=== PATIENT | female | born 1960 | race Caucasian/White ===

== ENCOUNTER → 2016-09-20 | Outpatient (CLI) | payer MEDICARE | LOC: OD 16:56 | PROVIDERS: ATTEND Obstetrics & Gynecology | DX: J84.10 Pulmonary fibrosis, unspecified (principal); I27.2 Other secondary pulmonary hypertension; I50.9 Heart failure, unspecified; M79.661 Pain in right lower leg | CPT/HCPCS: 36415; 83880; 85379 ==

== ENCOUNTER 2016-10-03 09:08 | Emergency (ER) | payer MEDICARE ==
[2016-10-03 10:46] LABS: PROTHROMBIN TIME 24.2 SEC (11.4-15.4)
[2016-10-03 10:47] LABS: HEMATOCRIT 33.4 % (36.0-47.0); HEMOGLOBIN 10.8 g/dL (12.0-15.5); MEAN CORPUSCULAR HEMOGLOBIN 26.7 pg (27.0-33.4); MEAN CORPUSCULAR HGB CONC 32.2 g/dL (32.0-36.0); MEAN CORPUSCULAR VOLUME 83 fl (80-97); RED BLOOD COUNT 4.02 10^6/uL (3.72-5.28); RED CELL DISTRIBUTION WIDTH 18.8 % (11.5-14.0); WHITE BLOOD COUNT 4.6 10^3/uL (4.0-10.5)
[2016-10-03 11:08] LABS: ALANINE AMINOTRANSFERASE 38 U/L (9-52); ALBUMIN 2.2 g/dL (3.5-5.0); ALKALINE PHOSPHATASE 62 U/L (38-126); ASPARTATE AMINO TRANSFERASE 56 U/L (14-36); BILIRUBIN,TOTAL 0.3 mg/dL (0.2-1.3); BLOOD UREA NITROGEN 22 mg/dL (7-20); CHLORIDE 105 mmol/L (98-107); CREATININE RESULT 0.47 mg/dL (0.52-1.25); GLUCOSE 101 mg/dL (75-110); TOTAL PROTEIN 4.8 g/dL (6.3-8.2)
--- NOTE | 2016-10-03 11:08 | ER Document Report ---
ED General - General Chief Complaint: Hand Swelling Stated Complaint: LEFT ARM PAIN, DIFFICULTY BREATHING Mode of Arrival: Ambulatory Information source: Patient Notes: 56-year-old female history of previous pulmonary emboli secondary to surgery who was placed on Coumadin for mechanical valve presents with complaints of left upper extremity edema was noticed today. Patient denies any chest pain shortness breath difficult to breathing. Patient has history of tachycardia. Patient denies any pain in the left arm pt notes inr has been below 2.5 TRAVEL OUTSIDE OF THE [place] IN LAST 30 DAYS: No - HPI Onset: This morning Onset/Duration: Persistent, Better Quality of pain: No pain Severity: Mild Pain Level: Denies Associated symptoms: None Exacerbated by: Denies Relieved by: Denies Similar symptoms previously: No Recently seen / treated by doctor: No - Related Data Allergies/Adverse Reactions: ketorolac tromethamine [From Toradol] Allergy (Unknown, Verified 10/03/16 09:21) clarithromycin [From Biaxin] Allergy (Verified 10/03/16 09:21) acetaminophen [From Percocet] Adverse Reaction (Intermediate, Verified 10/03/16 09:21) morphine [Morphine] Adverse Reaction (Intermediate, Verified 10/03/16 09:21) oxycodone HCl [From Percocet] Adverse Reaction (Intermediate, Verified 10/03/16 09:21) Past Medical History - Social History Smoking Status: Never Smoker Cigarette use (# per day): No Chew tobacco use (# tins/day): No Smoking Education Provided: No Frequency of alcohol use: None Drug Abuse: None Family History: None Patient has suicidal ideation: No Patient has homicidal ideation: No - Past Medical History Cardiac Medical History: Reports: Hx Hypertension, Hx Pulmonary Embolism Denies: Hx Heart Attack Pulmonary Medical History: Reports: Hx Asthma Neurological Medical History: Denies: Hx Cerebrovascular Accident Endocrine Medical History: Reports: Hx Hypothyroidism Renal/ Medical History: Denies: Hx Peritoneal Dialysis Malignancy Medical History: Reports: Hx Lymphoma - Hodgkin's Past Surgical History: Reports: Hx Abdominal Surgery - EXPLORATORY, Hx Cardiac Surgery - Valve replacement x2, Hx Hysterectomy, Hx Valve Replacement - Mitral and aortic - Immunizations Hx Diphtheria, Pertussis, Tetanus Vaccination: Yes Hx Pneumococcal Vaccination: 09/17/10 Review of Systems - Review of Systems Notes: REVIEW OF SYSTEMS: CONSTITUTIONAL : Denies fever, chills, or sweats. Denies recent illness. EENT: Denies eye, ear, throat, or mouth pain or symptoms. Denies nasal or sinus congestion or discharge. Denies throat, tongue, or mouth swelling or difficulty swallowing. CARDIOVASCULAR: Denies chest pain. Denies palpitations or racing or irregular heart beat. Denies ankle edema. RESPIRATORY: Denies cough, cold, or chest congestion. Denies shortness of breath, difficulty breathing, or wheezing. GASTROINTESTINAL: Denies abdominal pain or distention. Denies nausea, vomiting , or diarrhea. Denies blood in vomitus, stools, or per rectum. Denies black, tarry stools. Denies constipation. GENITOURINARY: Denies difficulty urinating, painful urination, burning, frequency, blood in urine, or discharge. FEMALE GENITOURINARY: Denies vaginal bleeding, heavy or abnormal periods, irregular periods. Denies vaginal discharge or odor. MUSCULOSKELETAL: left upper extremity edema SKIN: Denies rash, lesions or sores. HEMATOLOGIC : Denies easy bruising or bleeding. LYMPHATIC: Denies swollen, enlarged glands. NEUROLOGICAL: Denies confusion or altered mental status. Denies passing out or loss of consciousness. Denies dizziness or lightheadedness. Denies headache. Denies weakness or paralysis or loss of use of either side. Denies problems with gait or speech. Denies sensory loss, numbness, or tingling. Denies seizures. PSYCHIATRIC: Denies anxiety or stress. Denies depression, suicidal ideation, or homicidal ideation. ALL OTHER SYSTEMS REVIEWED AND NEGATIVE. Dictation was performed using [employer] voice recognition software PHYSICAL EXAMINATION: GENERAL: Well-appearing, well-nourished and in no acute distress. HEAD: Atraumatic, normocephalic. EYES: Pupils equal round and reactive to light, extraocular movements intact, conjunctiva are normal. ENT: Nares patent, oropharynx clear without exudates. Moist mucous membranes. NECK: Normal range of motion, supple without lymphadenopathy LUNGS: Breath sounds clear to auscultation bilaterally and equal. No wheezes rales or rhonchi. HEART: baseline sinus tachycardic ABDOMEN: Soft, nontender, nondistended abdomen. No guarding, no rebound. No masses appreciated. Female : deferred Musculoskeletal: no significant edema noted NEUROLOGICAL: Cranial nerves grossly intact. Normal speech, normal gait. Normal sensory, motor exams PSYCH: Normal mood, normal affect. SKIN: Warm, Dry, normal turgor, no rashes or lesions noted. Physical Exam - Vital signs Vitals: Temp Pulse Resp BP Pulse Ox 97.8 F 99 22 H 118/54 L 95 10/03/16 09:21 10/03/16 09:21 10/03/16 09:21 10/03/16 09:21 10/03/16 09:21 Course - Re-evaluation Re-evalutation: 10/03/16 11:08 Patient admits that her edema has improved significantly, Doppler will be performed as well as an x-ray to rule out any obstructive process to me because of an upper extremity edema. Patient admits she is not taking her Lasix today 10/03/16 12:26 Imagingno significant abnormality except for fluid overload which patient is aware of, have encouraged her to increase her Lasix as long as her blood pressure stable. Patient is very happy with this plan After performing a Medical Screening Examination, I estimate there is LOW risk for ACUTE CORONARY SYNDROME, RESPIRATORY FAILURE, SEPSIS OR MENINGITIS, thus I consider the discharge disposition reasonable. The patient and I have discussed the diagnosis and risks, and we agree with discharging home with close follow- up. We also discussed returning to the Emergency Department immediately if new or worsening symptoms occur. We have discussed the symptoms which are most concerning (e.g., changing or worsening pain, trouble swallowing or breathing, neck stiffness, fever) that necessitate immediate return. - Vital Signs Vital signs: Temp Pulse Resp BP Pulse Ox 97.8 F 99 22 H 118/54 L 95 10/03/16 09:21 10/03/16 09:21 10/03/16 09:21 10/03/16 09:21 10/03/16 09:21 - Laboratory Result Diagrams: 10/03/16 10:20 10/03/16 10:20 Laboratory results interpreted by me: 10/03/16 10/03/16 10/03/16 10:20 10:20 10:20 Hgb 10.8 L Hct 33.4 L MCH 26.7 L RDW 18.8 H Basophils % (Manual) 3 H PT 24.2 H Carbon Dioxide 33 H Anion Gap 1 L BUN 22 H Creatinine 0.47 L Calcium 8.0 L AST 56 H Total Protein 4.8 L Albumin 2.2 L - Diagnostic Test Radiology reviewed: Image reviewed, Reports reviewed Discharge - Discharge Clinical Impression: left upper extremities edema CHF (congestive heart failure) Qualifiers: Congestive heart failure type: unspecified congestive heart failure type Congestive heart failure chronicity: acute Qualified Code(s): I50.9 - Heart failure, unspecified Condition: Stable Disposition: HOME, SELF-CARE Additional Instructions: Follow up with your physician tomorrow for further care or return to the ED IMMEDIATELY if symptoms worsen or new concerns occur Referrals: JAMMIE ALMAGUER MD [Primary Care Provider] - Follow up in 3-5 days
[2016-10-03 11:14] LABS: BASOPHILS % (MANUAL) 3 % (0-2); EOSINOPHILS % (MANUAL) 2 % (0-6); LYMPHOCYTES % (MANUAL) 15 % (13-45); TOTAL CELLS COUNTED 100
[2016-10-03 11:15] LABS: CARBON DIOXIDE 33 mmol/L (22-30); POTASSIUM 4.1 mmol/L (3.6-5.0); SODIUM 138.9 mmol/L (137-145)
[2016-10-03 11:17] LABS: ANISOCYTOSIS 1+; HYPOCHROMASIA SLIGHT; OVALOCYTES 1+; POIKILOCYTOSIS 2+; POLYCHROMASIA SLIGHT; SCHISTOCYTES 1+; TARGET CELLS SLIGHT
[2016-10-03 11:20] LABS: ANION GAP 1 (5-19)
[2016-10-03 12:38] VITALS: BP 106/55
--- NOTE | 2016-10-03 16:33 | EKG REPORT ---
SEVERITY:- ABNORMAL ECG - ATRIAL-SENSED VENTRICULAR-PACED RHYTHM : Confirmed by: Yohan Rhodes MD 03-Oct-2016 16:32:17
== END 2016-10-03 12:36 | disposition home or self-care (01) ==
LOC: ER 09:08
DX: M79.89 Other specified soft tissue disorders (principal); R06.00 Dyspnea, unspecified; I10 Essential (primary) hypertension; Z88.6 Allergy status to analgesic agent; Z86.711 Personal history of pulmonary embolism; Z95.2 Presence of prosthetic heart valve
CPT/HCPCS: 36415; 71020; 80053; 85025; 85610; 93005; 93010; 93971; 99284

== ENCOUNTER 2016-10-21 18:17 | Inpatient (IN) | payer MEDICARE ==
--- NOTE | 2016-10-21 18:37 | ER Document Report ---
ED Medical Screen (RME) - General Stated Complaint: HEART PROBLEM Notes: Patient presents with difficulty breathing and shortness of breath since yesterday. Patient concerned for heart problems because she does have 2 mechanical valves, although she denies chest pain. She is unable to keep Levaquin down for 2 doses that she keeps on hand in case she gets bronchitis. She does admit to nonproductive cough and nasal drainage. States she thinks she had a fever I have greeted and performed a rapid initial assessment of this patient. A comprehensive ED assessment and evaluation of the patient, analysis of test results and completion of the medical decision making process will be conducted by additional ED providers.. TRAVEL OUTSIDE OF THE [place] IN LAST 30 DAYS: No - Related Data Allergies/Adverse Reactions: ketorolac tromethamine [From Toradol] Allergy (Unknown, Verified 10/21/16 18:30) clarithromycin [From Biaxin] Allergy (Verified 10/21/16 18:30) acetaminophen [From Percocet] Adverse Reaction (Intermediate, Verified 10/21/16 18:30) morphine [Morphine] Adverse Reaction (Intermediate, Verified 10/21/16 18:30) oxycodone HCl [From Percocet] Adverse Reaction (Intermediate, Verified 10/21/16 18:30) Past Medical History - Past Medical History Cardiac Medical History: Reports: Hx Hypertension, Hx Pulmonary Embolism Denies: Hx Heart Attack Pulmonary Medical History: Reports: Hx Asthma Neurological Medical History: Denies: Hx Cerebrovascular Accident Endocrine Medical History: Reports: Hx Hypothyroidism Renal/ Medical History: Denies: Hx Peritoneal Dialysis Malignancy Medical History: Reports: Hx Lymphoma - Hodgkin's Past Surgical History: Reports: Hx Abdominal Surgery - EXPLORATORY, Hx Cardiac Surgery - Valve replacement x2, Hx Hysterectomy, Hx Valve Replacement - Mitral and aortic - Immunizations Hx Diphtheria, Pertussis, Tetanus Vaccination: Yes
[2016-10-21 19:20] LABS: ABSOLUTE BASOPHILS # (AUTO) 0.1 10^3/uL (0.0-0.2); ABSOLUTE LYMPHOCYTES (AUTO) 0.8 10^3/uL (0.5-4.7); ABSOLUTE MONOCYTES (AUTO) 0.7 10^3/uL (0.1-1.4); BASOPHILS % (AUTO) 0.7 % (0-2); EOSINOPHILS % (AUTO) 0.5 % (0-6); HEMATOCRIT 33.6 % (36.0-47.0); HEMOGLOBIN 10.8 g/dL (12.0-15.5); HGB HCT DIFFERENCE -1.2; LYMPHOCYTES % (AUTO) 10.4 % (13-45); MEAN CORPUSCULAR HEMOGLOBIN 26.4 pg (27.0-33.4); MEAN CORPUSCULAR HGB CONC 32.2 g/dL (32.0-36.0); MEAN CORPUSCULAR VOLUME 82 fl (80-97); MONOCYTES % (AUTO) 8.7 % (3-13); RED BLOOD COUNT 4.11 10^6/uL (3.72-5.28); RED CELL DISTRIBUTION WIDTH 18.7 % (11.5-14.0); SEGMENTED NEUTROPHILS % (AUTO) 79.7 % (42-78); WHITE BLOOD COUNT 7.5 10^3/uL (4.0-10.5)
--- NOTE | 2016-10-21 19:25 | ER Document Report ---
ED Respiratory Problem - General Chief Complaint: Breathing Difficulty Stated Complaint: HEART PROBLEM Time seen by provider: 19:20 Mode of Arrival: Ambulatory Information source: Patient Notes: 56-year-old female presents to ED for difficulty breathing shortness of breath since yesterday patient has 2 mechanical valves the aortic and mitral and a pacemaker. She denies any chest pain at this time. She states she has rhinorrhea, sore throat, and cough and took Levaquin yesterday kept it down this today at around lunchtime she took a second dose into it up for her bronchitis that she has frequently. TRAVEL OUTSIDE OF THE [place] IN LAST 30 DAYS: No - HPI Patient complains to provider of: Cough, Short of breath Onset: Other - 2 days Duration: Continuous Initiating Event: URI, Other - Has history of to mechanical valve heart and pacemaker Quality of pain: No pain Severity: None Pain Level: Denies Context: Other - Pacemaker with 2 mechanical valves aortic and mitral Short of Breath: Moderate Cough: Nonproductive Sputum amount: None At home treatment: Bronchodilators Associated symptoms: Cough, PND, Runny nose, Short of breath Similar symptoms previously: Yes Recently seen / treated by doctor: No - Related Data Allergies/Adverse Reactions: ketorolac tromethamine [From Toradol] Allergy (Unknown, Verified 10/21/16 18:30) clarithromycin [From Biaxin] Allergy (Verified 10/21/16 18:30) acetaminophen [From Percocet] Adverse Reaction (Intermediate, Verified 10/21/16 18:30) morphine [Morphine] Adverse Reaction (Intermediate, Verified 10/21/16 18:30) oxycodone HCl [From Percocet] Adverse Reaction (Intermediate, Verified 10/21/16 18:30) Home Medications: Current Home Medications Calcium Carb/D3/Magnesium/Zinc [Kimo Mag Zinc + D Tablet] 1 tab PO DAILY [History] Cholecalciferol (Vitamin D3) [Vitamin D3] 10,000 unit PO Q2D 10/21/16 [History] Fluticasone/Salmeterol [Advair 250-50 Diskus 28 dose] 1 inh IH DAILY 10/21/16 [ History] Furosemide [Furosemide] 1 tab PO DAILY 10/21/16 [History] Levalbuterol Tartrate [Xopenex Hfa] 1 dose NEB PRN PRN 10/21/16 [History] Levothyroxine Sodium [Synthroid] 1 tab PO DAILY 10/21/16 [History] Rosuvastatin Calcium [Crestor 10 mg Tablet] 10 mg PO QHS 10/21/16 [History] Spironolactone 25 mg PO PRN PRN 10/21/16 [History] Tramadol HCl [Tramadol HCl] 0.5 - 1 tab PO PRN PRN 10/21/16 [History] Warfarin Sodium [Coumadin] 9 mg PO Q2D 10/21/16 [History] Past Medical History - General Information source: Patient - Social History Smoking Status: Unknown if Ever Smoked Chew tobacco use (# tins/day): No Frequency of alcohol use: None Drug Abuse: None Occupation: none Lives with: Family Family History: Arthritis, Malignancy, Thyroid Disfunction Patient has suicidal ideation: No Patient has homicidal ideation: No - Past Medical History Cardiac Medical History: Reports: Hx Pulmonary Embolism, Other - 2 mechanical valves aortic and mitral Pulmonary Medical History: Reports: Hx Asthma, Hx Bronchitis, Hx Pneumonia EENT Medical History: Reports: None Neurological Medical History: Reports: None Endocrine Medical History: Reports: Hx Hypothyroidism Renal/ Medical History: Reports: None Malignancy Medical History: Reports: Hx Lymphoma - Hodgkin's at age 11 GI Medical History: Reports: None Musculoskeltal Medical History: Reports Hx Arthritis Skin Medical History: Reports None Psychiatric Medical History: Reports: None Traumatic Medical History: Reports: None Infectious Medical History: Reports: None Past Surgical History: Reports: Hx Abdominal Surgery - EXPLORATORY, Hx Cardiac Surgery - Valve replacement x2, Hx Hysterectomy, Hx Valve Replacement - Mitral and aortic, Other - Chest tubes of the valve replacement and lung surgery due to bleeding - Immunizations Immunizations up to date: Yes Hx Diphtheria, Pertussis, Tetanus Vaccination: Yes Hx Pneumococcal Vaccination: 09/17/10 Review of Systems - Review of Systems Constitutional: No symptoms reported EENT: Nose discharge, Sinus discharge, Throat pain Cardiovascular: No symptoms reported Respiratory: Cough, Short of breath Gastrointestinal: No symptoms reported Genitourinary: No symptoms reported Female Genitourinary: No symptoms reported Musculoskeletal: No symptoms reported Skin: No symptoms reported Hematologic/Lymphatic: No symptoms reported Neurological/Psychological: No symptoms reported Physical Exam - Vital signs Vitals: Temp Pulse Resp BP Pulse Ox 98.8 F 122 H 28 H 128/68 H 92 10/21/16 18:30 10/21/16 18:30 10/21/16 18:30 10/21/16 18:30 10/21/16 18:30 Interpretation: Hypertensive, Tachycardic, Tachypneic - General General appearance: Appears well, Alert - HEENT Head: Normocephalic, Atraumatic Eyes: Normal Pupils: PERRL Ears: Normal External canal: Normal Tympanic membrane: Normal Sinus: Normal Nasal: Swelling, Clear rhinorrhea Mouth/Lips: Normal Mucous membranes: Normal Pharynx: Erythema Neck: Normal - Respiratory Respiratory status: No respiratory distress, Tachypnea Chest status: Nontender Breath sounds: Nonproductive cough Chest palpation: Normal - Cardiovascular Rhythm: Irregularly irregular, Tachycardia Heart sounds: No: Normal auscultation - Patient has mechanical valve. Paced rhythm Murmur: No - Abdominal Inspection: Normal Distension: No distension Bowel sounds: Normal Tenderness: Nontender Organomegaly: No organomegaly - Back Back: Normal, Nontender - Extremities General upper extremity: Normal inspection, Nontender, Normal color, Normal ROM , Normal temperature General lower extremity: Normal inspection, Nontender, Normal color, Normal ROM , Normal temperature, Normal weight bearing. No: Mecca's sign - Neurological Neuro grossly intact: Yes Cognition: Normal Orientation: AAOx4 Stefania Coma Scale Eye Opening: Spontaneous [place] Coma Scale Verbal: Oriented Stefania Coma Scale Motor: Obeys Commands Stefania Coma Scale Total: 15 Speech: Normal Motor strength normal: LUE, RUE, LLE, RLE Sensory: Normal - Psychological Associated symptoms: Anxious - Skin Skin Temperature: Warm Skin Moisture: Dry Skin Color: Normal Course - Re-evaluation Re-evalutation: 10/21/16 23:[address] Bower multiple times during this shift. Patient has been treated with Lasix 40 mg IV for her CHF. Patient will get admitted to Dr. Hdz for shortness of breath and CHF. - Vital Signs Vital signs: Temp Pulse Resp BP Pulse Ox 98.8 F 122 H 23 H 119/63 96 10/21/16 18:30 10/21/16 18:30 10/22/16 05:45 10/22/16 05:01 10/22/16 05:45 - Laboratory Result Diagrams: 10/21/16 18:50 10/21/16 18:50 Laboratory results interpreted by me: 10/21/16 10/21/16 10/21/16 18:50 18:50 18:50 Hgb 10.8 L Hct 33.6 L MCH 26.4 L RDW 18.7 H Seg Neutrophils % 79.7 H Lymphocytes % 10.4 L PT 30.7 H Sodium 135.7 L Carbon Dioxide 32 H Anion Gap 2 L Creatinine 0.46 L Calcium 8.3 L AST 71 H ALT 54 H Total Protein 4.7 L Albumin 2.4 L Urine Protein Ur Leukocyte Esterase Urine Ascorbic Acid 10/21/16 18:50 Hgb Hct MCH RDW Seg Neutrophils % Lymphocytes % PT Sodium Carbon Dioxide Anion Gap Creatinine Calcium AST ALT Total Protein Albumin Urine Protein 30 H Ur Leukocyte Esterase TRACE H Urine Ascorbic Acid 40 H - Diagnostic Test Radiology reviewed: Image reviewed, Reports reviewed - Consults Derek Time consulted: 23:57 Reason for consultation: 10/21/16 23:57 History of heart failure was shortness of breath tachycardic. Dr. Hdz was in the emergency room when I spoke to him he will see the patient and admit her to telemetry. Consulted provider: will come to ER Discharge - Discharge Clinical Impression: CHF (congestive heart failure) Qualifiers: Congestive heart failure type: unspecified congestive heart failure type Congestive heart failure chronicity: unspecified congestive heart failure chronicity Qualified Code(s): I50.9 - Heart failure, unspecified Dyspnea Qualifiers: Dyspnea type: shortness of breath Qualified Code(s): R06.02 - Shortness of breath Disposition: ADMITTED INPATIENT Admitting Provider: Caroline hdz Unit Admitted: Telemetry
[2016-10-21 19:31] LABS: PROTHROMBIN TIME 30.7 SEC (11.4-15.4)
[2016-10-21 19:34] LABS: AMORPHOUS SEDIMENT,URINE TRACE /HPF; APPEARANCE,URINE SLIGHTLY-CLOUDY; BILIRUBIN,URINE NEGATIVE (NEGATIVE); GLUCOSE, URINE NEGATIVE (NEGATIVE); KETONES,URINE NEGATIVE (NEGATIVE); LEUKOCYTE ESTERASE,URINE TRACE (NEGATIVE); NITRITE,URINE NEGATIVE (NEGATIVE); PROTEIN,URINE 30 mg/dL (NEGATIVE); URINE SPECIFIC GRAVITY 1.025; UROBILINOGEN,URINE NEGATIVE mg/dL (<2.0)
[2016-10-21 19:39] LABS: ALANINE AMINOTRANSFERASE 54 U/L (9-52); ALBUMIN 2.4 g/dL (3.5-5.0); ALKALINE PHOSPHATASE 83 U/L (38-126); ASPARTATE AMINO TRANSFERASE 71 U/L (14-36); BILIRUBIN,TOTAL 0.6 mg/dL (0.2-1.3); BLOOD UREA NITROGEN 20 mg/dL (7-20); CALCIUM 8.3 mg/dL (8.4-10.2); CREATINE KINASE 58 U/L (30-135); CREATININE RESULT 0.46 mg/dL (0.52-1.25); GLUCOSE 89 mg/dL (75-110); TOTAL PROTEIN 4.7 g/dL (6.3-8.2)
[2016-10-21 19:51] LABS: CREATINE KINASE MB 0.54 ng/mL (<4.55)
[2016-10-21 20:03] LABS: TROPONIN I < 0.012 ng/mL
[2016-10-21 20:04] LABS: ANION GAP 2 (5-19)
[2016-10-21 20:05] LABS: CARBON DIOXIDE 32 mmol/L (22-30); CHLORIDE 102 mmol/L (98-107); POTASSIUM 4.4 mmol/L (3.6-5.0); SODIUM 135.7 mmol/L (137-145)
[2016-10-21] MEDS ORDERED: NORMAL SALINE 1000 ML 1,000 ML IV ONE (20:25)
--- NOTE | 2016-10-21 22:13 | EKG REPORT ---
SEVERITY:- ABNORMAL ECG - VENTRICULAR-PACED RHYTHM : Confirmed by: Dave Gomez 21-Oct-2016 22:12:46
[2016-10-21] MEDS ORDERED: FUROSEMIDE INJ/PF 40 MG/4 ML SDV IV ONE (22:44)
[2016-10-21] MEDS ORDERED: METOPROLOL TARTRATE PF/INJ 5 MG/5 ML SDV IV ONE ×2 (23:51→23:53)
[2016-10-22] MEDS ORDERED: LORAZEPAM INJ 2 MG/1 ML VIAL IV ONE (00:21)
[2016-10-22] MEDS ORDERED: LORAZEPAM INJ 2 MG/1 ML VIAL ONE (00:27)
[2016-10-22] MEDS ORDERED: DOXYCYCLINE HYCLATE 100 MG in DEXTROSE 5%-WATER 250 ML IV ONE (00:45)
[2016-10-22] MEDS ORDERED: FLUTICASONE NASAL SPRAY 50 MCG/SPRY 120 SPRAY/16 GM NASL ONE (00:45)
[2016-10-22] MEDS ORDERED: WARFARIN SODIUM 4 MG TABLET PO ONE (01:00)
[2016-10-22 01:24] LABS: CREATINE KINASE MB 0.48 ng/mL (<4.55)
[2016-10-22 01:25] LABS: TROPONIN I < 0.012 ng/mL
[2016-10-22 01:57] LABS: PROTHROMBIN TIME 27.6 SEC (11.4-15.4)
[2016-10-22] MEDS ORDERED: DOXYCYCLINE HYCLATE INJ 100 MG VIAL ONE (02:10)
[2016-10-22] MEDS ORDERED: METOPROLOL TARTRATE PF/INJ 5 MG/5 ML SDV IV ONE ×2 (02:24→04:31)
[2016-10-22] MEDS ORDERED: FLUTICASONE NASAL SPRAY 50 MCG/SPRY 120 SPRAY/16 GM ONE (02:54)
[2016-10-22] MEDS ORDERED: WARFARIN SODIUM 4 MG TABLET ONE (02:55)
[2016-10-22] MEDS: LORAZEPAM INJ 2 MG/1 ML VIAL IV PRN (04:58)
[2016-10-22 06:43] LABS: HEMATOCRIT 32.7 % (36.0-47.0); HEMOGLOBIN 10.8 g/dL (12.0-15.5); HGB HCT DIFFERENCE -0.3; MEAN CORPUSCULAR HEMOGLOBIN 26.4 pg (27.0-33.4); MEAN CORPUSCULAR VOLUME 80 fl (80-97); RED BLOOD COUNT 4.09 10^6/uL (3.72-5.28); RED CELL DISTRIBUTION WIDTH 18.6 % (11.5-14.0); WHITE BLOOD COUNT 9.2 10^3/uL (4.0-10.5)
[2016-10-22 07:15] LABS: CREATINE KINASE MB < 0.22 ng/mL (<4.55); TROPONIN I < 0.012 ng/mL
--- NOTE | 2016-10-22 07:43 | PDOC H&P ---
History of Present Illness Admission Date/PCP: 10/22/16 00:10 JAMMIE ALMAGUER MD Patient complains of: Shortness of breath History of Present Illness: DURAN MI is a 56 year old female with a complex past medical history including Hodgkin's lymphoma at 11 years old and in remission after radiation though resulted in pulmonary fibrosis with chronic effusion and damage to the aortic and mitral valve requiring replacement at [facility] in February 2009, on chronic anticoagulation and thyroid replacement, complicated by anxiety. She had been her usual state of health until approximately 4 days ago noting rhinorrhea postnasal drip sore throat, nonproductive cough and shortness of breath she diagnosed herself with bronchitis and tried to take by mouth Levaquin but was intolerant secondary to nausea and vomiting prompting her to seek evaluation emergency room. She is found to have uncontrolled tachycardia in the 120s and tachypnea in the 30s with an elevation of her BNP otherwise unremarkable cardiac enzymes, unremarkable CT chest, unremarkable CBC with a therapeutic INR. Referred to the hospitalist for admission. Past Medical History Cardiac Medical History: Reports: Hypertension, Pulmonary Embolism, Other - 2 mechanical valves aortic and mitral Denies: Myocardial Infarction Pulmonary Medical History: Reports: Asthma, Bronchitis, Pneumonia, Other - Pulmonary fibrosis and small chronic pleural effusion left greater than right secondary to radiation [facility] Medical History: Reports: None Neurological Medical History: Reports: None Endocrine Medical History: Reports: Hypothyroidism Renal/ Medical History: Reports: None Malignancy Medical History: Reports: Lymphoma - Hodgkin's at age 11 GI Medical History: Reports: None Musculoskeltal Medical History: Reports: Arthritis Skin Medical History: Reports: None Psychiatric Medical History: Reports: None, General Anxiety Disorder Traumatic Medical History: Reports: None Infectious Medical History: Reports: None Past Surgical History Past Surgical History: Reports: Hysterectomy, Valve Replacement - Mitral and aortic, Other - Chest tubes of the valve replacement and lung surgery due to bleeding Social History Information Source: Patient Lives with: Family Smoking Status: Unknown if Ever Smoked Frequency of Alcohol Use: None Hx Recreational Drug Use: No Drugs: None - Advance Directive Resuscitation Status: Full Code Family History Family History: Arthritis, Malignancy, Thyroid Disfunction Parental Family History Reviewed: Yes Children Family History Reviewed: Yes Sibling(s) Family History Reviewed.: Yes Medication/Allergy Home Medications: Folic Acid [Folvite 1 mg Tablet] 1 mg PO DAILY 04/23/13 Nebivolol HCl [Bystolic] 0.5 tab PO QPM 04/23/13 Warfarin Sodium [Coumadin 4 mg Tablet] 8 mg PO Q2DAYS 04/23/13 Calcium Carb/D3/Magnesium/Zinc [Kimo Mag Zinc + D Tablet] 1 tab PO DAILY Cholecalciferol (Vitamin D3) [Vitamin D3] 10,000 unit PO Q2D 10/21/16 Fluticasone/Salmeterol [Advair 250-50 Diskus 28 dose] 1 inh IH DAILY 10/21/16 Furosemide [Furosemide] 1 tab PO DAILY 10/21/16 Levalbuterol Tartrate [Xopenex Hfa] 1 dose NEB PRN PRN 10/21/16 Levothyroxine Sodium [Synthroid] 1 tab PO DAILY 10/21/16 Rosuvastatin Calcium [Crestor 10 mg Tablet] 10 mg PO QHS 10/21/16 Spironolactone 25 mg PO PRN PRN 10/21/16 Tramadol HCl [Tramadol HCl] 0.5 - 1 tab PO PRN PRN 10/21/16 Warfarin Sodium [Coumadin] 9 mg PO Q2D 10/21/16 Allergies/Adverse Reactions: ketorolac tromethamine [From Toradol] Allergy (Unknown, Verified 10/21/16 18:30) clarithromycin [From Biaxin] Allergy (Verified 10/21/16 18:30) acetaminophen [From Percocet] Adverse Reaction (Intermediate, Verified 10/21/16 18:30) morphine [Morphine] Adverse Reaction (Intermediate, Verified 10/21/16 18:30) oxycodone HCl [From Percocet] Adverse Reaction (Intermediate, Verified 10/21/16 18:30) Review of Systems Constitutional: PRESENT: as per HPI, anorexia, chills, fatigue, fever(s), weakness Eyes: ABSENT: visual disturbances Ears: ABSENT: hearing changes Cardiovascular: PRESENT: palpitations Respiratory: PRESENT: cough, dyspnea. ABSENT: hemoptysis, sputum Gastrointestinal: ABSENT: abdominal pain, constipation, diarrhea, hematemesis, hematochezia, nausea, vomiting Genitourinary: ABSENT: dysuria, hematuria Musculoskeletal: ABSENT: joint swelling Integumentary: ABSENT: rash, wounds Neurological: ABSENT: abnormal gait, abnormal speech, confusion, dizziness, focal weakness, syncope Psychiatric: PRESENT: anxiety Endocrine: ABSENT: cold intolerance, heat intolerance, polydipsia, polyuria Hematologic/Lymphatic: ABSENT: easy bleeding, easy bruising Physical Exam Vital Signs: Temp Pulse Resp BP Pulse Ox 98.8 F 122 H 32 H 102/56 L 93 10/21/16 18:30 10/21/16 18:30 10/22/16 06:30 10/22/16 06:01 10/22/16 06:30 General appearance: PRESENT: cooperative, severe distress, thin Head exam: PRESENT: atraumatic, normocephalic Eye exam: PRESENT: conjunctiva pink, EOMI, PERRLA. ABSENT: scleral icterus Ear exam: PRESENT: normal external ear exam Mouth exam: PRESENT: moist, tongue midline Neck exam: ABSENT: carotid bruit, JVD, lymphadenopathy, thyromegaly Respiratory exam: PRESENT: accessory muscle use, crackles, prolonged expiratory phas, symmetrical, tachypnea. ABSENT: chest wall tenderness, wheezes Cardiovascular exam: PRESENT: gallop, +S1, +S2, systolic murmur, tachycardia Pulses: PRESENT: normal dorsalis pedis pul Vascular exam: PRESENT: normal capillary refill GI/Abdominal exam: PRESENT: normal bowel sounds, soft. ABSENT: distended, guarding, mass, organolmegaly, rebound, tenderness Rectal exam: PRESENT: deferred Extremities exam: PRESENT: full ROM. ABSENT: calf tenderness, clubbing, pedal edema Neurological exam: PRESENT: alert, awake, oriented to person, oriented to place , oriented to time, oriented to situation, CN II-XII grossly intact. ABSENT: motor sensory deficit Psychiatric exam: PRESENT: anxious Skin exam: PRESENT: dry, intact, warm. ABSENT: cyanosis, rash Results Laboratory Results: 10/22/16 06:27 10/22/16 10/22/16 10/22/16 00:42 00:42 06:27 WBC 9.2 RBC 4.09 Hgb 10.8 L Hct 32.7 L MCV 80 MCH 26.4 L MCHC 33.0 RDW 18.6 H Plt Count 317 Prealbumin 18.6 TSH 6.28 H 10/22/16 10/22/16 10/22/16 00:42 00:42 06:27 Creatine Kinase 60 42 CK-MB (CK-2) 0.48 Troponin I < 0.012 10/22/16 06:27 Creatine Kinase CK-MB (CK-2) < 0.22 Troponin I < 0.012 Impressions: Chest X-Ray 10/21/16 18:32 IMPRESSION: CARDIAC ENLARGEMENT. VASCULAR CONGESTION. SIMILAR APPEARANCE TO THE PRIOR STUDY. Chest CT 10/22/16 00:00 IMPRESSION: RELATIVELY STABLE APPEARANCE OF LOWER LOBE INTERSTITIAL THICKENING WITH PATCHY GROUND-GLASS OPACITIES AND SMALL BILATERAL PLEURAL EFFUSIONS PRESUMABLY REPRESENTS PULMONARY EDEMA HOWEVER SUPERIMPOSED INFECTIOUS INFLAMMATORY PROCESS IS NOT EXCLUDED. THERE HAS BEEN INTERVAL DECREASE IN PREVIOUSLY IDENTIFIED PERICARDIAL EFFUSION. OTHERWISE STABLE APPEARANCE OF THE CHEST. Assessment & Plan - Diagnosis (1) Pulmonary hypertension Is this a current diagnosis for this admission?: YesPlan: Evaluation of echocardiogram within the last 6 months reveals a preserved ejection fraction but a elevated RVSP of 50. I'm concerned for untreated pulmonary hypertension and she'll be placed on oxygen and cpap (2) CHF (congestive heart failure) Qualifiers: Congestive heart failure type: diastolic Congestive heart failure chronicity: unspecified congestive heart failure chronicity Qualified Code(s): I50.30 - Unspecified diastolic (congestive) heart failure Is this a current diagnosis for this admission?: YesPlan: Believe she has a element of diastolic heart failure exacerbated by tachycardia will optimize her medications for reduction in heart rate, obtain serial cardiac enzymes and symptomatically management with consideration of cardiology consult (3) Acute bronchitis Is this a current diagnosis for this admission?: YesPlan: Without documented leukocytosis or fever however I believe her symptoms and comorbidity justify upper respiratory infection management with Flonase, Xopenex and a trial of IV doxycycline as I am concerned for a very rapid decompensation if she develops pneumonia given pulmonary fibrosis. (4) Pulmonary fibrosis Is this a current diagnosis for this admission?: YesPlan: Collocated by pulmonary fibrosis, pulmonary hypertension and pleural effusions. We'll closely monitor for worsening and consider reimaging (5) Anxiety Is this a current diagnosis for this admission?: YesPlan: Symptomatic management, I suspect her tachycardia is exacerbated by anxiety. Evaluation of TSH appears normal - Time Time Spent: 50 to 70 Minutes
[2016-10-22] MEDS: IPRATROPIUM BROMIDE 0.02% NEB 0.5 MG/2.5 ML AMPUL NEB SCH ×3 (08:34→23:19)
[2016-10-22] MEDS: LEVALBUTEROL HCL NEB 1.25 MG/3 ML AMPUL NEB SCH ×3 (08:34→23:19)
[2016-10-22] MEDS: DOXYCYCLINE HYCLATE 100 MG in DEXTROSE 5%-WATER 250 ML IV SCH ×2 (11:08→22:38)
[2016-10-22] MEDS: METHYLPREDNISOLONE INJ 40 MG/1 ML SDV IV SCH ×2 (11:08→22:39)
--- NOTE | 2016-10-22 11:08 | PDOC PROGRESS REPORT ---
Subjective Progress Note for:: 10/22/16 Subjective:: Complains of a cough. Physical Exam Vital Signs: Temp Pulse Resp BP Pulse Ox 98.8 F 119 H 18 102/56 L 100 10/21/16 18:30 10/22/16 08:34 10/22/16 08:34 10/22/16 06:01 10/22/16 08:34 General appearance: PRESENT: no acute distress, thin Head exam: PRESENT: atraumatic, normocephalic Eye exam: PRESENT: conjunctiva pink. ABSENT: scleral icterus Mouth exam: PRESENT: moist, tongue midline Neck exam: ABSENT: JVD Respiratory exam: PRESENT: wheezes - Bilateral expiratory wheezes. Cardiovascular exam: PRESENT: systolic murmur - With mechanical click, tachycardia. ABSENT: diastolic murmur, rubs GI/Abdominal exam: PRESENT: normal bowel sounds, soft. ABSENT: distended, guarding, mass, organolmegaly, rebound, tenderness Extremities exam: ABSENT: calf tenderness, clubbing, pedal edema Neurological exam: PRESENT: alert, awake, oriented to person, oriented to place , oriented to time, oriented to situation Results Laboratory Results: 10/22/16 06:27 10/22/16 10/22/16 10/22/16 00:42 00:42 06:27 WBC 9.2 RBC 4.09 Hgb 10.8 L Hct 32.7 L MCV 80 MCH 26.4 L MCHC 33.0 RDW 18.6 H Plt Count 317 Prealbumin 18.6 TSH 6.28 H 10/22/16 10/22/16 10/22/16 00:42 00:42 06:27 Creatine Kinase 60 42 CK-MB (CK-2) 0.48 Troponin I < 0.012 10/22/16 06:27 Creatine Kinase CK-MB (CK-2) < 0.22 Troponin I < 0.012 Impressions: Chest X-Ray 10/21/16 18:32 IMPRESSION: CARDIAC ENLARGEMENT. VASCULAR CONGESTION. SIMILAR APPEARANCE TO THE PRIOR STUDY. Chest CT 10/22/16 00:00 IMPRESSION: RELATIVELY STABLE APPEARANCE OF LOWER LOBE INTERSTITIAL THICKENING WITH PATCHY GROUND-GLASS OPACITIES AND SMALL BILATERAL PLEURAL EFFUSIONS PRESUMABLY REPRESENTS PULMONARY EDEMA HOWEVER SUPERIMPOSED INFECTIOUS INFLAMMATORY PROCESS IS NOT EXCLUDED. THERE HAS BEEN INTERVAL DECREASE IN PREVIOUSLY IDENTIFIED PERICARDIAL EFFUSION. OTHERWISE STABLE APPEARANCE OF THE CHEST. Assessment & Plan - Diagnosis (1) Acute bronchitis Is this a current diagnosis for this admission?: YesPlan: Patient has been started on doxycycline. She does have some wheezing and is not clear how much of this is from her pulmonary fibrosis. We'll start on some IV steroids. (2) Anxiety Is this a current diagnosis for this admission?: YesPlan: Improved with Ativan. (3) CHF (congestive heart failure) Qualifiers: Congestive heart failure type: diastolic Congestive heart failure chronicity: unspecified congestive heart failure chronicity Qualified Code(s): I50.30 - Unspecified diastolic (congestive) heart failure Is this a current diagnosis for this admission?: YesPlan: Most likely heart rate related. This should improve as her heart rate improves. (4) Pulmonary fibrosis Is this a current diagnosis for this admission?: YesPlan: Patient has wheezes on exam. It's not clear how much of this is fibrosis however we will give IV steroids in case her is any reactive airway disease component to this. (5) Pulmonary hypertension Is this a current diagnosis for this admission?: Yes (6) Valvular heart disease Is this a current diagnosis for this admission?: YesPlan: Patient is therapeutic on Coumadin. - Time Time Spent with patient: 25-34 minutes - Inpatient Certification Medical Necessity: Need Close Monitoring Due to Risk of Patient Decompensation
[2016-10-22] MEDS: FLUTICASONE NASAL SPRAY 50 MCG/SPRY 120 SPRAY/16 GM NASL SCH (11:09)
[2016-10-22 13:27] LABS: CREATINE KINASE MB < 0.22 ng/mL (<4.55); TROPONIN I < 0.012 ng/mL
--- NOTE | 2016-10-22 19:31 | EKG REPORT ---
SEVERITY:- ABNORMAL ECG - PAROXYSMAL ATRIAL TACHYCARDIA VS AFIB NONSPECIFIC INTRAVENTRICULAR CONDUCTION DELAY CONSIDER LEFT VENTRICULAR HYPERTROPHY ALSO CONSIDER LEFT ARM RIGHT ARM LEAD REVERSAL : Confirmed by: Dave Gomez 22-Oct-2016 19:30:52
[2016-10-22] MEDS ORDERED: VANCOMYCIN HCL 0 MG in DEXTROSE 5%-WATER 250 ML IV NR (20:30)
[2016-10-22] MEDS ORDERED: ACETAMINOPHEN 325 MG TABLET PO PRN (20:30)
[2016-10-22] MEDS ORDERED: VANCOMYCIN HCL 1,000 MG in DEXTROSE 5%-WATER 250 ML IV ONE (20:30)
[2016-10-22] MEDS ORDERED: TRAMADOL HCL 50 MG TABLET PO PRN (20:31)
[2016-10-22] MEDS ORDERED: LEVOFLOXACIN 750 MG/D5W RTU 750 MG/150 ML RTUPB IV SCH (22:00)
[2016-10-22] MEDS ORDERED: WARFARIN SODIUM 4 MG TABLET PO SCH (22:00)
[2016-10-22] MEDS ORDERED: VANCOMYCIN HCL INJ 1000 MG VIAL ONE (22:45)
[2016-10-22] MEDS ORDERED: WARFARIN SODIUM 3 MG TABLET PO ONE (23:00)
[2016-10-23] MEDS ORDERED: VANCOMYCIN HCL 1,000 MG in DEXTROSE 5%-WATER 250 ML IV ONE ×4 (01:15)
[2016-10-23 05:01] LABS: PROTHROMBIN TIME 26.3 SEC (11.4-15.4)
[2016-10-23] MEDS: LEVOTHYROXINE SODIUM 0.1 MG TABLET PO SCH (07:49)
[2016-10-23] MEDS: LEVALBUTEROL HCL NEB 1.25 MG/3 ML AMPUL NEB SCH ×2 (08:14→15:59)
[2016-10-23] MEDS: IPRATROPIUM BROMIDE 0.02% NEB 0.5 MG/2.5 ML AMPUL NEB SCH ×2 (08:14→15:59)
[2016-10-23] MEDS ORDERED: LEVOFLOXACIN 750 MG/D5W RTU 750 MG/150 ML RTUPB IV ONE (09:15)
[2016-10-23] MEDS: METHYLPREDNISOLONE INJ 40 MG/1 ML SDV IV SCH ×2 (09:42→21:24)
[2016-10-23] MEDS: FOLIC ACID 1 MG TABLET PO SCH (09:43)
[2016-10-23] MEDS: FLUTICASONE NASAL SPRAY 50 MCG/SPRY 120 SPRAY/16 GM NASL SCH (09:43)
[2016-10-23] MEDS ORDERED: CALCIUM CARB PO SCH (10:00)
[2016-10-23] MEDS ORDERED: D3 PO SCH (10:00)
[2016-10-23] MEDS ORDERED: MAGNESIUM PO SCH (10:00)
[2016-10-23] MEDS ORDERED: ZINC PO SCH (10:00)
[2016-10-23] MEDS: CALCIUM CARBONATE 250 MG/VITAMIN D3 125 UNIT TABLET PO SCH (10:02)
[2016-10-23] MEDS ORDERED: SPIRONOLACTONE 25 MG TABLET PO PRN (10:05)
[2016-10-23] MEDS ORDERED: CHOLECALCIFEROL 10000 UNIT PO SCH (10:15)
[2016-10-23] MEDS ORDERED: FUROSEMIDE 40 MG TABLET PO ONE (11:15)
[2016-10-23] MEDS: FLUTICASONE/SALMETEROL DISKUS 250-50 MCG/DOSE IH SCH (11:24)
[2016-10-23 12:13] LABS: APPEARANCE,URINE SLIGHTLY-CLOUDY; BILIRUBIN,URINE NEGATIVE (NEGATIVE); GLUCOSE, URINE NEGATIVE (NEGATIVE); KETONES,URINE NEGATIVE (NEGATIVE); LEUKOCYTE ESTERASE,URINE NEGATIVE (NEGATIVE); NITRITE,URINE NEGATIVE (NEGATIVE); PROTEIN,URINE 30 mg/dL (NEGATIVE); URINE SPECIFIC GRAVITY 1.023; UROBILINOGEN,URINE NEGATIVE mg/dL (<2.0)
[2016-10-23] MEDS: DOXYCYCLINE HYCLATE 100 MG in DEXTROSE 5%-WATER 250 ML IV SCH ×2 (13:51→22:56)
--- NOTE | 2016-10-23 14:41 | PDOC PROGRESS REPORT ---
Subjective Progress Note for:: 10/23/16 Subjective:: Reports she is less short of breath currently. Physical Exam Vital Signs: Temp Pulse Resp BP Pulse Ox 98.7 F 110 H 18 116/49 L 95 10/23/16 11:35 10/23/16 14:00 10/23/16 11:35 10/23/16 11:35 10/23/16 11:35 Intake & Output 10/22/16 10/23/16 10/24/16 06:59 06:59 06:59 Intake Total 851 222 Output Total 150 Balance 851 72 Weight 51.5 kg General appearance: PRESENT: no acute distress Eye exam: PRESENT: conjunctiva pink. ABSENT: scleral icterus Ear exam: PRESENT: normal external ear exam Mouth exam: PRESENT: moist, tongue midline Neck exam: ABSENT: carotid bruit, JVD, lymphadenopathy, thyromegaly Respiratory exam: PRESENT: wheezes - Bilateral expiratory wheezes. Cardiovascular exam: PRESENT: irregular rhythm, other - Mechanical click. ABSENT: diastolic murmur, rubs, systolic murmur GI/Abdominal exam: PRESENT: normal bowel sounds, soft. ABSENT: distended, guarding, mass, organolmegaly, rebound, tenderness Extremities exam: ABSENT: calf tenderness, clubbing, pedal edema Neurological exam: PRESENT: alert, awake, oriented to person, oriented to place , oriented to time, oriented to situation Psychiatric exam: PRESENT: appropriate affect Skin exam: PRESENT: dry, intact, warm. ABSENT: cyanosis, rash Results Laboratory Results: 10/23/16 10/23/16 11:37 11:37 Urine Color YELLOW Urine Appearance SLIGHTLY-CLOUDY Urine pH 6.0 Ur Specific [place] 1.023 Urine Protein 30 H Urine Glucose (UA) NEGATIVE Urine Ketones NEGATIVE Urine Blood NEGATIVE Urine Nitrite NEGATIVE Ur Leukocyte Esterase NEGATIVE Urine WBC (Auto) 9 Urine RBC (Auto) 0 Stool Occult Blood NEGATIVE Impressions: Chest X-Ray 10/21/16 18:32 IMPRESSION: CARDIAC ENLARGEMENT. VASCULAR CONGESTION. SIMILAR APPEARANCE TO THE PRIOR STUDY. Chest CT 10/22/16 00:00 IMPRESSION: RELATIVELY STABLE APPEARANCE OF LOWER LOBE INTERSTITIAL THICKENING WITH PATCHY GROUND-GLASS OPACITIES AND SMALL BILATERAL PLEURAL EFFUSIONS PRESUMABLY REPRESENTS PULMONARY EDEMA HOWEVER SUPERIMPOSED INFECTIOUS INFLAMMATORY PROCESS IS NOT EXCLUDED. THERE HAS BEEN INTERVAL DECREASE IN PREVIOUSLY IDENTIFIED PERICARDIAL EFFUSION. OTHERWISE STABLE APPEARANCE OF THE CHEST. Assessment & Plan - Diagnosis (1) Acute bronchitis Is this a current diagnosis for this admission?: YesPlan: Patient has been started on doxycycline. She spiked a fever last night and was changed to vancomycin and Levaquin. (2) Anxiety Is this a current diagnosis for this admission?: YesPlan: Improved with Ativan. (3) CHF (congestive heart failure) Qualifiers: Congestive heart failure type: diastolic Congestive heart failure chronicity: unspecified congestive heart failure chronicity Qualified Code(s): I50.30 - Unspecified diastolic (congestive) heart failure Is this a current diagnosis for this admission?: YesPlan: Most likely heart rate related. This should improve as her heart rate improves. (4) Pulmonary fibrosis Is this a current diagnosis for this admission?: YesPlan: Patient has wheezes on exam that are improved from yesterday. Patient does have pulmonary fibrosis on also has evidence for reactive airway disease. We' ll continue with the IV steroids. (5) Pulmonary hypertension Is this a current diagnosis for this admission?: Yes (6) Valvular heart disease Is this a current diagnosis for this admission?: YesPlan: Patient has aortic and mitral valve replacements. She is slightly subtherapeutic on her Coumadin. We'll increase her Coumadin dose at 10 mg daily. If her INR drops any further would add on Lovenox until she is therapeutic. - Time Time Spent with patient: 25-34 minutes - Inpatient Certification Medical Necessity: Need for IV Antibiotics
[2016-10-23 17:09] LABS: PROTHROMBIN TIME 30.9 SEC (11.4-15.4)
--- NOTE | 2016-10-23 18:16 | EKG REPORT ---
SEVERITY:- ABNORMAL ECG - ATRIAL-SENSED VENTRICULAR-PACED RHYTHM : Confirmed by: Yohan Rhodes MD 23-Oct-2016 18:16:16
[2016-10-23] MEDS: FUROSEMIDE 40 MG TABLET PO SCH (18:49)
[2016-10-23] MEDS: VANCOMYCIN HCL 1,000 MG in DEXTROSE 5%-WATER 250 ML IV SCH (18:49)
[2016-10-23] MEDS: NEBIVOLOL HCL 2.5 MG TABLET PO SCH (18:50)
[2016-10-23] MEDS: ATORVASTATIN CALCIUM 20 MG TABLET PO SCH (21:24)
[2016-10-23] MEDS ORDERED: WARFARIN SODIUM 5 MG TABLET PO SCH (22:00)
[2016-10-23] MEDS ORDERED: WARFARIN SODIUM 3 MG TABLET PO SCH (22:00)
[2016-10-23] MEDS ORDERED: WARFARIN SODIUM 4 MG TABLET PO SCH (22:00)
[2016-10-23] MEDS ORDERED: LEVOTHYROXINE SODIUM 0.1 MG TABLET PO SCH (22:00)
[2016-10-23 23:19] LABS: BLOOD UREA NITROGEN 25 mg/dL (7-20); CALCIUM 8.2 mg/dL (8.4-10.2); CREATININE RESULT 0.48 mg/dL (0.52-1.25); GLUCOSE 129 mg/dL (75-110)
[2016-10-23 23:26] LABS: CARBON DIOXIDE 34 mmol/L (22-30); CHLORIDE 95 mmol/L (98-107); POTASSIUM 4.2 mmol/L (3.6-5.0); SODIUM 132.2 mmol/L (137-145)
[2016-10-23 23:30] LABS: ANION GAP 3 (5-19)
[2016-10-24] MEDS: LEVALBUTEROL HCL NEB 1.25 MG/3 ML AMPUL NEB SCH ×3 (00:23→15:29)
[2016-10-24] MEDS: IPRATROPIUM BROMIDE 0.02% NEB 0.5 MG/2.5 ML AMPUL NEB SCH ×3 (00:23→15:29)
[2016-10-24] MEDS: LORAZEPAM INJ 2 MG/1 ML VIAL IV PRN (01:42)
[2016-10-24] MEDS: VANCOMYCIN HCL 1,000 MG in DEXTROSE 5%-WATER 250 ML IV SCH (03:31)
[2016-10-24 05:09] LABS: PROTHROMBIN TIME 31.9 SEC (11.4-15.4)
[2016-10-24 05:13] LABS: BLOOD UREA NITROGEN 24 mg/dL (7-20); CALCIUM 8.1 mg/dL (8.4-10.2); CHLORIDE 95 mmol/L (98-107); CREATININE RESULT 0.45 mg/dL (0.52-1.25); GLUCOSE 131 mg/dL (75-110); POTASSIUM 3.8 mmol/L (3.6-5.0)
[2016-10-24 05:24] LABS: CARBON DIOXIDE 33 mmol/L (22-30); SODIUM 131.1 mmol/L (137-145)
[2016-10-24 05:32] LABS: ANION GAP 3 (5-19)
[2016-10-24 05:43] LABS: ABSOLUTE LYMPHOCYTES (AUTO) 0.5 10^3/uL (0.5-4.7); ABSOLUTE MONOCYTES (AUTO) 0.7 10^3/uL (0.1-1.4); ABSOLUTE NEUT (AUTO) 6.4 10^3/uL (1.7-8.2); BASOPHILS % (AUTO) 0.5 % (0-2); HEMATOCRIT 30.6 % (36.0-47.0); HEMOGLOBIN 10.1 g/dL (12.0-15.5); HGB HCT DIFFERENCE -0.3; LYMPHOCYTES % (AUTO) 6.2 % (13-45); MEAN CORPUSCULAR HEMOGLOBIN 26.6 pg (27.0-33.4); MEAN CORPUSCULAR HGB CONC 33.1 g/dL (32.0-36.0); MEAN CORPUSCULAR VOLUME 80 fl (80-97); MONOCYTES % (AUTO) 9.5 % (3-13); RED BLOOD COUNT 3.81 10^6/uL (3.72-5.28); RED CELL DISTRIBUTION WIDTH 18.8 % (11.5-14.0); SEGMENTED NEUTROPHILS % (AUTO) 83.8 % (42-78); WHITE BLOOD COUNT 7.7 10^3/uL (4.0-10.5)
[2016-10-24 05:44] LABS: ACANTHOCYTES 1+; ANISOCYTOSIS 2+; HYPOCHROMASIA SLIGHT; MICROCYTOSIS SLIGHT; POIKILOCYTOSIS 1+; POLYCHROMASIA SLIGHT; TOXIC GRANULATION SLIGHT
[2016-10-24 05:45] LABS: BURR CELLS SLIGHT; OVALOCYTES SLIGHT; SCHISTOCYTES SLIGHT; TEAR DROP CELLS SLIGHT
[2016-10-24] MEDS ORDERED: LEVOTHYROXINE SODIUM 0.1 MG TABLET PO SCH (06:00)
[2016-10-24] MEDS: FUROSEMIDE 40 MG TABLET PO SCH ×2 (09:08→18:12)
[2016-10-24] MEDS: FOLIC ACID 1 MG TABLET PO SCH (09:08)
[2016-10-24] MEDS: DOXYCYCLINE HYCLATE 100 MG in DEXTROSE 5%-WATER 250 ML IV SCH ×2 (09:09→21:24)
[2016-10-24] MEDS: CALCIUM CARBONATE 250 MG/VITAMIN D3 125 UNIT TABLET PO SCH (09:09)
[2016-10-24] MEDS: METHYLPREDNISOLONE INJ 40 MG/1 ML SDV IV SCH (09:09)
[2016-10-24] MEDS: FLUTICASONE NASAL SPRAY 50 MCG/SPRY 120 SPRAY/16 GM NASL SCH (09:30)
[2016-10-24] MEDS: FLUTICASONE/SALMETEROL DISKUS 250-50 MCG/DOSE IH SCH (09:30)
[2016-10-24] MEDS: LEVOTHYROXINE SODIUM 0.1 MG TABLET PO SCH (10:41)
[2016-10-24] MEDS: LEVOFLOXACIN 750 MG/D5W RTU 750 MG/150 ML RTUPB IV SCH (12:41)
--- NOTE | 2016-10-24 15:42 | PDOC PROGRESS REPORT ---
Subjective Progress Note for:: 10/24/16 Subjective:: Patient is feeling better. Lower extremity edema is less. Coughing is less but still present. Wheezing intermittently but less as well. Able to ambulate better. No fever or chills, diarrhea, nausea or vomiting or any chest pain at this time. Physical Exam Vital Signs: Temp Pulse Resp BP Pulse Ox 98.2 F 88 14 107/55 L 92 10/24/16 12:08 10/24/16 15:32 10/24/16 15:32 10/24/16 12:08 10/24/16 15:32 Intake & Output 10/23/16 10/24/16 10/25/16 06:59 06:59 06:59 Intake Total 851 2418 458 Output Total 1650 800 Balance 851 768 -342 Weight 51.5 kg 51.4 kg General appearance: PRESENT: no acute distress, cooperative, thin Head exam: PRESENT: normocephalic Eye exam: PRESENT: conjunctiva pink, EOMI. ABSENT: scleral icterus Ear exam: PRESENT: normal external ear exam Mouth exam: PRESENT: moist, neck supple Neck exam: ABSENT: carotid bruit, JVD, lymphadenopathy, thyromegaly Respiratory exam: PRESENT: rales - dry rales, Posteriorly bilateral. ABSENT: rhonchi, wheezes Cardiovascular exam: PRESENT: RRR, tachycardia. ABSENT: diastolic murmur, rubs , +S1, +S2, systolic murmur Pulses: PRESENT: normal dorsalis pedis pul Vascular exam: PRESENT: normal capillary refill GI/Abdominal exam: PRESENT: normal bowel sounds, soft. ABSENT: distended, guarding, tenderness Rectal exam: PRESENT: deferred Extremities exam: PRESENT: full ROM. ABSENT: calf tenderness, clubbing, pedal edema Neurological exam: PRESENT: alert, awake, oriented to situation Skin exam: PRESENT: dry, warm. ABSENT: cyanosis Results Laboratory Results: 10/24/16 04:24 10/24/16 04:24 10/23/16 10/24/16 10/24/16 16:38 04:24 04:24 WBC 7.7 RBC 3.81 Hgb 10.1 L Hct 30.6 L MCV 80 MCH 26.6 L MCHC 33.1 RDW 18.8 H Plt Count 284 Seg Neutrophils % 83.8 H Lymphocytes % 6.2 L Monocytes % 9.5 Eosinophils % 0.0 Basophils % 0.5 Absolute Neutrophils 6.4 Absolute Lymphocytes 0.5 Absolute Monocytes 0.7 Absolute Eosinophils 0.0 Absolute Basophils 0.0 Sodium 132.2 L 131.1 L Potassium 4.2 3.8 Chloride 95 L 95 L Carbon Dioxide 34 H 33 H Anion Gap 3 L 3 L BUN 25 H 24 H Creatinine 0.48 L 0.45 L Est GFR ( Amer) > 60 > 60 Est GFR (Non-Af Amer) > 60 > 60 Glucose 129 H 131 H Calcium 8.2 L 8.1 L Impressions: Chest X-Ray 10/21/16 18:32 IMPRESSION: CARDIAC ENLARGEMENT. VASCULAR CONGESTION. SIMILAR APPEARANCE TO THE PRIOR STUDY. Chest CT 10/22/16 00:00 IMPRESSION: RELATIVELY STABLE APPEARANCE OF LOWER LOBE INTERSTITIAL THICKENING WITH PATCHY GROUND-GLASS OPACITIES AND SMALL BILATERAL PLEURAL EFFUSIONS PRESUMABLY REPRESENTS PULMONARY EDEMA HOWEVER SUPERIMPOSED INFECTIOUS INFLAMMATORY PROCESS IS NOT EXCLUDED. THERE HAS BEEN INTERVAL DECREASE IN PREVIOUSLY IDENTIFIED PERICARDIAL EFFUSION. OTHERWISE STABLE APPEARANCE OF THE CHEST. Assessment & Plan - Diagnosis (1) COPD exacerbation Is this a current diagnosis for this admission?: Yes (2) Acute bronchitis Qualifiers: Bronchitis organism: unspecified organism Qualified Code(s): J20.9 - Acute bronchitis, unspecified Is this a current diagnosis for this admission?: Yes (3) Anxiety Is this a current diagnosis for this admission?: Yes (4) CHF (congestive heart failure) Qualifiers: Congestive heart failure type: diastolic Congestive heart failure chronicity: unspecified congestive heart failure chronicity Qualified Code(s): I50.30 - Unspecified diastolic (congestive) heart failure Is this a current diagnosis for this admission?: Yes (5) Pulmonary fibrosis Is this a current diagnosis for this admission?: Yes (6) Pulmonary hypertension Is this a current diagnosis for this admission?: Yes (7) Valvular heart disease Is this a current diagnosis for this admission?: Yes (8) Coagulopathy Is this a current diagnosis for this admission?: Yes (9) Hypothyroidism Qualifiers: Hypothyroidism type: unspecified Qualified Code(s): E03.9 - Hypothyroidism, unspecified Is this a current diagnosis for this admission?: Yes (10) Anemia of chronic disease Is this a current diagnosis for this admission?: Yes - Time Time Spent with patient: 25-34 minutes - Plan Summary Plan Summary: We are going to discontinue intravenous steroids. Start oral prednisone. Continue bronchodilators. We will check free T4, PT/INR in the morning. Continue anticoagulation and current antibiotics but discontinue the vancomycin. Continue supportive care.
[2016-10-24] MEDS ORDERED: PREDNISONE 20 MG TABLET PO ONE (16:30)
[2016-10-24] MEDS ORDERED: WARFARIN SODIUM 4 MG TABLET PO SCH (18:00)
[2016-10-24] MEDS ORDERED: LORAZEPAM INJ 2 MG/1 ML VIAL IV PRN (18:16)
[2016-10-24] MEDS: NEBIVOLOL HCL 2.5 MG TABLET PO SCH (18:48)
[2016-10-24] MEDS ORDERED: FUROSEMIDE INJ/PF 40 MG/4 ML SDV IV SCH (19:00)
[2016-10-24] MEDS: ATORVASTATIN CALCIUM 20 MG TABLET PO SCH (21:23)
[2016-10-24] MEDS ORDERED: WARFARIN SODIUM 3 MG TABLET PO SCH (22:00)
[2016-10-25] MEDS: IPRATROPIUM BROMIDE 0.02% NEB 0.5 MG/2.5 ML AMPUL NEB SCH ×3 (00:01→15:40)
[2016-10-25] MEDS: LEVALBUTEROL HCL NEB 1.25 MG/3 ML AMPUL NEB SCH ×3 (00:01→15:41)
[2016-10-25 06:19] LABS: PROTHROMBIN TIME 40.7 SEC (11.4-15.4)
[2016-10-25 06:37] LABS: ALBUMIN 1.9 g/dL (3.5-5.0); BILIRUBIN,TOTAL 0.4 mg/dL (0.2-1.3); TOTAL PROTEIN 4.4 g/dL (6.3-8.2)
[2016-10-25] MEDS: LEVOTHYROXINE SODIUM 0.1 MG TABLET PO SCH (07:01)
[2016-10-25] MEDS: LEVOFLOXACIN 750 MG/D5W RTU 750 MG/150 ML RTUPB IV SCH (07:01)
[2016-10-25] MEDS ORDERED: PREDNISONE 20 MG TABLET PO SCH (10:00)
[2016-10-25] MEDS: CALCIUM CARBONATE 250 MG/VITAMIN D3 125 UNIT TABLET PO SCH (10:00)
[2016-10-25] MEDS: FOLIC ACID 1 MG TABLET PO SCH (10:00)
[2016-10-25] MEDS: DOXYCYCLINE HYCLATE 100 MG in DEXTROSE 5%-WATER 250 ML IV SCH (10:01)
[2016-10-25] MEDS: FLUTICASONE NASAL SPRAY 50 MCG/SPRY 120 SPRAY/16 GM NASL SCH (10:01)
[2016-10-25] MEDS: FLUTICASONE/SALMETEROL DISKUS 250-50 MCG/DOSE IH SCH (10:02)
[2016-10-25] MEDS ORDERED: LEVALBUTEROL HCL NEB 1.25 MG/3 ML AMPUL NEB PRN (13:50)
[2016-10-25] MEDS ORDERED: LORAZEPAM INJ 2 MG/1 ML VIAL IV PRN (13:57)
--- NOTE | 2016-10-25 14:02 | PDOC PROGRESS REPORT ---
Subjective Progress Note for:: 10/25/16 Subjective:: Patient is feeling nauseated today. Lower extremity edema however is less. Coughing is less but still present. Wheezing intermittently but less as well. Able to ambulate. No fever or chills, diarrhea, nausea or vomiting or any chest pain at this time. No dizziness. Feels fatigued. Physical Exam Vital Signs: Temp Pulse Resp BP Pulse Ox 98.2 F 98 16 114/46 L 94 10/25/16 11:39 10/25/16 11:39 10/25/16 07:16 10/25/16 11:39 10/25/16 11:39 Intake & Output 10/24/16 10/25/16 10/26/16 06:59 06:59 06:59 Intake Total 2418 2325 Output Total 1650 2350 Balance 768 -25 Weight 51.4 kg 49.3 kg General appearance: PRESENT: no acute distress, cooperative, thin Head exam: PRESENT: normocephalic Eye exam: PRESENT: EOMI Mouth exam: PRESENT: moist, neck supple Neck exam: ABSENT: full ROM Respiratory exam: PRESENT: rales - Dry bilaterally mainly in the lower lung zapata, wheezes - Occasional Cardiovascular exam: PRESENT: RRR. ABSENT: gallop GI/Abdominal exam: PRESENT: soft. ABSENT: distended, tenderness Extremities exam: ABSENT: pedal edema Neurological exam: PRESENT: alert, awake, oriented to situation Skin exam: PRESENT: dry, warm. ABSENT: cyanosis Results Laboratory Results: 10/24/16 04:24 10/24/16 04:24 10/25/16 10/25/16 05:00 05:00 Total Bilirubin 0.4 AST 66 H ALT 61 H Alkaline Phosphatase 79 Total Protein 4.4 L Albumin 1.9 L Free T4 1.23 Impressions: Chest X-Ray 10/21/16 18:32 IMPRESSION: CARDIAC ENLARGEMENT. VASCULAR CONGESTION. SIMILAR APPEARANCE TO THE PRIOR STUDY. Chest CT 10/22/16 00:00 IMPRESSION: RELATIVELY STABLE APPEARANCE OF LOWER LOBE INTERSTITIAL THICKENING WITH PATCHY GROUND-GLASS OPACITIES AND SMALL BILATERAL PLEURAL EFFUSIONS PRESUMABLY REPRESENTS PULMONARY EDEMA HOWEVER SUPERIMPOSED INFECTIOUS INFLAMMATORY PROCESS IS NOT EXCLUDED. THERE HAS BEEN INTERVAL DECREASE IN PREVIOUSLY IDENTIFIED PERICARDIAL EFFUSION. OTHERWISE STABLE APPEARANCE OF THE CHEST. Assessment & Plan - Diagnosis (1) COPD exacerbation Is this a current diagnosis for this admission?: Yes (2) Acute bronchitis Qualifiers: Bronchitis organism: unspecified organism Qualified Code(s): J20.9 - Acute bronchitis, unspecified Is this a current diagnosis for this admission?: Yes (3) Anxiety Is this a current diagnosis for this admission?: Yes (4) CHF (congestive heart failure) Qualifiers: Congestive heart failure type: diastolic Congestive heart failure chronicity: unspecified congestive heart failure chronicity Qualified Code(s): I50.30 - Unspecified diastolic (congestive) heart failure Is this a current diagnosis for this admission?: Yes (5) Pulmonary fibrosis Is this a current diagnosis for this admission?: Yes (6) Pulmonary hypertension Is this a current diagnosis for this admission?: Yes (7) Valvular heart disease Is this a current diagnosis for this admission?: Yes (8) Coagulopathy Is this a current diagnosis for this admission?: Yes (9) Hypothyroidism Qualifiers: Hypothyroidism type: unspecified Qualified Code(s): E03.9 - Hypothyroidism, unspecified Is this a current diagnosis for this admission?: Yes (10) Anemia of chronic disease Is this a current diagnosis for this admission?: Yes - Time Time Spent with patient: 25-34 minutes - Plan Summary Plan Summary: I will continue to taper prednisone. I will increase her diuretics. I will discontinue intravenous antibiotic, as well as Levaquin. Levaquin likely causing her INR to go higher. I would put the patient on Augmentin. I will hold the warfarin tonight and recheck PT/INR in the morning. Continue other medications and supportive care. As needed Xopenex for wheezing.
[2016-10-25] MEDS ORDERED: FUROSEMIDE INJ/PF 40 MG/4 ML SDV IV ONE (14:15)
[2016-10-25] MEDS: AMOXICILLIN TR/POT CLAVULANATE 500-125 MG TAB PO SCH ×2 (14:28→21:22)
[2016-10-25 16:37] LABS: APPEARANCE,URINE CLEAR; BILIRUBIN,URINE NEGATIVE (NEGATIVE); GLUCOSE, URINE NEGATIVE (NEGATIVE); KETONES,URINE NEGATIVE (NEGATIVE); LEUKOCYTE ESTERASE,URINE NEGATIVE (NEGATIVE); NITRITE,URINE NEGATIVE (NEGATIVE); PROTEIN,URINE NEGATIVE (NEGATIVE); URINE SPECIFIC GRAVITY 1.009; UROBILINOGEN,URINE NEGATIVE mg/dL (<2.0)
[2016-10-25] MEDS: NEBIVOLOL HCL 2.5 MG TABLET PO SCH (17:02)
[2016-10-25] MEDS: FUROSEMIDE INJ/PF 40 MG/4 ML SDV IV SCH (21:22)
[2016-10-25] MEDS: ATORVASTATIN CALCIUM 20 MG TABLET PO SCH (21:22)
[2016-10-26] MEDS: IPRATROPIUM BROMIDE 0.02% NEB 0.5 MG/2.5 ML AMPUL NEB SCH ×3 (00:09→15:56)
[2016-10-26] MEDS: LEVALBUTEROL HCL NEB 1.25 MG/3 ML AMPUL NEB SCH ×3 (00:09→16:26)
[2016-10-26 05:01] LABS: PROTHROMBIN TIME 28.6 SEC (11.4-15.4)
[2016-10-26] MEDS: AMOXICILLIN TR/POT CLAVULANATE 500-125 MG TAB PO SCH ×2 (05:51→17:06)
[2016-10-26] MEDS: LEVOTHYROXINE SODIUM 0.1 MG TABLET PO SCH (07:04)
[2016-10-26] MEDS ORDERED: LEVOFLOXACIN 750 MG TABLET PO SCH ×2 (08:00→10:00)
[2016-10-26] MEDS ORDERED: PREDNISONE 20 MG TABLET PO SCH (10:00)
[2016-10-26] MEDS: FLUTICASONE/SALMETEROL DISKUS 250-50 MCG/DOSE IH SCH (10:43)
[2016-10-26] MEDS: FOLIC ACID 1 MG TABLET PO SCH (10:43)
[2016-10-26] MEDS: FLUTICASONE NASAL SPRAY 50 MCG/SPRY 120 SPRAY/16 GM NASL SCH (10:44)
[2016-10-26] MEDS: FUROSEMIDE INJ/PF 40 MG/4 ML SDV IV SCH (10:44)
[2016-10-26] MEDS ORDERED: CALCIUM CARBONATE 250 MG/VITAMIN D3 125 UNIT TABLET PO SCH (12:00)
--- NOTE | 2016-10-26 16:51 | PDOC DISCHARGE SUMMARY ---
General - Admit/Disc Date/PCP Admission Date/Primary Care Provider: 10/22/16 13:46 JAMMIE ALMAGUER MD Discharge Date: 10/26/16 - Discharge Diagnosis (1) COPD exacerbation Is this a current diagnosis for this admission?: Yes (2) Acute bronchitis Is this a current diagnosis for this admission?: Yes (3) Anxiety Is this a current diagnosis for this admission?: Yes (4) CHF (congestive heart failure) Is this a current diagnosis for this admission?: Yes (5) Pulmonary fibrosis Is this a current diagnosis for this admission?: Yes (6) Pulmonary hypertension Is this a current diagnosis for this admission?: Yes (7) Valvular heart disease Is this a current diagnosis for this admission?: Yes (8) Coagulopathy Is this a current diagnosis for this admission?: Yes (9) Hypothyroidism Is this a current diagnosis for this admission?: Yes (10) Anemia of chronic disease Is this a current diagnosis for this admission?: Yes - Additional Information Resuscitation Status: Full Code Discharge Diet: Cardiac - low-fat low-salt Discharge Activity: Activity As Tolerated, Balance Activity w/Rest, Weigh Daily Home Medications: Folic Acid [Folvite 1 mg Tablet] 1 mg PO DAILY 04/23/13 Nebivolol HCl [Bystolic] 2.5 mg PO QPM 04/23/13 Warfarin Sodium [Coumadin 4 mg Tablet] 8 mg PO Q2DAYS 04/23/13 Calcium Carb/D3/Magnesium/Zinc [Kimo Mag Zinc + D Tablet] 1 tab PO DAILY Cholecalciferol (Vitamin D3) [Vitamin D3] 10,000 unit PO Q2D 10/21/16 Fluticasone/Salmeterol [Advair 250-50 Diskus 28 dose] 1 inh IH DAILY 10/21/16 Furosemide 1 tab PO BID 10/21/16 Levalbuterol Tartrate [Xopenex Hfa] 1 dose NEB PRN PRN 10/21/16 Levothyroxine Sodium [Synthroid] 1 tab PO Q2DAYS 10/21/16 Rosuvastatin Calcium [Crestor 10 mg Tablet] 10 mg PO QHS 10/21/16 Spironolactone 25 mg PO PRN PRN 10/21/16 Tramadol HCl 0.5 - 1 tab PO PRN PRN 10/21/16 Warfarin Sodium [Coumadin] 9 mg PO Q48H 10/21/16 Levothyroxine Sodium [Synthroid] 88 mcg PO DAILY 10/22/16 Amox Tr/Potassium Clavulanate [Augmentin "500" Tablet] 1 tab PO Q8 #18 tablet 10/26/16 Prednisone 5 mg PO ASDIR #1 tab.ds.pk 10/26/16 Additional Information: Monitor PT/INR with primary care physician in one week History of Present Illness Patient complains of: Shortness of breath History of Present Illness: DURAN MI is a 56 year old female, with prior history of lymphoma and underwent chemotherapy complicated by pulmonary fibrosis, as well as valvular disease requiring mechanical valve replacement, presents to the hospital with several days of sore throat, sinus congestion, which subsequent shortness of breath. There is associated nausea and vomiting as well. Patient initially treated with antibiotics but unable to tolerate due to vomiting. The patient went to the emergency room where chest x-ray revealed vascular congestion. The patient was referred for admission. For details please refer to history and physical examination performed by the admitting physician. Hospital Course Hospital Course: The patient was admitted to [facility]. The patient was started on antibiotic for presumed pneumonia including vancomycin, Levaquin, doxycycline. Steroids intravenously was likewise started. Patient was given intravenous diuretic as well. Round without bronchodilators was given for wheezing. Blood culture was performed and was negative. Patient reportedly improved significantly after diuretics and therefore infectious etiology more likely bronchitis rather than pneumonia. Likely cause of infiltrate on chest x-ray which is the patient's pulmonary fibrosis and underlying vascular congestion. She had a recent echocardiogram showing a normal ejection fraction. After 48 hours of treatment the patient continues to improve significantly. However her course was noted for increasing INR likely related to Levaquin and therefore this was discontinued. She was likewise having abdominal discomfort from the doxycycline and this was discontinued. Patient was placed on Augmentin and tolerated it well. Blood culture was negative and vancomycin was discontinued. The patient subsequently improved and the INR falls back to therapeutic levels. The rest of the hospital stays unremarkable. She was eventually discharged home improved with above instructions. Physical Exam Vital Signs: Temp Pulse Resp BP Pulse Ox 98.2 F 101 H 18 112/53 L 94 10/26/16 12:20 10/26/16 14:00 10/26/16 12:20 10/26/16 12:20 10/26/16 12:20 Intake & Output 02/05/0310/26/16 10/27/16 06:59 06:59 06:59 Intake Total 2327 6968 858 Output Total 2350 1800 1000 Balance -25 68 -142 Weight 49.3 kg 48.8 kg General appearance: PRESENT: no acute distress, cooperative, thin Head exam: PRESENT: normocephalic Eye exam: PRESENT: EOMI Mouth exam: PRESENT: moist, neck supple Neck exam: ABSENT: JVD Respiratory exam: PRESENT: decreased breath sounds, unlabored. ABSENT: wheezes Cardiovascular exam: PRESENT: RRR. ABSENT: gallop GI/Abdominal exam: PRESENT: normal bowel sounds, soft. ABSENT: distended, tenderness Extremities exam: ABSENT: pedal edema Neurological exam: PRESENT: alert, awake, oriented to person, oriented to place , oriented to time, oriented to situation Skin exam: PRESENT: dry, warm. ABSENT: cyanosis Results Laboratory Results: 10/24/16 04:24 10/24/16 04:24 10/25/16 16:00 Urine Color YELLOW Urine Appearance CLEAR Urine pH 6.0 Ur Specific [place] 1.009 Urine Protein NEGATIVE Urine Glucose (UA) NEGATIVE Urine Ketones NEGATIVE Urine Blood NEGATIVE Urine Nitrite NEGATIVE Ur Leukocyte Esterase NEGATIVE Urine WBC (Auto) 2 Urine RBC (Auto) 1 Impressions: Chest X-Ray 10/21/16 18:32 IMPRESSION: CARDIAC ENLARGEMENT. VASCULAR CONGESTION. SIMILAR APPEARANCE TO THE PRIOR STUDY. Chest CT 10/22/16 00:00 IMPRESSION: RELATIVELY STABLE APPEARANCE OF LOWER LOBE INTERSTITIAL THICKENING WITH PATCHY GROUND-GLASS OPACITIES AND SMALL BILATERAL PLEURAL EFFUSIONS PRESUMABLY REPRESENTS PULMONARY EDEMA HOWEVER SUPERIMPOSED INFECTIOUS INFLAMMATORY PROCESS IS NOT EXCLUDED. THERE HAS BEEN INTERVAL DECREASE IN PREVIOUSLY IDENTIFIED PERICARDIAL EFFUSION. OTHERWISE STABLE APPEARANCE OF THE CHEST. Qualifiers PATEINT BEING DISCHARGED WITH ANY OF THE FOLLOWING DIAGNOSIS?: Heart Failure HF Pt being discharged on ACEI for LVEF less than 40%?: No Reason(s) for not prescribing ACEI:: Not indicated - Normal ejection fraction HF Pt being discharged on ARBS for LVEF less than 40%?: No Reason(s) for not prescribing ARBS:: Not indicated - Normal ejection fraction HF Pt discharged on evidence-based Beta Gordon?: Yes Plan Discharge Plan: Follow-up with primary care physician in one week. Follow-up with exterminator helper in [facility] in 2 weeks. Time Spent: Less than 30 Minutes
[2016-10-26 17:11] VITALS: BP 103/49
== END 2016-10-26 17:28 | disposition home or self-care (01) | DRG 191 ==
LOC: ER 18:17 → EH 10-22 00:10 → UNDOADMIN 10-22 00:10 → EH 10-22 13:46 → 3W 10-22 16:00
PROVIDERS: ADMIT Internal Medicine; ATTEND Internal Medicine
DX: J44.1 Chronic obstructive pulmonary disease with (acute) exacerbation (principal); I50.30 Unspecified diastolic (congestive) heart failure; I27.2 Other secondary pulmonary hypertension; I10 Essential (primary) hypertension; J84.10 Pulmonary fibrosis, unspecified; E03.9 Hypothyroidism, unspecified; J44.0 Chronic obstructive pulmonary disease with (acute) lower respiratory infection; D63.8 Anemia in other chronic diseases classified elsewhere; J20.9 Acute bronchitis, unspecified; F41.9 Anxiety disorder, unspecified; J45.909 Unspecified asthma, uncomplicated; Z86.711 Personal history of pulmonary embolism; Z79.01 Long term (current) use of anticoagulants; Z88.8 Allergy status to other drugs, medicaments and biological substances; Z88.1 Allergy status to other antibiotic agents; Z95.2 Presence of prosthetic heart valve; Z85.71 Personal history of Hodgkin lymphoma; Z95.0 Presence of cardiac pacemaker
CPT/HCPCS: 36415; 71010; 71250; 80048; 80053; 80076; 81001; 82272; 82550; 82553; 83880; 84134; 84439; 84443; 84484; 85025; 85027; 85610; 87040; 93005; 93010; 94640; 94660; 96361; 96374; 99285; J1940; J1956; J2060; J2920; J3370; J3490; J7030; J7060; J7512

== ENCOUNTER → 2016-10-27 | Outpatient (CLI) | payer MEDICARE ==
[2016-10-27 10:05] LABS: HEMATOCRIT 36.2 % (36.0-47.0); HEMOGLOBIN 11.8 g/dL (12.0-15.5); HGB HCT DIFFERENCE -0.8; MEAN CORPUSCULAR HEMOGLOBIN 26.2 pg (27.0-33.4); MEAN CORPUSCULAR HGB CONC 32.6 g/dL (32.0-36.0); MEAN CORPUSCULAR VOLUME 81 fl (80-97); RED BLOOD COUNT 4.49 10^6/uL (3.72-5.28); RED CELL DISTRIBUTION WIDTH 19.4 % (11.5-14.0); WHITE BLOOD COUNT 6.5 10^3/uL (4.0-10.5)
[2016-10-27 10:23] LABS: PROTHROMBIN TIME 18.6 SEC (11.4-15.4)
[2016-10-27 10:24] LABS: PARTIAL THROMBOPLASTIN TIME 27.9 SEC (23.5-35.8)
[2016-10-27 10:41] LABS: BASOPHILS % (MANUAL) 0 % (0-2); EOSINOPHILS % (MANUAL) 0 % (0-6); LYMPHOCYTES % (MANUAL) 9 % (13-45); TOTAL CELLS COUNTED 100
[2016-10-27 10:42] LABS: ACANTHOCYTES SLIGHT; ANISOCYTOSIS 2+; HOWELL-JOLLY BODIES PRESENT; HYPOCHROMASIA 1+; OVALOCYTES 2+; PLATELET CLUMPS PRESENT; POIKILOCYTOSIS 3+; SCHISTOCYTES 2+; TARGET CELLS 1+; TOXIC GRANULATION SLIGHT; TOXIC VACUOLATION PRESENT
[2016-10-27 10:43] LABS: BURR CELLS SLIGHT; POLYCHROMASIA SLIGHT
== END ==
LOC: OD 09:23
PROVIDERS: ATTEND Nurse Practitioner Primary Care
DX: E03.9 Hypothyroidism, unspecified (principal); D64.9 Anemia, unspecified; Z51.81 Encounter for therapeutic drug level monitoring; Z79.01 Long term (current) use of anticoagulants; Z95.3 Presence of xenogenic heart valve
CPT/HCPCS: 36415; 85025; 85610; 85730

== ENCOUNTER → 2016-11-20 | Outpatient (CLI) | payer MEDICARE ==
[2016-11-20 08:24] LABS: HEMATOCRIT 32.4 % (36.0-47.0); HEMOGLOBIN 10.4 g/dL (12.0-15.5); HGB HCT DIFFERENCE -1.2; MEAN CORPUSCULAR HEMOGLOBIN 26.8 pg (27.0-33.4); MEAN CORPUSCULAR HGB CONC 32.2 g/dL (32.0-36.0); MEAN CORPUSCULAR VOLUME 83 fl (80-97); RED CELL DISTRIBUTION WIDTH 21.1 % (11.5-14.0); WHITE BLOOD COUNT 7.4 10^3/uL (4.0-10.5)
[2016-11-20 08:29] LABS: PARTIAL THROMBOPLASTIN TIME 30.1 SEC (23.5-35.8); PROTHROMBIN TIME 17.5 SEC (11.4-15.4)
[2016-11-20 08:58] LABS: ALANINE AMINOTRANSFERASE 40 U/L (9-52); ALBUMIN 2.3 g/dL (3.5-5.0); ALKALINE PHOSPHATASE 74 U/L (38-126); ASPARTATE AMINO TRANSFERASE 35 U/L (14-36); BILIRUBIN,TOTAL 0.3 mg/dL (0.2-1.3); BLOOD UREA NITROGEN 22 mg/dL (7-20); CALCIUM 8.2 mg/dL (8.4-10.2); CARBON DIOXIDE 34 mmol/L (22-30); CHLORIDE 99 mmol/L (98-107); CREATININE RESULT 0.51 mg/dL (0.52-1.25); GLUCOSE 79 mg/dL (75-110); TOTAL PROTEIN 4.5 g/dL (6.3-8.2)
[2016-11-20 09:08] LABS: POTASSIUM 4.6 mmol/L (3.6-5.0); SODIUM 134.5 mmol/L (137-145)
[2016-11-20 09:12] LABS: ANION GAP 2 (5-19)
== END ==
LOC: OD 07:17
PROVIDERS: ATTEND Obstetrics & Gynecology
DX: E03.9 Hypothyroidism, unspecified (principal); D64.9 Anemia, unspecified; Z95.3 Presence of xenogenic heart valve; Z51.81 Encounter for therapeutic drug level monitoring; Z79.01 Long term (current) use of anticoagulants
CPT/HCPCS: 36415; 80053; 84443; 85027; 85610; 85730

== ENCOUNTER → 2017-02-07 | Outpatient (CLI) | payer MEDICARE ==
--- NOTE | 2017-02-07 13:39 | RADIOLOGY REPORT (SQ) ---
EXAM DESCRIPTION: CHEST PA/LATERAL COMPLETED DATE/TIME: 02/07/2017 1:24 pm REASON FOR STUDY: ACUTE BRONCHITIS, UNSPECIFIED,PRESENCE OF PROSTHET COMPARISON: 10/21/2016. EXAM PARAMETERS: NUMBER OF VIEWS: two views TECHNIQUE: Digital Frontal and Lateral radiographic views of the chest acquired. RADIATION DOSE: NA LIMITATIONS: none FINDINGS: LUNGS AND PLEURA: Prominent interstitial densities. Bilateral pleural effusions. MEDIASTINUM AND HILAR STRUCTURES: No masses or contour abnormalities. HEART AND VASCULAR STRUCTURES: Heart upper limits of normal size. No evidence for failure. BONES: No acute findings. HARDWARE: Pacemaker. Sternotomy wires and prosthetic valve. Clips in the upper abdomen. OTHER: No other significant finding. IMPRESSION: PROMINENT INTERSTITIAL DENSITIES PROBABLY A COMBINATION OF SCARRING WITH SUPERIMPOSED IN TERSTITIAL EDEMA. BILATERAL PLEURAL EFFUSIONS. LITTLE CHANGE COMPARED TO THE PREVIOUS STUDY. TECHNICAL DOCUMENTATION: JOB ID: [id number] [employer]- All Rights Reserved
== END ==
LOC: OD 12:46
PROVIDERS: ATTEND Obstetrics & Gynecology
DX: J20.9 Acute bronchitis, unspecified (principal); Z95.2 Presence of prosthetic heart valve
CPT/HCPCS: 36415; 71020; 80053; 83880; 85025

== ENCOUNTER → 2017-02-07 | Outpatient (CLI) | payer MEDICARE ==
[2017-02-07 18:40] LABS: ABSOLUTE BASOPHILS # (AUTO) 0.1 10^3/uL (0.0-0.2); ABSOLUTE LYMPHOCYTES (AUTO) 0.4 10^3/uL (0.5-4.7); ABSOLUTE MONOCYTES (AUTO) 0.6 10^3/uL (0.1-1.4); ABSOLUTE NEUT (AUTO) 4.3 10^3/uL (1.7-8.2); BASOPHILS % (AUTO) 1.3 % (0-2); EOSINOPHILS % (AUTO) 0.2 % (0-6); HEMATOCRIT 31.3 % (36.0-47.0); HEMOGLOBIN 10.1 g/dL (12.0-15.5); MEAN CORPUSCULAR HEMOGLOBIN 24.8 pg (27.0-33.4); MEAN CORPUSCULAR HGB CONC 32.4 g/dL (32.0-36.0); MEAN CORPUSCULAR VOLUME 77 fl (80-97); MONOCYTES % (AUTO) 10.4 % (3-13); RED BLOOD COUNT 4.08 10^6/uL (3.72-5.28); RED CELL DISTRIBUTION WIDTH 20.2 % (11.5-14.0); SEGMENTED NEUTROPHILS % (AUTO) 81.1 % (42-78); WHITE BLOOD COUNT 5.3 10^3/uL (4.0-10.5)
[2017-02-07 18:53] LABS: ALANINE AMINOTRANSFERASE 42 U/L (9-52); ALBUMIN 2.5 g/dL (3.5-5.0); ALKALINE PHOSPHATASE 77 U/L (38-126); ASPARTATE AMINO TRANSFERASE 54 U/L (14-36); BILIRUBIN,DIRECT 0.3 mg/dL (0.0-0.4); BILIRUBIN,TOTAL 0.6 mg/dL (0.2-1.3); BLOOD UREA NITROGEN 28 mg/dL (7-20); CALCIUM 8.7 mg/dL (8.4-10.2); CREATININE RESULT 0.45 mg/dL (0.52-1.25); GLUCOSE 122 mg/dL (75-110)
[2017-02-07 19:01] LABS: CARBON DIOXIDE 35 mmol/L (22-30); CHLORIDE 99 mmol/L (98-107); SODIUM 134.8 mmol/L (137-145)
[2017-02-07 19:06] LABS: ANION GAP 1 (5-19)
[2017-02-07 19:12] LABS: ANISOCYTOSIS 2+; HYPOCHROMASIA 2+; MICROCYTOSIS SLIGHT; POIKILOCYTOSIS 2+; POLYCHROMASIA SLIGHT
[2017-02-07 19:13] LABS: BURR CELLS 1+; SCHISTOCYTES 2+; TARGET CELLS 1+
== END ==
LOC: OD 17:35
PROVIDERS: ATTEND Obstetrics & Gynecology
DX: R50.9 Fever, unspecified (principal); I50.9 Heart failure, unspecified; J20.9 Acute bronchitis, unspecified; Z79.890 Hormone replacement therapy; Z51.81 Encounter for therapeutic drug level monitoring
CPT/HCPCS: 36415; 80053; 83880; 85025

== ENCOUNTER → 2017-03-01 | Outpatient (CLI) | payer MEDICARE | LOC: OD 07:22 | PROVIDERS: ATTEND Obstetrics & Gynecology | DX: E03.9 Hypothyroidism, unspecified (principal); Z95.3 Presence of xenogenic heart valve; Z51.81 Encounter for therapeutic drug level monitoring; Z79.01 Long term (current) use of anticoagulants; D64.9 Anemia, unspecified | CPT/HCPCS: 36415; 84443 ==

== ENCOUNTER → 2017-03-06 | Outpatient (CLI) | payer MEDICARE ==
[2017-03-06 10:27] LABS: HEMATOCRIT 33.2 % (36.0-47.0); HEMOGLOBIN 10.3 g/dL (12.0-15.5); HGB HCT DIFFERENCE -2.3; MEAN CORPUSCULAR HEMOGLOBIN 24.3 pg (27.0-33.4); MEAN CORPUSCULAR VOLUME 78 fl (80-97); RED BLOOD COUNT 4.24 10^6/uL (3.72-5.28); RED CELL DISTRIBUTION WIDTH 20.5 % (11.5-14.0); WHITE BLOOD COUNT 5.5 10^3/uL (4.0-10.5)
[2017-03-06 10:37] LABS: PROTHROMBIN TIME 30.8 SEC (11.4-15.4)
[2017-03-06 10:52] LABS: ALANINE AMINOTRANSFERASE 43 U/L (9-52); ALBUMIN 2.5 g/dL (3.5-5.0); ALKALINE PHOSPHATASE 74 U/L (38-126); ASPARTATE AMINO TRANSFERASE 51 U/L (14-36); BILIRUBIN,DIRECT 0.3 mg/dL (0.0-0.4); BILIRUBIN,TOTAL 0.5 mg/dL (0.2-1.3); BLOOD UREA NITROGEN 26 mg/dL (7-20); CALCIUM 8.6 mg/dL (8.4-10.2); CARBON DIOXIDE 37 mmol/L (22-30); CHLORIDE 98 mmol/L (98-107); CREATININE RESULT 0.48 mg/dL (0.52-1.25); GLUCOSE 81 mg/dL (75-110); POTASSIUM 3.9 mmol/L (3.6-5.0); TOTAL PROTEIN 5.1 g/dL (6.3-8.2)
[2017-03-06 11:04] LABS: SODIUM 137.3 mmol/L (137-145)
[2017-03-06 11:08] LABS: ANION GAP 2 (5-19)
--- NOTE | 2017-03-06 14:50 | RADIOLOGY REPORT (SQ) ---
EXAM DESCRIPTION: CHEST PA/LATERAL COMPLETED DATE/TIME: 03/06/2017 2:33 pm REASON FOR STUDY: OTHER FATIGUE,ANEMIA,HYPOXIA COMPARISON: CT chest 05/26/2016, 10/22/2016 Two-view chest 08/16/2016, 10/03/2016, 10/21/2016, 02/07/2017 EXAM PARAMETERS: NUMBER OF VIEWS: two views TECHNIQUE: Digital Frontal and Lateral radiographic views of the chest acquired. RADIATION DOSE: NA LIMITATIONS: none FINDINGS: LUNGS AND PLEURA: Chronic small bilateral pleural effusions similar compared to studies da ting back to 08/16/2016. No pneumothorax. Lungs demonstrate increased pulmonary vascular markings mild alveolar and interstitial edema. MEDIASTINUM AND HILAR STRUCTURES: No masses or contour abnormalities. HEART AND VASCULAR STRUCTURES: Cardiac silhouette size mildly enlarged, stable. BONES: No acute findings. HARDWARE: Aortic and pulmonic valve replacement. Left-sided dual lead pacemaker. Old sternotomy. L eft upper quadrant surgical clips. OTHER: No other significant finding. IMPRESSION: Stable small pleural effusions Alveolar and interstitial edema TECHNICAL DOCUMENTATION: JOB ID: [id number]- All Rights Reserved
== END ==
LOC: OD 09:08
PROVIDERS: ATTEND Obstetrics & Gynecology
DX: I50.9 Heart failure, unspecified (principal); J84.10 Pulmonary fibrosis, unspecified; E03.9 Hypothyroidism, unspecified; D64.9 Anemia, unspecified; R53.83 Other fatigue; R09.02 Hypoxemia; Z51.81 Encounter for therapeutic drug level monitoring; Z79.01 Long term (current) use of anticoagulants
CPT/HCPCS: 36415; 71020; 80053; 82728; 83540; 83550; 83880; 84443; 85027; 85610; 85730

== ENCOUNTER → 2017-03-27 | Outpatient (CLI) | payer MEDICARE ==
[2017-03-27 13:36] LABS: HEMATOCRIT 32.9 % (36.0-47.0); HEMOGLOBIN 10.5 g/dL (12.0-15.5); HGB HCT DIFFERENCE -1.4; MEAN CORPUSCULAR HEMOGLOBIN 24.8 pg (27.0-33.4); MEAN CORPUSCULAR HGB CONC 32.1 g/dL (32.0-36.0); MEAN CORPUSCULAR VOLUME 78 fl (80-97); RED BLOOD COUNT 4.24 10^6/uL (3.72-5.28); RED CELL DISTRIBUTION WIDTH 22.9 % (11.5-14.0); WHITE BLOOD COUNT 6.6 10^3/uL (4.0-10.5)
[2017-03-27 13:39] LABS: PROTHROMBIN TIME 28.8 SEC (11.4-15.4)
[2017-03-27 13:40] LABS: PARTIAL THROMBOPLASTIN TIME 35.9 SEC (23.5-35.8)
[2017-03-27 13:55] LABS: ALANINE AMINOTRANSFERASE 39 U/L (9-52); ALBUMIN 2.7 g/dL (3.5-5.0); ALKALINE PHOSPHATASE 80 U/L (38-126); ASPARTATE AMINO TRANSFERASE 54 U/L (14-36); BILIRUBIN,DIRECT 0.3 mg/dL (0.0-0.4); BILIRUBIN,TOTAL 0.6 mg/dL (0.2-1.3); BLOOD UREA NITROGEN 30 mg/dL (7-20); CALCIUM 8.5 mg/dL (8.4-10.2); CARBON DIOXIDE 36 mmol/L (22-30); CREATININE RESULT 0.56 mg/dL (0.52-1.25); GLUCOSE 87 mg/dL (75-110); POTASSIUM 3.7 mmol/L (3.6-5.0); TOTAL PROTEIN 5.3 g/dL (6.3-8.2)
[2017-03-27 14:42] LABS: CHLORIDE 97 mmol/L (98-107); SODIUM 134.8 mmol/L (137-145)
[2017-03-27 14:46] LABS: ANION GAP 2 (5-19)
== END ==
LOC: OD 12:40
PROVIDERS: ATTEND Obstetrics & Gynecology
DX: D64.9 Anemia, unspecified (principal); Z51.81 Encounter for therapeutic drug level monitoring; Z79.01 Long term (current) use of anticoagulants; E03.9 Hypothyroidism, unspecified; Z95.3 Presence of xenogenic heart valve
CPT/HCPCS: 80053; 82728; 83540; 83550; 84443; 85027; 85610; 85730

== ENCOUNTER → 2017-04-24 | Outpatient (CLI) | payer MEDICARE ==
[2017-04-24 16:25] LABS: HEMATOCRIT 33.4 % (36.0-47.0); HEMOGLOBIN 10.7 g/dL (12.0-15.5); HGB HCT DIFFERENCE -1.3; MEAN CORPUSCULAR HEMOGLOBIN 25.7 pg (27.0-33.4); MEAN CORPUSCULAR HGB CONC 31.9 g/dL (32.0-36.0); MEAN CORPUSCULAR VOLUME 81 fl (80-97); RED BLOOD COUNT 4.14 10^6/uL (3.72-5.28); RED CELL DISTRIBUTION WIDTH 22.8 % (11.5-14.0); WHITE BLOOD COUNT 5.1 10^3/uL (4.0-10.5)
[2017-04-24 16:32] LABS: PROTHROMBIN TIME 24.1 SEC (11.4-15.4)
[2017-04-24 16:33] LABS: PARTIAL THROMBOPLASTIN TIME 32.5 SEC (23.5-35.8)
[2017-04-24 16:59] LABS: ALANINE AMINOTRANSFERASE 42 U/L (9-52); ALBUMIN 2.8 g/dL (3.5-5.0); ALKALINE PHOSPHATASE 73 U/L (38-126); ASPARTATE AMINO TRANSFERASE 52 U/L (14-36); BILIRUBIN,DIRECT 0.3 mg/dL (0.0-0.4); BILIRUBIN,TOTAL 0.5 mg/dL (0.2-1.3); BLOOD UREA NITROGEN 25 mg/dL (7-20); CALCIUM 8.1 mg/dL (8.4-10.2); CHLORIDE 102 mmol/L (98-107); CREATININE RESULT 0.61 mg/dL (0.52-1.25); GLUCOSE 81 mg/dL (75-110); POTASSIUM 3.8 mmol/L (3.6-5.0); TOTAL PROTEIN 5.6 g/dL (6.3-8.2)
[2017-04-24 17:11] LABS: CARBON DIOXIDE 35 mmol/L (22-30); SODIUM 138.5 mmol/L (137-145)
[2017-04-24 17:14] LABS: ANION GAP 2 (5-19)
== END ==
LOC: OD 15:47
PROVIDERS: ATTEND Obstetrics & Gynecology
DX: R79.1 Abnormal coagulation profile (principal); I50.9 Heart failure, unspecified; J84.10 Pulmonary fibrosis, unspecified; E03.9 Hypothyroidism, unspecified; Z95.2 Presence of prosthetic heart valve
CPT/HCPCS: 36415; 80053; 83880; 84443; 85027; 85610; 85730

== ENCOUNTER → 2017-06-29 | Outpatient (CLI) | payer MEDICARE ==
[2017-06-29 14:29] LABS: PROTHROMBIN TIME 31.3 SEC (11.4-15.4)
[2017-06-29 14:30] LABS: PARTIAL THROMBOPLASTIN TIME 34.6 SEC (23.5-35.8)
[2017-06-29 14:37] LABS: HEMATOCRIT 32.3 % (36.0-47.0); HEMOGLOBIN 10.5 g/dL (12.0-15.5); HGB HCT DIFFERENCE -0.8; MEAN CORPUSCULAR HEMOGLOBIN 26.3 pg (27.0-33.4); MEAN CORPUSCULAR HGB CONC 32.5 g/dL (32.0-36.0); MEAN CORPUSCULAR VOLUME 81 fl (80-97); RED BLOOD COUNT 3.98 10^6/uL (3.72-5.28); RED CELL DISTRIBUTION WIDTH 20.2 % (11.5-14.0); WHITE BLOOD COUNT 5.4 10^3/uL (4.0-10.5)
[2017-06-29 14:43] LABS: ALANINE AMINOTRANSFERASE 42 U/L (9-52); ALBUMIN 2.5 g/dL (3.5-5.0); ALKALINE PHOSPHATASE 76 U/L (38-126); ASPARTATE AMINO TRANSFERASE 48 U/L (14-36); BILIRUBIN,DIRECT 0.3 mg/dL (0.0-0.4); BILIRUBIN,TOTAL 0.5 mg/dL (0.2-1.3); BLOOD UREA NITROGEN 24 mg/dL (7-20); CALCIUM 8.8 mg/dL (8.4-10.2); CARBON DIOXIDE 34 mmol/L (22-30); CHLORIDE 101 mmol/L (98-107); CREATININE RESULT 0.47 mg/dL (0.52-1.25); GLUCOSE 93 mg/dL (75-110); POTASSIUM 4.1 mmol/L (3.6-5.0); TOTAL PROTEIN 4.7 g/dL (6.3-8.2)
[2017-06-29 14:54] LABS: SODIUM 137.7 mmol/L (137-145)
[2017-06-29 14:57] LABS: ANION GAP 3 (5-19)
[2017-06-29 15:08] LABS: BASOPHILS % (MANUAL) 2 % (0-2); EOSINOPHILS % (MANUAL) 5 % (0-6); LYMPHOCYTES % (MANUAL) 15 % (13-45); TOTAL CELLS COUNTED 100
[2017-06-29 15:09] LABS: ANISOCYTOSIS 3+; TOXIC GRANULATION 1+
[2017-06-29 15:10] LABS: ACANTHOCYTES SLIGHT; HOWELL-JOLLY BODIES PRESENT; HYPOCHROMASIA 2+; OVALOCYTES 1+; PLATELET CLUMPS PRESENT; POIKILOCYTOSIS 3+; POLYCHROMASIA 1+; SCHISTOCYTES 2+; SPHEROCYTES 1+; TEAR DROP CELLS SLIGHT
== END ==
LOC: OD 13:36
PROVIDERS: ATTEND Obstetrics & Gynecology
DX: I50.33 Acute on chronic diastolic (congestive) heart failure (principal); J44.9 Chronic obstructive pulmonary disease, unspecified; Z95.2 Presence of prosthetic heart valve; I27.0 Primary pulmonary hypertension
CPT/HCPCS: 36415; 80053; 84443; 85025; 85610; 85730

== ENCOUNTER → 2017-08-24 | Outpatient (CLI) | payer MEDICARE ==
[2017-08-24 16:58] LABS: HEMATOCRIT 33.6 % (36.0-47.0); HEMOGLOBIN 11.1 g/dL (12.0-15.5); HGB HCT DIFFERENCE -0.3; MEAN CORPUSCULAR HEMOGLOBIN 27.1 pg (27.0-33.4); MEAN CORPUSCULAR HGB CONC 32.9 g/dL (32.0-36.0); MEAN CORPUSCULAR VOLUME 82 fl (80-97); RED BLOOD COUNT 4.09 10^6/uL (3.72-5.28); RED CELL DISTRIBUTION WIDTH 20.1 % (11.5-14.0); WHITE BLOOD COUNT 6.2 10^3/uL (4.0-10.5)
[2017-08-24 17:06] LABS: PARTIAL THROMBOPLASTIN TIME 31.7 SEC (23.5-35.8)
[2017-08-24 17:10] LABS: ALANINE AMINOTRANSFERASE 38 U/L (9-52); ALBUMIN 2.7 g/dL (3.5-5.0); ALKALINE PHOSPHATASE 74 U/L (38-126); ANION GAP 5 (5-19); ASPARTATE AMINO TRANSFERASE 49 U/L (14-36); BILIRUBIN,DIRECT 0.2 mg/dL (0.0-0.4); BILIRUBIN,TOTAL 0.5 mg/dL (0.2-1.3); BLOOD UREA NITROGEN 27 mg/dL (7-20); CALCIUM 8.5 mg/dL (8.4-10.2); CARBON DIOXIDE 32 mmol/L (22-30); CHLORIDE 103 mmol/L (98-107); CREATININE RESULT 0.56 mg/dL (0.52-1.25); GLUCOSE 94 mg/dL (75-110); SODIUM 140.1 mmol/L (137-145)
[2017-08-24 17:36] LABS: ABSOLUTE EOSINOPHILS# (MANUAL) 0.2 10^3/uL (0.0-0.6); BASOPHILS % (MANUAL) 2 % (0-2); EOSINOPHILS % (MANUAL) 4 % (0-6); LYMPHOCYTES % (MANUAL) 24 % (13-45); TOTAL CELLS COUNTED 100
[2017-08-24 17:38] LABS: ANISOCYTOSIS 2+
[2017-08-24 17:39] LABS: POIKILOCYTOSIS 1+; TARGET CELLS 1+
== END ==
LOC: OD 15:24
PROVIDERS: ATTEND Obstetrics & Gynecology
DX: Z51.81 Encounter for therapeutic drug level monitoring (principal); E03.9 Hypothyroidism, unspecified; I50.33 Acute on chronic diastolic (congestive) heart failure; I27.0 Primary pulmonary hypertension; J44.9 Chronic obstructive pulmonary disease, unspecified; Z95.2 Presence of prosthetic heart valve; Z95.3 Presence of xenogenic heart valve
CPT/HCPCS: 36415; 80053; 84443; 85025; 85610; 85730

== ENCOUNTER → 2017-10-09 | Outpatient (CLI) | payer MEDICARE ==
[2017-10-09 15:45] LABS: INTERNATIONAL RATION (INR) 2.34; PROTHROMBIN TIME 26.9 SEC (11.4-15.4)
[2017-10-09 15:46] LABS: PARTIAL THROMBOPLASTIN TIME 32.9 SEC (23.5-35.8)
[2017-10-09 16:01] LABS: HEMATOCRIT 33.2 % (36.0-47.0); HEMOGLOBIN 10.8 g/dL (12.0-15.5); MEAN CORPUSCULAR HEMOGLOBIN 26.9 pg (27.0-33.4); MEAN CORPUSCULAR HGB CONC 32.5 g/dL (32.0-36.0); MEAN CORPUSCULAR VOLUME 83 fl (80-97); PLATELET COUNT 395 10^3/uL (150-450); RED BLOOD COUNT 4.01 10^6/uL (3.72-5.28); WHITE BLOOD COUNT 5.7 10^3/uL (4.0-10.5)
[2017-10-09 16:03] LABS: ALANINE AMINOTRANSFERASE 35 U/L (9-52); ALBUMIN 2.6 g/dL (3.5-5.0); ALKALINE PHOSPHATASE 76 U/L (38-126); ASPARTATE AMINO TRANSFERASE 49 U/L (14-36); BILIRUBIN,DIRECT 0.2 mg/dL (0.0-0.4); BILIRUBIN,TOTAL 0.4 mg/dL (0.2-1.3); BLOOD UREA NITROGEN 24 mg/dL (7-20); CALCIUM 8.8 mg/dL (8.4-10.2); GLUCOSE 100 mg/dL (75-110); POTASSIUM 3.9 mmol/L (3.6-5.0)
[2017-10-09 16:07] LABS: ABSOLUTE LYMPHOCYTES# (MANUAL) 1.8 10^3/uL (0.5-4.7); ABSOLUTE MONOCYTES # (MANUAL) 0.6 10^3/uL (0.1-1.4); ABSOLUTE NEUTROPHILS# (MANUAL) 2.9 10^3/uL (1.7-8.2); BASOPHILS % (MANUAL) 1 % (0-2); EOSINOPHILS % (MANUAL) 6 % (0-6); LYMPHOCYTES % (MANUAL) 31 % (13-45); MONOCYTES % (MANUAL) 11 % (3-13); SEGMENTED NEUTROPHILS % (MAN) 51 % (42-78); TOTAL CELLS COUNTED 100
[2017-10-09 16:08] LABS: HYPOCHROMASIA SLIGHT; TOXIC GRANULATION SLIGHT
[2017-10-09 16:09] LABS: ANISOCYTOSIS 2+; OVALOCYTES SLIGHT; PLATELET COMMENT ADEQUATE; PLATELET GIANT PRESENT; POIKILOCYTOSIS 1+; TARGET CELLS SLIGHT
[2017-10-09 16:14] LABS: CARBON DIOXIDE 34 mmol/L (22-30); CHLORIDE 100 mmol/L (98-107); SODIUM 133.8 mmol/L (137-145)
[2017-10-09 16:16] LABS: ANION GAP 0 (5-19)
== END ==
LOC: OD 14:33
PROVIDERS: ATTEND Obstetrics & Gynecology
DX: I50.33 Acute on chronic diastolic (congestive) heart failure (principal); I27.0 Primary pulmonary hypertension; J44.9 Chronic obstructive pulmonary disease, unspecified; Z95.2 Presence of prosthetic heart valve
CPT/HCPCS: 36415; 80053; 84443; 85025; 85610; 85730

== ENCOUNTER 2017-10-30 08:49 | Emergency (ER) | payer MEDICARE ==
[2017-10-30] MEDS ORDERED: ONDANSETRON 4 MG TAB.RAPDIS PO ONE (09:21)
--- NOTE | 2017-10-30 09:24 | ER Document Report ---
ED Medical Screen (RME) - General Chief Complaint: Weakness Stated Complaint: WEAKNESS NAUSEA Time Seen by Provider: 10/30/17 09:20 Notes: 57-year-old female here with complaints of generalized weakness, palpitations, and nausea over the past few days. She has not had vomiting or diarrhea or abdominal pain or chest pain or shortness of breath. She just started a new medication, Spironolactone, 2 weeks ago and took it for about a week but then stopped taking it because "I did not feel right". She has been drinking appropriately but not eating due to loss of appetite. She reports that in the past her electrolytes have been abnormal. EXAM: Regular rate and rhythm TRAVEL OUTSIDE OF THE [place] IN LAST 30 DAYS: No - Related Data Allergies/Adverse Reactions: ketorolac tromethamine [From Toradol] Allergy (Unknown, Verified 10/30/17 08:50) clarithromycin [From Biaxin] Allergy (Verified 10/30/17 08:50) morphine [Morphine] Adverse Reaction (Intermediate, Verified 10/30/17 08:50) oxycodone HCl [From Percocet] Adverse Reaction (Intermediate, Verified 10/30/17 08:50) Past Medical History - Social History Frequency of alcohol use: Occasional Drug Abuse: None - Past Medical History Cardiac Medical History: Reports: Hx Hypertension, Hx Pulmonary Embolism Denies: Hx Heart Attack Pulmonary Medical History: Reports: Hx Asthma, Hx Bronchitis, Hx Pneumonia Neurological Medical History: Denies: Hx Cerebrovascular Accident Endocrine Medical History: Reports: Hx Hypothyroidism Renal/ Medical History: Denies: Hx Peritoneal Dialysis Malignancy Medical History: Reports: Hx Lymphoma - Hodgkin's at age 11 Musculoskeltal Medical History: Reports Hx Arthritis Psychiatric Medical History: Reports: Hx Depression Past Surgical History: Reports: Hx Abdominal Surgery - EXPLORATORY, Hx Cardiac Surgery - Valve replacement x2, Hx Hysterectomy, Hx Valve Replacement - Mitral and aortic, Other - Chest tubes of the valve replacement and lung surgery due to bleeding - Immunizations Immunizations up to date: Yes Hx Diphtheria, Pertussis, Tetanus Vaccination: Yes Physical Exam - Vital signs Vitals: Temp Pulse Resp BP Pulse Ox 97.5 F 97 20 131/54 H 94 10/30/17 08:54 10/30/17 08:54 10/30/17 08:54 10/30/17 08:54 10/30/17 08:54 Course - Vital Signs Vital signs: Temp Pulse Resp BP Pulse Ox 97.5 F 97 20 131/54 H 94 10/30/17 08:54 10/30/17 08:54 10/30/17 08:54 10/30/17 08:54 10/30/17 08:54
[2017-10-30 09:48] LABS: HEMATOCRIT 34.3 % (36.0-47.0); HEMOGLOBIN 11.4 g/dL (12.0-15.5); MEAN CORPUSCULAR HEMOGLOBIN 26.9 pg (27.0-33.4); MEAN CORPUSCULAR HGB CONC 33.2 g/dL (32.0-36.0); MEAN CORPUSCULAR VOLUME 81 fl (80-97); PLATELET COUNT 360 10^3/uL (150-450); RED BLOOD COUNT 4.23 10^6/uL (3.72-5.28); RED CELL DISTRIBUTION WIDTH 19.2 % (11.5-14.0); WHITE BLOOD COUNT 8.3 10^3/uL (4.0-10.5)
[2017-10-30 10:06] LABS: APPEARANCE,URINE SLIGHTLY-CLOUDY; BILIRUBIN,URINE NEGATIVE (NEGATIVE); COLOR,URINE YELLOW; GLUCOSE, URINE NEGATIVE (NEGATIVE); KETONES,URINE NEGATIVE (NEGATIVE); LEUKOCYTE ESTERASE,URINE NEGATIVE (NEGATIVE); NITRITE,URINE NEGATIVE (NEGATIVE); PROTEIN,URINE 30 mg/dL (NEGATIVE); UROBILINOGEN,URINE NEGATIVE mg/dL (<2.0)
[2017-10-30 10:06] LABS: ALANINE AMINOTRANSFERASE 40 U/L (9-52); ALBUMIN 2.7 g/dL (3.5-5.0); ALKALINE PHOSPHATASE 73 U/L (38-126); ASPARTATE AMINO TRANSFERASE 48 U/L (14-36); BILIRUBIN,DIRECT 0.3 mg/dL (0.0-0.4); BILIRUBIN,TOTAL 0.5 mg/dL (0.2-1.3); BLOOD UREA NITROGEN 22 mg/dL (7-20); CHLORIDE 100 mmol/L (98-107); GLUCOSE 97 mg/dL (75-110); MAGNESIUM 1.9 mg/dL (1.6-2.3); PHOSPHORUS 3.9 mg/dL (2.5-4.5); POTASSIUM 4.2 mmol/L (3.6-5.0); TOTAL PROTEIN 5.1 g/dL (6.3-8.2)
[2017-10-30 10:07] LABS: INTERNATIONAL RATION (INR) 2.24
[2017-10-30 10:09] LABS: ABSOLUTE LYMPHOCYTES# (MANUAL) 0.5 10^3/uL (0.5-4.7); ABSOLUTE MONOCYTES # (MANUAL) 0.5 10^3/uL (0.1-1.4); BASOPHILS % (MANUAL) 1 % (0-2); EOSINOPHILS % (MANUAL) 3 % (0-6); LYMPHOCYTES % (MANUAL) 6 % (13-45); MONOCYTES % (MANUAL) 6 % (3-13); SEGMENTED NEUTROPHILS % (MAN) 84 % (42-78); TOTAL CELLS COUNTED 100
[2017-10-30 10:12] LABS: ANISOCYTOSIS 2+; POIKILOCYTOSIS 1+; SCHISTOCYTES 1+; TOXIC GRANULATION 1+
[2017-10-30 10:13] LABS: CARBON DIOXIDE 38 mmol/L (22-30); PLATELET COMMENT ADEQUATE; SODIUM 136.6 mmol/L (137-145); TARGET CELLS SLIGHT
[2017-10-30 10:18] LABS: ANION GAP -1 (5-19)
--- NOTE | 2017-10-30 11:43 | ER Document Report ---
ED General - General Chief Complaint: Weakness Stated Complaint: WEAKNESS NAUSEA Time Seen by Provider: 10/30/17 09:20 TRAVEL OUTSIDE OF THE [place] IN LAST 30 DAYS: No - HPI Patient complains to provider of: Generalized weakness and nausea Notes: Patient presents concern for increasing generalized weakness for the past several days, nausea since last Sunday, and decreased appetite. Denies pain or discomfort. Denies emesis or diarrhea. Reports has recently presented with viral symptoms. Reports history of cardiac issues. Patient states multiple medical issues including heart condition currently on Coumadin. Denies any recent travel denies any recent antibiotics. Patient resting comfortably upon my evaluation patient states she has been trying to drink plenty water however does not feel like eating. Patient otherwise looks to be no obvious distress upon my evaluation. - Related Data Allergies/Adverse Reactions: ketorolac tromethamine [From Toradol] Allergy (Unknown, Verified 10/30/17 08:50) clarithromycin [From Biaxin] Allergy (Verified 10/30/17 08:50) morphine [Morphine] Adverse Reaction (Intermediate, Verified 10/30/17 08:50) oxycodone HCl [From Percocet] Adverse Reaction (Intermediate, Verified 10/30/17 08:50) Past Medical History - Social History Smoking Status: Never Smoker Frequency of alcohol use: Occasional Drug Abuse: None Family History: Arthritis, Malignancy, Thyroid Disfunction Patient has suicidal ideation: No Patient has homicidal ideation: No - Past Medical History Cardiac Medical History: Reports: Hx Hypertension, Hx Pulmonary Embolism Denies: Hx Heart Attack Pulmonary Medical History: Reports: Hx Asthma, Hx Bronchitis, Hx Pneumonia Neurological Medical History: Denies: Hx Cerebrovascular Accident Endocrine Medical History: Reports: Hx Hypothyroidism Renal/ Medical History: Denies: Hx Peritoneal Dialysis Malignancy Medical History: Reports: Hx Lymphoma - Hodgkin's at age 11 Musculoskeltal Medical History: Reports Hx Arthritis Psychiatric Medical History: Reports: Hx Depression Past Surgical History: Reports: Hx Abdominal Surgery - EXPLORATORY, Hx Cardiac Surgery - Valve replacement x2, Hx Hysterectomy, Hx Valve Replacement - Mitral and aortic, Other - Chest tubes of the valve replacement and lung surgery due to bleeding - Immunizations Immunizations up to date: Yes Hx Diphtheria, Pertussis, Tetanus Vaccination: Yes Hx Pneumococcal Vaccination: 09/17/10 Review of Systems - Review of Systems Constitutional: Weakness EENT: No symptoms reported Cardiovascular: No symptoms reported Respiratory: No symptoms reported Gastrointestinal: No symptoms reported Genitourinary: No symptoms reported Female Genitourinary: No symptoms reported Musculoskeletal: No symptoms reported Skin: No symptoms reported Hematologic/Lymphatic: No symptoms reported Neurological/Psychological: No symptoms reported -: Yes All other systems reviewed and negative Physical Exam - Vital signs Vitals: Temp Pulse Resp BP Pulse Ox 97.5 F 97 20 131/54 H 94 10/30/17 08:54 10/30/17 08:54 10/30/17 08:54 10/30/17 08:54 10/30/17 08:54 Interpretation: Normal - General General appearance: Appears well, Alert - HEENT Head: Normocephalic, Atraumatic Eyes: Normal Pupils: PERRL - Respiratory Respiratory status: No respiratory distress Chest status: Nontender Breath sounds: Normal Chest palpation: Normal - Cardiovascular Rhythm: Regular Heart sounds: Normal auscultation Murmur: No - Abdominal Inspection: Normal Distension: No distension Bowel sounds: Normal Tenderness: Nontender Organomegaly: No organomegaly - Back Back: Normal, Nontender - Extremities General upper extremity: Normal inspection, Nontender, Normal color, Normal ROM , Normal temperature General lower extremity: Normal inspection, Nontender, Normal color, Normal ROM , Normal temperature, Normal weight bearing. No: Mecca's sign - Neurological Neuro grossly intact: Yes Cognition: Normal Orientation: AAOx4 Stefania Coma Scale Eye Opening: Spontaneous Stefania Coma Scale Verbal: Oriented [place] Coma Scale Motor: Obeys Commands [place] Coma Scale Total: 15 Speech: Normal Motor strength normal: LUE, RUE, LLE, RLE Sensory: Normal - Psychological Associated symptoms: Normal affect, Normal mood - Skin Skin Temperature: Warm Skin Moisture: Dry Skin Color: Normal Course - Re-evaluation Re-evalutation: 10/31/17 12:28 Patient's evaluation does not show any concerning pathology. More likely possible underlying viral etiology. Patient able tolerate p.o. here. Patient will be discharged on follow-up her primary care physician. 10/31/17 12:28 Elevated CO2 looks to be normal for patient with trending up previous labs. - Vital Signs Vital signs: Temp Pulse Resp BP Pulse Ox 97.7 F 97 20 114/54 L 97 10/30/17 11:46 10/30/17 11:46 10/30/17 08:54 10/30/17 11:46 02/13/18 11:46 - Laboratory Result Diagrams: 10/30/17 09:27 10/30/17 09:27 Laboratory results interpreted by me: 10/30/17 10/30/17 10/30/17 09:27 09:27 09:27 Hgb 11.4 L Hct 34.3 L MCH 26.9 L RDW 19.2 H Seg Neuts % (Manual) 84 H Lymphocytes % (Manual) 6 L PT 26.0 H Sodium 136.6 L Carbon Dioxide 38 H Anion Gap -1 L BUN 22 H Creatinine 0.49 L AST 48 H Total Protein 5.1 L Albumin 2.7 L Urine Protein Urine Ascorbic Acid 10/30/17 09:41 Hgb Hct MCH RDW Seg Neuts % (Manual) Lymphocytes % (Manual) PT Sodium Carbon Dioxide Anion Gap BUN Creatinine AST Total Protein Albumin Urine Protein 30 H Urine Ascorbic Acid 40 H Discharge - Discharge Clinical Impression: Generalized weakness, Nausea Disposition: HOME, SELF-CARE Instructions: Nausea or Vomiting, Nonspecific ([facility]), Weakness ([facility]) Additional Instructions: Laboratory studies not show any critical findings today to explain her weakness and nausea. More likely have underlying drinking plenty water to stay hydrated eating small meals. Take nausea medication as as prescribed. Follow-up with your primary care physician return to the ER symptoms worsen.Viral etiology for your symptoms. Please make sure your Prescriptions: Ondansetron [Zofran Odt] 4 mg PO Q6 PRN #30 tab.rapdis PRN Reason: For Nausea/Vomiting Forms: Return to Work
[2017-10-30 11:48] VITALS: BP 114/54
--- NOTE | 2017-10-31 09:39 | EKG REPORT ---
SEVERITY:- ABNORMAL ECG - ATRIAL-SENSED VENTRICULAR-PACED COMPLEXES NONSPECIFIC INTRAVENTRICULAR CONDUCTION DELAY CONSIDER LEFT VENTRICULAR HYPERTROPHY : Confirmed by: Dave Gomez 31-Oct-2017 09:38:14
== END 2017-10-30 11:50 | disposition home or self-care (01) ==
LOC: ER 08:49
DX: R53.1 Weakness (principal); R11.0 Nausea; R63.0 Anorexia; I10 Essential (primary) hypertension; J45.909 Unspecified asthma, uncomplicated; Z86.711 Personal history of pulmonary embolism; Z85.71 Personal history of Hodgkin lymphoma; Z95.2 Presence of prosthetic heart valve; Z79.01 Long term (current) use of anticoagulants; Z88.8 Allergy status to other drugs, medicaments and biological substances; Z88.1 Allergy status to other antibiotic agents
CPT/HCPCS: 93005; 99285; 36415; 83690; 83735; 84100; 84443; 85025; 85610; 85730; 80053; 81001; 93010; A9270; S0119

== ENCOUNTER → 2017-11-08 | Outpatient (CLI) | payer MEDICARE ==
[2017-11-08 16:05] LABS: HEMATOCRIT 33.1 % (36.0-47.0); HEMOGLOBIN 10.9 g/dL (12.0-15.5); MEAN CORPUSCULAR HEMOGLOBIN 26.7 pg (27.0-33.4); MEAN CORPUSCULAR HGB CONC 32.8 g/dL (32.0-36.0); MEAN CORPUSCULAR VOLUME 81 fl (80-97); PLATELET COUNT 389 10^3/uL (150-450); RED BLOOD COUNT 4.07 10^6/uL (3.72-5.28); RED CELL DISTRIBUTION WIDTH 18.7 % (11.5-14.0); WHITE BLOOD COUNT 6.5 10^3/uL (4.0-10.5)
[2017-11-08 16:18] LABS: ABSOLUTE LYMPHOCYTES# (MANUAL) 1.8 10^3/uL (0.5-4.7); ABSOLUTE MONOCYTES # (MANUAL) 0.6 10^3/uL (0.1-1.4); ABSOLUTE NEUTROPHILS# (MANUAL) 3.9 10^3/uL (1.7-8.2); BASOPHILS % (MANUAL) 1 % (0-2); EOSINOPHILS % (MANUAL) 3 % (0-6); LYMPHOCYTES % (MANUAL) 27 % (13-45); MONOCYTES % (MANUAL) 9 % (3-13); SEGMENTED NEUTROPHILS % (MAN) 60 % (42-78); TOTAL CELLS COUNTED 100
[2017-11-08 16:19] LABS: ANISOCYTOSIS 1+; HYPOCHROMASIA SLIGHT; OVALOCYTES SLIGHT; POIKILOCYTOSIS SLIGHT; TOXIC GRANULATION SLIGHT
[2017-11-08 16:20] LABS: PLATELET COMMENT ADEQUATE; TARGET CELLS SLIGHT
[2017-11-08 16:21] LABS: ALANINE AMINOTRANSFERASE 36 U/L (9-52); ALBUMIN 2.6 g/dL (3.5-5.0); ALKALINE PHOSPHATASE 63 U/L (38-126); ASPARTATE AMINO TRANSFERASE 53 U/L (14-36); BILIRUBIN,DIRECT 0.3 mg/dL (0.0-0.4); BILIRUBIN,TOTAL 0.4 mg/dL (0.2-1.3); BLOOD UREA NITROGEN 23 mg/dL (7-20); CALCIUM 8.5 mg/dL (8.4-10.2); GLUCOSE 86 mg/dL (75-110); IRON(TIBC) 42.2 ug/dL (37-170); TOTAL PROTEIN 4.9 g/dL (6.3-8.2)
[2017-11-08 16:29] LABS: NT PRO BNP 764 pg/mL (5-900)
[2017-11-08 16:36] LABS: TROPONIN I < 0.012 ng/mL
[2017-11-08 17:16] LABS: CARBON DIOXIDE 37 mmol/L (22-30); CHLORIDE 97 mmol/L (98-107); POTASSIUM 4.1 mmol/L (3.6-5.0); SODIUM 133.8 mmol/L (137-145)
[2017-11-08 17:20] LABS: ANION GAP 0 (5-19)
[2017-11-09 12:44] LABS: AMORPHOUS SEDIMENT,URINE 2+ /HPF; APPEARANCE,URINE TURBID; BILIRUBIN,URINE NEGATIVE (NEGATIVE); GLUCOSE, URINE NEGATIVE (NEGATIVE); KETONES,URINE NEGATIVE (NEGATIVE); LEUKOCYTE ESTERASE,URINE NEGATIVE (NEGATIVE); NITRITE,URINE NEGATIVE (NEGATIVE); PROTEIN,URINE NEGATIVE (NEGATIVE); URINE SPECIFIC GRAVITY 1.021; UROBILINOGEN,URINE NEGATIVE mg/dL (<2.0)
[2017-11-09 12:50] LABS: COLOR,URINE LIGHT YELLOW
== END ==
LOC: OD 14:41
PROVIDERS: ATTEND Obstetrics & Gynecology
DX: I50.9 Heart failure, unspecified (principal); Z95.4 Presence of other heart-valve replacement; E03.9 Hypothyroidism, unspecified; D64.9 Anemia, unspecified; R30.0 Dysuria
CPT/HCPCS: 36415; 80053; 81001; 82728; 83540; 83550; 83880; 84443; 84484; 85025; 86663; 87086; 87088

== ENCOUNTER 2017-12-30 10:20 | Emergency (ER) | payer MEDICARE ==
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
--- NOTE | 2017-12-30 12:04 | RADIOLOGY REPORT (SQ) ---
EXAM DESCRIPTION: CHEST 2 VIEWS COMPLETED DATE/TIME: 12/30/2017 11:53 am REASON FOR STUDY: Chest pain, shortness of breath COMPARISON: None. NUMBER OF VIEWS: Two views. TECHNIQUE: Frontal and lateral radiographic views of the chest acquired. LIMITATIONS: None. FINDINGS: LUNGS AND PLEURA: Mild interstitial edema with bibasilar airspace opacities and small pleu ral effusions. MEDIASTINUM AND HILAR STRUCTURES: No masses or contour abnormality. HEART AND VASCULAR STRUCTURES: Cardiac enlargement. Vascular congestion. BONES: No acute findings. HARDWARE: Stable. OTHER: No other significant finding. IMPRESSION: MILD PULMONARY EDEMA WITH SMALL BILATERAL PLEURAL EFFUSIONS. ADDITIONAL BIBASILAR AIRSP STEVE OPACITIES PRESUMABLY REPRESENTING ASYMMETRIC PULMONARY EDEMA. SUPERIMPOSED PNEUMONIA CANNOT BE E XCLUDED. TECHNICAL DOCUMENTATION: JOB ID: [id number] [employer]- All Rights Reserved Reading location - IP/workstation name: [email or web address]
[2017-12-30 12:09] LABS: APPEARANCE,URINE SLIGHTLY-CLOUDY; BILIRUBIN,URINE NEGATIVE (NEGATIVE); COLOR,URINE YELLOW; GLUCOSE, URINE NEGATIVE (NEGATIVE); KETONES,URINE NEGATIVE (NEGATIVE); LEUKOCYTE ESTERASE,URINE TRACE (NEGATIVE); NITRITE,URINE NEGATIVE (NEGATIVE); PROTEIN,URINE 30 mg/dL (NEGATIVE); UROBILINOGEN,URINE NEGATIVE mg/dL (<2.0)
[2017-12-30 12:14] LABS: ALANINE AMINOTRANSFERASE 42 U/L (9-52); ALBUMIN 2.7 g/dL (3.5-5.0); ALKALINE PHOSPHATASE 60 U/L (38-126); ASPARTATE AMINO TRANSFERASE 49 U/L (14-36); BILIRUBIN,TOTAL 0.3 mg/dL (0.2-1.3); BLOOD UREA NITROGEN 20 mg/dL (7-20); CALCIUM 8.5 mg/dL (8.4-10.2); CHLORIDE 103 mmol/L (98-107); CREATINE KINASE 52 U/L (30-135); GLUCOSE 85 mg/dL (75-110); POTASSIUM 4.3 mmol/L (3.6-5.0); SODIUM 139.9 mmol/L (137-145); TOTAL PROTEIN 4.9 g/dL (6.3-8.2)
[2017-12-30 12:16] LABS: INTERNATIONAL RATION (INR) 2.28; PROTHROMBIN TIME 26.2 SEC (11.4-15.4)
[2017-12-30 12:17] LABS: HEMATOCRIT 34.7 % (36.0-47.0); HEMOGLOBIN 11.2 g/dL (12.0-15.5); MEAN CORPUSCULAR HEMOGLOBIN 26.4 pg (27.0-33.4); MEAN CORPUSCULAR HGB CONC 32.4 g/dL (32.0-36.0); MEAN CORPUSCULAR VOLUME 82 fl (80-97); PLATELET COUNT 403 10^3/uL (150-450); RED BLOOD COUNT 4.26 10^6/uL (3.72-5.28); RED CELL DISTRIBUTION WIDTH 19.6 % (11.5-14.0); WHITE BLOOD COUNT 5.2 10^3/uL (4.0-10.5)
[2017-12-30 12:20] LABS: CARBON DIOXIDE 36 mmol/L (22-30)
[2017-12-30 12:21] LABS: ANION GAP 1 (5-19)
[2017-12-30 12:26] LABS: NT PRO BNP 640 pg/mL (5-900)
[2017-12-30 12:27] LABS: TROPONIN I < 0.012 ng/mL
[2017-12-30 12:54] LABS: ABSOLUTE LYMPHOCYTES# (MANUAL) 0.8 10^3/uL (0.5-4.7); ABSOLUTE MONOCYTES # (MANUAL) 0.5 10^3/uL (0.1-1.4); ABSOLUTE NEUTROPHILS# (MANUAL) 3.6 10^3/uL (1.7-8.2); ANISOCYTOSIS 2+; BASOPHILS % (MANUAL) 3 % (0-2); EOSINOPHILS % (MANUAL) 3 % (0-6); HYPOCHROMASIA SLIGHT; LYMPHOCYTES % (MANUAL) 15 % (13-45); MONOCYTES % (MANUAL) 9 % (3-13); POIKILOCYTOSIS 2+; SEGMENTED NEUTROPHILS % (MAN) 70 % (42-78); TOTAL CELLS COUNTED 100; TOXIC VACUOLATION PRESENT
[2017-12-30 12:55] LABS: PLATELET COMMENT ADEQUATE; PLATELET GIANT PRESENT; PLATELET LARGE PRESENT; SCHISTOCYTES 1+; TARGET CELLS 1+
[2017-12-30] MEDS ORDERED: NITROFURANTOIN MONOHYD/M-CRYST 100 MG CAPSULE PO ONE (14:08)
[2017-12-30] MEDS ORDERED: FUROSEMIDE INJ/PF 40 MG/4 ML SDV IV ONE (14:08)
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
[2017-12-30 14:26] VITALS: BP 104/47
--- NOTE | 2017-12-30 16:03 | EKG REPORT ---
SEVERITY:- ABNORMAL ECG - ATRIAL-SENSED VENTRICULAR-PACED RHYTHM : Confirmed by: Yohan Rhodes MD 30-Dec-2017 16:01:57
== END 2017-12-30 14:28 | disposition home or self-care (01) ==
LOC: ER 10:20
DX: N39.0 Urinary tract infection, site not specified (principal); R53.1 Weakness; R06.9 Unspecified abnormalities of breathing; Z79.899 Other long term (current) drug therapy; Z79.01 Long term (current) use of anticoagulants; Z95.4 Presence of other heart-valve replacement; I10 Essential (primary) hypertension; J45.909 Unspecified asthma, uncomplicated
CPT/HCPCS: 93005; 99285; 36415; 82550; 85025; 85610; 80053; 81001; 84484; 83880; 71046; 93010; A9270; J8499

== ENCOUNTER → 2018-01-15 | Outpatient (CLI) | payer MEDICARE ==
[2018-01-15 18:39] LABS: HEMATOCRIT 32.7 % (36.0-47.0); HEMOGLOBIN 10.7 g/dL (12.0-15.5); INTERNATIONAL RATION (INR) 2.84; MEAN CORPUSCULAR HEMOGLOBIN 26.5 pg (27.0-33.4); MEAN CORPUSCULAR HGB CONC 32.8 g/dL (32.0-36.0); MEAN CORPUSCULAR VOLUME 81 fl (80-97); PLATELET COUNT 353 10^3/uL (150-450); PROTHROMBIN TIME 31.2 SEC (11.4-15.4); RED BLOOD COUNT 4.05 10^6/uL (3.72-5.28); WHITE BLOOD COUNT 5.7 10^3/uL (4.0-10.5)
[2018-01-15 18:55] LABS: ALANINE AMINOTRANSFERASE 47 U/L (9-52); ALBUMIN 2.5 g/dL (3.5-5.0); ALKALINE PHOSPHATASE 62 U/L (38-126); ASPARTATE AMINO TRANSFERASE 59 U/L (14-36); BILIRUBIN,DIRECT 0.4 mg/dL (0.0-0.4); BILIRUBIN,TOTAL 0.4 mg/dL (0.2-1.3); BLOOD UREA NITROGEN 26 mg/dL (7-20); CALCIUM 8.2 mg/dL (8.4-10.2); GLUCOSE 84 mg/dL (75-110); POTASSIUM 4.3 mmol/L (3.6-5.0); TOTAL PROTEIN 4.7 g/dL (6.3-8.2)
[2018-01-15 18:56] LABS: ABSOLUTE LYMPHOCYTES# (MANUAL) 2.3 10^3/uL (0.5-4.7); ABSOLUTE MONOCYTES # (MANUAL) 0.5 10^3/uL (0.1-1.4); ABSOLUTE NEUTROPHILS# (MANUAL) 2.7 10^3/uL (1.7-8.2); BASOPHILS % (MANUAL) 0 % (0-2); EOSINOPHILS % (MANUAL) 3 % (0-6); LYMPHOCYTES % (MANUAL) 40 % (13-45); MONOCYTES % (MANUAL) 9 % (3-13); SEGMENTED NEUTROPHILS % (MAN) 48 % (42-78); TOTAL CELLS COUNTED 100
[2018-01-15 18:58] LABS: ACANTHOCYTES SLIGHT; ANISOCYTOSIS 2+; HYPOCHROMASIA SLIGHT; PLATELET COMMENT ADEQUATE; POIKILOCYTOSIS 1+; TARGET CELLS SLIGHT; TOXIC GRANULATION SLIGHT
[2018-01-15 18:59] LABS: PARTIAL THROMBOPLASTIN TIME 33.3 SEC (23.5-35.8)
[2018-01-15 19:00] LABS: CARBON DIOXIDE 38 mmol/L (22-30); CHLORIDE 99 mmol/L (98-107); SODIUM 139.9 mmol/L (137-145)
[2018-01-15 19:05] LABS: ANION GAP 3 (5-19)
== END ==
LOC: OD 17:39
PROVIDERS: ATTEND Obstetrics & Gynecology
DX: I50.33 Acute on chronic diastolic (congestive) heart failure (principal); I27.20 Pulmonary hypertension, unspecified; Z95.2 Presence of prosthetic heart valve
CPT/HCPCS: 36415; 80053; 84443; 85025; 85610; 85730

== ENCOUNTER → 2018-02-21 | Outpatient (CLI) | payer MEDICARE ==
[2018-02-21 16:05] LABS: ABSOLUTE BASOPHILS # (AUTO) 0.1 10^3/uL (0.0-0.2); ABSOLUTE EOSINOPHILS # (AUTO) 0.3 10^3/uL (0.0-0.6); ABSOLUTE LYMPHOCYTES (AUTO) 0.3 10^3/uL (0.5-4.7); ABSOLUTE MONOCYTES (AUTO) 0.6 10^3/uL (0.1-1.4); ABSOLUTE NEUT (AUTO) 3.5 10^3/uL (1.7-8.2); BASOPHILS % (AUTO) 1.6 % (0-2); HEMATOCRIT 32.9 % (36.0-47.0); HEMOGLOBIN 10.7 g/dL (12.0-15.5); LYMPHOCYTES % (AUTO) 7.2 % (13-45); MEAN CORPUSCULAR HGB CONC 32.6 g/dL (32.0-36.0); MEAN CORPUSCULAR VOLUME 83 fl (80-97); MONOCYTES % (AUTO) 12.4 % (3-13); PLATELET COUNT 312 10^3/uL (150-450); RED BLOOD COUNT 3.97 10^6/uL (3.72-5.28); RED CELL DISTRIBUTION WIDTH 21.3 % (11.5-14.0); SEGMENTED NEUTROPHILS % (AUTO) 72.8 % (42-78); TOTAL CELLS COUNTED % (AUTO) 100 %; WHITE BLOOD COUNT 4.8 10^3/uL (4.0-10.5)
[2018-02-21 16:19] LABS: ALANINE AMINOTRANSFERASE 42 U/L (9-52); ALBUMIN 2.4 g/dL (3.5-5.0); ALKALINE PHOSPHATASE 58 U/L (38-126); ASPARTATE AMINO TRANSFERASE 51 U/L (14-36); BILIRUBIN,DIRECT 0.2 mg/dL (0.0-0.4); BILIRUBIN,TOTAL 0.2 mg/dL (0.2-1.3); BLOOD UREA NITROGEN 23 mg/dL (7-20); CALCIUM 8.2 mg/dL (8.4-10.2); GLUCOSE 81 mg/dL (75-110); POTASSIUM 4.3 mmol/L (3.6-5.0); TOTAL PROTEIN 4.6 g/dL (6.3-8.2)
[2018-02-21 16:25] LABS: CARBON DIOXIDE 31 mmol/L (22-30); CHLORIDE 106 mmol/L (98-107); SODIUM 139.4 mmol/L (137-145)
[2018-02-21 16:26] LABS: ANION GAP 2 (5-19)
[2018-02-21 16:51] LABS: ANISOCYTOSIS 2+; PLATELET COMMENT ADEQUATE
[2018-02-21 16:53] LABS: ACANTHOCYTES SLIGHT; POIKILOCYTOSIS SLIGHT
== END ==
LOC: OD 15:03
PROVIDERS: ATTEND Obstetrics & Gynecology
DX: I50.9 Heart failure, unspecified (principal); J84.10 Pulmonary fibrosis, unspecified
CPT/HCPCS: 36415; 80053; 83880; 85025

== ENCOUNTER → 2018-03-18 | Outpatient (CLI) | payer MEDICARE ==
[2018-03-18 15:09] LABS: HEMATOCRIT 32.9 % (36.0-47.0); HEMOGLOBIN 10.9 g/dL (12.0-15.5); MEAN CORPUSCULAR HEMOGLOBIN 27.6 pg (27.0-33.4); MEAN CORPUSCULAR HGB CONC 33.1 g/dL (32.0-36.0); MEAN CORPUSCULAR VOLUME 83 fl (80-97); PLATELET COUNT 352 10^3/uL (150-450); RED BLOOD COUNT 3.95 10^6/uL (3.72-5.28); RED CELL DISTRIBUTION WIDTH 20.3 % (11.5-14.0); WHITE BLOOD COUNT 6.2 10^3/uL (4.0-10.5)
[2018-03-18 15:26] LABS: ALANINE AMINOTRANSFERASE 35 U/L (9-52); ALBUMIN 2.2 g/dL (3.5-5.0); ALKALINE PHOSPHATASE 57 U/L (38-126); ASPARTATE AMINO TRANSFERASE 44 U/L (14-36); BILIRUBIN,DIRECT 0.3 mg/dL (0.0-0.4); BILIRUBIN,TOTAL 0.4 mg/dL (0.2-1.3); BLOOD UREA NITROGEN 26 mg/dL (7-20); CALCIUM 7.7 mg/dL (8.4-10.2); GLUCOSE 98 mg/dL (75-110); IRON(TIBC) 19.9 ug/dL (37-170); POTASSIUM 3.7 mmol/L (3.6-5.0); TOTAL PROTEIN 4.3 g/dL (6.3-8.2)
[2018-03-18 15:31] LABS: CARBON DIOXIDE 39 mmol/L (22-30); CHLORIDE 97 mmol/L (98-107); SODIUM 138.3 mmol/L (137-145)
[2018-03-18 15:46] LABS: ANION GAP 2 (5-19)
== END ==
LOC: OD 14:12
PROVIDERS: ATTEND Obstetrics & Gynecology
DX: J84.10 Pulmonary fibrosis, unspecified (principal); Z95.2 Presence of prosthetic heart valve; Z09 Encounter for follow-up examination after completed treatment for conditions other than malignant neoplasm; Z86.2 Personal history of diseases of the blood and blood-forming organs and certain disorders involving the immune mechanism; Z51.81 Encounter for therapeutic drug level monitoring; Z79.899 Other long term (current) drug therapy
CPT/HCPCS: 36415; 80053; 83540; 83550; 85027

== ENCOUNTER → 2018-05-16 | Outpatient (CLI) | payer MEDICARE ==
[2018-05-16 16:40] LABS: ABSOLUTE BASOPHILS # (AUTO) 0.1 10^3/uL (0.0-0.2); ABSOLUTE EOSINOPHILS # (AUTO) 0.2 10^3/uL (0.0-0.6); ABSOLUTE LYMPHOCYTES (AUTO) 0.6 10^3/uL (0.5-4.7); ABSOLUTE MONOCYTES (AUTO) 0.6 10^3/uL (0.1-1.4); ABSOLUTE NEUT (AUTO) 3.6 10^3/uL (1.7-8.2); BASOPHILS % (AUTO) 1.8 % (0-2); EOSINOPHILS % (AUTO) 4.3 % (0-6); HEMATOCRIT 37.3 % (36.0-47.0); HEMOGLOBIN 12.1 g/dL (12.0-15.5); LYMPHOCYTES % (AUTO) 12.3 % (13-45); MEAN CORPUSCULAR HEMOGLOBIN 29.5 pg (27.0-33.4); MEAN CORPUSCULAR HGB CONC 32.5 g/dL (32.0-36.0); MEAN CORPUSCULAR VOLUME 91 fl (80-97); MONOCYTES % (AUTO) 11.9 % (3-13); PLATELET COUNT 282 10^3/uL (150-450); RED BLOOD COUNT 4.12 10^6/uL (3.72-5.28); RED CELL DISTRIBUTION WIDTH 21.5 % (11.5-14.0); SEGMENTED NEUTROPHILS % (AUTO) 69.7 % (42-78); TOTAL CELLS COUNTED % (AUTO) 100 %; WHITE BLOOD COUNT 5.1 10^3/uL (4.0-10.5)
[2018-05-16 16:49] LABS: INTERNATIONAL RATION (INR) 2.86; PROTHROMBIN TIME 31.3 SEC (11.4-15.4)
[2018-05-16 17:01] LABS: ALANINE AMINOTRANSFERASE 38 U/L (9-52); ALBUMIN 2.4 g/dL (3.5-5.0); ALKALINE PHOSPHATASE 68 U/L (38-126); ASPARTATE AMINO TRANSFERASE 49 U/L (14-36); BILIRUBIN,DIRECT 0.3 mg/dL (0.0-0.4); BILIRUBIN,TOTAL 0.4 mg/dL (0.2-1.3); BLOOD UREA NITROGEN 20 mg/dL (7-20); CALCIUM 8.2 mg/dL (8.4-10.2); GLUCOSE 110 mg/dL (75-110); POTASSIUM 4.1 mmol/L (3.6-5.0); TOTAL PROTEIN 4.7 g/dL (6.3-8.2)
[2018-05-16 17:15] LABS: ANION GAP 1 (5-19); CARBON DIOXIDE 37 mmol/L (22-30); CHLORIDE 100 mmol/L (98-107)
== END ==
LOC: OD 15:28
PROVIDERS: ATTEND Obstetrics & Gynecology
DX: I50.33 Acute on chronic diastolic (congestive) heart failure (principal); I27.0 Primary pulmonary hypertension; J44.9 Chronic obstructive pulmonary disease, unspecified; Z95.2 Presence of prosthetic heart valve
CPT/HCPCS: 36415; 80053; 84443; 85025; 85610; 85730

== ENCOUNTER → 2018-05-29 | Outpatient (CLI) | payer MEDICARE | LOC: LAB 08:25 | PROVIDERS: ATTEND Obstetrics & Gynecology | DX: I50.33 Acute on chronic diastolic (congestive) heart failure (principal); I27.0 Primary pulmonary hypertension; J44.9 Chronic obstructive pulmonary disease, unspecified; Z95.2 Presence of prosthetic heart valve ==

== ENCOUNTER 2018-06-05 07:52 | Emergency (ER) | payer MEDICARE ==
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
[2018-06-05 09:45] LABS: ABSOLUTE BASOPHILS # (AUTO) 0.1 10^3/uL (0.0-0.2); ABSOLUTE EOSINOPHILS # (AUTO) 0.2 10^3/uL (0.0-0.6); ABSOLUTE LYMPHOCYTES (AUTO) 0.4 10^3/uL (0.5-4.7); ABSOLUTE MONOCYTES (AUTO) 0.4 10^3/uL (0.1-1.4); ABSOLUTE NEUT (AUTO) 3.7 10^3/uL (1.7-8.2); BASOPHILS % (AUTO) 1.7 % (0-2); EOSINOPHILS % (AUTO) 3.2 % (0-6); HEMATOCRIT 38.5 % (36.0-47.0); LYMPHOCYTES % (AUTO) 8.9 % (13-45); MEAN CORPUSCULAR HEMOGLOBIN 30.7 pg (27.0-33.4); MEAN CORPUSCULAR HGB CONC 33.9 g/dL (32.0-36.0); MEAN CORPUSCULAR VOLUME 91 fl (80-97); PLATELET COUNT 297 10^3/uL (150-450); RED BLOOD COUNT 4.24 10^6/uL (3.72-5.28); SEGMENTED NEUTROPHILS % (AUTO) 77.2 % (42-78); TOTAL CELLS COUNTED % (AUTO) 100 %; WHITE BLOOD COUNT 4.8 10^3/uL (4.0-10.5)
[2018-06-05 09:58] LABS: INTERNATIONAL RATION (INR) 2.67; PROTHROMBIN TIME 29.7 SEC (11.4-15.4)
[2018-06-05 10:06] LABS: ANISOCYTOSIS 2+; HYPOCHROMASIA 1+; PLATELET CLUMPS PRESENT; PLATELET LARGE PRESENT; POIKILOCYTOSIS 2+; POLYCHROMASIA 1+
[2018-06-05 10:07] LABS: OVALOCYTES 1+; SCHISTOCYTES SLIGHT; TEAR DROP CELLS SLIGHT
[2018-06-05 10:09] LABS: ALANINE AMINOTRANSFERASE 46 U/L (9-52); ALBUMIN 2.5 g/dL (3.5-5.0); ALKALINE PHOSPHATASE 76 U/L (38-126); ASPARTATE AMINO TRANSFERASE 62 U/L (14-36); BILIRUBIN,DIRECT 0.3 mg/dL (0.0-0.4); BILIRUBIN,TOTAL 0.6 mg/dL (0.2-1.3); BLOOD UREA NITROGEN 21 mg/dL (7-20); CALCIUM 8.5 mg/dL (8.4-10.2); CARBON DIOXIDE 39 mmol/L (22-30); GLUCOSE 108 mg/dL (75-110); TOTAL PROTEIN 5.1 g/dL (6.3-8.2)
[2018-06-05 10:42] LABS: CHLORIDE 98 mmol/L (98-107); SODIUM 135.7 mmol/L (137-145)
[2018-06-05 10:43] LABS: ANION GAP -1 (5-19)
[2018-06-05] MEDS ORDERED: FUROSEMIDE INJ/PF 40 MG/4 ML SDV IV ONE (10:59)
[2018-06-05 11:46] VITALS: BP 118/55
== END 2018-06-05 11:41 | disposition home or self-care (01) ==
LOC: ER 07:52
DX: M79.89 Other specified soft tissue disorders (principal); R06.00 Dyspnea, unspecified; Z95.4 Presence of other heart-valve replacement; Z79.01 Long term (current) use of anticoagulants
CPT/HCPCS: 99283; 96374; 36415; 85025; 85610; 80053; 83880; J1940

== ENCOUNTER 2018-06-08 17:24 | Emergency (ER) | payer MEDICARE ==
[2018-06-08 17:40] VITALS: BP 124/51
== END 2018-06-08 18:12 | disposition left against medical advice (07) ==
LOC: ER 17:24
DX: I49.9 Cardiac arrhythmia, unspecified (principal); Z53.21 Procedure and treatment not carried out due to patient leaving prior to being seen by health care provider

== ENCOUNTER → 2018-06-09 | Outpatient (CLI) | payer MEDICARE ==
[2018-06-09 08:50] LABS: ABSOLUTE BASOPHILS # (AUTO) 0.1 10^3/uL (0.0-0.2); ABSOLUTE EOSINOPHILS # (AUTO) 0.3 10^3/uL (0.0-0.6); ABSOLUTE LYMPHOCYTES (AUTO) 0.7 10^3/uL (0.5-4.7); ABSOLUTE MONOCYTES (AUTO) 0.5 10^3/uL (0.1-1.4); ABSOLUTE NEUT (AUTO) 3.4 10^3/uL (1.7-8.2); BASOPHILS % (AUTO) 1.6 % (0-2); EOSINOPHILS % (AUTO) 6.2 % (0-6); HEMATOCRIT 37.1 % (36.0-47.0); HEMOGLOBIN 12.4 g/dL (12.0-15.5); LYMPHOCYTES % (AUTO) 14.2 % (13-45); MEAN CORPUSCULAR HEMOGLOBIN 30.4 pg (27.0-33.4); MEAN CORPUSCULAR HGB CONC 33.3 g/dL (32.0-36.0); MEAN CORPUSCULAR VOLUME 92 fl (80-97); MONOCYTES % (AUTO) 9.6 % (3-13); PLATELET COUNT 271 10^3/uL (150-450); RED BLOOD COUNT 4.06 10^6/uL (3.72-5.28); RED CELL DISTRIBUTION WIDTH 19.1 % (11.5-14.0); SEGMENTED NEUTROPHILS % (AUTO) 68.4 % (42-78); TOTAL CELLS COUNTED % (AUTO) 100 %; WHITE BLOOD COUNT 4.9 10^3/uL (4.0-10.5)
[2018-06-09 08:53] LABS: INTERNATIONAL RATION (INR) 2.12; PROTHROMBIN TIME 24.8 SEC (11.4-15.4)
[2018-06-09 08:54] LABS: PARTIAL THROMBOPLASTIN TIME 32.1 SEC (23.5-35.8)
[2018-06-09 09:15] LABS: ALANINE AMINOTRANSFERASE 49 U/L (9-52); ALBUMIN 2.4 g/dL (3.5-5.0); ALKALINE PHOSPHATASE 73 U/L (38-126); ASPARTATE AMINO TRANSFERASE 61 U/L (14-36); BILIRUBIN,DIRECT 0.3 mg/dL (0.0-0.4); BILIRUBIN,TOTAL 0.6 mg/dL (0.2-1.3); BLOOD UREA NITROGEN 21 mg/dL (7-20); CALCIUM 8.2 mg/dL (8.4-10.2); CHLORIDE 98 mmol/L (98-107); GLUCOSE 87 mg/dL (75-110); POTASSIUM 4.2 mmol/L (3.6-5.0); SODIUM 135.6 mmol/L (137-145); TOTAL PROTEIN 4.7 g/dL (6.3-8.2)
[2018-06-09 09:46] LABS: CARBON DIOXIDE 42 mmol/L (22-30)
[2018-06-09 09:47] LABS: ANION GAP -4 (5-19)
== END ==
LOC: LAB 08:33
PROVIDERS: ATTEND Obstetrics & Gynecology
DX: I50.33 Acute on chronic diastolic (congestive) heart failure (principal); I27.0 Primary pulmonary hypertension; J44.9 Chronic obstructive pulmonary disease, unspecified; Z95.2 Presence of prosthetic heart valve
CPT/HCPCS: 36415; 80053; 84443; 85025; 85610; 85730

== ENCOUNTER 2018-06-13 17:42 | Inpatient (IN) | payer MEDICARE ==
[2018-06-13] MEDS ORDERED: RINGERS SOLUTION,LACTATED 1,000 ML IV PRN (18:28)
--- NOTE | 2018-06-13 18:30 | ER Document Report ---
ED Medical Screen (RME) - General Chief Complaint: Fever Stated Complaint: FEVER Time Seen by Provider: 06/13/18 18:27 Notes: 58 years old female with multiple medical problems including aortic and mitral valve replacement with mechanical valve, chronically on Coumadin. Progressive weight loss, COPD, brought in today because of difficulty in breathing, general malaise and weakness. On examination-cachectic, moderate to severe distress. Lungs no obvious rales or wheezing, cardiovascular system audible mechanical valve sounds. TRAVEL OUTSIDE OF THE [place] IN LAST 30 DAYS: No - Related Data Allergies/Adverse Reactions: ketorolac tromethamine [From Toradol] Allergy (Unknown, Verified 06/13/18 17:49) clarithromycin [From Biaxin] Allergy (Verified 06/13/18 17:49) morphine [Morphine] Adverse Reaction (Intermediate, Verified 06/13/18 17:49) oxycodone HCl [From Percocet] Adverse Reaction (Intermediate, Verified 06/13/18 17:49) Past Medical History - Past Medical History Cardiac Medical History: Reports: Hx Congestive Heart Failure, Hx Hypertension, Hx Pulmonary Embolism Denies: Hx Heart Attack Pulmonary Medical History: Reports: Hx Asthma, Hx Bronchitis, Hx Pneumonia Neurological Medical History: Denies: Hx Cerebrovascular Accident Endocrine Medical History: Reports: Hx Hypothyroidism Renal/ Medical History: Denies: Hx Peritoneal Dialysis Malignancy Medical History: Reports: Hx Lymphoma - Hodgkin's at age 11 Musculoskeltal Medical History: Reports Hx Arthritis Psychiatric Medical History: Reports: Hx Depression Past Surgical History: Reports: Hx Abdominal Surgery - EXPLORATORY, Hx Cardiac Surgery - Valve replacement x2, Hx Cholecystectomy, Hx Hysterectomy, Hx Open Heart Surgery - 2009, Hx Valve Replacement - Mitral and aortic, Other - Chest tubes of the valve replacement and lung surgery due to bleeding - Immunizations Immunizations up to date: Yes Hx Diphtheria, Pertussis, Tetanus Vaccination: Yes Physical Exam - Vital signs Vitals: Temp Pulse Resp BP Pulse Ox 99.8 F 117 H 20 115/66 91 L 06/13/18 18:13 06/13/18 18:13 06/13/18 18:13 06/13/18 18:13 06/13/18 18:13 Course - Vital Signs Vital signs: Temp Pulse Resp BP Pulse Ox 99.8 F 117 H 20 115/66 91 L 06/13/18 18:13 06/13/18 18:13 06/13/18 18:13 06/13/18 18:13 06/13/18 18:13 Doctor's Discharge - Discharge Referrals: JAMMIE ALMAGUER MD [Primary Care Provider] - Follow up as needed
[2018-06-13 19:10] LABS: APPEARANCE,URINE SLIGHTLY-CLOUDY; BILIRUBIN,URINE NEGATIVE (NEGATIVE); COLOR,URINE YELLOW; GLUCOSE, URINE NEGATIVE (NEGATIVE); KETONES,URINE NEGATIVE (NEGATIVE); LEUKOCYTE ESTERASE,URINE NEGATIVE (NEGATIVE); NITRITE,URINE NEGATIVE (NEGATIVE); PROTEIN,URINE 30 mg/dL (NEGATIVE)
[2018-06-13 19:33] LABS: HEMATOCRIT 37.9 % (36.0-47.0); HEMOGLOBIN 12.8 g/dL (12.0-15.5); MEAN CORPUSCULAR HEMOGLOBIN 30.7 pg (27.0-33.4); MEAN CORPUSCULAR HGB CONC 33.8 g/dL (32.0-36.0); MEAN CORPUSCULAR VOLUME 91 fl (80-97); PLATELET COUNT 308 10^3/uL (150-450); RED BLOOD COUNT 4.16 10^6/uL (3.72-5.28); RED CELL DISTRIBUTION WIDTH 19.1 % (11.5-14.0); WHITE BLOOD COUNT 12.6 10^3/uL (4.0-10.5)
--- NOTE | 2018-06-13 19:37 | ER Document Report ---
ED General - General Chief Complaint: Fever Stated Complaint: FEVER Time Seen by Provider: 06/13/18 18:27 Notes: Patient is a 55-year-old female with history of CHF that presents to the emergency department for chief complaint of shortness of breath and cough. Patient reports over the last 48 hours has been having increased cough and shortness of breath. She did have one episode of vomiting earlier today as well. Admits to having dyspnea on exertion, however she states that she feels very dehydrated, and that her lips seem chapped. She did take a Tylenol at home , because she felt febrile. She was concerned that maybe she was developing an infection. She has had mild productive sputum, denies having any chest pain associated with this. She also denies having any abdominal pain, dysuria or hematuria. Past Medical History: CHF, chronic kidney disease Past Surgical History: Pacemaker placement, aortic valve replacement, mitral valve replacement Social History: Denies tobacco, alcohol or illicit drug use. Family History: Reviewed and noncontributory for presenting illness Allergies: Reviewed, see documented allergy list. REVIEW OF SYSTEMS: Unless otherwise stated in this report the patient's positive and negative responses for review of systems for constitutional, eyes, ENT, cardiovascular, respiratory, gastrointestinal, neurological, genitourinary, musculoskeletal, and integumentary systems and related systems to the presenting problem are either as stated in the HPI or were not pertinent or were negative for the symptoms and/or complaints related to the presenting medical problem. PHYSICAL EXAMINATION: Vital signs reviewed, nursing noted reviewed. GENERAL: Frail appearing female, in mild distress HEAD: Atraumatic, normocephalic. EYES: Eyes appear normal, extraocular movements intact, sclera anicteric, conjunctiva are normal. ENT: nares patent, oropharynx clear without exudates. Moist mucous membranes. NECK: Normal range of motion, supple without lymphadenopathy LUNGS: Crackles at the lung bases, diminished lung sounds throughout. HEART: Heart rate tachycardic, regular rhythm, loud S1 and S2, 3/6 systolic murmur noted. ABDOMEN: Soft, nontender, normoactive bowel sounds. No rebound, guarding, or rigidity. No masses appreciated. EXTREMITIES: Nontender, good range of motion, no pitting or edema. NEUROLOGICAL: No focal neurological deficits. Moves all extremities spontaneously Motor and sensory grossly intact on exam. PSYCH: Appears anxious, normal affect. SKIN: Warm, Dry, normal turgor, no rashes or lesions noted on exposed skin TRAVEL OUTSIDE OF THE [place] IN LAST 30 DAYS: No - Related Data Allergies/Adverse Reactions: ketorolac tromethamine [From Toradol] Allergy (Unknown, Verified 06/13/18 17:49) clarithromycin [From Biaxin] Allergy (Verified 06/13/18 17:49) morphine [Morphine] Adverse Reaction (Intermediate, Verified 06/13/18 17:49) oxycodone HCl [From Percocet] Adverse Reaction (Intermediate, Verified 06/13/18 17:49) Past Medical History - Social History Smoking Status: Never Smoker Frequency of alcohol use: None Drug Abuse: None Family History: Arthritis, Malignancy, Thyroid Disfunction Patient has suicidal ideation: No Patient has homicidal ideation: No - Past Medical History Cardiac Medical History: Reports: Hx Congestive Heart Failure, Hx Hypertension, Hx Pulmonary Embolism Denies: Hx Heart Attack Pulmonary Medical History: Reports: Hx Asthma, Hx Bronchitis, Hx Pneumonia Neurological Medical History: Denies: Hx Cerebrovascular Accident Endocrine Medical History: Reports: Hx Hypothyroidism Renal/ Medical History: Denies: Hx Peritoneal Dialysis Malignancy Medical History: Reports: Hx Lymphoma - Hodgkin's at age 11 Musculoskeletal Medical History: Reports Hx Arthritis Psychiatric Medical History: Reports: Hx Depression Past Surgical History: Reports: Hx Abdominal Surgery - EXPLORATORY, Hx Cardiac Surgery - Valve replacement x2, Hx Cholecystectomy, Hx Hysterectomy, Hx Open Heart Surgery - 2009, Hx Valve Replacement - Mitral and aortic, Other - Chest tubes of the valve replacement and lung surgery due to bleeding - Immunizations Immunizations up to date: Yes Hx Diphtheria, Pertussis, Tetanus Vaccination: Yes Hx Pneumococcal Vaccination: 09/17/10 Physical Exam - Vital signs Vitals: Temp Pulse Resp BP Pulse Ox 99.8 F 117 H 20 115/66 91 L 06/13/18 18:13 06/13/18 18:13 06/13/18 18:13 06/13/18 18:13 06/13/18 18:13 Course - Re-evaluation Re-evalutation: Patient seen and examined vital signs reviewed. Laboratory data and imaging were ordered as appropriate for the patient's presenting symptoms and complaint, with consideration of any critical or life threatening conditions that may be associated with their obtained history and exam as noted above. Patient was treated with IV fluid bolus of 250 mL's of normal saline Results were reviewed when available and demonstrated bilateral basilar infiltrates, concerning for pneumonia given patient was tachycardic, has leukocytosis, and reported fever at home The patient was re-evaluated and was improved, still feeling anxious, results discussed Evaluation was most consistent with community-acquired pneumonia, leukocytosis Results were discussed with the patient at this point after careful consideration I feel that that patient should be admitted to the hospital. This was discussed with the patient that it is in the best interest for their care to be admitted for further evaluation and management. Patient agreed with this plan of care. A call was placed to the admitted physician, Dr. Reed who graciously accepted the patient onto their service. *Note is created using voice recognition software and may contain spelling, syntax or grammatical errors. Laboratory 06/13/18 06/13/18 06/13/18 18:56 19:20 19:20 WBC 12.6 H RBC 4.16 Hgb 12.8 Hct 37.9 MCV 91 MCH 30.7 MCHC 33.8 RDW 19.1 H Plt Count 308 Total Counted 100 Seg Neutrophils % Not Reportable Seg Neuts % (Manual) 92 H Lymphocytes % Not Reportable Lymphocytes % (Manual) 2 L Monocytes % Not Reportable Monocytes % (Manual) 6 Eosinophils % Not Reportable Eosinophils % (Manual) 0 Basophils % Not Reportable Basophils % (Manual) 0 Absolute Neutrophils Not Reportable Abs Neuts (Manual) 11.6 H Absolute Lymphocytes Not Reportable Abs Lymphs (Manual) 0.3 L Absolute Monocytes Not Reportable Abs Monocytes (Manual) 0.8 Absolute Eosinophils Not Reportable Absolute Eos (Manual) 0.0 Absolute Basophils Not Reportable Abs Basophils (Manual) 0.0 Giant Platelets PRESENT Platelet Comment ADEQUATE Poikilocytosis SLIGHT Anisocytosis 2+ Target Cells SLIGHT Tear Drop Cells SLIGHT Schistocytes SLIGHT PT INR APTT Sodium 136.7 L Potassium 3.6 Chloride 98 Carbon Dioxide 38 H Anion Gap 1 L BUN 19 Creatinine 0.39 L Est GFR ( Amer) > 60 Est GFR (Non-Af Amer) > 60 Glucose 105 Calcium 8.4 Total Bilirubin 0.9 Direct Bilirubin 0.2 Neonat Total Bilirubin Not Reportable Neonat Direct Bilirubin Not Reportable Neonat Indirect Bili Not Reportable AST 62 H ALT 48 Alkaline Phosphatase 94 Creatine Kinase 40 CK-MB (CK-2) Troponin I NT-Pro-B Natriuret Pep Total Protein 4.8 L Albumin 2.4 L Urine Color YELLOW Urine Appearance SLIGHTLY-CLOUDY Urine pH 7.0 Ur Specific [place] 1.020 Urine Protein 30 H Urine Glucose (UA) NEGATIVE Urine Ketones NEGATIVE Urine Blood NEGATIVE Urine Nitrite NEGATIVE Urine Bilirubin NEGATIVE Urine Urobilinogen 2.0 H Ur Leukocyte Esterase NEGATIVE Urine WBC (Auto) 1 Urine RBC (Auto) 1 Urine Bacteria (Auto) TRACE Squamous Epi Cells Auto 1 Urine Mucus (Auto) OCC Urine Ascorbic Acid NEGATIVE 06/13/18 06/13/18 06/13/18 19:20 19:20 19:20 WBC RBC Hgb Hct MCV MCH MCHC RDW Plt Count Total Counted Seg Neutrophils % Seg Neuts % (Manual) Lymphocytes % Lymphocytes % (Manual) Monocytes % Monocytes % (Manual) Eosinophils % Eosinophils % (Manual) Basophils % Basophils % (Manual) Absolute Neutrophils Abs Neuts (Manual) Absolute Lymphocytes Abs Lymphs (Manual) Absolute Monocytes Abs Monocytes (Manual) Absolute Eosinophils Absolute Eos (Manual) Absolute Basophils Abs Basophils (Manual) Giant Platelets Platelet Comment Poikilocytosis Anisocytosis Target Cells Tear Drop Cells Schistocytes PT 26.5 H INR 2.31 APTT 36.5 H Sodium Potassium Chloride Carbon Dioxide Anion Gap BUN Creatinine Est GFR ( Amer) Est GFR (Non-Af Amer) Glucose Calcium Total Bilirubin Direct Bilirubin Neonat Total Bilirubin Neonat Direct Bilirubin Neonat Indirect Bili AST ALT Alkaline Phosphatase Creatine Kinase CK-MB (CK-2) 0.62 Troponin I 0.029 NT-Pro-B Natriuret Pep 1190 H Total Protein Albumin Urine Color Urine Appearance Urine pH Ur Specific [place] Urine Protein Urine Glucose (UA) Urine Ketones Urine Blood Urine Nitrite Urine Bilirubin Urine Urobilinogen Ur Leukocyte Esterase Urine WBC (Auto) Urine RBC (Auto) Urine Bacteria (Auto) Squamous Epi Cells Auto Urine Mucus (Auto) Urine Ascorbic Acid Chest X-Ray 06/13/18 18:27 IMPRESSION: Persistent interstitial prominence and small bilateral pleural effusions. Mild basilar airspace opacities, right greater than left. - Vital Signs Vital signs: Temp Pulse Resp BP Pulse Ox 99.8 F 117 H 24 H 121/59 L 98 06/13/18 18:13 06/13/18 18:13 06/13/18 21:01 06/13/18 21:00 06/13/18 21:01 - Laboratory Result Diagrams: 06/13/18 19:20 06/13/18 19:20 Laboratory results interpreted by me: 06/13/18 06/13/18 06/13/18 18:56 19:20 19:20 WBC 12.6 H RDW 19.1 H Seg Neuts % (Manual) 92 H Lymphocytes % (Manual) 2 L Abs Neuts (Manual) 11.6 H Abs Lymphs (Manual) 0.3 L PT APTT Sodium 136.7 L Carbon Dioxide 38 H Anion Gap 1 L Creatinine 0.39 L AST 62 H NT-Pro-B Natriuret Pep Total Protein 4.8 L Albumin 2.4 L Urine Protein 30 H Urine Urobilinogen 2.0 H 06/13/18 06/13/18 19:20 19:20 WBC RDW Seg Neuts % (Manual) Lymphocytes % (Manual) Abs Neuts (Manual) Abs Lymphs (Manual) PT 26.5 H APTT 36.5 H Sodium Carbon Dioxide Anion Gap Creatinine AST NT-Pro-B Natriuret Pep 1190 H Total Protein Albumin Urine Protein Urine Urobilinogen - EKG Interpretation by Me Additional EKG results interpreted by me: EKG demonstrates ventricular paced rhythm with a ventricular rate of 115 bpm, right axis deviation, QTC 526 milliseconds, T wave inversions noted in leads II , 3, aVF, ST depressions noted in leads V4 through V6, this is compared with prior EKG from 12/30/2017, with the ST depressions in the lateral leads appearing to be new. Discharge - Discharge Clinical Impression: Tachycardia Community acquired pneumonia Qualifiers: Laterality: right Lung location: lower lobe of lung Qualified Code(s): J18.1 - Lobar pneumonia, unspecified organism Leukocytosis Qualifiers: Leukocytosis type: unspecified Qualified Code(s): D72.829 - Elevated white blood cell count, unspecified Condition: Stable Disposition: ADMITTED INPATIENT Admitting Provider: Hospitalist - Dr. Reed Unit Admitted: [facility]
[2018-06-13 19:38] LABS: INTERNATIONAL RATION (INR) 2.31; PROTHROMBIN TIME 26.5 SEC (11.4-15.4)
[2018-06-13 19:39] LABS: PARTIAL THROMBOPLASTIN TIME 36.5 SEC (23.5-35.8)
--- NOTE | 2018-06-13 19:43 | RADIOLOGY REPORT (SQ) ---
EXAM DESCRIPTION: CHEST SINGLE VIEW COMPLETED DATE/TIME: 06/13/2018 7:31 pm REASON FOR STUDY: Shortness of breath COMPARISON: 12/30/2017 EXAM PARAMETERS: NUMBER OF VIEWS: One view. TECHNIQUE: Single frontal radiographic view of the chest acquired. RADIATION DOSE: NA LIMITATIONS: None. FINDINGS: LUNGS AND PLEURA: Persistent interstitial prominence and small bilateral pleural effusions . Mild basilar airspace opacities, right greater than left. MEDIASTINUM AND HILAR STRUCTURES: Stable. HEART AND VASCULAR STRUCTURES: Stable. BONES: No acute findings. HARDWARE: Sternotomy - aortic and pulmonary valve replacement. Cardiac pacer. OTHER: No other significant finding. IMPRESSION: Persistent interstitial prominence and small bilateral pleural effusions. Mild basilar airspace opacities, right greater than left. TECHNICAL DOCUMENTATION: JOB ID: [id number] [place]-72 2010 [employer]- All Rights Reserved Reading location - IP/workstation name: [email or web address]
[2018-06-13 19:51] LABS: ALANINE AMINOTRANSFERASE 48 U/L (9-52); ALBUMIN 2.4 g/dL (3.5-5.0); ALKALINE PHOSPHATASE 94 U/L (38-126); ASPARTATE AMINO TRANSFERASE 62 U/L (14-36); BILIRUBIN,DIRECT 0.2 mg/dL (0.0-0.4); BILIRUBIN,TOTAL 0.9 mg/dL (0.2-1.3); BLOOD UREA NITROGEN 19 mg/dL (7-20); CALCIUM 8.4 mg/dL (8.4-10.2); CREATINE KINASE 40 U/L (30-135); GLUCOSE 105 mg/dL (75-110); POTASSIUM 3.6 mmol/L (3.6-5.0); TOTAL PROTEIN 4.8 g/dL (6.3-8.2)
[2018-06-13 19:55] LABS: ABSOLUTE LYMPHOCYTES# (MANUAL) 0.3 10^3/uL (0.5-4.7); ABSOLUTE MONOCYTES # (MANUAL) 0.8 10^3/uL (0.1-1.4); ABSOLUTE NEUTROPHILS# (MANUAL) 11.6 10^3/uL (1.7-8.2); BASOPHILS % (MANUAL) 0 % (0-2); EOSINOPHILS % (MANUAL) 0 % (0-6); LYMPHOCYTES % (MANUAL) 2 % (13-45); MONOCYTES % (MANUAL) 6 % (3-13); SEGMENTED NEUTROPHILS % (MAN) 92 % (42-78); TOTAL CELLS COUNTED 100
[2018-06-13 19:57] LABS: ANISOCYTOSIS 2+; PLATELET COMMENT ADEQUATE; PLATELET GIANT PRESENT; POIKILOCYTOSIS SLIGHT; SCHISTOCYTES SLIGHT; TARGET CELLS SLIGHT; TEAR DROP CELLS SLIGHT
[2018-06-13 19:58] LABS: ANION GAP 1 (5-19); CARBON DIOXIDE 38 mmol/L (22-30); CHLORIDE 98 mmol/L (98-107); CREATINE KINASE MB 0.62 ng/mL (<4.55); SODIUM 136.7 mmol/L (137-145)
[2018-06-13] MEDS ORDERED: NORMAL SALINE 250 ML IV ONE (21:16)
[2018-06-13] MEDS ORDERED: METOPROLOL TARTRATE PF/INJ 5 MG/5 ML SDV IV ONE (21:17)
[2018-06-13] MEDS ORDERED: DOXYCYCLINE HYCLATE INJ 100 MG VIAL IV ONE (21:33)
[2018-06-13] MEDS ORDERED: GUAIFENESIN SYRP 200 MG/10 ML UDC PO PRN (21:33)
[2018-06-13] MEDS ORDERED: IPRATROPIUM/ALBUTEROL 0.5-2.5 MG/3 ML AMPUL NEB PRN (21:33)
[2018-06-13] MEDS ORDERED: ACETAMINOPHEN 325 MG TABLET PO PRN (21:33)
[2018-06-13] MEDS ORDERED: HYDRALAZINE HCL INJ/PF 20 MG/1 ML SDV IV PRN (21:33)
[2018-06-13] MEDS ORDERED: CEFTRIAXONE INJ 1000 MG VIAL IV ONE (21:33)
[2018-06-13] MEDS ORDERED: HEPARIN SOD (PORCINE) 5,000 UNIT/ML 1 ML SYRINGE SUBCUT SCH (22:00)
[2018-06-13] MEDS ORDERED: WARFARIN SODIUM 4 MG TABLET PO SCH (22:00)
[2018-06-13] MEDS ORDERED: CHLORPHENIRAMINE MALEATE 4 MG TABLET ONE (22:52)
[2018-06-13] MEDS: FLUTICASONE NASAL SPRAY 50 MCG/SPRY 120 SPRAY/16 GM NASL SCH (23:01)
[2018-06-13] MEDS: FAMOTIDINE INJ/PF 20 MG/2 ML SDV IV SCH (23:02)
[2018-06-13] MEDS: METHYLPREDNISOLONE INJ 125 MG/2 ML SDV IV SCH (23:02)
[2018-06-13] MEDS: CHLORPHENIRAMINE MALEATE 4 MG TABLET PO SCH (23:02)
[2018-06-14] MEDS: NEBIVOLOL HCL 5 MG TABLET PO SCH ×2 (01:14→09:58)
[2018-06-14] MEDS: LEVALBUTEROL HCL NEB 1.25 MG/3 ML AMPUL NEB SCH ×4 (02:30→19:41)
[2018-06-14] MEDS: IPRATROPIUM BROMIDE 0.02% NEB 0.5 MG/2.5 ML AMPUL NEB SCH ×4 (02:30→19:41)
[2018-06-14 03:31] LABS: HEMATOCRIT 36.4 % (36.0-47.0); HEMOGLOBIN 12.4 g/dL (12.0-15.5); MEAN CORPUSCULAR HEMOGLOBIN 30.8 pg (27.0-33.4); MEAN CORPUSCULAR VOLUME 91 fl (80-97); PLATELET COUNT 246 10^3/uL (150-450); RED BLOOD COUNT 4.02 10^6/uL (3.72-5.28); WHITE BLOOD COUNT 12.6 10^3/uL (4.0-10.5)
[2018-06-14 03:48] LABS: BLOOD UREA NITROGEN 17 mg/dL (7-20); CALCIUM 8.1 mg/dL (8.4-10.2); CREATINE KINASE 32 U/L (30-135); GLUCOSE 145 mg/dL (75-110); POTASSIUM 3.6 mmol/L (3.6-5.0)
[2018-06-14 03:53] LABS: CARBON DIOXIDE 36 mmol/L (22-30); CHLORIDE 100 mmol/L (98-107); SODIUM 134.6 mmol/L (137-145)
[2018-06-14 03:57] LABS: ANION GAP -1 (5-19)
[2018-06-14 04:06] LABS: CREATINE KINASE MB 0.54 ng/mL (<4.55); TROPONIN I 0.024 ng/mL
[2018-06-14] MEDS ORDERED: CHLORPHENIRAMINE MALEATE 4 MG TABLET ONE (04:37)
--- NOTE | 2018-06-14 04:54 | PDOC H&P ---
History of Present Illness Admission Date/PCP: 06/13/18 21:53 JAMMIE ALMAGUER MD Patient complains of: Shortness of breath History of Present Illness: DURAN MI is a 58 year old female with a complex past medical history of Hodgkin's lymphoma at 11 years old in remission following radiation therapy the resulted in pulmonary fibrosis. Chronic and recurrent effusion with aortic and mitral valve damage requiring valve replacement at [facility] in February 2009. Congestive heart failure, chronic anticoagulation and thyroid replacement, complicated by anxiety. She presents with 48 hours of nonproductive cough and shortness of breath. Her workup is notable for prolonged QT interval, leukocytosis, fever and chronic changes on imaging. She receives empiric antibiotics, albuterol and Atrovent and referred to the hospitalist for admission. She denies rhinorrhea, sore throat, GERD or recent antibiotics. Past Medical History Cardiac Medical History: Reports: Congestive Heart Failure, Hypertension, Pulmonary Embolism Denies: Myocardial Infarction Pulmonary Medical History: Reports: Asthma, Bronchitis, Pneumonia Endocrine Medical History: Reports: Hypothyroidism Malignancy Medical History: Reports: Lymphoma - Hodgkin's at age 11 Musculoskeltal Medical History: Reports: Arthritis Psychiatric Medical History: Reports: Depression, General Anxiety Disorder Hematology: Reports: Anemia Past Surgical History Past Surgical History: Reports: Cholecystectomy, Hysterectomy, Valve Replacement - Mitral and aortic, Other - Chest tubes of the valve replacement and lung surgery due to bleeding Social History Information Source: Patient, [facility] Records Smoking Status: Never Smoker Frequency of Alcohol Use: None Hx Recreational Drug Use: No Drugs: None Hx Prescription Drug Abuse: No - Advance Directive Resuscitation Status: Full Code Family History Family History: Arthritis, Malignancy, Thyroid Disfunction Parental Family History Reviewed: Yes Children Family History Reviewed: Yes Sibling(s) Family History Reviewed.: Yes Medication/Allergy Home Medications: Warfarin Sodium [Coumadin 4 mg Tablet] 8 mg PO Q48H 04/23/13 Furosemide 1 tab PO BID 10/21/16 Spironolactone 25 mg PO DAILY 10/21/16 Tramadol HCl 0.5 - 1 tab PO Q8 10/21/16 Warfarin Sodium [Coumadin] 9 mg PO Q48H 10/21/16 Levothyroxine Sodium [Synthroid 0.1 mg Tablet] 1 tab PO DAILY 12/30/17 Nebivolol HCl [Bystolic 5 mg Tablet] 1 tab PO DAILY 12/30/17 Nitrofurantoin Macrocrystal [Macrodantin] 100 mg PO BID #10 capsule 12/30/17 Ondansetron HCl [Ondansetron HCl] 1 tab PO Q6 PRN 12/30/17 Potassium Chloride [Potassium Chloride] 2 cap PO DAILY 12/30/17 Furosemide [Lasix 40 mg Tablet] 40 mg PO QAM #30 tablet 06/05/18 Potassium Bicarbonate/Cit AC [Potassium 25 Meq Tab Eff] 25 meq PO BID #20 tablet.eff 06/05/18 Allergies/Adverse Reactions: ketorolac tromethamine [From Toradol] Allergy (Unknown, Verified 06/13/18 17:49) clarithromycin [From Biaxin] Allergy (Verified 06/13/18 17:49) morphine [Morphine] Adverse Reaction (Intermediate, Verified 06/13/18 17:49) oxycodone HCl [From Percocet] Adverse Reaction (Intermediate, Verified 06/13/18 17:49) Review of Systems Constitutional: ABSENT: chills, fever(s), headache(s), weight gain, weight loss Eyes: ABSENT: visual disturbances Ears: ABSENT: hearing changes Cardiovascular: ABSENT: chest pain, dyspnea on exertion, edema, orthropnea, palpitations Respiratory: ABSENT: cough, hemoptysis Gastrointestinal: ABSENT: abdominal pain, constipation, diarrhea, hematemesis, hematochezia, nausea, vomiting Genitourinary: ABSENT: dysuria, hematuria Musculoskeletal: ABSENT: joint swelling Integumentary: ABSENT: rash, wounds Neurological: ABSENT: abnormal gait, abnormal speech, confusion, dizziness, focal weakness, syncope Psychiatric: ABSENT: anxiety, depression, homidical ideation, suicidal ideation Endocrine: ABSENT: cold intolerance, heat intolerance, polydipsia, polyuria Hematologic/Lymphatic: ABSENT: easy bleeding, easy bruising Physical Exam Vital Signs: Temp Pulse Resp BP Pulse Ox 98.3 F 104 H 18 115/55 L 98 06/14/18 03:30 06/14/18 03:30 06/14/18 03:30 06/14/18 03:30 06/14/18 03:30 Intake & Output 06/12/18 06/13/18 06/14/18 11:59 11:59 11:59 Intake Total 250 Balance 250 Weight 48.5 kg General appearance: PRESENT: cooperative, severe distress, thin Head exam: PRESENT: atraumatic, normocephalic Eye exam: PRESENT: conjunctiva pink, EOMI, PERRLA. ABSENT: scleral icterus Ear exam: PRESENT: normal external ear exam Mouth exam: PRESENT: moist, tongue midline Neck exam: ABSENT: carotid bruit, JVD, lymphadenopathy, thyromegaly Respiratory exam: PRESENT: accessory muscle use, clear to auscultation milena, crackles, decreased breath sounds, prolonged expiratory phas, retraction, tachypnea. ABSENT: rales, rhonchi, wheezes Cardiovascular exam: PRESENT: RRR, systolic murmur, tachycardia. ABSENT: diastolic murmur, rubs Pulses: PRESENT: normal dorsalis pedis pul Vascular exam: PRESENT: normal capillary refill GI/Abdominal exam: PRESENT: normal bowel sounds, soft. ABSENT: distended, guarding, mass, organolmegaly, rebound, tenderness Rectal exam: PRESENT: deferred Extremities exam: PRESENT: full ROM. ABSENT: calf tenderness, clubbing, pedal edema Neurological exam: PRESENT: alert, awake, oriented to person, oriented to place , oriented to time, oriented to situation, CN II-XII grossly intact. ABSENT: motor sensory deficit Psychiatric exam: PRESENT: appropriate affect, normal mood. ABSENT: homicidal ideation, suicidal ideation Skin exam: PRESENT: dry, intact, warm. ABSENT: cyanosis, rash Results Laboratory Results: 06/14/18 03:20 06/14/18 03:20 06/14/18 06/14/18 03:20 03:20 WBC 12.6 H RBC 4.02 Hgb 12.4 Hct 36.4 MCV 91 MCH 30.8 MCHC 34.0 RDW 19.0 H Plt Count 246 Sodium 134.6 L Potassium 3.6 Chloride 100 Carbon Dioxide 36 H Anion Gap -1 L BUN 17 Creatinine 0.33 L Est GFR ( Amer) > 60 Est GFR (Non-Af Amer) > 60 Glucose 145 H Calcium 8.1 L 06/14/18 06/14/18 03:20 03:20 Creatine Kinase 32 CK-MB (CK-2) 0.54 Troponin I 0.024 Impressions: Chest X-Ray 06/13/18 18:27 IMPRESSION: Persistent interstitial prominence and small bilateral pleural effusions. Mild basilar airspace opacities, right greater than left. Assessment & Plan - Diagnosis (1) Community acquired pneumonia Qualifiers: Laterality: right Lung location: lower lobe of lung Qualified Code(s): J18.1 - Lobar pneumonia, unspecified organism Is this a current diagnosis for this admission?: Yes Plan: Pneumonia care set, avoid Q T prolonging agents (2) COPD exacerbation Is this a current diagnosis for this admission?: Yes Plan: Albuterol, Atrovent, incentive spirometry, flutter valve and steroids (3) Pulmonary fibrosis Is this a current diagnosis for this admission?: Yes Plan: Please see #2, BiPAP as needed (4) Anticoagulation goal of INR 2.5 to 3.5 Is this a current diagnosis for this admission?: Yes Plan: Continue outpatient regiment of Coumadin - Time Time Spent: 50 to 70 Minutes - Inpatient Certification Medical Necessity: Need Close Monitoring Due to Risk of Patient Decompensation
[2018-06-14] MEDS: METHYLPREDNISOLONE INJ 125 MG/2 ML SDV IV SCH (05:13)
[2018-06-14] MEDS: CHLORPHENIRAMINE MALEATE 4 MG TABLET PO SCH ×2 (05:13→09:57)
[2018-06-14] MEDS: FAMOTIDINE INJ/PF 20 MG/2 ML SDV IV SCH ×2 (09:55→22:59)
[2018-06-14] MEDS: FLUTICASONE NASAL SPRAY 50 MCG/SPRY 120 SPRAY/16 GM NASL SCH ×2 (09:57→22:59)
[2018-06-14] MEDS: FUROSEMIDE 40 MG TABLET PO SCH ×2 (09:57→18:43)
[2018-06-14] MEDS ORDERED: CEFTRIAXONE 1 GM/D5W RTU 1 GM/50 ML RTUPB IV SCH (10:00)
[2018-06-14 12:18] LABS: CREATINE KINASE MB 0.85 ng/mL (<4.55); TROPONIN I 0.019 ng/mL
[2018-06-14 12:40] LABS: APPEARANCE,URINE SLIGHTLY-CLOUDY; BILIRUBIN,URINE NEGATIVE (NEGATIVE); COLOR,URINE YELLOW; GLUCOSE, URINE NEGATIVE (NEGATIVE); KETONES,URINE NEGATIVE (NEGATIVE); LEUKOCYTE ESTERASE,URINE NEGATIVE (NEGATIVE); NITRITE,URINE NEGATIVE (NEGATIVE); PROTEIN,URINE 30 mg/dL (NEGATIVE); UROBILINOGEN,URINE NEGATIVE mg/dL (<2.0)
[2018-06-14] MEDS ORDERED: VANCOMYCIN HCL 0 MG in DEXTROSE 5%-WATER 250 ML IV NR (14:00)
--- NOTE | 2018-06-14 14:14 | PDOC PROGRESS REPORT ---
Subjective Progress Note for:: 06/14/18 Subjective:: Ms. Jeffries is a 58-year-old female with a past medical history of remote Hodgkin' s lymphoma diagnosed 11 years old with prior radiation therapy currently in remission, pulmonary fibrosis after radiation, history of chronic and recurrent pleural effusion, congestive heart failure with last known reported EF of 40-45% , history of aortic and mitral valve replacement (2008) reportedly from radiation on Coumadin, hypothyroidism and history of anxiety who presented with fever, cough and progressive shortness of breath. Patient's chest x-ray upon presentation did show opacities concerning for pneumonia. Patient was started on Rocephin as well as IV steroids. No acute event overnight. Upon encounter this morning, patient was able to go back to her bed from the bathroom. She is currently off O2 and she appear short of breath. She does say she still has shortness of breath but this has very slightly improved from presentation. She says she continues to have cough and had minimal sputum production this morning with scanty bright red blood. She denies any chest pain, palpitations, dizziness. Reason For Visit: SEPSIS PULMONARY FIBROSIS CHF EXACERBATION PNEUMON Physical Exam Vital Signs: Temp Pulse Resp BP Pulse Ox 97.4 F 101 H 17 112/57 L 97 06/14/18 11:47 06/14/18 11:47 06/14/18 11:47 06/14/18 11:47 06/14/18 11:47 Intake & Output 06/13/18 06/14/18 06/15/18 06:59 06:59 06:59 Intake Total 250 0 Output Total 200 Balance 250 -200 Weight 106 lb 14.787 oz General appearance: PRESENT: thin, other - Patient appears to be in mild respiratory distress. Head exam: PRESENT: atraumatic, normocephalic Eye exam: PRESENT: conjunctiva pink, EOMI, PERRLA. ABSENT: scleral icterus Ear exam: PRESENT: normal external ear exam Mouth exam: PRESENT: moist, tongue midline Neck exam: ABSENT: carotid bruit, JVD, lymphadenopathy, thyromegaly Respiratory exam: PRESENT: crackles, rales - Note of crackles and rales at the bases, no wheezing Cardiovascular exam: PRESENT: diastolic murmur, RRR, systolic murmur, other - Very audible mechanical clicks. ABSENT: rubs Pulses: PRESENT: normal dorsalis pedis pul GI/Abdominal exam: PRESENT: normal bowel sounds, soft. ABSENT: distended, guarding, mass, organolmegaly, rebound, tenderness Rectal exam: PRESENT: deferred Neurological exam: PRESENT: alert, awake, oriented to person, oriented to place , oriented to time, oriented to situation, CN II-XII grossly intact. ABSENT: motor sensory deficit Skin exam: PRESENT: other - Note of hypopigmented indented skin lesions from vitiligo Results Laboratory Results: 06/14/18 03:20 06/14/18 03:20 06/14/18 06/14/18 06/14/18 03:20 03:20 11:50 WBC 12.6 H RBC 4.02 Hgb 12.4 Hct 36.4 MCV 91 MCH 30.8 MCHC 34.0 RDW 19.0 H Plt Count 246 Sodium 134.6 L Potassium 3.6 Chloride 100 Carbon Dioxide 36 H Anion Gap -1 L BUN 17 Creatinine 0.33 L Est GFR ( Amer) > 60 Est GFR (Non-Af Amer) > 60 Glucose 145 H Calcium 8.1 L Urine Color Urine Appearance Urine pH Ur Specific [place] Urine Protein Urine Glucose (UA) Urine Ketones Urine Blood Urine Nitrite Ur Leukocyte Esterase Urine WBC (Auto) Stool Occult Blood NEGATIVE 06/14/18 11:50 WBC RBC Hgb Hct MCV MCH MCHC RDW Plt Count Sodium Potassium Chloride Carbon Dioxide Anion Gap BUN Creatinine Est GFR ( Amer) Est GFR (Non-Af Amer) Glucose Calcium Urine Color YELLOW Urine Appearance SLIGHTLY-CLOUDY Urine pH 5.0 Ur Specific [place] 1.020 Urine Protein 30 H Urine Glucose (UA) NEGATIVE Urine Ketones NEGATIVE Urine Blood NEGATIVE Urine Nitrite NEGATIVE Ur Leukocyte Esterase NEGATIVE Urine WBC (Auto) 2 Stool Occult Blood 06/14/18 06/14/18 06/14/18 03:20 03:20 11:15 Creatine Kinase 32 31 CK-MB (CK-2) 0.54 Troponin I 0.024 06/14/18 11:15 Creatine Kinase CK-MB (CK-2) 0.85 Troponin I 0.019 Impressions: Chest X-Ray 06/13/18 18:27 IMPRESSION: Persistent interstitial prominence and small bilateral pleural effusions. Mild basilar airspace opacities, right greater than left. Assessment & Plan - Diagnosis (1) Healthcare-associated pneumonia Is this a current diagnosis for this admission?: Yes Plan: Patient has had multiple ER and hospital visits in the past 3 months. Chest x- ray does show basilar airspace opacities in both bases with more opacities in the right versus left. She is still short of breath upon encounter this morning. Will broaden IV antibiotic coverage patient. Will switch Rocephin to broad-spectrum IV antibiotics, Zosyn and vancomycin. Will de-escalate depending on patient's clinical course and pending sputum and blood culture results. She says she did not feel well after she was given a high dose of IV steroids last night and requested if the steroids can be decreased. No significant wheezing upon encounter this morning. Reduce solumedrol to 40 mg IV daily. (2) Acute bronchitis Qualifiers: Bronchitis organism: unspecified organism Qualified Code(s): J20.9 - Acute bronchitis, unspecified Is this a current diagnosis for this admission?: Yes Plan: Reduce Solu-Medrol from 125 mg q8 to 40 mg daily. (3) Valvular heart disease Is this a current diagnosis for this admission?: Yes Plan: History of aortic and pulmonary valve replacement. INR goal of 2.5-3.5. Continue Coumadin. Will recheck INR tomorrow. (4) Chronic systolic (congestive) heart failure Is this a current diagnosis for this admission?: Yes Plan: Not in exacerbation. Patient's last echo available in record shows normal EF. Patient says that she had an echo done earlier this year which showed an EF of 45%. She is not optimized medically for CHF. Will request a copy of recent echo and will consider starting STEVE inhibitor and beta-blockers pending copy of recent echo. - Time Time Spent with patient: 25-34 minutes
[2018-06-14] MEDS: VANCOMYCIN HCL 500 MG in DEXTROSE 5%-WATER 100 ML IV SCH ×2 (16:00→22:59)
[2018-06-14] MEDS ORDERED: ALPRAZOLAM 0.25 MG TABLET PO ONE (17:00)
[2018-06-14] MEDS ORDERED: LORAZEPAM 0.5 MG TABLET PO ONE ×2 (17:30→20:30)
[2018-06-14] MEDS: PIPERACILLIN SODIUM/TAZOBACTAM 3.375 GM in NORMAL SALINE 100 ML IV SCH (18:43)
[2018-06-14 20:09] LABS: CREATINE KINASE MB 1.16 ng/mL (<4.55); TROPONIN I 0.02 ng/mL
--- NOTE | 2018-06-14 21:05 | EKG REPORT ---
SEVERITY:- ABNORMAL ECG - VENTRICULAR-PACED COMPLEXES NONSPECIFIC INTRAVENTRICULAR CONDUCTION DELAY BORDERLINE ST DEPRESSION, DIFFUSE LEADS : Confirmed by: Ami Meeks MD 14-Jun-2018 21:04:21
[2018-06-14] MEDS ORDERED: CEFTRIAXONE SODIUM 1,000 MG in DEXTROSE 5%-WATER 50 ML IV SCH (22:00)
[2018-06-14] MEDS ORDERED: WARFARIN SODIUM 3 MG TABLET PO SCH (22:00)
[2018-06-14 22:11] LABS: INTERNATIONAL RATION (INR) 2.27; PROTHROMBIN TIME 26.1 SEC (11.4-15.4)
[2018-06-14] MEDS ORDERED: LORAZEPAM 1 MG TABLET ONE (22:48)
[2018-06-15] MEDS: PIPERACILLIN SODIUM/TAZOBACTAM 3.375 GM in NORMAL SALINE 100 ML IV SCH ×5 (01:11→23:00)
[2018-06-15] MEDS: IPRATROPIUM BROMIDE 0.02% NEB 0.5 MG/2.5 ML AMPUL NEB SCH ×4 (03:46→21:03)
[2018-06-15] MEDS: LEVALBUTEROL HCL NEB 1.25 MG/3 ML AMPUL NEB SCH ×4 (03:46→21:03)
[2018-06-15 05:10] LABS: HEMATOCRIT 35.9 % (36.0-47.0); HEMOGLOBIN 11.9 g/dL (12.0-15.5); MEAN CORPUSCULAR HEMOGLOBIN 30.7 pg (27.0-33.4); MEAN CORPUSCULAR HGB CONC 33.1 g/dL (32.0-36.0); MEAN CORPUSCULAR VOLUME 93 fl (80-97); PLATELET COUNT 266 10^3/uL (150-450); RED BLOOD COUNT 3.88 10^6/uL (3.72-5.28); RED CELL DISTRIBUTION WIDTH 18.8 % (11.5-14.0)
[2018-06-15 05:20] LABS: BLOOD UREA NITROGEN 30 mg/dL (7-20); CALCIUM 7.9 mg/dL (8.4-10.2); GLUCOSE 112 mg/dL (75-110); POTASSIUM 3.3 mmol/L (3.6-5.0)
[2018-06-15 05:26] LABS: CARBON DIOXIDE 35 mmol/L (22-30); CHLORIDE 100 mmol/L (98-107); SODIUM 135.9 mmol/L (137-145)
[2018-06-15 05:30] LABS: ANION GAP 1 (5-19)
[2018-06-15 05:37] LABS: ABSOLUTE LYMPHOCYTES# (MANUAL) 0.9 10^3/uL (0.5-4.7); ABSOLUTE MONOCYTES # (MANUAL) 0.9 10^3/uL (0.1-1.4); ABSOLUTE NEUTROPHILS# (MANUAL) 15.3 10^3/uL (1.7-8.2); BASOPHILS % (MANUAL) 0 % (0-2); EOSINOPHILS % (MANUAL) 0 % (0-6); LYMPHOCYTES % (MANUAL) 5 % (13-45); MONOCYTES % (MANUAL) 5 % (3-13); SEGMENTED NEUTROPHILS % (MAN) 90 % (42-78); TOTAL CELLS COUNTED 100; TOXIC GRANULATION SLIGHT; TOXIC VACUOLATION PRESENT
[2018-06-15 05:38] LABS: ANISOCYTOSIS 2+; BURR CELLS 1+; HELMET CELLS 1+; PLATELET COMMENT ADEQUATE; PLATELET GIANT PRESENT; POIKILOCYTOSIS 2+; SCHISTOCYTES 1+; TARGET CELLS SLIGHT
[2018-06-15] MEDS: VANCOMYCIN HCL 500 MG in DEXTROSE 5%-WATER 100 ML IV SCH ×2 (07:05→14:42)
[2018-06-15] MEDS: FAMOTIDINE INJ/PF 20 MG/2 ML SDV IV SCH ×2 (09:49→21:27)
[2018-06-15] MEDS: FLUTICASONE NASAL SPRAY 50 MCG/SPRY 120 SPRAY/16 GM NASL SCH ×2 (09:49→21:27)
[2018-06-15] MEDS: POTASSIUM CHLORIDE 10 MEQ CAPSULE.ER PO SCH (09:50)
[2018-06-15] MEDS: FUROSEMIDE 40 MG TABLET PO SCH ×2 (09:50→17:34)
[2018-06-15] MEDS: NEBIVOLOL HCL 5 MG TABLET PO SCH (09:50)
[2018-06-15] MEDS ORDERED: METHYLPREDNISOLONE INJ 40 MG/1 ML SDV IV SCH (10:00)
--- NOTE | 2018-06-15 11:57 | PDOC PROGRESS REPORT ---
Subjective Progress Note for:: 06/15/18 Subjective:: Ms. Jeffries is a 58-year-old female with a past medical history of remote Hodgkin' s lymphoma diagnosed 11 years old with prior radiation therapy currently in remission, chronic respiratory failure on 2-4 L of ome O2, pulmonary fibrosis after radiation, history of chronic and recurrent pleural effusion, history of Grave's disease with prior radioiodine ablation, hypothyroidism on synthroid, congestive heart failure with last known reported EF of 40-45%, history of aortic and mitral valve replacement (2008) reportedly from radiation on Coumadin , hypothyroidism and history of anxiety who presented with fever, cough and progressive shortness of breath. Patient's chest x-ray upon presentation did show opacities concerning for pneumonia. Patient was started on Rocephin as well as IV steroids. No acute event overnight. Upon encounter this morning, patient says she feels slightly better today. She says she still feels a little short of breath but much improved from when she came in. She was able to walk back and forth along the hallway with O2 support. No fever. She denies any chest pain, palpitations, dizziness. Reason For Visit: SEPSIS PULMONARY FIBROSIS CHF EXACERBATION PNEUMON Physical Exam Vital Signs: Temp Pulse Resp BP Pulse Ox 98.2 F 101 H 18 122/58 L 96 06/15/18 07:54 06/15/18 08:09 06/15/18 08:09 06/15/18 07:54 06/15/18 08:09 Intake & Output 06/14/18 06/15/18 06/16/18 06:59 06:59 06:59 Intake Total 250 1300 100 Output Total 200 Balance 250 1100 100 Weight 106 lb 14.787 oz 110 lb 3.698 oz General appearance: PRESENT: no acute distress, thin Head exam: PRESENT: atraumatic, normocephalic Eye exam: PRESENT: conjunctiva pink, EOMI, PERRLA. ABSENT: scleral icterus Ear exam: PRESENT: normal external ear exam Mouth exam: PRESENT: moist, tongue midline Neck exam: ABSENT: carotid bruit, JVD, lymphadenopathy, thyromegaly Respiratory exam: PRESENT: crackles - crackles mid to base R>L but improved from yesterday, rales - likely chornic fine bibasila rrales from pulmonary fibrosis Cardiovascular exam: PRESENT: clicks, diastolic murmur, RRR, systolic murmur, other - loud mechanical clicks Pulses: PRESENT: normal dorsalis pedis pul GI/Abdominal exam: PRESENT: normal bowel sounds, soft. ABSENT: distended, guarding, mass, organolmegaly, rebound, tenderness Rectal exam: PRESENT: deferred Neurological exam: PRESENT: alert, awake, oriented to person, oriented to place , oriented to time, oriented to situation, CN II-XII grossly intact. ABSENT: motor sensory deficit Results Laboratory Results: 06/15/18 04:33 06/15/18 04:33 06/14/18 06/14/18 06/15/18 11:50 11:50 04:33 WBC 17.0 H RBC 3.88 Hgb 11.9 L Hct 35.9 L MCV 93 MCH 30.7 MCHC 33.1 RDW 18.8 H Plt Count 266 Seg Neutrophils % Not Reportable Lymphocytes % Not Reportable Monocytes % Not Reportable Eosinophils % Not Reportable Basophils % Not Reportable Absolute Neutrophils Not Reportable Absolute Lymphocytes Not Reportable Absolute Monocytes Not Reportable Absolute Eosinophils Not Reportable Absolute Basophils Not Reportable Sodium Potassium Chloride Carbon Dioxide Anion Gap BUN Creatinine Est GFR ( Amer) Est GFR (Non-Af Amer) Glucose Calcium Urine Color YELLOW Urine Appearance SLIGHTLY-CLOUDY Urine pH 5.0 Ur Specific [place] 1.020 Urine Protein 30 H Urine Glucose (UA) NEGATIVE Urine Ketones NEGATIVE Urine Blood NEGATIVE Urine Nitrite NEGATIVE Ur Leukocyte Esterase NEGATIVE Urine WBC (Auto) 2 Stool Occult Blood NEGATIVE 06/15/18 04:33 WBC RBC Hgb Hct MCV MCH MCHC RDW Plt Count Seg Neutrophils % Lymphocytes % Monocytes % Eosinophils % Basophils % Absolute Neutrophils Absolute Lymphocytes Absolute Monocytes Absolute Eosinophils Absolute Basophils Sodium 135.9 L Potassium 3.3 L Chloride 100 Carbon Dioxide 35 H Anion Gap 1 L BUN 30 H Creatinine 0.50 L Est GFR ( Amer) > 60 Est GFR (Non-Af Amer) > 60 Glucose 112 H Calcium 7.9 L Urine Color Urine Appearance Urine pH Ur Specific [place] Urine Protein Urine Glucose (UA) Urine Ketones Urine Blood Urine Nitrite Ur Leukocyte Esterase Urine WBC (Auto) Stool Occult Blood 06/14/18 06/14/18 06/14/18 03:20 03:20 11:15 Creatine Kinase 32 31 CK-MB (CK-2) 0.54 Troponin I 0.024 09/06/14/18 06/14/18 11:15 19:30 19:30 Creatine Kinase 37 CK-MB (CK-2) 0.85 1.16 Troponin I 0.019 0.020 Impressions: Chest X-Ray 06/13/18 18:27 IMPRESSION: Persistent interstitial prominence and small bilateral pleural effusions. Mild basilar airspace opacities, right greater than left. Assessment & Plan - Diagnosis (1) Healthcare-associated pneumonia Is this a current diagnosis for this admission?: Yes Plan: Patient has had multiple ER and hospital visits in the past 3 months. Chest x- ray does show basilar airspace opacities in both bases with more opacities in the right versus left. Respiratory has improved overnight. Continue Zosyn and vancomycin for now. Will de-escalate depending on patient's clinical course and pending sputum and blood culture results. Switch Iv steroids to PO. (2) Acute bronchitis Qualifiers: Bronchitis organism: unspecified organism Qualified Code(s): J20.9 - Acute bronchitis, unspecified Is this a current diagnosis for this admission?: Yes Plan: Switch Solumedrol to prednisone 20 mg bid. (3) Valvular heart disease Is this a current diagnosis for this admission?: Yes Plan: History of aortic and pulmonary valve replacement. INR goal of 2.5-3.5. Continue Coumadin. (4) Chronic systolic (congestive) heart failure Is this a current diagnosis for this admission?: Yes Plan: Not in exacerbation. Patient's last echo available in record shows normal EF. Patient says that she had an echo done earlier this year which showed an EF of 45%. She is not optimized medically for CHF. Will request a copy of recent echo and will consider starting STEVE inhibitor and beta-blockers pending copy of recent echo. - Time Time Spent with patient: 25-34 minutes
[2018-06-15 14:13] LABS: INTERNATIONAL RATION (INR) 2.67; PROTHROMBIN TIME 29.7 SEC (11.4-15.4)
[2018-06-15 14:36] LABS: VANCOMYCIN,TROUGH 8.4 ug/mL (5.0-20.0)
[2018-06-15] MEDS ORDERED: TRAMADOL HCL 50 MG TABLET PO ONE (16:00)
[2018-06-15] MEDS ORDERED: PREDNISONE 20 MG TABLET PO SCH (18:00)
[2018-06-15] MEDS: VANCOMYCIN HCL 1,000 MG in DEXTROSE 5%-WATER 250 ML IV SCH (21:18)
[2018-06-15] MEDS ORDERED: WARFARIN SODIUM 4 MG TABLET ONE (21:57)
[2018-06-15] MEDS: WARFARIN SODIUM 4 MG TABLET PO SCH (22:55)
[2018-06-16] MEDS: IPRATROPIUM BROMIDE 0.02% NEB 0.5 MG/2.5 ML AMPUL NEB SCH ×2 (03:19→08:30)
[2018-06-16] MEDS: LEVALBUTEROL HCL NEB 1.25 MG/3 ML AMPUL NEB SCH ×4 (03:19→20:19)
[2018-06-16 04:50] LABS: HEMATOCRIT 34.2 % (36.0-47.0); HEMOGLOBIN 11.5 g/dL (12.0-15.5); MEAN CORPUSCULAR HEMOGLOBIN 30.7 pg (27.0-33.4); MEAN CORPUSCULAR HGB CONC 33.6 g/dL (32.0-36.0); MEAN CORPUSCULAR VOLUME 91 fl (80-97); PLATELET COUNT 269 10^3/uL (150-450); RED BLOOD COUNT 3.74 10^6/uL (3.72-5.28); RED CELL DISTRIBUTION WIDTH 18.2 % (11.5-14.0); WHITE BLOOD COUNT 14.2 10^3/uL (4.0-10.5)
[2018-06-16 04:55] LABS: PROTHROMBIN TIME 35.1 SEC (11.4-15.4)
[2018-06-16 05:10] LABS: BLOOD UREA NITROGEN 29 mg/dL (7-20); GLUCOSE 82 mg/dL (75-110); POTASSIUM 3.8 mmol/L (3.6-5.0)
[2018-06-16 05:15] LABS: CARBON DIOXIDE 35 mmol/L (22-30); CHLORIDE 101 mmol/L (98-107); SODIUM 136.9 mmol/L (137-145)
[2018-06-16 05:18] LABS: ABSOLUTE LYMPHOCYTES# (MANUAL) 0.3 10^3/uL (0.5-4.7); ABSOLUTE MONOCYTES # (MANUAL) 1.1 10^3/uL (0.1-1.4); ABSOLUTE NEUTROPHILS# (MANUAL) 12.8 10^3/uL (1.7-8.2); BASOPHILS % (MANUAL) 0 % (0-2); EOSINOPHILS % (MANUAL) 0 % (0-6); LYMPHOCYTES % (MANUAL) 2 % (13-45); MONOCYTES % (MANUAL) 8 % (3-13); SEGMENTED NEUTROPHILS % (MAN) 90 % (42-78); TOTAL CELLS COUNTED 100
[2018-06-16 05:22] LABS: ANISOCYTOSIS 2+; BURR CELLS SLIGHT; PLATELET COMMENT ADEQUATE; POIKILOCYTOSIS SLIGHT; TARGET CELLS 1+; TEAR DROP CELLS SLIGHT; TOXIC GRANULATION SLIGHT; TOXIC VACUOLATION PRESENT
[2018-06-16] MEDS: LEVOTHYROXINE SODIUM 0.1 MG TABLET PO SCH (05:36)
[2018-06-16] MEDS: PIPERACILLIN SODIUM/TAZOBACTAM 3.375 GM in NORMAL SALINE 100 ML IV SCH ×2 (05:36→11:58)
[2018-06-16 05:41] LABS: ANION GAP 1 (5-19)
[2018-06-16] MEDS: VANCOMYCIN HCL 1,000 MG in DEXTROSE 5%-WATER 250 ML IV SCH ×2 (06:15→13:16)
[2018-06-16] MEDS: FAMOTIDINE INJ/PF 20 MG/2 ML SDV IV SCH ×2 (09:34→21:53)
[2018-06-16] MEDS: FLUTICASONE NASAL SPRAY 50 MCG/SPRY 120 SPRAY/16 GM NASL SCH ×2 (09:34→21:53)
[2018-06-16] MEDS: FUROSEMIDE 40 MG TABLET PO SCH ×2 (09:53→17:13)
[2018-06-16] MEDS: NEBIVOLOL HCL 5 MG TABLET PO SCH (09:53)
[2018-06-16] MEDS: POTASSIUM CHLORIDE 10 MEQ CAPSULE.ER PO SCH (09:53)
[2018-06-16] MEDS ORDERED: PREDNISONE 20 MG TABLET PO SCH (10:00)
[2018-06-16] MEDS: TRAMADOL HCL 50 MG TABLET PO SCH (10:06)
[2018-06-16] MEDS: PREDNISONE 10 MG TABLET PO SCH (10:06)
--- NOTE | 2018-06-16 12:22 | PDOC PROGRESS REPORT ---
Subjective Progress Note for:: 06/16/18 Subjective:: Ms. Jeffries is a 58-year-old female with a past medical history of remote Hodgkin' s lymphoma diagnosed 11 years old with prior radiation therapy currently in remission, chronic respiratory failure on 2-4 L of home O2, pulmonary fibrosis after radiation, history of chronic and recurrent pleural effusion, history of Grave's disease with prior radioiodine ablation, hypothyroidism on synthroid, congestive heart failure with last known reported EF of 40-45%, history of heart block with pacemaker placement, history of aortic and mitral valve replacement (2008) reportedly from radiation on Coumadin, hypothyroidism and history of anxiety who presented with fever, cough and progressive shortness of breath. Patient's chest x-ray upon presentation did show opacities concerning for pneumonia. Patient was started on Rocephin as well as IV steroids. No acute event overnight. Upon encounter this morning, her breathing is slightly better but complains she had some chest tightness from the ipratropium and tolerates the Xopenex better. She says she had productively greenish sputum last night and had some minimal blood streaked yellowish sputum this morning. She was able to walk back and forth along the hallway with O2 support yesterday. At baseline at home, she says she saturates at 93-94% on 2-4L of home O2 at rest. No fever. She says she felt a few short pauses on her heartbeat. She denies any chest pain , palpitations, dizziness. She does admit to having severe anxiety. She says she was tried on different psych medications before. and says that she takes tramadol everyday at home and swears it is the only medication that gives her relief from anxiety. Reason For Visit: SEPSIS PULMONARY FIBROSIS CHF EXACERBATION PNEUMON Physical Exam Vital Signs: Temp Pulse Resp BP Pulse Ox 98.2 F 105 H 17 110/49 L 100 06/16/18 11:34 06/16/18 11:34 06/16/18 11:34 06/16/18 11:34 06/16/18 11:34 Intake & Output 06/15/18 06/16/18 06/17/18 06:59 06:59 06:59 Intake Total 1300 1161 250 Output Total 200 Balance 1100 1161 250 Weight 110 lb 3.698 oz 113 lb 12.136 oz General appearance: PRESENT: no acute distress, thin Head exam: PRESENT: atraumatic, normocephalic Eye exam: PRESENT: conjunctiva pink, EOMI, PERRLA. ABSENT: scleral icterus Ear exam: PRESENT: normal external ear exam Mouth exam: PRESENT: moist, tongue midline Neck exam: ABSENT: carotid bruit, JVD, lymphadenopathy, thyromegaly Respiratory exam: PRESENT: rales, other - base R>L but much improved from yesterday, fine rales - likely chronic fine bibasilar rales from pulmonary fibrosis Cardiovascular exam: PRESENT: diastolic murmur, irregular rhythm, RRR, other - loud mechanical clicks Pulses: PRESENT: normal dorsalis pedis pul GI/Abdominal exam: PRESENT: normal bowel sounds, soft. ABSENT: distended, guarding, mass, organolmegaly, rebound, tenderness Rectal exam: PRESENT: deferred Neurological exam: PRESENT: alert, awake, oriented to person, oriented to place , oriented to time, oriented to situation, CN II-XII grossly intact. ABSENT: motor sensory deficit Results Laboratory Results: 06/16/18 04:22 06/16/18 04:22 06/16/18 06/16/18 06/16/18 04:22 04:22 04:22 WBC 14.2 H RBC 3.74 Hgb 11.5 L Hct 34.2 L MCV 91 MCH 30.7 MCHC 33.6 RDW 18.2 H Plt Count 269 Seg Neutrophils % Not Reportable Lymphocytes % Not Reportable Monocytes % Not Reportable Eosinophils % Not Reportable Basophils % Not Reportable Absolute Neutrophils Not Reportable Absolute Lymphocytes Not Reportable Absolute Monocytes Not Reportable Absolute Eosinophils Not Reportable Absolute Basophils Not Reportable Sodium 136.9 L Potassium 3.8 Chloride 101 Carbon Dioxide 35 H Anion Gap 1 L BUN 29 H Creatinine 0.49 L Est GFR ( Amer) > 60 Est GFR (Non-Af Amer) > 60 Glucose 82 Calcium 8.0 L TSH 0.92 06/14/18 06/14/18 06/14/18 03:20 03:20 11:15 Creatine Kinase 32 31 CK-MB (CK-2) 0.54 Troponin I 0.024 06/14/18 06/14/18 06/14/18 11:15 19:30 19:30 Creatine Kinase 37 CK-MB (CK-2) 0.85 1.16 Troponin I 0.019 0.020 Impressions: Chest X-Ray 06/13/18 18:27 IMPRESSION: Persistent interstitial prominence and small bilateral pleural effusions. Mild basilar airspace opacities, right greater than left. Assessment & Plan - Diagnosis (1) Healthcare-associated pneumonia Is this a current diagnosis for this admission?: Yes Plan: Patient has had multiple ER and hospital visits in the past 3 months. Chest x- ray does show basilar airspace opacities in both bases with more opacities in the right versus left. She continues to show improvement. Continue Zosyn and vancomycin for now. Blood culture negative so far. Will de-escalate depending on patient's clinical course and pending sputum and fungal culture results. Continue PO steroids. (2) Acute bronchitis Qualifiers: Bronchitis organism: unspecified organism Qualified Code(s): J20.9 - Acute bronchitis, unspecified Is this a current diagnosis for this admission?: Yes Plan: Decrease prednisone to 20 mg daily. (3) Valvular heart disease Is this a current diagnosis for this admission?: Yes Plan: History of aortic and pulmonary valve replacement. INR goal of 2.5-3.5. Continue Coumadin. (4) Chronic systolic (congestive) heart failure Is this a current diagnosis for this admission?: Yes Plan: Not in exacerbation. Patient's last echo available in record shows normal EF. Patient says that she had an echo done earlier this year which showed an EF of 45%. She is not optimized medically for CHF. Copy of recent echo report done on December 2017 does show EF of 45%. She says she follows up with Dr. Ng, a building equipment operator in [place]. She also follows up with [facility] once a year. She will discuss further changes in her medications with ff-up with cardiology. - Time Time Spent with patient: 25-34 minutes
--- NOTE | 2018-06-16 17:00 | EKG REPORT ---
SEVERITY:- ABNORMAL ECG - VENTRICULAR-PACED COMPLEXES NONSPECIFIC INTRAVENTRICULAR CONDUCTION DELAY MINIMAL ST DEPRESSION, INFERIOR LEADS : Confirmed by: Ami Meeks MD 16-Jun-2018 16:59:57
--- NOTE | 2018-06-16 17:01 | EKG REPORT ---
SEVERITY:- ABNORMAL ECG - A-V DUAL-PACED RHYTHM WITH SOME INHIBITION : Confirmed by: Ami Meeks MD 16-Jun-2018 17:00:05
[2018-06-16] MEDS: WARFARIN SODIUM 4 MG TABLET PO SCH (21:53)
[2018-06-16] MEDS: CEFPODOXIME 200 MG TABLET PO SCH (21:53)
[2018-06-17] MEDS: LEVALBUTEROL HCL NEB 1.25 MG/3 ML AMPUL NEB SCH ×3 (03:03→14:02)
[2018-06-17] MEDS: LEVOTHYROXINE SODIUM 0.1 MG TABLET PO SCH (05:11)
[2018-06-17 07:20] LABS: INTERNATIONAL RATION (INR) 4.26; PROTHROMBIN TIME 42.9 SEC (11.4-15.4)
[2018-06-17] MEDS: TRAMADOL HCL 50 MG TABLET PO SCH (10:04)
[2018-06-17] MEDS: PREDNISONE 10 MG TABLET PO SCH (10:05)
[2018-06-17] MEDS: POTASSIUM CHLORIDE 10 MEQ CAPSULE.ER PO SCH (10:05)
[2018-06-17] MEDS: CEFPODOXIME 200 MG TABLET PO SCH (10:05)
[2018-06-17] MEDS: FUROSEMIDE 40 MG TABLET PO SCH (10:05)
[2018-06-17] MEDS: NEBIVOLOL HCL 5 MG TABLET PO SCH (10:05)
[2018-06-17] MEDS: FAMOTIDINE INJ/PF 20 MG/2 ML SDV IV SCH (10:06)
[2018-06-17] MEDS: FLUTICASONE NASAL SPRAY 50 MCG/SPRY 120 SPRAY/16 GM NASL SCH (10:06)
[2018-06-17 12:54] VITALS: BP 110/50
--- NOTE | 2018-06-17 19:23 | PDOC DISCHARGE SUMMARY ---
General - Admit/Disc Date/PCP Admission Date/Primary Care Provider: 06/13/18 21:53 JAMMIE ALMAGUER MD Discharge Date: 06/17/18 - Discharge Diagnosis (1) Healthcare-associated pneumonia Is this a current diagnosis for this admission?: Yes (2) Acute bronchitis Is this a current diagnosis for this admission?: Yes (3) Valvular heart disease Is this a current diagnosis for this admission?: Yes (4) Chronic systolic (congestive) heart failure Is this a current diagnosis for this admission?: Yes - Additional Information Resuscitation Status: Full Code Prescriptions: Cefpodoxime Proxetil [Vantin 200 mg Tablet] 200 mg PO Q12 #10 tablet Prednisone [Deltasone 10 mg Tablet] 10 mg PO DAILY #5 tablet Home Medications: Estradiol [Vagifem] 10 mcg PO MOTH@1000 06/14/18 Folic Acid [Folvite 1 mg Tablet] 1 mg PO DAILY 06/14/18 Furosemide [Lasix 40 mg Tablet] 40 mg PO BIDP PRN 06/14/18 Levalbuterol Tartrate [Xopenex Hfa] 1 puff IH Q6HP PRN 06/14/18 Levothyroxine Sodium [Synthroid 0.1 mg Tablet] 0.1 mg PO Q6AM 06/14/18 Potassium Chloride [Klor-Con 10 Meq Capsule ER] 20 meq PO DAILY 06/14/18 Tramadol HCl [Ultram 50 mg Tablet] 50 mg PO Q12HP PRN 06/14/18 Cefpodoxime Proxetil [Vantin 200 mg Tablet] 200 mg PO Q12 #10 tablet 06/17/18 Nebivolol HCl [Bystolic 5 mg Tablet] 5 mg PO DAILY tablet 06/17/18 Prednisone [Deltasone 10 mg Tablet] 10 mg PO DAILY #5 tablet 06/17/18 Warfarin Sodium [Coumadin 3 mg Tablet] 9 mg PO [id number] tablet 06/17/18 Warfarin Sodium [Coumadin 4 mg Tablet] 8 mg PO [id number]@2200 tablet 06/17/18 History of Present Illness History of Present Illness: DURAN MI is a 58 year old female with a complex past medical history of Hodgkin's lymphoma at 11 years old in remission following radiation therapy the resulted in pulmonary fibrosis. Chronic and recurrent effusion with aortic and mitral valve damage requiring valve replacement [facility] February 2009. Congestive heart failure, chronic anticoagulation and thyroid replacement, complicated by anxiety. She presents with 48 hours of nonproductive cough and shortness of breath. Her workup is notable for prolonged QT interval, leukocytosis, fever and chronic changes on imaging. She receives empiric antibiotics, albuterol and Atrovent and referred to the hospitalist for admission. She denies rhinorrhea, sore throat, GERD or recent antibiotics. Hospital Course Hospital Course: Ms. Mi is a 58-year-old female with a past medical history of remote Hodgkin' s lymphoma diagnosed 11 years old with prior radiation therapy currently in remission, chronic respiratory failure on 2-4 L of home O2, pulmonary fibrosis after radiation, history of chronic and recurrent pleural effusion, history of Grave's disease with prior radioiodine ablation, hypothyroidism on synthroid, congestive heart failure with last known reported EF of 40-45%, history of heart block with pacemaker placement, history of aortic and mitral valve replacement (2008) reportedly from radiation on Coumadin, hypothyroidism and history of anxiety who presented with fever, cough and progressive shortness of breath. Patient's chest x-ray upon presentation did show opacities consistent with pneumonia. Patient was started on IV Zosyn and Vancomycin. She did significant improve with antibiotics and steroids. She has a prolonged QT hence was switched to PO cefpodoxime. She continued to improve clinically and was back to her baseline. Her pacemaker was also interrogated and this came back normal with a 3 years of lead battery life. She will be discharged on 5 more days of Cefpodoxime and prednisone. Physical Exam Vital Signs: Temp Pulse Resp BP Pulse Ox 98.5 F 93 18 109/51 L 98 06/17/18 08:23 06/17/18 08:40 06/17/18 08:40 06/17/18 08:23 06/17/18 08:40 Intake & Output 06/16/18 06/17/18 06/18/18 06:59 06:59 06:59 Intake Total 1161 1355 Balance 1161 1355 Weight 113 lb 12.136 oz 113 lb 15.664 oz General appearance: PRESENT: no acute distress, well-developed, well-nourished Head exam: PRESENT: atraumatic, normocephalic Eye exam: PRESENT: conjunctiva pink, EOMI, PERRLA. ABSENT: scleral icterus Ear exam: PRESENT: normal external ear exam Mouth exam: PRESENT: moist, tongue midline Neck exam: ABSENT: carotid bruit, JVD, lymphadenopathy, thyromegaly Respiratory exam: PRESENT: clear to auscultation mil[place], rales - fine rales bibasal (likely chronic from pulm fibrosis). ABSENT: rhonchi, wheezes Cardiovascular exam: PRESENT: clicks, diastolic murmur - audible mechanical clicks, RRR, systolic murmur. ABSENT: rubs Rectal exam: PRESENT: deferred Neurological exam: PRESENT: alert, awake, oriented to person, oriented to place , oriented to time, oriented to situation, CN II-XII grossly intact. ABSENT: motor sensory deficit Results Laboratory Results: 06/16/18 04:22 06/16/18 04:22 06/17/18 09:55 Stool Occult Blood POSITIVE 06/14/18 07:55 Sputum Gram Stain - Final 06/14/18 07:55 Sputum Sputum Culture - Final NORMAL DAVID 06/14/18 06/14/18 06/14/18 03:20 03:20 11:15 Creatine Kinase 32 31 CK-MB (CK-2) 0.54 Troponin I 0.024 06/14/18 06/14/18 06/14/18 11:15 19:30 19:30 Creatine Kinase 37 CK-MB (CK-2) 0.85 1.16 Troponin I 0.019 0.020 Impressions: Chest X-Ray 06/13/18 18:27 IMPRESSION: Persistent interstitial prominence and small bilateral pleural effusions. Mild basilar airspace opacities, right greater than left. Qualifiers - * PATIENT BEING DISCHARGED WITH ANY OF THE FOLLOWING DIAGNOSIS: Heart Failure HF Pt being discharged on ACEI for LVEF less than 40%?: No Reason(s) for not prescribing ACEI:: Tx not tolerated HF Pt being discharged on ARBS for LVEF less than 40%?: No Reason(s) for not prescribing ARBS:: Tx not tolerated HF Pt with Afib discharged with Warfarin?: Yes HF Pt discharged on evidence-based Beta Gordon:: Yes
== END 2018-06-17 14:31 | disposition home or self-care (01) | DRG 194 ==
LOC: ER 17:42 → EH 21:53 → 3W 23:28
PROVIDERS: ADMIT Internal Medicine; ATTEND Internal Medicine
PROC: 3E0F73Z Introduction of Anti-inflammatory into Respiratory Tract, Via Natural or Artificial Opening (ICD-10-PCS; 2018-06-13)
PROC: 5A09357 Assistance with Respiratory Ventilation, Less than 24 Consecutive Hours, Continuous Positive Airway Pressure (ICD-10-PCS; principal; 2018-06-14)
DX: J18.1 Lobar pneumonia, unspecified organism (principal); I38 Endocarditis, valve unspecified; I50.22 Chronic systolic (congestive) heart failure; C81.90 Hodgkin lymphoma, unspecified, unspecified site; J44.1 Chronic obstructive pulmonary disease with (acute) exacerbation; I13.0 Hypertensive heart and chronic kidney disease with heart failure and stage 1 through stage 4 chronic kidney disease, or unspecified chronic kidney disease; J84.10 Pulmonary fibrosis, unspecified; J20.9 Acute bronchitis, unspecified; E03.9 Hypothyroidism, unspecified; I45.81 Long QT syndrome; F41.9 Anxiety disorder, unspecified; M19.90 Unspecified osteoarthritis, unspecified site; F32.9 Major depressive disorder, single episode, unspecified; F41.1 Generalized anxiety disorder; D64.9 Anemia, unspecified; N18.9 Chronic kidney disease, unspecified; Z79.899 Other long term (current) drug therapy; Z79.01 Long term (current) use of anticoagulants; Z79.52 Long term (current) use of systemic steroids; Z92.3 Personal history of irradiation; Z95.2 Presence of prosthetic heart valve; Z99.81 Dependence on supplemental oxygen; Z95.0 Presence of cardiac pacemaker; Z86.711 Personal history of pulmonary embolism; Z90.49 Acquired absence of other specified parts of digestive tract; Z90.710 Acquired absence of both cervix and uterus; Z88.6 Allergy status to analgesic agent; Z88.3 Allergy status to other anti-infective agents; Z88.8 Allergy status to other drugs, medicaments and biological substances; Z82.61 Family history of arthritis; Z80.9 Family history of malignant neoplasm, unspecified; Z83.49 Family history of other endocrine, nutritional and metabolic diseases
CPT/HCPCS: 36415; 71045; 80048; 80053; 80202; 81001; 82272; 82550; 82553; 83880; 84443; 84484; 85025; 85027; 85610; 85730; 86308; 87040; 87070; 87101; 87205; 87493; 90686; 93005; 93010; 94640; 94667; 94668; 94799; 96374; 99285; J0696; J2543; J2920; J2930; J3370; J3490; J7060; J7512; S0028

== ENCOUNTER 2018-06-21 14:51 | Emergency (ER) | payer MEDICARE ==
--- NOTE | 2018-06-21 16:35 | ER Document Report ---
ED General - General Chief Complaint: Shortness Of Breath Stated Complaint: SHORT OF BREATH, LEG SWELLING Time Seen by Provider: 06/21/18 15:32 Mode of Arrival: Ambulatory Information source: Patient Notes: This is a 58-year-old female with a history of non-Hodgkin's lymphoma, pulmonary fibrosis, COPD who had a recent admission for pneumonia and COPD exacerbation and was placed on steroids at that time. Patient states she did have significant swelling of the lower extremities and is on Lasix. She just finished her steroids recently but has had continued lower extremity edema and wanted to get checked out. She denies shortness of breath. She does states she was told to elevate her feet at night but when she did this she became short of breath. She is on warfarin for aortic valve replacement. He denies any chest pain and currently she states she has no breathing issues. She has not had any fever or cough. TRAVEL OUTSIDE OF THE [place] IN LAST 30 DAYS: No - HPI Onset: Last week Onset/Duration: Gradual Quality of pain: No pain Severity: None Pain Level: Denies Associated symptoms: denies: Chest pain, Fever, Shortness of breath Exacerbated by: Denies Relieved by: Denies Similar symptoms previously: Yes Recently seen / treated by doctor: Yes - Related Data Allergies/Adverse Reactions: ketorolac tromethamine [From Toradol] Allergy (Unknown, Verified 06/21/18 14:52) clarithromycin [From Biaxin] Allergy (Verified 06/21/18 14:52) morphine [Morphine] Adverse Reaction (Intermediate, Verified 06/21/18 14:52) oxycodone HCl [From Percocet] Adverse Reaction (Intermediate, Verified 06/21/18 14:52) Past Medical History - General Information source: Patient - Social History Smoking Status: Never Smoker Cigarette use (# per day): No Chew tobacco use (# tins/day): No Frequency of alcohol use: Rare Drug Abuse: None Lives with: Spouse/Significant other Family History: Arthritis, Malignancy, Thyroid Disfunction Patient has suicidal ideation: No Patient has homicidal ideation: No - Past Medical History Cardiac Medical History: Reports: Hx Congestive Heart Failure, Hx Hypertension, Hx Pulmonary Embolism Denies: Hx Heart Attack Pulmonary Medical History: Reports: Hx Asthma, Hx Bronchitis, Hx Pneumonia Neurological Medical History: Denies: Hx Cerebrovascular Accident Endocrine Medical History: Reports: Hx Hypothyroidism Renal/ Medical History: Denies: Hx Peritoneal Dialysis Malignancy Medical History: Reports: Hx Lymphoma - Hodgkin's at age 11 Musculoskeletal Medical History: Reports Hx Arthritis Psychiatric Medical History: Reports: Hx Depression Past Surgical History: Reports: Hx Abdominal Surgery - EXPLORATORY, Hx Cardiac Surgery - open heart, pace maker, Hx Cholecystectomy, Hx Hysterectomy, Hx Open Heart Surgery - 2009, Hx Valve Replacement - Mitral and aortic, Other - Chest tubes of the valve replacement and lung surgery due to bleeding - Immunizations Immunizations up to date: Yes Hx Diphtheria, Pertussis, Tetanus Vaccination: Yes Hx Pneumococcal Vaccination: 09/17/10 Review of Systems - Review of Systems Constitutional: denies: Chills, Fever EENT: No symptoms reported Cardiovascular: See HPI Respiratory: No symptoms reported Gastrointestinal: No symptoms reported Genitourinary: No symptoms reported Female Genitourinary: No symptoms reported Musculoskeletal: See HPI Skin: See HPI Hematologic/Lymphatic: No symptoms reported Neurological/Psychological: No symptoms reported Physical Exam - Vital signs Vitals: Temp Pulse Resp BP Pulse Ox 98.7 F 112 H 20 100/48 L 92 06/21/18 15:00 06/21/18 15:00 06/21/18 15:00 06/21/18 15:00 06/21/18 15:00 Notes: Physical exam: GENERAL: Patient is alert and oriented x3, no acute distress. HEAD: Atraumatic, normocephalic. EYES: Pupils equal round and reactive to light, extraocular movements intact, sclera anicteric, conjunctiva are normal. ENT: TMs normal, nares patent, oropharynx clear without exudates. Moist mucous membranes. NECK: Normal range of motion, supple without obvious mass. LUNGS: Breath sounds clear to auscultation bilaterally and equal. No wheezes rales or rhonchi. HEART: Regular rate and rhythm large mechanical valve click ABDOMEN: Soft, normoactive bowel sounds. No tenderness to palpation. No guarding, no rebound. No masses appreciated. EXTREMITIES: Normal range of motion, no pitting or edema. No clubbing or cyanosis. NEUROLOGICAL: Cranial nerves II through XII grossly intact. Normal speech, moving all extremities. PSYCH: Normal mood, normal affect. SKIN: 2+ edema bilateral lower extremities and symmetrical Course - Vital Signs Vital signs: Temp Pulse Resp BP Pulse Ox 98.7 F 112 H 26 H 116/65 94 06/21/18 15:00 06/21/18 15:00 06/21/18 18:01 06/21/18 18:01 06/21/18 18:01 - Laboratory Result Diagrams: 06/21/18 16:49 Laboratory results interpreted by me: 06/21/18 06/21/18 16:49 16:49 PT 29.7 H Sodium 135.5 L Carbon Dioxide 39 H Anion Gap -3 L BUN 25 H Creatinine 0.41 L Calcium 7.8 L AST 44 H Total Protein 4.2 L Albumin 2.1 L - Diagnostic Test Radiology reviewed: Image reviewed, Reports reviewed - Chest x-ray shows chronic changes without acute change - EKG Interpretation by Me Rate: Normal - EKG is a paced rhythm with 100% capture, the ventricular rate is 106 Discharge - Discharge Clinical Impression: Peripheral edema Condition: Stable Disposition: HOME, SELF-CARE Instructions: Edema, Peripheral (OM) Additional Instructions: As we discussed, your chest x-ray looked good. There are chronic changes but there was no acute changes compared with old chest x-rays (this is what we look for). Your Coumadin level was therapeutic. Your potassium was 3.9 which is in the range of normal (I will often shoot for 4 and this is pretty close to it). Continue taking the Lasix as prescribed. Continue taking the potassium supplements Could try the support stockings to improve the peripheral edema as we discussed. Follow-up with Dr. Almaguer when he is back home Return to the emergency room for any worsening shortness of breath or concerns or getting worse. Referrals: JAMMIE ALMAGUER MD [Primary Care Provider] - Follow up as needed
--- NOTE | 2018-06-21 16:51 | RADIOLOGY REPORT (SQ) ---
EXAM DESCRIPTION: CHEST SINGLE VIEW COMPLETED DATE/TIME: 06/21/2018 4:42 pm REASON FOR STUDY: Shortness of breath, peripheral edema COMPARISON: 06/13/2018 NUMBER OF VIEWS: One view. TECHNIQUE: Single frontal radiographic image of the chest acquired. LIMITATIONS: None. FINDINGS: LUNGS AND PLEURA: Emphysematous changes. Bilateral pleural effusions, left greater than r ight. MEDIASTINUM AND HEART: Stable heart size and mediastinal structures. SUPPORT DEVICES: Appropriate location without change. BONY STRUCTURES: No acute findings. HARDWARE: CABG. OTHER: No other significant finding. IMPRESSION: COPD. Chronic pleural effusions. Reading location - IP/workstation name: [email or web address]
[2018-06-21 17:24] LABS: INTERNATIONAL RATION (INR) 2.67; PROTHROMBIN TIME 29.7 SEC (11.4-15.4)
[2018-06-21 17:44] LABS: ALANINE AMINOTRANSFERASE 43 U/L (9-52); ALBUMIN 2.1 g/dL (3.5-5.0); ALKALINE PHOSPHATASE 73 U/L (38-126); ASPARTATE AMINO TRANSFERASE 44 U/L (14-36); BILIRUBIN,DIRECT 0.3 mg/dL (0.0-0.4); BILIRUBIN,TOTAL 0.4 mg/dL (0.2-1.3); BLOOD UREA NITROGEN 25 mg/dL (7-20); CALCIUM 7.8 mg/dL (8.4-10.2); GLUCOSE 107 mg/dL (75-110); TOTAL PROTEIN 4.2 g/dL (6.3-8.2)
[2018-06-21 17:57] LABS: CARBON DIOXIDE 39 mmol/L (22-30); CHLORIDE 99 mmol/L (98-107); POTASSIUM 3.9 mmol/L (3.6-5.0); SODIUM 135.5 mmol/L (137-145)
[2018-06-21 17:59] LABS: ANION GAP -3 (5-19)
[2018-06-21 18:49] VITALS: BP 116/65
--- NOTE | 2018-06-22 19:30 | EKG REPORT ---
SEVERITY:- ABNORMAL ECG - ATRIAL-SENSED VENTRICULAR-PACED RHYTHM : Confirmed by: Dave Gomez 22-Jun-2018 19:30:14
== END 2018-06-21 18:49 | disposition home or self-care (01) ==
LOC: ER 14:51
DX: R60.0 Localized edema (principal); J44.9 Chronic obstructive pulmonary disease, unspecified; I10 Essential (primary) hypertension; Z85.72 Personal history of non-Hodgkin lymphomas; Z87.01 Personal history of pneumonia (recurrent); Z79.01 Long term (current) use of anticoagulants; Z95.2 Presence of prosthetic heart valve; Z88.8 Allergy status to other drugs, medicaments and biological substances; Z88.1 Allergy status to other antibiotic agents; Z86.711 Personal history of pulmonary embolism; Z95.0 Presence of cardiac pacemaker
CPT/HCPCS: 36415; 71045; 80053; 85610; 93005; 93010; 99285

== ENCOUNTER → 2018-07-08 | Outpatient (CLI) | payer MEDICARE ==
--- NOTE | 2018-07-08 17:41 | RADIOLOGY REPORT (SQ) ---
EXAM DESCRIPTION: CHEST PA/LATERAL COMPLETED DATE/TIME: 07/08/2018 5:20 pm REASON FOR STUDY: PUL FIBROSIS; [facility] AORTIC MITRAL VALVE COMPARISON: 06/21/2018 and 12/30/2017. EXAM PARAMETERS: NUMBER OF VIEWS: two views TECHNIQUE: Digital Frontal and Lateral radiographic views of the chest acquired. RADIATION DOSE: NA LIMITATIONS: none FINDINGS: LUNGS AND PLEURA: Chronic interstitial changes. Small pleural effusions, unchanged. MEDIASTINUM AND HILAR STRUCTURES: No masses or contour abnormalities. HEART AND VASCULAR STRUCTURES: Heart normal size. No evidence for failure. BONES: No acute findings. HARDWARE: Sternotomy wires and prosthetic valves. Pacemaker. Clips in the upper abdomen. OTHER: No other significant finding. IMPRESSION: CHRONIC INTERSTITIAL CHANGES. BILATERAL PLEURAL EFFUSIONS. NO CHANGE FROM THE PRIOR ST . TECHNICAL DOCUMENTATION: JOB ID: [id number] [employer]- All Rights Reserved Reading location - IP/workstation name: [email or web address]
[2018-07-08 17:51] LABS: ABSOLUTE BASOPHILS # (AUTO) 0.1 10^3/uL (0.0-0.2); ABSOLUTE EOSINOPHILS # (AUTO) 0.1 10^3/uL (0.0-0.6); ABSOLUTE LYMPHOCYTES (AUTO) 1.1 10^3/uL (0.5-4.7); ABSOLUTE MONOCYTES (AUTO) 0.5 10^3/uL (0.1-1.4); ABSOLUTE NEUT (AUTO) 1.8 10^3/uL (1.7-8.2); BASOPHILS % (AUTO) 1.6 % (0-2); EOSINOPHILS % (AUTO) 3.2 % (0-6); HEMATOCRIT 36.4 % (36.0-47.0); HEMOGLOBIN 12.2 g/dL (12.0-15.5); LYMPHOCYTES % (AUTO) 30.6 % (13-45); MEAN CORPUSCULAR HEMOGLOBIN 31.2 pg (27.0-33.4); MEAN CORPUSCULAR HGB CONC 33.5 g/dL (32.0-36.0); MEAN CORPUSCULAR VOLUME 93 fl (80-97); MONOCYTES % (AUTO) 13.9 % (3-13); RED BLOOD COUNT 3.91 10^6/uL (3.72-5.28); RED CELL DISTRIBUTION WIDTH 18.1 % (11.5-14.0); SEGMENTED NEUTROPHILS % (AUTO) 50.7 % (42-78); TOTAL CELLS COUNTED % (AUTO) 100 %; WHITE BLOOD COUNT 3.6 10^3/uL (4.0-10.5)
[2018-07-08 18:02] LABS: ALANINE AMINOTRANSFERASE 39 U/L (9-52); ALBUMIN 2.3 g/dL (3.5-5.0); ALKALINE PHOSPHATASE 68 U/L (38-126); ASPARTATE AMINO TRANSFERASE 60 U/L (14-36); BILIRUBIN,DIRECT 0.2 mg/dL (0.0-0.4); BILIRUBIN,TOTAL 0.5 mg/dL (0.2-1.3); BLOOD UREA NITROGEN 23 mg/dL (7-20); CALCIUM 8.1 mg/dL (8.4-10.2); GLUCOSE 84 mg/dL (75-110); TOTAL PROTEIN 4.4 g/dL (6.3-8.2)
[2018-07-08 18:18] LABS: CHLORIDE 99 mmol/L (98-107); SODIUM 136.6 mmol/L (137-145)
[2018-07-08 18:20] LABS: PLATELET COUNT 316 10^3/uL (150-450)
[2018-07-08 18:27] LABS: ANION GAP -3 (5-19)
[2018-07-08 18:35] LABS: CARBON DIOXIDE 41 mmol/L (22-30)
--- NOTE | 2018-07-09 08:30 | EKG REPORT ---
SEVERITY:- ABNORMAL ECG - ATRIAL-SENSED VENTRICULAR-PACED RHYTHM Consider R arm L rm lead reversal : Confirmed by: Dave Gomez 09-Jul-2018 08:30:09
[2018-07-12 08:35] LABS: CMV QUANT DNA PCR URINE Negative copies/mL (Negative)
== END ==
LOC: OD 16:19
PROVIDERS: ATTEND Obstetrics & Gynecology
DX: I50.21 Acute systolic (congestive) heart failure (principal); R53.83 Other fatigue; I50.9 Heart failure, unspecified; B27.90 Infectious mononucleosis, unspecified without complication
CPT/HCPCS: 36415; 71046; 80053; 83880; 84443; 85025; 87497; 93005; 93010

== ENCOUNTER → 2018-07-25 | Outpatient (CLI) | payer MEDICARE | LOC: OD 15:34 | PROVIDERS: ATTEND Obstetrics & Gynecology | DX: E03.9 Hypothyroidism, unspecified (principal) | CPT/HCPCS: 36415; 84443 ==

== ENCOUNTER → 2018-08-01 | Outpatient (CLI) | payer MEDICARE ==
[2018-08-01 15:36] LABS: INTERNATIONAL RATION (INR) 2.63; PROTHROMBIN TIME 29.4 SEC (11.4-15.4)
== END ==
LOC: LAB 15:18
PROVIDERS: ATTEND Obstetrics & Gynecology
DX: Z79.01 Long term (current) use of anticoagulants (principal); Z95.2 Presence of prosthetic heart valve
CPT/HCPCS: 36415; 85610

== ENCOUNTER → 2018-08-07 | Outpatient (CLI) | payer MEDICARE ==
[2018-08-07 12:05] LABS: INTERNATIONAL RATION (INR) 2.44; PROTHROMBIN TIME 27.7 SEC (11.4-15.4)
== END ==
LOC: OD 11:18
PROVIDERS: ATTEND Obstetrics & Gynecology
DX: Z79.01 Long term (current) use of anticoagulants (principal); Z51.81 Encounter for therapeutic drug level monitoring; Z95.4 Presence of other heart-valve replacement
CPT/HCPCS: 36415; 85610

== ENCOUNTER 2018-08-31 18:19 | Emergency (ER) | payer MEDICARE ==
--- NOTE | 2018-08-31 18:48 | ER Document Report ---
ED Medical Screen (RME) - General Chief Complaint: Arrhythmia Stated Complaint: HEARTRATE ISSUE, SHORTNESS OF BREATH Time Seen by Provider: 08/31/18 18:45 Mode of Arrival: Ambulatory Information source: Patient TRAVEL OUTSIDE OF THE [place] IN LAST 30 DAYS: No - HPI Patient complains to provider of: palpitations Onset: Yesterday - pt with h/o pacemaker and artificial heart valves with c/o palpitations for the past day. Denies CP - Related Data Allergies/Adverse Reactions: ketorolac tromethamine [From Toradol] Allergy (Unknown, Verified 08/31/18 18:19) clarithromycin [From Biaxin] Allergy (Verified 08/31/18 18:19) morphine [Morphine] Adverse Reaction (Intermediate, Verified 08/31/18 18:19) oxycodone HCl [From Percocet] Adverse Reaction (Intermediate, Verified 08/31/18 18:19) Past Medical History - Past Medical History Cardiac Medical History: Reports: Hx Congestive Heart Failure, Hx Hypertension, Hx Pulmonary Embolism Denies: Hx Heart Attack Pulmonary Medical History: Reports: Hx Asthma, Hx Bronchitis, Hx Pneumonia Neurological Medical History: Denies: Hx Cerebrovascular Accident Endocrine Medical History: Reports: Hx Hypothyroidism Renal/ Medical History: Denies: Hx Peritoneal Dialysis Malignancy Medical History: Reports: Hx Lymphoma - Hodgkin's at age 11 Musculoskeltal Medical History: Reports Hx Arthritis Psychiatric Medical History: Reports: Hx Depression Past Surgical History: Reports: Hx Abdominal Surgery - EXPLORATORY, Hx Cardiac Surgery - open heart, pace maker, Hx Cholecystectomy, Hx Hysterectomy, Hx Open Heart Surgery - 2009, Hx Valve Replacement - Mitral and aortic, Other - Chest tubes of the valve replacement and lung surgery due to bleeding - Immunizations Immunizations up to date: Yes Hx Diphtheria, Pertussis, Tetanus Vaccination: Yes Physical Exam - Vital signs Vitals: Temp Pulse Resp BP Pulse Ox 98.2 F 106 H 24 H 99/49 L 92 08/31/18 18:28 08/31/18 18:28 08/31/18 18:28 08/31/18 18:28 08/31/18 18:28 Course - Vital Signs Vital signs: Temp Pulse Resp BP Pulse Ox 98.2 F 106 H 24 H 99/49 L 92 08/31/18 18:28 08/31/18 18:28 08/31/18 18:28 08/31/18 18:28 08/31/18 18:28 Doctor's Discharge - Discharge Referrals: JAMMIE ALMAGUER MD [Primary Care Provider] - Follow up as needed
--- NOTE | 2018-08-31 19:12 | RADIOLOGY REPORT (SQ) ---
EXAM DESCRIPTION: CHEST 2 VIEWS COMPLETED DATE/TIME: 08/31/2018 7:00 pm REASON FOR STUDY: palpitations COMPARISON: 07/08/2018. 10/21/2016. TECHNIQUE: Frontal and lateral radiographic views of the chest acquired. NUMBER OF VIEWS: Two view. LIMITATIONS: None. FINDINGS: LUNGS AND PLEURA: As before, diminished basilar aeration with bilateral effusions and inte rstitial opacities. No pneumothorax. No significant change. MEDIASTINUM AND HILAR STRUCTURES: Stable postoperative appearance. HEART AND VASCULAR STRUCTURES: Cardiomegaly as before. BONES: Normal. HARDWARE: Left pacer. OTHER: No other significant finding. IMPRESSION: Similar appearance compared to priors. Bilateral effusions and interstitial changes as before. TECHNICAL DOCUMENTATION: JOB ID: [id number] [employer]- All Rights Reserved Reading location - IP/workstation name: [email or web address]
[2018-08-31 19:36] LABS: ABSOLUTE BASOPHILS # (AUTO) 0.1 10^3/uL (0.0-0.2); ABSOLUTE EOSINOPHILS # (AUTO) 0.2 10^3/uL (0.0-0.6); ABSOLUTE LYMPHOCYTES (AUTO) 0.6 10^3/uL (0.5-4.7); ABSOLUTE MONOCYTES (AUTO) 0.6 10^3/uL (0.1-1.4); ABSOLUTE NEUT (AUTO) 3.5 10^3/uL (1.7-8.2); BASOPHILS % (AUTO) 1.3 % (0-2); EOSINOPHILS % (AUTO) 3.4 % (0-6); HEMATOCRIT 36.5 % (36.0-47.0); HEMOGLOBIN 12.3 g/dL (12.0-15.5); MEAN CORPUSCULAR HEMOGLOBIN 31.6 pg (27.0-33.4); MEAN CORPUSCULAR HGB CONC 33.6 g/dL (32.0-36.0); MEAN CORPUSCULAR VOLUME 94 fl (80-97); MONOCYTES % (AUTO) 11.2 % (3-13); PLATELET COUNT 276 10^3/uL (150-450); RED BLOOD COUNT 3.89 10^6/uL (3.72-5.28); RED CELL DISTRIBUTION WIDTH 15.8 % (11.5-14.0); SEGMENTED NEUTROPHILS % (AUTO) 71.1 % (42-78); TOTAL CELLS COUNTED % (AUTO) 100 %; WHITE BLOOD COUNT 4.9 10^3/uL (4.0-10.5)
[2018-08-31 19:54] LABS: BLOOD UREA NITROGEN 25 mg/dL (7-20); GLUCOSE 97 mg/dL (75-110); POTASSIUM 3.8 mmol/L (3.6-5.0)
[2018-08-31 20:06] LABS: NT PRO BNP 1030 pg/mL (5-900)
[2018-08-31 20:07] LABS: CHLORIDE 97 mmol/L (98-107); SODIUM 136.3 mmol/L (137-145); TROPONIN I < 0.012 ng/mL
[2018-08-31 20:26] LABS: CARBON DIOXIDE 41 mmol/L (22-30)
[2018-08-31 20:27] LABS: ANION GAP -2 (5-19)
--- NOTE | 2018-08-31 21:17 | ER Document Report ---
ED Cardiac - General Chief Complaint: Arrhythmia Stated Complaint: HEARTRATE ISSUE, SHORTNESS OF BREATH Time Seen by Provider: 08/31/18 18:45 Mode of Arrival: Ambulatory Notes: Patient is a 58-year-old female with a past medical history of artificial valves , pulmonary fibrosis, congestive heart failure, history of pacemaker placement due to bradycardia who presents with palpitations. Patient states that she has been having on and off palpitations throughout the day today which was very concerning to her. Although in triage patient notes that she felt somewhat short more short of breath than normal she denies this to me. She denies any chest pain. States that she has frequent episodes of palpitations but they do not usually last this long or go away when she takes extra potassium. She has not seen her contacted her primary care physician regarding today's concerns. She denies any syncope, fever, cough or constitutional symptoms. Nothing seems to improve or worsen her palpitations. TRAVEL OUTSIDE OF THE [place] IN LAST 30 DAYS: No - Related Data Allergies/Adverse Reactions: ketorolac tromethamine [From Toradol] Allergy (Unknown, Verified 08/31/18 18:19) clarithromycin [From Biaxin] Allergy (Verified 08/31/18 18:19) morphine [Morphine] Adverse Reaction (Intermediate, Verified 08/31/18 18:19) oxycodone HCl [From Percocet] Adverse Reaction (Intermediate, Verified 08/31/18 18:19) Past Medical History - General Information source: Patient - Social History Smoking Status: Never Smoker Chew tobacco use (# tins/day): No Frequency of alcohol use: None Drug Abuse: None Lives with: Spouse/Significant other Family History: Arthritis, Malignancy, Thyroid Disfunction Patient has suicidal ideation: No Patient has homicidal ideation: No - Past Medical History Cardiac Medical History: Reports: Hx Congestive Heart Failure, Hx Hypertension, Hx Pulmonary Embolism Denies: Hx Heart Attack Pulmonary Medical History: Reports: Hx Asthma, Hx Bronchitis, Hx Pneumonia Neurological Medical History: Denies: Hx Cerebrovascular Accident Endocrine Medical History: Reports: Hx Hypothyroidism Renal/ Medical History: Denies: Hx Peritoneal Dialysis Malignancy Medical History: Reports: Hx Lymphoma - Hodgkin's at age 11 Musculoskeletal Medical History: Reports Hx Arthritis Psychiatric Medical History: Reports: Hx Depression Past Surgical History: Reports: Hx Abdominal Surgery - EXPLORATORY, Hx Cardiac Surgery - open heart, pace maker, Hx Cholecystectomy, Hx Hysterectomy, Hx Open Heart Surgery - 2009, Hx Valve Replacement - Mitral and aortic, Other - Chest tubes of the valve replacement and lung surgery due to bleeding - Immunizations Immunizations up to date: Yes Hx Diphtheria, Pertussis, Tetanus Vaccination: Yes Hx Pneumococcal Vaccination: 09/17/10 Review of Systems - Review of Systems Notes: Constitutional: Negative for fever. HENT: Negative for sore throat. Eyes: Negative for visual changes. Cardiovascular: Positive for palpitations Respiratory: Negative for shortness of breath. Gastrointestinal: Negative for abdominal pain, vomiting or diarrhea. Genitourinary: Negative for dysuria. Musculoskeletal: Negative for back pain. Skin: Negative for rash. Neurological: Negative for headaches, weakness or numbness. 10 point ROS negative except as marked above and in HPI. Physical Exam - Vital signs Vitals: Temp Pulse Resp BP Pulse Ox 98.2 F 106 H 24 H 99/49 L 92 08/31/18 18:28 08/31/18 18:28 08/31/18 18:28 08/31/18 18:28 08/31/18 18:28 Interpretation: Hypotensive - Resolved at the time of my assessment, Tachycardic Notes: PHYSICAL EXAMINATION: GENERAL: Appears older than stated age but in no acute distress HEAD: Atraumatic, normocephalic. EYES: Pupils equal round and reactive to light, extraocular movements intact, sclera anicteric, conjunctiva are normal. ENT: nares patent, oropharynx clear without exudates. Moderately dry mucous membranes. NECK: Normal range of motion, supple without lymphadenopathy LUNGS: Breath sounds clear to auscultation bilaterally and equal. No wheezes rales or rhonchi. HEART: Regular tachycardia, mechanical click of artificial valves present. ABDOMEN: Soft, nontender, normoactive bowel sounds. No guarding, no rebound. No masses appreciated. EXTREMITIES: Normal range of motion, no pitting or edema. No cyanosis. NEUROLOGICAL: No focal neurological deficits. Moves all extremities spontaneously and on command. PSYCH: Moderately anxious SKIN: Warm, Dry, normal turgor, no rashes or lesions noted. Course - Re-evaluation Re-evalutation: 08/31/18 21:20 Patient presents with palpitations but is in no acute distress. Vitals within normal limits at time of arrival with the exception of mild tachycardia which is baseline for patient based on review of previous records as well as the patient's report. EKG does show an atrially sensed, ventricular paced rhythm. She does have intermittent PVCs while I am in the room on monitor. Laboratories are unchanged from her previous assessment showing chronic CO2 elevation, mild hypochloremia, chronic hypocalcemia. Troponin and BNP unremarkable with BNP being at similar levels to previous. Chest x-ray demonstrates no acute changes relative to prior. Patient denies any chest pain , shortness of breath, or vomiting. At this time based on exam and history do not suspect a new onset arrhythmia, ACS, acute pulmonary embolus, aortic dissection. Patient encouraged to follow-up with their primary care physician as well as cardiology and a referral has been provided. At this time will discharge with return precautions and follow-up recommendations. Verbal discharge instructions given a the bedside and opportunity for questions given. Medication warnings reviewed. Patient is in agreement with this plan and has verbalized understanding of return precautions and the need for primary care follow-up in the next 24-72 hours. - Vital Signs Vital signs: Temp Pulse Resp BP Pulse Ox 98.2 F 106 H 27 H 114/50 L 94 08/31/18 18:28 08/31/18 18:28 08/31/18 21:30 08/31/18 21:30 08/31/18 21:30 - Laboratory Result Diagrams: 08/31/18 19:20 08/31/18 19:20 Laboratory results interpreted by me: 08/31/18 08/31/18 08/31/18 19:20 19:20 19:20 RDW 15.8 H Sodium 136.3 L Chloride 97 L Carbon Dioxide 41 H* Anion Gap -2 L BUN 25 H Creatinine 0.35 L Calcium 8.0 L NT-Pro-B Natriuret Pep 1030 H - Diagnostic Test Radiology reviewed: Image reviewed, Reports reviewed Radiology results interpreted by me: 08/31/18 21:16 CXR: Interstital changes, unchanged - EKG Interpretation by Me Additional EKG results interpreted by me: 08/31/18 21:19 Atrially sensed, ventricular paced rhythm, rate 102. No ST changes. Discharge - Discharge Clinical Impression: Palpitations, Tachycardia, Pulmonary fibrosis, Valvular heart disease Condition: Stable Disposition: HOME, SELF-CARE Additional Instructions: Please follow-up with your primary care doctor or a forensic structural engineer regarding your palpitations. Your having intermittent PVCs which you have had in the past. The remainder of your workup including your labs and chest x-ray are relatively unchanged from your most recent assessment in June. Return if you develop chest pain, shortness of breath, pass out, or have any other symptoms that are worrisome to you. Referrals: JAMMIE ALMAGUER MD [Primary Care Provider] - Follow up as needed
[2018-08-31 21:45] VITALS: BP 114/50
--- NOTE | 2018-09-02 00:55 | EKG REPORT ---
SEVERITY:- ABNORMAL ECG - ATRIAL-SENSED VENTRICULAR-PACED RHYTHM : Confirmed by: Ami Meeks MD 02-Sep-2018 00:53:57
== END 2018-08-31 21:54 | disposition home or self-care (01) ==
LOC: ER 18:19
DX: R00.2 Palpitations (principal); R00.0 Tachycardia, unspecified; J84.10 Pulmonary fibrosis, unspecified; I38 Endocarditis, valve unspecified; I50.9 Heart failure, unspecified; I11.0 Hypertensive heart disease with heart failure; Z86.711 Personal history of pulmonary embolism; E03.9 Hypothyroidism, unspecified; Z95.0 Presence of cardiac pacemaker; Z90.49 Acquired absence of other specified parts of digestive tract; Z90.710 Acquired absence of both cervix and uterus; Z95.2 Presence of prosthetic heart valve
CPT/HCPCS: 36415; 71046; 80048; 83880; 84484; 85025; 93005; 93010; 99285

== ENCOUNTER 2018-10-17 17:38 | Emergency (ER) | payer MEDICARE ==
--- NOTE | 2018-10-17 17:51 | ER Document Report ---
ED Medical Screen (RME) - General Chief Complaint: Abnormal Lab Results Stated Complaint: DIFFICULTY BREATHING Time Seen by Provider: 10/17/18 17:45 Primary Care Provider: JAMMIE ALMAGUER MD [Primary Care Provider] - Follow up as needed TRAVEL OUTSIDE OF THE [place] IN LAST 30 DAYS: No - HPI Notes: 10/17/18 17:50 Patient with history of pulmonary fibrosis mechanical heart valve on Coumadin coming in for increased shortness of breath had outpatient laboratory studies she is on a bicarb of 44 told to come to the ER patient is not on any CPAP supplemental oxygen at home as needed - Related Data Allergies/Adverse Reactions: ketorolac tromethamine [From Toradol] Allergy (Unknown, Verified 08/31/18 18:19) clarithromycin [From Biaxin] Allergy (Verified 08/31/18 18:19) morphine [Morphine] Adverse Reaction (Intermediate, Verified 08/31/18 18:19) oxycodone HCl [From Percocet] Adverse Reaction (Intermediate, Verified 08/31/18 18:19) Past Medical History - Past Medical History Cardiac Medical History: Reports: Hx Congestive Heart Failure, Hx Hypertension, Hx Pulmonary Embolism Denies: Hx Heart Attack Pulmonary Medical History: Reports: Hx Asthma, Hx Bronchitis, Hx Pneumonia Neurological Medical History: Denies: Hx Cerebrovascular Accident Endocrine Medical History: Reports: Hx Hypothyroidism Renal/ Medical History: Denies: Hx Peritoneal Dialysis Malignancy Medical History: Reports: Hx Lymphoma - Hodgkin's at age 11 Musculoskeltal Medical History: Reports Hx Arthritis Psychiatric Medical History: Reports: Hx Depression Past Surgical History: Reports: Hx Abdominal Surgery - EXPLORATORY, Hx Cardiac Surgery - open heart, pace maker, Hx Cholecystectomy, Hx Hysterectomy, Hx Open Heart Surgery - 2009, Hx Valve Replacement - Mitral and aortic, Other - Chest tubes of the valve replacement and lung surgery due to bleeding - Immunizations Immunizations up to date: Yes Hx Diphtheria, Pertussis, Tetanus Vaccination: Yes Review of Systems - Review of Systems Respiratory: Short of breath Physical Exam - Vital signs Vitals: Temp Pulse Resp BP Pulse Ox 99 F 108 H 18 124/52 L 92 10/17/18 17:43 10/17/18 17:43 10/17/18 17:43 10/17/18 17:43 10/17/18 17:43 - Respiratory Respiratory status: No respiratory distress Chest status: Nontender Breath sounds: Normal - Cardiovascular Rhythm: Other - Mechanical heart sounds regular Course - Vital Signs Vital signs: Temp Pulse Resp BP Pulse Ox 99 F 108 H 18 124/52 L 92 10/17/18 17:43 10/17/18 17:43 10/17/18 17:43 10/17/18 17:43 10/17/18 17:43 Doctor's Discharge - Discharge Referrals: JAMMIE ALMAGUER MD [Primary Care Provider] - Follow up as needed
--- NOTE | 2018-10-17 18:09 | RADIOLOGY REPORT (SQ) ---
EXAM DESCRIPTION: CHEST 2 VIEWS COMPLETED DATE/TIME: 10/17/2018 5:58 pm REASON FOR STUDY: sob COMPARISON: 08/31/2018 EXAM PARAMETERS: NUMBER OF VIEWS: two views TECHNIQUE: Digital Frontal and Lateral radiographic views of the chest acquired. RADIATION DOSE: NA LIMITATIONS: none FINDINGS: LUNGS AND PLEURA: No significant change. Marked chronic interstitial changes. Small pleu ral effusions. MEDIASTINUM AND HILAR STRUCTURES: No masses or contour abnormalities. HEART AND VASCULAR STRUCTURES: Heart normal size. No evidence for failure. BONES: No acute findings. HARDWARE: Pacemaker. Sternotomy wires. Heart valve. OTHER: No other significant finding. IMPRESSION: Stable appearance of the chest. Chronic lung changes with chronic small pleural effusio ns. TECHNICAL DOCUMENTATION: JOB ID: [id number] [employer]- All Rights Reserved Reading location - IP/workstation name: [email or web address]
[2018-10-17 18:22] LABS: ABSOLUTE BASOPHILS # (AUTO) 0.1 10^3/uL (0.0-0.2); ABSOLUTE EOSINOPHILS # (AUTO) 0.3 10^3/uL (0.0-0.6); ABSOLUTE LYMPHOCYTES (AUTO) 0.6 10^3/uL (0.5-4.7); ABSOLUTE MONOCYTES (AUTO) 0.5 10^3/uL (0.1-1.4); ABSOLUTE NEUT (AUTO) 4.1 10^3/uL (1.7-8.2); BASOPHILS % (AUTO) 1.5 % (0-2); EOSINOPHILS % (AUTO) 5.4 % (0-6); HEMATOCRIT 37.5 % (36.0-47.0); HEMOGLOBIN 12.5 g/dL (12.0-15.5); MEAN CORPUSCULAR HEMOGLOBIN 31.1 pg (27.0-33.4); MEAN CORPUSCULAR HGB CONC 33.4 g/dL (32.0-36.0); MEAN CORPUSCULAR VOLUME 93 fl (80-97); MONOCYTES % (AUTO) 9.3 % (3-13); PLATELET COUNT 311 10^3/uL (150-450); RED BLOOD COUNT 4.04 10^6/uL (3.72-5.28); RED CELL DISTRIBUTION WIDTH 16.1 % (11.5-14.0); SEGMENTED NEUTROPHILS % (AUTO) 72.8 % (42-78); TOTAL CELLS COUNTED % (AUTO) 100 %; WHITE BLOOD COUNT 5.7 10^3/uL (4.0-10.5)
[2018-10-17 18:26] LABS: INTERNATIONAL RATION (INR) 2.74; PARTIAL THROMBOPLASTIN TIME 31.8 SEC (23.5-35.8); PROTHROMBIN TIME 30.3 SEC (11.4-15.4)
[2018-10-17 18:37] LABS: ALANINE AMINOTRANSFERASE 38 U/L (9-52); ALBUMIN 2.5 g/dL (3.5-5.0); ALKALINE PHOSPHATASE 59 U/L (38-126); ASPARTATE AMINO TRANSFERASE 62 U/L (14-36); BILIRUBIN,DIRECT 0.2 mg/dL (0.0-0.4); BILIRUBIN,TOTAL 0.5 mg/dL (0.2-1.3); BLOOD UREA NITROGEN 34 mg/dL (7-20); CALCIUM 8.6 mg/dL (8.4-10.2); CHLORIDE 93 mmol/L (98-107); GLUCOSE 98 mg/dL (75-110); POTASSIUM 3.6 mmol/L (3.6-5.0); SODIUM 137.4 mmol/L (137-145); TOTAL PROTEIN 4.8 g/dL (6.3-8.2)
[2018-10-17 18:47] LABS: ANION GAP -2 (5-19); CARBON DIOXIDE 46 mmol/L (22-30)
[2018-10-17 18:48] LABS: VENOUS BLOOD HCO3 44.8 mmol/L (20-32); VENOUS BLOOD PH 7.41 (7.30-7.42)
[2018-10-17 18:50] LABS: VENOUS BLOOD PCO2 73.2 mmHg (35-63)
[2018-10-17 18:57] LABS: ANISOCYTOSIS 1+; PLATELET COMMENT ADEQUATE
[2018-10-17 18:58] LABS: PLATELET LARGE PRESENT
[2018-10-17 18:59] LABS: OVALOCYTES SLIGHT; POIKILOCYTOSIS 1+; TARGET CELLS 1+
--- NOTE | 2018-10-17 19:54 | EKG REPORT ---
SEVERITY:- ABNORMAL ECG - ATRIAL-SENSED VENTRICULAR-PACED COMPLEXES : Confirmed by: Yohan Rhodes MD 17-Oct-2018 19:53:35
[2018-10-17] MEDS ORDERED: LORAZEPAM 0.5 MG TABLET PO ONE (20:08)
--- NOTE | 2018-10-17 20:08 | ER Document Report ---
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 History of valvular heart repair. History of pacemaker. To the emergency department at the request of her primary care doctor due to a elevated bicarb on chemistry. That over the last several weeks she has had increasing shortness of breath. Weight loss and generally not feeling well. Had her thyroid checked recently as well. Does not know the results. 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 Dr. Adams is her doctor in [facility]. TRAVEL OUTSIDE OF THE [place] IN LAST 30 DAYS: No - HPI Onset: Last week Onset/Duration: Gradual, Constant Quality of pain: No pain Severity: Moderate - Related Data Allergies/Adverse Reactions: ketorolac tromethamine [From Toradol] Allergy (Unknown, Verified 08/31/18 18:19) clarithromycin [From Biaxin] Allergy (Verified 08/31/18 18:19) morphine [Morphine] Adverse Reaction (Intermediate, Verified 08/31/18 18:19) oxycodone HCl [From Percocet] Adverse Reaction (Intermediate, Verified 08/31/18 18:19) Past Medical History - General Information source: Patient - Social History Smoking Status: Former Smoker Frequency of alcohol use: None Drug Abuse: None Lives with: Spouse/Significant other Family History: Arthritis, Malignancy, Thyroid Disfunction Patient has suicidal ideation: No Patient has homicidal ideation: No - Past Medical History Cardiac Medical History: Reports: Hx Congestive Heart Failure, Hx Hypertension, Hx Pulmonary Embolism Denies: Hx Heart Attack Pulmonary Medical History: Reports: Hx Asthma, Hx Bronchitis, Hx Pneumonia Neurological Medical History: Denies: Hx Cerebrovascular Accident Endocrine Medical History: Reports: Hx Hypothyroidism Renal/ Medical History: Denies: Hx Peritoneal Dialysis Malignancy Medical History: Reports: Hx Lymphoma - Hodgkin's at age 11 Musculoskeletal Medical History: Reports Hx Arthritis Psychiatric Medical History: Reports: Hx Depression Past Surgical History: Reports: Hx Abdominal Surgery - EXPLORATORY, Hx Cardiac Surgery - open heart, pace maker, Hx Cholecystectomy, Hx Hysterectomy, Hx Open Heart Surgery - 2009, Hx Valve Replacement - Mitral and aortic, Other - Chest tubes of the valve replacement and lung surgery due to bleeding - Immunizations Immunizations up to date: Yes Hx Diphtheria, Pertussis, Tetanus Vaccination: Yes Hx Pneumococcal Vaccination: 09/17/10 Review of Systems - Review of Systems Notes: Constitutional: denies: Chills, Diaphoresis, Fever, +Malaise, +Weakness EENT: denies: Eye discharge, Blurred vision, Tearing, Double vision, Nose congestion, Nose discharge, Throat swelling, Mouth pain Cardiovascular: denies: Orthopnea, Dyspnea, Chest pain. + Tachycardia Respiratory: denies: Cough, Hurts to breathe, Wheezing, +Shortness of breath Gastrointestinal: denies: Abdominal pain, Diarrhea, Nausea, Vomiting, Black stools, bright red blood in stool Genitourinary: denies: Burning, Dysuria, Discharge, Frequency, Flank pain, Hematuria Musculoskeletal: denies: Joint pain, Joint swelling, Muscle pain, Muscle stiffness, back pain Hematologic/Lymphatic: denies: Anemia, Easy bleeding, Easy bruising, Blood clots Neurological/Psychological: denies: Confusion, Dementia, Depression, Loss of consciousness Skin: No lesions, no masses, no skin breakdown, no abscesses Physical Exam - Vital signs Vitals: Temp Pulse Resp BP Pulse Ox 99 F 108 H 18 124/52 L 92 10/17/18 17:43 10/17/18 17:43 10/17/18 17:43 10/17/18 17:43 10/17/18 17:43 Interpretation: Normal - General General appearance: Appears well, Alert - HEENT Head: Normocephalic, Atraumatic Eyes: Normal Pupils: PERRL - Respiratory Respiratory status: No respiratory distress Chest status: Nontender Breath sounds: Rales Chest palpation: Normal - Cardiovascular Rhythm: Tachycardia Notes: Mechanical heart valve sound at aortic valve and tricuspid - Abdominal Inspection: Normal Distension: No distension Bowel sounds: Normal Tenderness: Nontender Organomegaly: No organomegaly - Back Back: Normal, Nontender - Extremities General upper extremity: Normal inspection, Nontender, Normal color, Normal ROM, Normal temperature General lower extremity: Normal inspection, Nontender, Edema - Trace edema to the bilateral lower pretibial area, Normal color, Normal ROM, Normal temperature, Normal weight bearing. No: Mecca's sign - Neurological Neuro grossly intact: Yes Cognition: Normal Orientation: AAOx4 Stefania Coma Scale Eye Opening: Spontaneous Stefania Coma Scale Verbal: Oriented Stefania Coma Scale Motor: Obeys Commands [place] Coma Scale Total: 15 Speech: Normal Motor strength normal: LUE, RUE, LLE, RLE Sensory: Normal - Psychological Associated symptoms: Normal affect, Normal mood - Skin Skin Temperature: Warm Skin Moisture: Dry Skin Color: Normal Course - Re-evaluation Re-evalutation: 10/17/18 22:23 Laboratory 10/17/18 10/17/18 10/17/18 18:15 18:15 18:15 WBC 5.7 RBC 4.04 Hgb 12.5 Hct 37.5 MCV 93 MCH 31.1 MCHC 33.4 RDW 16.1 H Plt Count 311 Seg Neutrophils % 72.8 Lymphocytes % 11.0 L Monocytes % 9.3 Eosinophils % 5.4 Basophils % 1.5 Absolute Neutrophils 4.1 Absolute Lymphocytes 0.6 Absolute Monocytes 0.5 Absolute Eosinophils 0.3 Absolute Basophils 0.1 Large Platelets PRESENT Platelet Comment ADEQUATE Poikilocytosis 1+ Anisocytosis 1+ Target Cells 1+ Ovalocytes SLIGHT PT 30.3 H INR 2.74 APTT 31.8 Carbonic Acid HCO3/H2CO3 Ratio ABG pH ABG pCO2 ABG pO2 ABG HCO3 ABG Total CO2 ABG O2 Saturation ABG Base Excess VBG pH VBG pCO2 VBG HCO3 VBG Base Excess FiO2 Sodium 137.4 Potassium 3.6 Chloride 93 L Carbon Dioxide 46 H* Anion Gap -2 L BUN 34 H Creatinine 0.42 L Est GFR ( Amer) > 60 Est GFR (Non-Af Amer) > 60 Glucose 98 Calcium 8.6 Total Bilirubin 0.5 Direct Bilirubin 0.2 Neonat Total Bilirubin Not Reportable Neonat Direct Bilirubin Not Reportable Neonat Indirect Bili Not Reportable AST 62 H ALT 38 Alkaline Phosphatase 59 NT-Pro-B Natriuret Pep Total Protein 4.8 L Albumin 2.5 L 10/17/18 10/17/18 10/17/18 18:15 18:25 20:12 WBC RBC Hgb Hct MCV MCH MCHC RDW Plt Count Seg Neutrophils % Lymphocytes % Monocytes % Eosinophils % Basophils % Absolute Neutrophils Absolute Lymphocytes Absolute Monocytes Absolute Eosinophils Absolute Basophils Large Platelets Platelet Comment Poikilocytosis Anisocytosis Target Cells Ovalocytes PT INR APTT Carbonic Acid 1.44 H HCO3/H2CO3 Ratio 27:1 ABG pH 7.53 H ABG pCO2 47.9 H ABG pO2 59.6 L ABG HCO3 39.0 H ABG Total CO2 40.5 H ABG O2 Saturation 93.0 L ABG Base Excess 14.4 VBG pH 7.41 VBG pCO2 73.2 H* VBG HCO3 44.8 H VBG Base Excess 16.0 FiO2 ROOM AIR Sodium Potassium Chloride Carbon Dioxide Anion Gap BUN Creatinine Est GFR ( Amer) Est GFR (Non-Af Amer) Glucose Calcium Total Bilirubin Direct Bilirubin Neonat Total Bilirubin Neonat Direct Bilirubin Neonat Indirect Bili AST ALT Alkaline Phosphatase NT-Pro-B Natriuret Pep 883 Total Protein Albumin Chest X-Ray 10/17/18 17:49 IMPRESSION: Stable appearance of the chest. Chronic lung changes with chronic small pleural effusions. Patient's feeling much better. Patient has some chronic lung disease chronic pulmonary fibrosis and chronic hypoxia. Patient states that she normally runs 89% at home. Has oxygen at home. Denies any chest pain at this time. Patient's bicarb is slightly elevated and is retaining CO2. Her arterial PCO2 was only 47 however and her pH is showing a respiratory alkalosis. Definitely not acidotic. More likely she needs more involved treatment on her pulmonary status. I am going to refer her back to Dr. Farris. I am and start her on some antibiotics and steroids and treat this more as a COPD exacerbation. I teague ve spent a significant amount of time at the bedside with her. Patient is comfortable with this plan. Will DC at this time in stable condition. - Vital Signs Vital signs: Temp Pulse Resp BP Pulse Ox 98.0 F 108 H 20 105/47 L 96 10/17/18 22:08 10/17/18 17:43 10/17/18 22:08 10/17/18 22:08 10/17/18 22:08 - Laboratory Result Diagrams: 10/17/18 18:15 10/17/18 18:15 Laboratory results interpreted by me: 10/17/18 10/17/18 10/17/18 18:15 18:15 18:15 RDW 16.1 H Lymphocytes % 11.0 L PT 30.3 H Carbonic Acid ABG pH ABG pCO2 ABG pO2 ABG HCO3 ABG Total CO2 ABG O2 Saturation VBG pCO2 VBG HCO3 Chloride 93 L Carbon Dioxide 46 H* Anion Gap -2 L BUN 34 H Creatinine 0.42 L AST 62 H Total Protein 4.8 L Albumin 2.5 L 10/17/18 10/17/18 18:25 20:12 RDW Lymphocytes % PT Carbonic Acid 1.44 H ABG pH 7.53 H ABG pCO2 47.9 H ABG pO2 59.6 L ABG HCO3 39.0 H ABG Total CO2 40.5 H ABG O2 Saturation 93.0 L VBG pCO2 73.2 H* VBG HCO3 44.8 H Chloride Carbon Dioxide Anion Gap BUN Creatinine AST Total Protein Albumin Discharge - Discharge Clinical Impression: COPD exacerbation Condition: Good Disposition: HOME, SELF-CARE Instructions: Chronic Obstructive Lung Disease ([facility]) Additional Instructions: In the event that you have any worsening symptoms or concerns we are here for you. Let us try the antibiotics and steroids. Continue with breathing treatments at home. Continue with all the other medications. Your albumin level is quite low and this may be contributing as well to some of your water retention. Please increase the protein in your diet as instructed. You may benefit from being on an appetite stimulant such as Remeron. Please discuss this with your doctor as well. Prescriptions: Amoxicillin Trihydrate [Amoxil 500 mg Capsule] 500 mg PO TID 10 Days #30 cap Methylprednisolone [Medrol Dosepack (4 mg/Tab) 21 Tab/Dosepak] 4 mg PO ASDIR PRN 6 Days #21 tab.ds.[id number] PRN Reason: Referrals: JAMMIE ALMAGUER MD [Primary Care Provider] - Follow up in 3-5 days ALCON FARRIS MD [ACTIVE STAFF] - Follow up as needed
[2018-10-17 20:34] LABS: ARTERIAL BLOOD BASE EXCESS 14.4 mmol/L; ARTERIAL BLOOD H2CO3 1.44 mmol/L (1.05-1.35); ARTERIAL BLOOD PCO2 47.9 mmHg (35-45); ARTERIAL BLOOD PH 7.53 (7.35-7.45); ARTERIAL BLOOD PO2 59.6 mmHg (80-100); ARTERIAL BLOOD TOTAL CO2 40.5 mmol/L (21-25)
[2018-10-17 20:36] LABS: ARTERIAL BLOOD FIO2 ROOM AIR
[2018-10-17] MEDS ORDERED: METHYLPREDNISOLONE INJ 125 MG/2 ML SDV IV ONE (22:02)
[2018-10-17] MEDS ORDERED: AMOXICILLIN TR/POT CLAVULANATE 500-125 MG TAB PO ONE (22:02)
[2018-10-17] MEDS ORDERED: AMOXICILLIN TRIHYDRATE 500 MG CAPSULE PO ONE (22:23)
[2018-10-17 22:36] VITALS: BP 105/47
== END 2018-10-17 22:49 | disposition home or self-care (01) ==
LOC: ER 17:38
DX: J44.1 Chronic obstructive pulmonary disease with (acute) exacerbation (principal); J70.1 Chronic and other pulmonary manifestations due to radiation; Y84.2 Radiological procedure and radiotherapy as the cause of abnormal reaction of the patient, or of later complication, without mention of misadventure at the time of the procedure; J90 Pleural effusion, not elsewhere classified; E87.3 Alkalosis; R09.02 Hypoxemia; R63.4 Abnormal weight loss; R00.0 Tachycardia, unspecified; I10 Essential (primary) hypertension; Z99.81 Dependence on supplemental oxygen; Z95.2 Presence of prosthetic heart valve; Z86.711 Personal history of pulmonary embolism; Z87.01 Personal history of pneumonia (recurrent); Z85.6 Personal history of leukemia; Z85.71 Personal history of Hodgkin lymphoma; Z92.3 Personal history of irradiation; Z87.891 Personal history of nicotine dependence; Z88.1 Allergy status to other antibiotic agents; Z88.8 Allergy status to other drugs, medicaments and biological substances
CPT/HCPCS: 93005; 36600; 99284; 96374; 36415; 82803 ×2; 85025; 85610; 85730; 80053; 83880; 71046; 93010; A9270; J2930; 84443; 85027; 86256; 86663; 86664; 86665

== ENCOUNTER → 2018-10-17 | Outpatient (CLI) | payer MEDICARE ==
[2018-10-17 14:57] LABS: HEMATOCRIT 36.1 % (36.0-47.0); MEAN CORPUSCULAR HEMOGLOBIN 30.9 pg (27.0-33.4); MEAN CORPUSCULAR HGB CONC 33.3 g/dL (32.0-36.0); MEAN CORPUSCULAR VOLUME 93 fl (80-97); PLATELET COUNT 305 10^3/uL (150-450); RED BLOOD COUNT 3.89 10^6/uL (3.72-5.28); RED CELL DISTRIBUTION WIDTH 15.9 % (11.5-14.0); WHITE BLOOD COUNT 5.4 10^3/uL (4.0-10.5)
[2018-10-17 15:02] LABS: PROTHROMBIN TIME 31.7 SEC (11.4-15.4)
[2018-10-17 15:19] LABS: ALANINE AMINOTRANSFERASE 36 U/L (9-52); ALBUMIN 2.4 g/dL (3.5-5.0); ALKALINE PHOSPHATASE 55 U/L (38-126); ASPARTATE AMINO TRANSFERASE 56 U/L (14-36); BILIRUBIN,DIRECT 0.2 mg/dL (0.0-0.4); BILIRUBIN,TOTAL 0.5 mg/dL (0.2-1.3); BLOOD UREA NITROGEN 31 mg/dL (7-20); CALCIUM 8.5 mg/dL (8.4-10.2); CHLORIDE 93 mmol/L (98-107); GLUCOSE 92 mg/dL (75-110); SODIUM 137.1 mmol/L (137-145); TOTAL PROTEIN 4.5 g/dL (6.3-8.2)
[2018-10-17 16:04] LABS: ANION GAP 0 (5-19); CARBON DIOXIDE 44 mmol/L (22-30)
[2018-10-20 11:31] LABS: EPSTEIN BARR EARLY AG IGG AB >150.0 U/mL (0.0-8.9); EPSTEIN BARR VCA IGM AB <36.0 U/mL (0.0-35.9)
== END ==
LOC: OD 13:25
PROVIDERS: ATTEND Obstetrics & Gynecology
DX: B27.90 Infectious mononucleosis, unspecified without complication (principal); E03.9 Hypothyroidism, unspecified; J84.10 Pulmonary fibrosis, unspecified; R53.82 Chronic fatigue, unspecified; Z95.2 Presence of prosthetic heart valve; Z95.4 Presence of other heart-valve replacement; Z51.81 Encounter for therapeutic drug level monitoring; Z79.01 Long term (current) use of anticoagulants
CPT/HCPCS: 36415; 80053; 84443; 85027; 85610; 86256; 86663; 86664; 86665

== ENCOUNTER → 2018-11-27 | Outpatient (CLI) | payer MEDICARE ==
[2018-11-27 17:34] LABS: HEMATOCRIT 35.1 % (36.0-47.0); HEMOGLOBIN 11.9 g/dL (12.0-15.5); INTERNATIONAL RATION (INR) 2.77; MEAN CORPUSCULAR HEMOGLOBIN 30.3 pg (27.0-33.4); MEAN CORPUSCULAR VOLUME 89 fl (80-97); PARTIAL THROMBOPLASTIN TIME 34.9 SEC (23.5-35.8); PLATELET COUNT 317 10^3/uL (150-450); PROTHROMBIN TIME 30.6 SEC (11.4-15.4); RED BLOOD COUNT 3.93 10^6/uL (3.72-5.28); RED CELL DISTRIBUTION WIDTH 15.8 % (11.5-14.0); WHITE BLOOD COUNT 6.3 10^3/uL (4.0-10.5)
[2018-11-27 17:52] LABS: ALANINE AMINOTRANSFERASE 40 U/L (9-52); ALBUMIN 2.6 g/dL (3.5-5.0); ALKALINE PHOSPHATASE 70 U/L (38-126); ASPARTATE AMINO TRANSFERASE 61 U/L (14-36); BILIRUBIN,DIRECT 0.2 mg/dL (0.0-0.4); BILIRUBIN,TOTAL 0.7 mg/dL (0.2-1.3); BLOOD UREA NITROGEN 31 mg/dL (7-20); CALCIUM 8.6 mg/dL (8.4-10.2); GLUCOSE 84 mg/dL (75-110); TOTAL PROTEIN 4.8 g/dL (6.3-8.2)
[2018-11-27 18:12] LABS: POTASSIUM 3.6 mmol/L (3.6-5.0)
[2018-11-27 18:27] LABS: CARBON DIOXIDE 40 mmol/L (22-30); SODIUM 134.1 mmol/L (137-145)
[2018-11-27 18:28] LABS: ANION GAP 2 (5-19); CHLORIDE 92 mmol/L (98-107)
[2018-12-02 07:37] LABS: EPSTEIN BARR EARLY AG IGG AB >150.0 U/mL (0.0-8.9); EPSTEIN BARR VCA IGM AB <36.0 U/mL (0.0-35.9)
== END ==
LOC: OD 16:17
PROVIDERS: ATTEND Obstetrics & Gynecology
DX: Z95.2 Presence of prosthetic heart valve (principal); Z79.01 Long term (current) use of anticoagulants; R53.82 Chronic fatigue, unspecified; J84.10 Pulmonary fibrosis, unspecified; E03.9 Hypothyroidism, unspecified
CPT/HCPCS: 36415; 80053; 84443; 85027; 85610; 85730; 86256; 86663; 86664; 86665

== ENCOUNTER → 2018-12-25 | Outpatient (CLI) | payer MEDICARE ==
[2018-12-25 11:45] LABS: HEMATOCRIT 35.9 % (36.0-47.0); MEAN CORPUSCULAR HEMOGLOBIN 29.5 pg (27.0-33.4); MEAN CORPUSCULAR HGB CONC 33.4 g/dL (32.0-36.0); MEAN CORPUSCULAR VOLUME 88 fl (80-97); PLATELET COUNT 313 10^3/uL (150-450); RED BLOOD COUNT 4.06 10^6/uL (3.72-5.28); RED CELL DISTRIBUTION WIDTH 16.4 % (11.5-14.0); WHITE BLOOD COUNT 5.5 10^3/uL (4.0-10.5)
[2018-12-25 11:51] LABS: INTERNATIONAL RATION (INR) 2.39; PARTIAL THROMBOPLASTIN TIME 31.5 SEC (23.5-35.8); PROTHROMBIN TIME 27.2 SEC (11.4-15.4)
[2018-12-25 12:17] LABS: ALANINE AMINOTRANSFERASE 37 U/L (9-52); ALBUMIN 2.4 g/dL (3.5-5.0); ALKALINE PHOSPHATASE 58 U/L (38-126); ASPARTATE AMINO TRANSFERASE 61 U/L (14-36); BILIRUBIN,DIRECT 0.2 mg/dL (0.0-0.4); BILIRUBIN,TOTAL 0.5 mg/dL (0.2-1.3); BLOOD UREA NITROGEN 27 mg/dL (7-20); CALCIUM 8.5 mg/dL (8.4-10.2); CHLORIDE 94 mmol/L (98-107); GLUCOSE 82 mg/dL (75-110); POTASSIUM 3.9 mmol/L (3.6-5.0); SODIUM 134.7 mmol/L (137-145); TOTAL PROTEIN 4.7 g/dL (6.3-8.2)
[2018-12-25 12:42] LABS: CARBON DIOXIDE 42 mmol/L (22-30)
[2018-12-25 12:54] LABS: ANION GAP -1 (5-19)
[2018-12-27 07:28] LABS: EPSTEIN BARR EARLY AG IGG AB >150.0 U/mL (0.0-8.9); EPSTEIN BARR VCA IGM AB <36.0 U/mL (0.0-35.9)
== END ==
LOC: OD 10:31
PROVIDERS: ATTEND Obstetrics & Gynecology
DX: J84.10 Pulmonary fibrosis, unspecified (principal); Z95.2 Presence of prosthetic heart valve; Z79.01 Long term (current) use of anticoagulants; R53.82 Chronic fatigue, unspecified; E03.9 Hypothyroidism, unspecified
CPT/HCPCS: 36415; 80053; 84443; 85027; 85610; 85730; 86256; 86663; 86664; 86665

== ENCOUNTER → 2019-01-31 | Outpatient (CLI) | payer MEDICARE ==
[2019-01-31 11:00] LABS: ABSOLUTE BASOPHILS # (AUTO) 0.1 10^3/uL (0.0-0.2); ABSOLUTE EOSINOPHILS # (AUTO) 0.2 10^3/uL (0.0-0.6); ABSOLUTE LYMPHOCYTES (AUTO) 0.8 10^3/uL (0.5-4.7); ABSOLUTE MONOCYTES (AUTO) 0.5 10^3/uL (0.1-1.4); ABSOLUTE NEUT (AUTO) 4.5 10^3/uL (1.7-8.2); BASOPHILS % (AUTO) 1.2 % (0-2); HEMATOCRIT 34.9 % (36.0-47.0); HEMOGLOBIN 11.5 g/dL (12.0-15.5); LYMPHOCYTES % (AUTO) 13.1 % (13-45); MEAN CORPUSCULAR HEMOGLOBIN 28.8 pg (27.0-33.4); MEAN CORPUSCULAR VOLUME 87 fl (80-97); MONOCYTES % (AUTO) 8.8 % (3-13); PLATELET COUNT 313 10^3/uL (150-450); RED CELL DISTRIBUTION WIDTH 17.8 % (11.5-14.0); SEGMENTED NEUTROPHILS % (AUTO) 72.9 % (42-78); TOTAL CELLS COUNTED % (AUTO) 100 %; WHITE BLOOD COUNT 6.2 10^3/uL (4.0-10.5)
[2019-01-31 11:15] LABS: ALANINE AMINOTRANSFERASE 47 U/L (9-52); ALBUMIN 2.2 g/dL (3.5-5.0); ALKALINE PHOSPHATASE 65 U/L (38-126); ASPARTATE AMINO TRANSFERASE 70 U/L (14-36); BILIRUBIN,DIRECT 0.2 mg/dL (0.0-0.4); BILIRUBIN,TOTAL 0.5 mg/dL (0.2-1.3); BLOOD UREA NITROGEN 31 mg/dL (7-20); CALCIUM 8.5 mg/dL (8.4-10.2); CHLORIDE 91 mmol/L (98-107); GLUCOSE 100 mg/dL (75-110); SODIUM 135.5 mmol/L (137-145); TOTAL PROTEIN 4.4 g/dL (6.3-8.2)
[2019-01-31 11:33] LABS: ANISOCYTOSIS 1+; BURR CELLS SLIGHT; POIKILOCYTOSIS 1+; POLYCHROMASIA 1+; SCHISTOCYTES 1+; TARGET CELLS SLIGHT; TEAR DROP CELLS SLIGHT
[2019-01-31 11:34] LABS: PLATELET COMMENT ADEQUATE
[2019-01-31 11:49] LABS: ANION GAP -4 (5-19); CARBON DIOXIDE 48 mmol/L (22-30)
== END ==
LOC: OD 10:15
PROVIDERS: ATTEND Obstetrics & Gynecology
DX: J84.10 Pulmonary fibrosis, unspecified (principal); D72.821 Monocytosis (symptomatic); I50.9 Heart failure, unspecified
CPT/HCPCS: 36415; 80053; 83880; 85025

== ENCOUNTER → 2019-02-11 | Outpatient (CLI) | payer MEDICARE ==
[2019-02-11 16:49] LABS: HEMATOCRIT 32.8 % (36.0-47.0); HEMOGLOBIN 10.6 g/dL (12.0-15.5); MEAN CORPUSCULAR HEMOGLOBIN 28.5 pg (27.0-33.4); MEAN CORPUSCULAR HGB CONC 32.2 g/dL (32.0-36.0); MEAN CORPUSCULAR VOLUME 88 fl (80-97); PLATELET COUNT 312 10^3/uL (150-450); RED BLOOD COUNT 3.71 10^6/uL (3.72-5.28); RED CELL DISTRIBUTION WIDTH 18.5 % (11.5-14.0); WHITE BLOOD COUNT 6.5 10^3/uL (4.0-10.5)
[2019-02-11 16:57] LABS: INTERNATIONAL RATION (INR) 2.55; PROTHROMBIN TIME 28.6 SEC (11.4-15.4)
[2019-02-11 16:58] LABS: PARTIAL THROMBOPLASTIN TIME 31.4 SEC (23.5-35.8)
[2019-02-11 17:19] LABS: ALANINE AMINOTRANSFERASE 46 U/L (9-52); ALBUMIN 2.3 g/dL (3.5-5.0); ALKALINE PHOSPHATASE 64 U/L (38-126); ASPARTATE AMINO TRANSFERASE 66 U/L (14-36); BILIRUBIN,DIRECT 0.3 mg/dL (0.0-0.4); BILIRUBIN,TOTAL 0.5 mg/dL (0.2-1.3); BLOOD UREA NITROGEN 33 mg/dL (7-20); CALCIUM 7.7 mg/dL (8.4-10.2); GLUCOSE 86 mg/dL (75-110)
[2019-02-11 18:47] LABS: CHLORIDE 87 mmol/L (98-107); POTASSIUM 3.6 mmol/L (3.6-5.0); SODIUM 135.1 mmol/L (137-145)
[2019-02-11 19:00] LABS: ANION GAP 0 (5-19); CARBON DIOXIDE 48 mmol/L (22-30)
[2019-02-14 07:51] LABS: EPSTEIN BARR EARLY AG IGG AB >150.0 U/mL (0.0-8.9); EPSTEIN BARR VCA IGM AB <36.0 U/mL (0.0-35.9)
== END ==
LOC: OD 14:47
PROVIDERS: ATTEND Obstetrics & Gynecology
DX: Z79.01 Long term (current) use of anticoagulants (principal); I34.0 Nonrheumatic mitral (valve) insufficiency; J84.10 Pulmonary fibrosis, unspecified; R53.82 Chronic fatigue, unspecified; Z95.2 Presence of prosthetic heart valve
CPT/HCPCS: 36415; 80053; 84443; 85027; 85610; 85730; 86256; 86663; 86664; 86665

== ENCOUNTER → 2019-03-03 | Outpatient (CLI) | payer MEDICARE ==
[2019-03-03 15:28] LABS: HEMATOCRIT 32.1 % (36.0-47.0); HEMOGLOBIN 10.6 g/dL (12.0-15.5); MEAN CORPUSCULAR HEMOGLOBIN 28.5 pg (27.0-33.4); MEAN CORPUSCULAR VOLUME 86 fl (80-97); PLATELET COUNT 339 10^3/uL (150-450); RED BLOOD COUNT 3.72 10^6/uL (3.72-5.28); RED CELL DISTRIBUTION WIDTH 18.3 % (11.5-14.0); WHITE BLOOD COUNT 7.2 10^3/uL (4.0-10.5)
[2019-03-03 15:43] LABS: ALANINE AMINOTRANSFERASE 58 U/L (9-52); ALBUMIN 2.4 g/dL (3.5-5.0); ALKALINE PHOSPHATASE 74 U/L (38-126); ASPARTATE AMINO TRANSFERASE 76 U/L (14-36); BILIRUBIN,DIRECT 0.2 mg/dL (0.0-0.4); BILIRUBIN,TOTAL 0.5 mg/dL (0.2-1.3); BLOOD UREA NITROGEN 26 mg/dL (7-20); CALCIUM 8.3 mg/dL (8.4-10.2); CHLORIDE 89 mmol/L (98-107); GLUCOSE 126 mg/dL (75-110); POTASSIUM 3.4 mmol/L (3.6-5.0); SODIUM 136.9 mmol/L (137-145); TOTAL PROTEIN 4.8 g/dL (6.3-8.2)
[2019-03-03 16:15] LABS: CARBON DIOXIDE 48 mmol/L (22-30)
[2019-03-03 16:38] LABS: ANION GAP 0 (5-19)
== END ==
LOC: OD 14:46
PROVIDERS: ATTEND Obstetrics & Gynecology
DX: I50.9 Heart failure, unspecified (principal); J84.10 Pulmonary fibrosis, unspecified
CPT/HCPCS: 36415; 80053; 83880; 85027

== ENCOUNTER → 2019-03-24 | Outpatient (CLI) | payer MEDICARE ==
[2019-03-24 16:46] LABS: ALANINE AMINOTRANSFERASE 41 U/L (9-52); ALBUMIN 2.4 g/dL (3.5-5.0); ALKALINE PHOSPHATASE 69 U/L (38-126); ASPARTATE AMINO TRANSFERASE 75 U/L (14-36); BILIRUBIN,DIRECT 0.2 mg/dL (0.0-0.4); BILIRUBIN,TOTAL 0.5 mg/dL (0.2-1.3); BLOOD UREA NITROGEN 30 mg/dL (7-20); CALCIUM 8.5 mg/dL (8.4-10.2); CHLORIDE 89 mmol/L (98-107); GLUCOSE 85 mg/dL (75-110); TOTAL PROTEIN 4.8 g/dL (6.3-8.2)
[2019-03-24 16:49] LABS: HEMATOCRIT 30.3 % (36.0-47.0); HEMOGLOBIN 10.1 g/dL (12.0-15.5); MEAN CORPUSCULAR HEMOGLOBIN 28.5 pg (27.0-33.4); MEAN CORPUSCULAR HGB CONC 33.3 g/dL (32.0-36.0); MEAN CORPUSCULAR VOLUME 86 fl (80-97); PLATELET COUNT 354 10^3/uL (150-450); RED BLOOD COUNT 3.54 10^6/uL (3.72-5.28); RED CELL DISTRIBUTION WIDTH 18.6 % (11.5-14.0); WHITE BLOOD COUNT 5.9 10^3/uL (4.0-10.5)
[2019-03-24 17:03] LABS: SODIUM 133.8 mmol/L (137-145)
[2019-03-24 17:06] LABS: ANION GAP -1 (5-19)
[2019-03-24 17:12] LABS: CARBON DIOXIDE 46 mmol/L (22-30)
== END ==
LOC: OD 15:36
PROVIDERS: ATTEND Obstetrics & Gynecology
DX: I50.9 Heart failure, unspecified (principal); J84.10 Pulmonary fibrosis, unspecified; E03.9 Hypothyroidism, unspecified; Z51.81 Encounter for therapeutic drug level monitoring; Z79.899 Other long term (current) drug therapy
CPT/HCPCS: 36415; 80053; 83880; 84443; 85027

== ENCOUNTER → 2019-04-03 | Outpatient (CLI) | payer MEDICARE | LOC: OD 14:44 | PROVIDERS: ATTEND Physician Assistant | DX: I44.2 Atrioventricular block, complete (principal); I95.9 Hypotension, unspecified | CPT/HCPCS: 36415; 80162 ==

== ENCOUNTER → 2019-05-13 | Outpatient (CLI) | payer MEDICARE ==
[2019-05-13 17:27] LABS: HEMATOCRIT 29.5 % (36.0-47.0); HEMOGLOBIN 9.7 g/dL (12.0-15.5); MEAN CORPUSCULAR HEMOGLOBIN 26.4 pg (27.0-33.4); MEAN CORPUSCULAR VOLUME 80 fl (80-97); PLATELET COUNT 385 10^3/uL (150-450); RED BLOOD COUNT 3.68 10^6/uL (3.72-5.28); RED CELL DISTRIBUTION WIDTH 19.1 % (11.5-14.0)
[2019-05-13 17:49] LABS: ALBUMIN 2.6 g/dL (3.5-5.0); ALKALINE PHOSPHATASE 97 U/L (38-126); ASPARTATE AMINO TRANSFERASE 69 U/L (14-36); BILIRUBIN,DIRECT 0.1 mg/dL (0.0-0.4); BILIRUBIN,TOTAL 0.3 mg/dL (0.2-1.3); BLOOD UREA NITROGEN 38 mg/dL (7-20); CALCIUM 8.4 mg/dL (8.4-10.2); GLUCOSE 114 mg/dL (75-110); TOTAL PROTEIN 5.1 g/dL (6.3-8.2)
[2019-05-13 18:10] LABS: POTASSIUM 3.2 mmol/L (3.6-5.0)
[2019-05-13 18:17] LABS: CHLORIDE 80 mmol/L (98-107)
[2019-05-13 18:33] LABS: ANION GAP 1 (5-19)
[2019-05-13 18:34] LABS: CARBON DIOXIDE 55 mmol/L (22-30)
== END ==
LOC: OD 16:55
PROVIDERS: ATTEND Obstetrics & Gynecology
DX: I50.9 Heart failure, unspecified (principal); J84.10 Pulmonary fibrosis, unspecified; E03.9 Hypothyroidism, unspecified; Z51.81 Encounter for therapeutic drug level monitoring; Z79.899 Other long term (current) drug therapy
CPT/HCPCS: 36415; 80053; 83880; 84443; 85027

== ENCOUNTER → 2019-05-21 | Outpatient (CLI) | payer MEDICARE | LOC: OD 11:23 | PROVIDERS: ATTEND Internal Medicine Cardiovascular Disease | DX: I44.2 Atrioventricular block, complete (principal) | CPT/HCPCS: 36415; 82728; 83540 ==

== ENCOUNTER → 2019-06-05 | Outpatient (CLI) | payer MEDICARE ==
[2019-06-05 15:42] LABS: HEMATOCRIT 30.3 % (36.0-47.0); HEMOGLOBIN 9.8 g/dL (12.0-15.5); MEAN CORPUSCULAR HEMOGLOBIN 25.8 pg (27.0-33.4); MEAN CORPUSCULAR HGB CONC 32.2 g/dL (32.0-36.0); MEAN CORPUSCULAR VOLUME 80 fl (80-97); PLATELET COUNT 397 10^3/uL (150-450); RED BLOOD COUNT 3.78 10^6/uL (3.72-5.28); RED CELL DISTRIBUTION WIDTH 19.7 % (11.5-14.0); WHITE BLOOD COUNT 6.4 10^3/uL (4.0-10.5)
[2019-06-05 16:07] LABS: ALBUMIN 2.4 g/dL (3.5-5.0); ALKALINE PHOSPHATASE 78 U/L (38-126); ASPARTATE AMINO TRANSFERASE 67 U/L (14-36); BILIRUBIN,DIRECT 0.2 mg/dL (0.0-0.4); BILIRUBIN,TOTAL 0.4 mg/dL (0.2-1.3); BLOOD UREA NITROGEN 36 mg/dL (7-20); CALCIUM 8.2 mg/dL (8.4-10.2); CHLORIDE 80 mmol/L (98-107); GLUCOSE 125 mg/dL (75-110); TOTAL PROTEIN 4.7 g/dL (6.3-8.2)
[2019-06-05 16:27] LABS: POTASSIUM 2.8 mmol/L (3.6-5.0)
[2019-06-05 16:28] LABS: CARBON DIOXIDE 54 mmol/L (22-30)
[2019-06-05 16:42] LABS: ANION GAP -2 (5-19)
== END ==
LOC: OD 14:56
PROVIDERS: ATTEND Obstetrics & Gynecology
DX: E03.9 Hypothyroidism, unspecified (principal); I50.31 Acute diastolic (congestive) heart failure; J84.10 Pulmonary fibrosis, unspecified
CPT/HCPCS: 36415; 80053; 83880; 84443; 85027

== ENCOUNTER → 2019-06-18 | Outpatient (CLI) | payer MEDICARE ==
[2019-06-18 09:31] LABS: ARTERIAL BLOOD BASE EXCESS 24.7 mmol/L; ARTERIAL BLOOD H2CO3 2.02 mmol/L (1.05-1.35); ARTERIAL BLOOD HCO3 51.3 mmol/L (20-24); ARTERIAL BLOOD O2 SATURATION 95.9 % (94-98); ARTERIAL BLOOD PO2 77.4 mmHg (80-100); ARTERIAL BLOOD TOTAL CO2 53.4 mmol/L (21-25)
[2019-06-18 09:39] LABS: ARTERIAL BLOOD FIO2 2.5L
[2019-06-18 09:41] LABS: HEMATOCRIT 29.8 % (36.0-47.0); HEMOGLOBIN 9.8 g/dL (12.0-15.5); MEAN CORPUSCULAR HEMOGLOBIN 26.4 pg (27.0-33.4); MEAN CORPUSCULAR VOLUME 80 fl (80-97); PLATELET COUNT 357 10^3/uL (150-450); RED BLOOD COUNT 3.72 10^6/uL (3.72-5.28); RED CELL DISTRIBUTION WIDTH 20.9 % (11.5-14.0); WHITE BLOOD COUNT 7.2 10^3/uL (4.0-10.5)
[2019-06-18 10:06] LABS: ALBUMIN 2.5 g/dL (3.5-5.0); ALKALINE PHOSPHATASE 67 U/L (38-126); ASPARTATE AMINO TRANSFERASE 65 U/L (14-36); BILIRUBIN,DIRECT 0.2 mg/dL (0.0-0.4); BILIRUBIN,TOTAL 0.5 mg/dL (0.2-1.3); BLOOD UREA NITROGEN 33 mg/dL (7-20); CALCIUM 8.1 mg/dL (8.4-10.2); CHLORIDE 79 mmol/L (98-107); GLUCOSE 104 mg/dL (75-110); POTASSIUM 3.4 mmol/L (3.6-5.0)
[2019-06-18 10:15] LABS: ANION GAP 0 (5-19)
[2019-06-18 10:20] LABS: CARBON DIOXIDE 51 mmol/L (22-30)
== END ==
LOC: OD 08:31
PROVIDERS: ATTEND Obstetrics & Gynecology
DX: J84.10 Pulmonary fibrosis, unspecified (principal); I50.9 Heart failure, unspecified; E03.9 Hypothyroidism, unspecified; Z51.81 Encounter for therapeutic drug level monitoring; Z79.899 Other long term (current) drug therapy
CPT/HCPCS: 36415; 36600; 80053; 82803; 83880; 84443; 85027

== ENCOUNTER → 2019-07-02 | Outpatient (CLI) | payer MEDICARE ==
[2019-07-02 15:33] LABS: ALBUMIN 2.4 g/dL (3.5-5.0); ALKALINE PHOSPHATASE 58 U/L (38-126); ASPARTATE AMINO TRANSFERASE 51 U/L (14-36); GLUCOSE 107 mg/dL (75-110)
[2019-07-02 15:34] LABS: HEMOGLOBIN 9.8 g/dL (12.0-15.5); MEAN CORPUSCULAR HEMOGLOBIN 26.2 pg (27.0-33.4); MEAN CORPUSCULAR HGB CONC 32.5 g/dL (32.0-36.0); MEAN CORPUSCULAR VOLUME 80 fl (80-97); PLATELET COUNT 402 10^3/uL (150-450); RED BLOOD COUNT 3.74 10^6/uL (3.72-5.28); RED CELL DISTRIBUTION WIDTH 21.8 % (11.5-14.0); WHITE BLOOD COUNT 7.8 10^3/uL (4.0-10.5)
[2019-07-02 15:50] LABS: BILIRUBIN,DIRECT 0.1 mg/dL (0.0-0.4); BILIRUBIN,TOTAL 0.5 mg/dL (0.2-1.3); BLOOD UREA NITROGEN 26 mg/dL (7-20); CALCIUM 8.1 mg/dL (8.4-10.2); CHLORIDE 83 mmol/L (98-107); TOTAL PROTEIN 4.8 g/dL (6.3-8.2)
[2019-07-02 15:52] LABS: ANION GAP -2 (5-19)
[2019-07-02 16:00] LABS: CARBON DIOXIDE 50 mmol/L (22-30); POTASSIUM 2.8 mmol/L (3.6-5.0)
[2019-07-02 19:09] LABS: C DIFFICILE GDH POSITIVE (NEGATIVE)
== END ==
LOC: OD 14:46
PROVIDERS: ATTEND Obstetrics & Gynecology
DX: I50.9 Heart failure, unspecified (principal); J84.10 Pulmonary fibrosis, unspecified; R53.82 Chronic fatigue, unspecified; R19.7 Diarrhea, unspecified
CPT/HCPCS: 36415; 80053; 83880; 84443; 85027; 86256; 86663; 86664; 86665; 87045; 87205; 87324; 87449; 87493

== ENCOUNTER → 2019-07-24 | Outpatient (CLI) | payer MEDICARE ==
[2019-07-24 15:42] LABS: HEMATOCRIT 30.2 % (36.0-47.0); HEMOGLOBIN 9.9 g/dL (12.0-15.5); MEAN CORPUSCULAR HEMOGLOBIN 26.1 pg (27.0-33.4); MEAN CORPUSCULAR VOLUME 79 fl (80-97); PLATELET COUNT 425 10^3/uL (150-450); RED BLOOD COUNT 3.82 10^6/uL (3.72-5.28); RED CELL DISTRIBUTION WIDTH 21.3 % (11.5-14.0); WHITE BLOOD COUNT 7.7 10^3/uL (4.0-10.5)
[2019-07-24 15:59] LABS: ALBUMIN 2.5 g/dL (3.5-5.0); ALKALINE PHOSPHATASE 75 U/L (38-126); ASPARTATE AMINO TRANSFERASE 58 U/L (14-36); BILIRUBIN,DIRECT 0.1 mg/dL (0.0-0.4); BILIRUBIN,TOTAL 0.5 mg/dL (0.2-1.3); BLOOD UREA NITROGEN 35 mg/dL (7-20); CALCIUM 8.2 mg/dL (8.4-10.2); CHLORIDE 83 mmol/L (98-107); GLUCOSE 160 mg/dL (75-110); IRON(TIBC) 31.5 ug/dL (37-170); TOTAL PROTEIN 5.1 g/dL (6.3-8.2)
[2019-07-24 16:35] LABS: ANION GAP 1 (5-19)
[2019-07-24 16:51] LABS: CARBON DIOXIDE 47 mmol/L (22-30)
== END ==
LOC: OD 14:40
PROVIDERS: ATTEND Obstetrics & Gynecology
DX: I50.9 Heart failure, unspecified (principal); J84.10 Pulmonary fibrosis, unspecified; E03.9 Hypothyroidism, unspecified; Z79.899 Other long term (current) drug therapy; D64.9 Anemia, unspecified
CPT/HCPCS: 36415; 80053; 82728; 83540; 83550; 83880; 84443; 85027

== ENCOUNTER → 2019-07-30 | Outpatient (CLI) | payer MEDICARE ==
[2019-07-30 17:23] LABS: ALBUMIN 2.6 g/dL (3.5-5.0); ALKALINE PHOSPHATASE 69 U/L (38-126); ASPARTATE AMINO TRANSFERASE 62 U/L (14-36); BILIRUBIN,DIRECT 0.1 mg/dL (0.0-0.4); BILIRUBIN,TOTAL 0.6 mg/dL (0.2-1.3); BLOOD UREA NITROGEN 36 mg/dL (7-20); CALCIUM 8.5 mg/dL (8.4-10.2); CHLORIDE 81 mmol/L (98-107); GLUCOSE 108 mg/dL (75-110); POTASSIUM 3.2 mmol/L (3.6-5.0); TOTAL PROTEIN 5.1 g/dL (6.3-8.2)
[2019-07-30 18:14] LABS: ANION GAP -1 (5-19)
[2019-07-30 18:17] LABS: CARBON DIOXIDE 52 mmol/L (22-30)
== END ==
LOC: OD 16:04
PROVIDERS: ATTEND Obstetrics & Gynecology
DX: J84.10 Pulmonary fibrosis, unspecified (principal); I50.9 Heart failure, unspecified
CPT/HCPCS: 36415; 80053

== ENCOUNTER → 2019-08-11 | Outpatient (CLI) | payer MEDICARE ==
[2019-08-11 12:09] LABS: HEMATOCRIT 29.4 % (36.0-47.0); HEMOGLOBIN 9.6 g/dL (12.0-15.5); MEAN CORPUSCULAR HEMOGLOBIN 25.8 pg (27.0-33.4); MEAN CORPUSCULAR HGB CONC 32.8 g/dL (32.0-36.0); MEAN CORPUSCULAR VOLUME 79 fl (80-97); PLATELET COUNT 412 10^3/uL (150-450); RED BLOOD COUNT 3.74 10^6/uL (3.72-5.28); RED CELL DISTRIBUTION WIDTH 21.6 % (11.5-14.0); WHITE BLOOD COUNT 7.3 10^3/uL (4.0-10.5)
[2019-08-11 12:24] LABS: ALBUMIN 2.5 g/dL (3.5-5.0); ALKALINE PHOSPHATASE 62 U/L (38-126); ASPARTATE AMINO TRANSFERASE 55 U/L (14-36); BILIRUBIN,DIRECT 0.3 mg/dL (0.0-0.4); BILIRUBIN,TOTAL 0.7 mg/dL (0.2-1.3); BLOOD UREA NITROGEN 36 mg/dL (7-20); CALCIUM 8.3 mg/dL (8.4-10.2); CHLORIDE 82 mmol/L (98-107); GLUCOSE 106 mg/dL (75-110); IRON(TIBC) 44.1 ug/dL (37-170); POTASSIUM 3.4 mmol/L (3.6-5.0); TOTAL PROTEIN 4.9 g/dL (6.3-8.2)
[2019-08-11 13:10] LABS: ANION GAP -2 (5-19); CARBON DIOXIDE 52 mmol/L (22-30)
== END ==
LOC: OD 11:22
PROVIDERS: ATTEND Obstetrics & Gynecology
DX: Z51.81 Encounter for therapeutic drug level monitoring (principal); I50.9 Heart failure, unspecified; J84.10 Pulmonary fibrosis, unspecified; D64.9 Anemia, unspecified; E03.9 Hypothyroidism, unspecified; Z79.899 Other long term (current) drug therapy
CPT/HCPCS: 36415; 80053; 82728; 83540; 83550; 83880; 84443; 85027

== ENCOUNTER → 2019-09-29 | Outpatient (CLI) | payer MEDICARE ==
[2019-09-29 10:06] LABS: HEMATOCRIT 34.7 % (36.0-47.0); HEMOGLOBIN 11.4 g/dL (12.0-15.5); MEAN CORPUSCULAR HEMOGLOBIN 29.6 pg (27.0-33.4); MEAN CORPUSCULAR HGB CONC 32.8 g/dL (32.0-36.0); MEAN CORPUSCULAR VOLUME 90 fl (80-97); PLATELET COUNT 338 10^3/uL (150-450); RED BLOOD COUNT 3.85 10^6/uL (3.72-5.28); RED CELL DISTRIBUTION WIDTH 28.2 % (11.5-14.0); WHITE BLOOD COUNT 6.4 10^3/uL (4.0-10.5)
[2019-09-29 10:18] LABS: ALBUMIN 2.6 g/dL (3.5-5.0); ALKALINE PHOSPHATASE 99 U/L (38-126); ASPARTATE AMINO TRANSFERASE 72 U/L (14-36); BILIRUBIN,DIRECT 0.3 mg/dL (0.0-0.4); BILIRUBIN,TOTAL 0.5 mg/dL (0.2-1.3); BLOOD UREA NITROGEN 37 mg/dL (7-20); CALCIUM 8.7 mg/dL (8.4-10.2); CHLORIDE 80 mmol/L (98-107); GLUCOSE 122 mg/dL (75-110); POTASSIUM 3.4 mmol/L (3.6-5.0); TOTAL PROTEIN 5.3 g/dL (6.3-8.2)
[2019-09-29 10:52] LABS: ANION GAP 0 (5-19)
[2019-09-29 10:53] LABS: CARBON DIOXIDE 54 mmol/L (22-30)
== END ==
LOC: OD 08:57
PROVIDERS: ATTEND Obstetrics & Gynecology
DX: I50.9 Heart failure, unspecified (principal); J84.10 Pulmonary fibrosis, unspecified; E03.9 Hypothyroidism, unspecified; Z51.81 Encounter for therapeutic drug level monitoring; N28.9 Disorder of kidney and ureter, unspecified; Z79.899 Other long term (current) drug therapy
CPT/HCPCS: 36415; 80053; 82565; 83880; 84443; 85027

== ENCOUNTER 2019-10-26 09:37 | Inpatient (IN) | payer MEDICARE ==
--- NOTE | 2019-10-26 09:58 | ER Document Report ---
ED Medical Screen (RME) - General Chief Complaint: Shortness Of Breath Stated Complaint: LEG SWELLING/DIFFICULTY BREATHING Time Seen by Provider: 10/26/19 09:51 Primary Care Provider: JAMMIE ALMAGUER MD [Primary Care Provider] - Follow up as needed Mode of Arrival: Wheelchair Information source: Patient, Relative - DAUGHTER Notes: 59-year-old female patient with multiple comorbidities presenting to the emergency department with worsening shortness of breath and worsening peripheral edema. Patient has history of mechanical valve replacement x2, she has CHF, COPD. She takes multiple diuretics daily. Her daughter is at triage with her answering questions, patient is pursed lip breathing, she is on her home oxygen. Oxygen saturations are 91%. She has significant bilateral lower extremity edema. Charge nurse made aware of patient in department and need for immediate bed placement. I have greeted and performed a rapid initial assessment of this patient. A comprehensive ED assessment and evaluation of the patient, analysis of test results and completion of the medical decision making process will be conducted by additional ED providers. I have specifically instructed the patient or family members with the patient to immediately return to any nursing staff should anything change in the patient's condition or with their chief complaint. TRAVEL OUTSIDE OF THE [place] IN LAST 30 DAYS: No - Related Data Allergies/Adverse Reactions: ketorolac tromethamine [From Toradol] Allergy (Unknown, Verified 08/31/18 18:19) clarithromycin [From Biaxin] Allergy (Verified 08/31/18 18:19) morphine [Morphine] Adverse Reaction (Intermediate, Verified 08/31/18 18:19) oxycodone HCl [From Percocet] Adverse Reaction (Intermediate, Verified 08/31/18 18:19) Home Medications: Coumadin, Metolazone, Lasix, Tramadol, Synthroid, Levalbuterol, Xopenex Past Medical History - Past Medical History Cardiac Medical History: Reports: Hx Congestive Heart Failure, Hx Hypertension, Hx Pulmonary Embolism Denies: Hx Heart Attack Pulmonary Medical History: Reports: Hx Asthma, Hx Bronchitis, Hx Pneumonia Neurological Medical History: Denies: Hx Cerebrovascular Accident Endocrine Medical History: Reports: Hx Hypothyroidism Renal/ Medical History: Denies: Hx Peritoneal Dialysis Malignancy Medical History: Reports: Hx Lymphoma - Hodgkin's at age 11 Musculoskeltal Medical History: Reports Hx Arthritis Psychiatric Medical History: Reports: Hx Depression Past Surgical History: Reports: Hx Abdominal Surgery - EXPLORATORY, Hx Cardiac Surgery - open heart, pace maker, Hx Cholecystectomy, Hx Hysterectomy, Hx Open Heart Surgery - 2009, Hx Valve Replacement - Mitral and aortic, Other - Chest tubes of the valve replacement and lung surgery due to bleeding - Immunizations Immunizations up to date: Yes Hx Diphtheria, Pertussis, Tetanus Vaccination: Yes Physical Exam - Vital signs Vitals: Temp Pulse Resp BP Pulse Ox 97.9 F 105 H 32 H 121/51 L 91 L 10/26/19 09:45 10/26/19 09:45 10/26/19 09:45 10/26/19 09:45 10/26/19 09:45 Course - Vital Signs Vital signs: Temp Pulse Resp BP Pulse Ox 97.9 F 105 H 32 H 121/51 L 91 L 10/26/19 09:45 10/26/19 09:45 10/26/19 09:45 10/26/19 09:45 10/26/19 09:45 Doctor's Discharge - Discharge Referrals: JAMMIE ALMAGUER MD [Primary Care Provider] - Follow up as needed
--- NOTE | 2019-10-26 10:27 | ER Document Report ---
ED Respiratory Problem - General Chief Complaint: Shortness Of Breath Stated Complaint: LEG SWELLING/DIFFICULTY BREATHING Time Seen by Provider: 10/26/19 09:51 Primary Care Provider: JAMMIE ALMAGUER MD [Primary Care Provider] - Follow up as needed Mode of Arrival: Wheelchair Notes: HPI: Patient is a 59-year-old female with past medical history as recorded including mechanical valve, on Coumadin, heart failure, COPD, on baseline oxygen at home, who presents today with what she states is around 2 weeks of some shortness of breath. Minimal nasal congestion. She did have an episode of one bout of vomiting one bout of diarrhea 1 week ago. None since that time. She denies any chest pain. She does state some bilateral lower extremity swelling. She did take metolazone tablet on top of her Lasix Sunday and Sunday as instructed by her verification rep Dr. Banegas. She has been afebrile and chest pain-free. Nonproductive cough. ROS: See HPI All other review of systems reviewed and otherwise negative Reviewed vital signs and nursing note as charted by RN. PHYSICAL EXAM: CONSTITUTIONAL: Alert and oriented and responds appropriately to questions. Patient does look very thin and frail HEAD: Normocephalic; atraumatic EYES: PERRL; Conjunctivae clear, sclerae non-icteric ENT: Normal nose; no rhinorrhea; moist mucous membranes; pharynx without lesions noted NECK: Supple without meningismus; non-tender; no cervical lymphadenopathy, no masses CARD: Regular rate and rhythm; very large mechanical valve closing RESP: Normal chest excursion without splinting or tachypnea; breath sounds clear and equal bilaterally; minimal wheezing with rales to the right lower lung ABD/GI: Normal bowel sounds; non-distended; soft, non-tender; no palpable organomegaly or masses BACK: The back appears normal and is non-tender to palpation EXT: Normal ROM in all joints; non-tender to palpation; 1-2+ pitting edema to bilateral lower shins and feet SKIN: No acute lesions noted NEURO: CN 2-12 intact; 5/5 bilateral upper and lower extremity strength with sensation intact to light touch PSYCH: The patient's mood and manner are appropriate. Grooming and personal hygiene are appropriate. TRAVEL OUTSIDE OF THE [place] IN LAST 30 DAYS: No - Related Data Allergies/Adverse Reactions: ketorolac tromethamine [From Toradol] Allergy (Unknown, Verified 10/26/19 10:26) clarithromycin [From Biaxin] Allergy (Verified 10/26/19 10:26) morphine [Morphine] Adverse Reaction (Intermediate, Verified 10/26/19 10:26) oxycodone HCl [From Percocet] Adverse Reaction (Intermediate, Verified 10/26/19 10:26) Home Medications: Coumadin, Metolazone, Lasix, Tramadol, Synthroid, Levalbuterol, Xopenex Past Medical History - General Information source: Patient, Relative - DAUGHTER - Social History Smoking Status: Unknown if Ever Smoked Family History: Arthritis, Malignancy, Thyroid Disfunction Patient has suicidal ideation: No Patient has homicidal ideation: No - Past Medical History Cardiac Medical History: Reports: Hx Congestive Heart Failure, Hx Hypertension, Hx Pulmonary Embolism Denies: Hx Heart Attack Pulmonary Medical History: Reports: Hx Asthma, Hx Bronchitis, Hx Pneumonia Neurological Medical History: Denies: Hx Cerebrovascular Accident Endocrine Medical History: Reports: Hx Hypothyroidism Renal/ Medical History: Denies: Hx Peritoneal Dialysis Malignancy Medical History: Reports: Hx Lymphoma - Hodgkin's at age 11 Musculoskeletal Medical History: Reports Hx Arthritis Psychiatric Medical History: Reports: Hx Depression Past Surgical History: Reports: Hx Abdominal Surgery - EXPLORATORY, Hx Cardiac Surgery - open heart, pace maker, Hx Cholecystectomy, Hx Hysterectomy, Hx Open Heart Surgery - 2008, Hx Valve Replacement - Mitral and aortic, Other - Chest tubes of the valve replacement and lung surgery due to bleeding - Immunizations Immunizations up to date: Yes Hx Diphtheria, Pertussis, Tetanus Vaccination: Yes Hx Pneumococcal Vaccination: 09/17/10 Physical Exam - Vital signs Vitals: Temp Pulse Resp BP Pulse Ox 97.9 F 105 H 32 H 121/51 L 91 L 10/26/19 09:45 10/26/19 09:45 10/26/19 09:45 10/26/19 09:45 10/26/19 09:45 Course - Re-evaluation Re-evalutation: Given the above history and physical, with a constellation of past medical history and symptoms as described, I will provide a duo nebulizer, obtain an x- ray, cardiac panel, EKG, BNP, troponin, and reassess. Patient does feel as if she would improve with some BiPAP. She only has very minimal retractions. She is able to speak in complete sentences. She is satting 100% on 2 L. I believe this will be reasonable. I am considering providing an IV bolus of Lasix but would like to see her electrolytes before proceeding. 10/26/19 10:27 EKG shows a heart rate of 103, AV dual paced. No appreciable change from previous. 10/26/19 11:16 Labs as recorded. CO2 as recorded. 10/26/19 11:36 X-ray as recorded. Chemistry as recorded. Very elevated BUN. I have provided a dose of Lasix. I will keep the patient on BiPAP and admit the patient to the hospital service for further evaluation. - Vital Signs Vital signs: Temp Pulse Resp BP Pulse Ox 97.9 F 105 H 22 H 122/64 100 10/26/19 09:45 10/26/19 09:45 10/26/19 11:00 10/26/19 11:00 10/26/19 11:00 - Laboratory Result Diagrams: 10/26/19 10:10 10/26/19 10:10 Laboratory results interpreted by me: 10/26/19 10/26/19 10/26/19 10:10 10:10 10:10 WBC 18.8 H RBC 3.66 L Hgb 11.3 L Hct 33.6 L RDW 22.8 H Seg Neuts % (Manual) 91 H Band Neutrophils % 1 L Lymphocytes % (Manual) 3 L Abs Neuts (Manual) 17.3 H PT Carbonic Acid ABG pCO2 ABG pO2 ABG HCO3 ABG Total CO2 ABG O2 Saturation Sodium 130.6 L Chloride 76 L Carbon Dioxide 54 H* Anion Gap 1 L BUN 87 H Glucose 132 H Calcium 8.3 L AST 63 H Alkaline Phosphatase 178 H NT-Pro-B Natriuret Pep 3240 H Total Protein 5.1 L Albumin 2.2 L 10/26/19 10/26/19 10:10 10:42 WBC RBC Hgb Hct RDW Seg Neuts % (Manual) Band Neutrophils % Lymphocytes % (Manual) Abs Neuts (Manual) PT 39.0 H Carbonic Acid 2.80 H ABG pCO2 93.0 H* ABG pO2 72.8 L ABG HCO3 58.0 H ABG Total CO2 60.9 H ABG O2 Saturation 93.6 L Sodium Chloride Carbon Dioxide Anion Gap BUN Glucose Calcium AST Alkaline Phosphatase NT-Pro-B Natriuret Pep Total Protein Albumin Critical Care Note - Critical Care Note Total time excluding time spent on procedures (mins): 35 Discharge - Discharge Clinical Impression: Hypercarbia Fluid overload Qualifiers: Hypervolemia type: unspecified Qualified Code(s): E87.70 - Fluid overload, unspecified Congestive heart failure Qualifiers: Heart failure type: unspecified Heart failure chronicity: acute on chronic Qualified Code(s): I50.9 - Heart failure, unspecified Condition: Fair Disposition: ADMITTED INPATIENT Admitting Provider: Deven (Hospitalist) Unit Admitted: IMCU Referrals: JAMMIE ALMAGUER MD [Primary Care Provider] - Follow up as needed
[2019-10-26 10:34] LABS: INTERNATIONAL RATION (INR) 3.87
[2019-10-26] MEDS ORDERED: METHYLPREDNISOLONE INJ 125 MG/2 ML SDV IV ONE (10:34)
[2019-10-26] MEDS ORDERED: IPRATROPIUM/ALBUTEROL 0.5-2.5 MG/3 ML AMPUL NEB SCH (10:45)
[2019-10-26 10:49] LABS: ALBUMIN 2.2 g/dL (3.5-5.0); ALKALINE PHOSPHATASE 178 U/L (38-126); ASPARTATE AMINO TRANSFERASE 63 U/L (14-36); BILIRUBIN,DIRECT 0.3 mg/dL (0.0-0.4); BILIRUBIN,TOTAL 0.5 mg/dL (0.2-1.3); BLOOD UREA NITROGEN 87 mg/dL (7-20); CALCIUM 8.3 mg/dL (8.4-10.2); CHLORIDE 76 mmol/L (98-107); GLUCOSE 132 mg/dL (75-110); TOTAL PROTEIN 5.1 g/dL (6.3-8.2)
[2019-10-26 10:55] LABS: HEMATOCRIT 33.6 % (36.0-47.0); HEMOGLOBIN 11.3 g/dL (12.0-15.5); MEAN CORPUSCULAR HEMOGLOBIN 30.8 pg (27.0-33.4); MEAN CORPUSCULAR HGB CONC 33.4 g/dL (32.0-36.0); MEAN CORPUSCULAR VOLUME 92 fl (80-97); PLATELET COUNT 290 10^3/uL (150-450); RED BLOOD COUNT 3.66 10^6/uL (3.72-5.28); RED CELL DISTRIBUTION WIDTH 22.8 % (11.5-14.0); WHITE BLOOD COUNT 18.8 10^3/uL (4.0-10.5)
[2019-10-26 10:55] LABS: ARTERIAL BLOOD BASE EXCESS 27.8 mmol/L; ARTERIAL BLOOD O2 SATURATION 93.6 % (94-98); ARTERIAL BLOOD PH 7.41 (7.35-7.45); ARTERIAL BLOOD PO2 72.8 mmHg (80-100); ARTERIAL BLOOD TOTAL CO2 60.9 mmol/L (21-25)
[2019-10-26 10:56] LABS: ARTERIAL BLOOD FIO2 2L
--- NOTE | 2019-10-26 10:57 | RADIOLOGY REPORT (SQ) ---
EXAM DESCRIPTION: CHEST SINGLE VIEW COMPLETED DATE/TIME: 10/26/2019 10:32 am REASON FOR STUDY: SOB, EVAL FOR CHF COMPARISON: 10/17/2018, 08/31/2018 NUMBER OF VIEWS: One view. TECHNIQUE: Single frontal radiographic image of the chest acquired. LIMITATIONS: None. FINDINGS: LUNGS AND PLEURA: Chronic interstitial changes and chronic small effusions unchanged from August 2018. No obvious superimposed pneumonia. MEDIASTINUM AND HEART: Stable heart size and mediastinal structures. SUPPORT DEVICES: Appropriate location without change. BONY STRUCTURES: No acute findings. HARDWARE: CABG. Pacemaker. OTHER: No other significant finding. IMPRESSION: Stable, chronic changes. Reading location - IP/workstation name: [email or web address]
[2019-10-26 11:10] LABS: POTASSIUM 3.6 mmol/L (3.6-5.0)
[2019-10-26 11:15] LABS: CARBON DIOXIDE 54 mmol/L (22-30)
[2019-10-26 11:16] LABS: ANION GAP 1 (5-19); TROPONIN I 0.051 ng/mL
[2019-10-26 11:18] LABS: ABSOLUTE LYMPHOCYTES# (MANUAL) 0.6 10^3/uL (0.5-4.7); ABSOLUTE MONOCYTES # (MANUAL) 0.9 10^3/uL (0.1-1.4); BAND NEUTROPHILS % (MANUAL) 1 % (3-5); BASOPHILS % (MANUAL) 0 % (0-2); EOSINOPHILS % (MANUAL) 0 % (0-6); LYMPHOCYTES % (MANUAL) 3 % (13-45); MONOCYTES % (MANUAL) 5 % (3-13); SEGMENTED NEUTROPHILS % (MAN) 91 % (42-78); TOTAL CELLS COUNTED 100
[2019-10-26 11:19] LABS: ANISOCYTOSIS 3+; PLATELET COMMENT ADEQUATE; PLATELET LARGE PRESENT; POLYCHROMASIA SLIGHT; SCHISTOCYTES SLIGHT; TARGET CELLS SLIGHT
[2019-10-26] MEDS ORDERED: FUROSEMIDE INJ/PF 40 MG/4 ML SDV IV ONE ×2 (11:36→16:00)
[2019-10-26] MEDS ORDERED: ACETAMINOPHEN 325 MG TABLET PO PRN (12:39)
[2019-10-26] MEDS ORDERED: ONDANSETRON HCL INJ/PF 4 MG/2 ML SDV IV PRN (12:39)
[2019-10-26] MEDS ORDERED: ONDANSETRON 4 MG TAB.RAPDIS PO PRN (12:39)
--- NOTE | 2019-10-26 13:35 | PDOC H&P ---
History of Present Illness Admission Date/PCP: 10/26/19 11:49 JAMMIE ALMAGUER MD History of Present Illness: DURAN MI is a 59 year old female who has had increased shortness of breath the last 2 to 4 weeks. Her in the last several days it has become much more severe to the point where she is not eating now, she is not sleeping ,she is irritable. It sounds like she has a BiPAP machine at home but it may never have been set up properly and does not seem to be helping anymore. Patient evidently has had respiratory problems for some time because she tells me that may be as long as 15 years ago she was told to take Ativan for anxiety for her respiratory problems but she says she did not like the way she felt on it. Her daughter in the room as well as sister gave history that recently a lesion that they have been following on her kidney has grown to the point where now it is going to be biopsied at [facility] in a couple weeks. They say it is some form of cancer. Patient also had non-Hodgkin's lymphoma when she was a teenager, but dentally developed pulmonary fibrosis from the treatment. Patient states she does not have COPD that her problem is pulmonary fibrosis. Patient also had a mechanical heart valve placed many years ago and is currently on Coumadin Patient denies any fever or chills, about a week ago she did have some vomiting for 1 day like she may have had a stomach bug. Patient's daughter tells me that the patient is a DNR. Patient has what appears to be peripheral edema and I think that her primary problem today is 1 of congestive heart failure as opposed to a pulmonary exacerbation. Also her BNP is higher than it is ever been in her chest x-ray shows no evidence of pneumonia Past Medical History Cardiac Medical History: Reports: Congestive Heart Failure, Hypertension, Pulmonary Embolism Denies: Myocardial Infarction Pulmonary Medical History: Reports: Asthma, Bronchitis, Pneumonia Endocrine Medical History: Reports: Hypothyroidism Malignancy Medical History: Reports: Lymphoma - Hodgkin's at age 11 Musculoskeltal Medical History: Reports: Arthritis Psychiatric Medical History: Reports: Depression Hematology: Reports: Anemia Past Surgical History Past Surgical History: Reports: Cholecystectomy, Hysterectomy, Valve Replacement - Mitral and aortic, Other - Chest tubes of the valve replacement and lung surge ry due to bleeding Social History Smoking Status: Unknown if Ever Smoked Frequency of Alcohol Use: None Hx Recreational Drug Use: No Drugs: None Hx Prescription Drug Abuse: No - Advance Directive Resuscitation Status: Do Not Resuscitate Family History Family History: Arthritis, Malignancy, Thyroid Disfunction Parental Family History Reviewed: No Children Family History Reviewed: No Sibling(s) Family History Reviewed.: No Medication/Allergy Home Medications: Docusate Sodium [Colace 100 mg Capsule] 100 mg PO DAILY 10/26/19 Fluoxetine HCl [Sarafem] 10 mg PO DAILY 10/26/19 Folic Acid [Folvite 1 mg Tablet] 1 mg PO DAILY 10/26/19 Furosemide [Lasix 80 mg Tablet] 80 mg PO BID 10/26/19 Levothyroxine Sodium [Synthroid 0.112 mg Tablet] 0.112 mg PO Q6AM 10/26/19 Metolazone [Zaroxolyn 2.5 mg Tablet] 2.5 mg PO QAM 10/26/19 Nebivolol HCl [Bystolic 5 mg Tablet] 5 mg PO DAILY 10/26/19 Potassium Chloride [Klor-Con 10 Meq Tablet ER] 20 meq PO TID 10/26/19 Torsemide [Demadex 20 mg Tablet] 20 mg PO DAILY 10/26/19 Tramadol HCl [Ultram 50 mg Tablet] 50 mg PO BIDP PRN 10/26/19 Warfarin Sodium [Coumadin 3 mg Tablet] 9 mg PO MOWEFR@1000 10/26/19 Warfarin Sodium [Coumadin 4 mg Tablet] 8 mg PO SUTUTHSA@1000 10/26/19 Allergies/Adverse Reactions: ketorolac tromethamine [From Toradol] Allergy (Unknown, Verified 10/26/19 10:26) clarithromycin [From Biaxin] Allergy (Verified 10/26/19 10:26) morphine [Morphine] Adverse Reaction (Intermediate, Verified 10/26/19 10:26) oxycodone HCl [From Percocet] Adverse Reaction (Intermediate, Verified 10/26/19 10:26) Review of Systems Constitutional: PRESENT: anorexia, weakness Cardiovascular: PRESENT: dyspnea on exertion, edema Respiratory: PRESENT: dyspnea Neurological: ABSENT: abnormal gait, abnormal speech, confusion, dizziness, focal weakness, syncope Psychiatric: PRESENT: anxiety Physical Exam Vital Signs: Temp Pulse Resp BP Pulse Ox 97.9 F 105 H 28 H 122/60 100 10/26/19 09:45 10/26/19 09:45 10/26/19 11:37 10/26/19 11:37 10/26/19 11:37 Intake & Output 10/25/19 10/26/19 10/27/19 06:59 06:59 06:59 Weight 51 kg General appearance: PRESENT: mild distress Respiratory exam: PRESENT: rales Cardiovascular exam: PRESENT: other - Mechanical heart valve Extremities exam: PRESENT: +2 edema - Located just in both lower extremities Neurological exam: PRESENT: alert, awake, oriented to person, oriented to place, oriented to time, oriented to situation, CN II-XII grossly intact. ABSENT: motor sensory deficit Psychiatric exam: PRESENT: agitated, anxious Results Laboratory Results: 10/26/19 10:10 10/26/19 10/26/19 10/26/19 10:10 10:10 10:42 WBC 18.8 H RBC 3.66 L Hgb 11.3 L Hct 33.6 L MCV 92 MCH 30.8 MCHC 33.4 RDW 22.8 H Plt Count 290 Seg Neutrophils % Not Reportable Carbonic Acid 2.80 H HCO3/H2CO3 Ratio 20:1 ABG pH 7.41 ABG pCO2 93.0 H* ABG pO2 72.8 L ABG HCO3 58.0 H ABG O2 Saturation 93.6 L ABG Base Excess 27.8 FiO2 2L Sodium 130.6 L Potassium 3.6 Chloride 76 L Carbon Dioxide 54 H* Anion Gap 1 L BUN 87 H Creatinine 0.63 Est GFR ( Amer) > 60 Glucose 132 H Calcium 8.3 L Total Bilirubin 0.5 AST 63 H Alkaline Phosphatase 178 H Total Protein 5.1 L Albumin 2.2 L 10/26/19 10:10 Troponin I 0.051 NT-Pro-B Natriuret Pep 3240 H Impressions: Chest X-Ray 10/26/19 09:55 IMPRESSION: Stable, chronic changes. Assessment and Plan - Diagnosis (1) CHF (congestive heart failure) Qualifiers: Heart failure type: unspecified Heart failure chronicity: acute on chronic Qualified Code(s): I50.9 - Heart failure, unspecified Is this a current diagnosis for this admission?: Yes (2) Fluid overload Qualifiers: Hypervolemia type: unspecified Qualified Code(s): E87.70 - Fluid overload, unspecified Is this a current diagnosis for this admission?: Yes (3) Hypercarbia Is this a current diagnosis for this admission?: Yes (4) Anticoagulation goal of INR 2.5 to 3.5 Is this a current diagnosis for this admission?: Yes (5) Anxiety Is this a current diagnosis for this admission?: Yes (6) Hypothyroidism Qualifiers: Hypothyroidism type: unspecified Qualified Code(s): E03.9 - Hypothyroidism, unspecified Is this a current diagnosis for this admission?: Yes - Plan Summary Summary: I plan on increasing patient's Lasix and obviously this will be IV. Resuming her home medications. I see no indication to start antibiotics at the present time. I will give her Solu-Medrol as I think the pulmonary fibrosis can be a contributing factor. Work closely with respiratory therapy concerning her BiPAP Repeat chest x-ray in the morning repeat labs in the morning Patient is a DNR Splane to the daughter that her mother appears to be very sick - Time Time Spent with patient: 35 or more minutes
[2019-10-26 13:43] LABS: BLOOD UREA NITROGEN 85 mg/dL (7-20); CALCIUM 8.5 mg/dL (8.4-10.2); CHLORIDE 77 mmol/L (98-107); GLUCOSE 172 mg/dL (75-110); POTASSIUM 3.2 mmol/L (3.6-5.0)
[2019-10-26 13:52] LABS: CREATINE KINASE MB 0.96 ng/mL (<4.55); TROPONIN I 0.046 ng/mL
[2019-10-26 13:54] LABS: APPEARANCE,URINE SLIGHTLY-CLOUDY; BILIRUBIN,URINE NEGATIVE (NEGATIVE); COLOR,URINE YELLOW; GLUCOSE, URINE NEGATIVE (NEGATIVE); KETONES,URINE NEGATIVE (NEGATIVE); LEUKOCYTE ESTERASE,URINE NEGATIVE (NEGATIVE); NITRITE,URINE NEGATIVE (NEGATIVE); PROTEIN,URINE NEGATIVE (NEGATIVE); URINE SPECIFIC GRAVITY 1.013; UROBILINOGEN,URINE NEGATIVE mg/dL (<2.0)
[2019-10-26 13:59] LABS: ANION GAP 2 (5-19)
[2019-10-26 14:00] LABS: CARBON DIOXIDE 52 mmol/L (22-30)
[2019-10-26] MEDS ORDERED: POTASSIUM CHLORIDE 10 MEQ TABLET.ER PO SCH (14:00)
[2019-10-26] MEDS ORDERED: POTASSIUM CHLORIDE 20 MEQ PACKET PO SCH (16:00)
[2019-10-26] MEDS ORDERED: LORAZEPAM 1 MG TABLET PO PRN (17:28)
[2019-10-26 19:15] LABS: CREATINE KINASE MB 0.73 ng/mL (<4.55)
[2019-10-26 19:19] LABS: TROPONIN I 0.046 ng/mL
--- NOTE | 2019-10-26 20:36 | EKG REPORT ---
SEVERITY:- ABNORMAL ECG - A-V DUAL-PACED COMPLEXES W/ SOME INHIBITION : Confirmed by: Ami Meeks MD 26-Oct-2019 20:34:24
[2019-10-26] MEDS ORDERED: WARFARIN SODIUM 4 MG TABLET PO SCH (22:00)
[2019-10-26] MEDS: FUROSEMIDE INJ/PF 40 MG/4 ML SDV IV SCH (23:01)
[2019-10-26] MEDS: FAMOTIDINE INJ/PF 20 MG/2 ML SDV IV SCH (23:01)
[2019-10-26] MEDS: METHYLPREDNISOLONE INJ 40 MG/1 ML SDV IV SCH (23:02)
[2019-10-26 23:15] LABS: ARTERIAL BLOOD BASE EXCESS 25.2 mmol/L; ARTERIAL BLOOD H2CO3 2.46 mmol/L (1.05-1.35); ARTERIAL BLOOD HCO3 53.9 mmol/L (20-24); ARTERIAL BLOOD O2 SATURATION 97.5 % (94-98); ARTERIAL BLOOD PH 7.44 (7.35-7.45); ARTERIAL BLOOD PO2 101.9 mmHg (80-100); ARTERIAL BLOOD TOTAL CO2 56.4 mmol/L (21-25)
[2019-10-26 23:18] LABS: ARTERIAL BLOOD FIO2 40%; ARTERIAL BLOOD PCO2 81.8 mmHg (35-45)
[2019-10-27 01:35] LABS: CREATINE KINASE MB 0.66 ng/mL (<4.55); TROPONIN I 0.048 ng/mL
[2019-10-27] MEDS: LEVOTHYROXINE SODIUM 0.112 MG TABLET PO SCH (05:27)
[2019-10-27 08:28] LABS: ABSOLUTE LYMPHOCYTES (AUTO) 0.7 10^3/uL (0.5-4.7); ABSOLUTE MONOCYTES (AUTO) 0.4 10^3/uL (0.1-1.4); ABSOLUTE NEUT (AUTO) 8.5 10^3/uL (1.7-8.2); BASOPHILS % (AUTO) 0.1 % (0-2); HEMATOCRIT 32.6 % (36.0-47.0); LYMPHOCYTES % (AUTO) 7.3 % (13-45); MEAN CORPUSCULAR HEMOGLOBIN 30.9 pg (27.0-33.4); MEAN CORPUSCULAR HGB CONC 33.9 g/dL (32.0-36.0); MEAN CORPUSCULAR VOLUME 91 fl (80-97); MONOCYTES % (AUTO) 3.7 % (3-13); RED BLOOD COUNT 3.56 10^6/uL (3.72-5.28); RED CELL DISTRIBUTION WIDTH 22.1 % (11.5-14.0); SEGMENTED NEUTROPHILS % (AUTO) 88.9 % (42-78); TOTAL CELLS COUNTED % (AUTO) 100 %; WHITE BLOOD COUNT 9.6 10^3/uL (4.0-10.5)
[2019-10-27] MEDS: METOLAZONE 2.5 MG TABLET PO SCH (08:57)
[2019-10-27 09:12] LABS: POLYCHROMASIA SLIGHT; TOXIC VACUOLATION PRESENT
[2019-10-27 09:13] LABS: ANISOCYTOSIS 3+; PLATELET CLUMPS PRESENT; PLATELET LARGE PRESENT; POIKILOCYTOSIS SLIGHT; SCHISTOCYTES SLIGHT; TEAR DROP CELLS SLIGHT
[2019-10-27 09:14] LABS: PLATELET COMMENT ADEQUATE; PLATELET COUNT 310 10^3/uL (150-450)
[2019-10-27] MEDS: METHYLPREDNISOLONE INJ 40 MG/1 ML SDV IV SCH ×2 (09:45→22:34)
[2019-10-27] MEDS: FOLIC ACID 1 MG TABLET PO SCH (09:46)
[2019-10-27] MEDS: DOCUSATE SODIUM 100 MG CAPSULE PO SCH (09:46)
[2019-10-27] MEDS: FAMOTIDINE INJ/PF 20 MG/2 ML SDV IV SCH ×2 (09:46→22:34)
[2019-10-27] MEDS: NEBIVOLOL HCL 5 MG TABLET PO SCH (09:47)
[2019-10-27] MEDS ORDERED: WARFARIN SODIUM 9 MG PO SCH (10:00)
[2019-10-27] MEDS ORDERED: DOCUSATE SODIUM 100 MG/10 ML UDC PO SCH (10:00)
[2019-10-27] MEDS ORDERED: FLUOXETINE HCL 10 MG PO SCH (10:00)
[2019-10-27] MEDS ORDERED: TORSEMIDE 20 MG TABLET PO SCH (10:00)
[2019-10-27] MEDS ORDERED: WARFARIN SODIUM 3 MG TABLET PO SCH (10:00)
[2019-10-27 10:02] LABS: INTERNATIONAL RATION (INR) 4.72; PROTHROMBIN TIME 45.7 SEC (11.4-15.4)
[2019-10-27 10:03] LABS: PARTIAL THROMBOPLASTIN TIME 50.8 SEC (23.5-35.8)
--- NOTE | 2019-10-27 10:16 | PDOC PROGRESS REPORT ---
Subjective Progress Note for:: 10/27/19 Reason For Visit: CHF, END STAGE PULMONARY FIBROSIS, HODGKINS LYMPH- 10/27/2019 CHF exacerbation, shortness of breath, pulmonary fibrosis non-Hodgkin's lymphoma, probable renal cell carcinoma, hypo-thyroidism Physical Exam Vital Signs: Temp Pulse Resp BP Pulse Ox 97.3 F 110 H 12 116/55 L 95 10/27/19 08:00 10/27/19 08:00 10/27/19 08:00 10/27/19 08:00 10/27/19 08:00 Intake & Output 10/26/19 10/27/19 10/28/19 06:59 06:59 06:59 Intake Total 200 Output Total 650 Balance -450 Weight 52.1 kg General appearance: PRESENT: mild distress, other - Patient is sitting up at the bedside eating breakfast feeling much better Respiratory exam: PRESENT: decreased breath sounds, rales - Both bases Cardiovascular exam: PRESENT: RRR. ABSENT: diastolic murmur, rubs, systolic murmur Neurological exam: PRESENT: alert, awake, oriented to person, oriented to place, oriented to time, oriented to situation, CN II-XII grossly intact. ABSENT: motor sensory deficit Psychiatric exam: PRESENT: appropriate affect, normal mood, other - Today her affect appears to be much more appropriate, does not seem as depressed as yesterday. ABSENT: homicidal ideation, suicidal ideation Results Laboratory Results: 10/27/19 08:09 10/26/19 10/26/19 10/26/19 10:10 10:10 10:10 WBC 18.8 H RBC 3.66 L Hgb 11.3 L Hct 33.6 L MCV 92 MCH 30.8 MCHC 33.4 RDW 22.8 H Plt Count 290 Seg Neutrophils % Not Reportable Carbonic Acid HCO3/H2CO3 Ratio ABG pH ABG pCO2 ABG pO2 ABG HCO3 ABG O2 Saturation ABG Base Excess FiO2 Sodium 130.6 L Potassium 3.6 Chloride 76 L Carbon Dioxide 54 H* Anion Gap 1 L BUN 87 H Creatinine 0.63 Est GFR ( Amer) > 60 Glucose 132 H Calcium 8.3 L Magnesium Total Bilirubin 0.5 AST 63 H Alkaline Phosphatase 178 H Total Protein 5.1 L Albumin 2.2 L TSH 0.75 Urine Color Urine Appearance Urine pH Ur Specific [place] Urine Protein Urine Glucose (UA) Urine Ketones Urine Blood Urine Nitrite Ur Leukocyte Esterase Urine WBC (Auto) Urine RBC (Auto) 10/26/19 10/26/19 10/26/19 10:42 13:11 13:40 WBC RBC Hgb Hct MCV MCH MCHC RDW Plt Count Seg Neutrophils % Carbonic Acid 2.80 H HCO3/H2CO3 Ratio 20:1 ABG pH 7.41 ABG pCO2 93.0 H* ABG pO2 72.8 L ABG HCO3 58.0 H ABG O2 Saturation 93.6 L ABG Base Excess 27.8 FiO2 2L Sodium 131.0 L Potassium 3.2 L Chloride 77 L Carbon Dioxide 52 H* Anion Gap 2 L BUN 85 H Creatinine 0.62 Est GFR ( Amer) > 60 Glucose 172 H Calcium 8.5 Magnesium Total Bilirubin AST Alkaline Phosphatase Total Protein Albumin TSH Urine Color YELLOW Urine Appearance SLIGHTLY-CLOUDY Urine pH 5.0 Ur Specific [place] 1.013 Urine Protein NEGATIVE Urine Glucose (UA) NEGATIVE Urine Ketones NEGATIVE Urine Blood NEGATIVE Urine Nitrite NEGATIVE Ur Leukocyte Esterase NEGATIVE Urine WBC (Auto) 3 Urine RBC (Auto) 1 10/26/19 10/27/19 10/27/19 22:53 08:09 08:09 WBC 9.6 RBC 3.56 L Hgb 11.0 L Hct 32.6 L MCV 91 MCH 30.9 MCHC 33.9 RDW 22.1 H Plt Count 310 Seg Neutrophils % 88.9 H Carbonic Acid 2.46 H HCO3/H2CO3 Ratio 21:1 ABG pH 7.44 ABG pCO2 81.8 H* ABG pO2 101.9 H ABG HCO3 53.9 H ABG O2 Saturation 97.5 ABG Base Excess 25.2 FiO2 40% Sodium Potassium Chloride Carbon Dioxide Anion Gap BUN Creatinine Est GFR ( Amer) Glucose Calcium Magnesium 2.6 H Total Bilirubin AST Alkaline Phosphatase Total Protein Albumin TSH Urine Color Urine Appearance Urine pH Ur Specific [place] Urine Protein Urine Glucose (UA) Urine Ketones Urine Blood Urine Nitrite Ur Leukocyte Esterase Urine WBC (Auto) Urine RBC (Auto) 10/26/19 10/26/19 10/26/19 10:10 13:11 18:38 CK-MB (CK-2) 0.96 0.73 Troponin I 0.051 0.046 0.046 NT-Pro-B Natriuret Pep 3240 H 02/10/20 02/10/20 00:47 08:09 CK-MB (CK-2) 0.66 Troponin I 0.048 NT-Pro-B Natriuret Pep 4860 H Impressions: Chest X-Ray 10/26/19 09:55 IMPRESSION: Stable, chronic changes. Assessment and Plan - Diagnosis (1) CHF (congestive heart failure) Qualifiers: Heart failure type: unspecified Heart failure chronicity: acute on chronic Qualified Code(s): I50.9 - Heart failure, unspecified Is this a current diagnosis for this admission?: Yes (2) Fluid overload Qualifiers: Hypervolemia type: unspecified Qualified Code(s): E87.70 - Fluid overload, unspecified Is this a current diagnosis for this admission?: Yes (3) Hypercarbia Is this a current diagnosis for this admission?: Yes (4) Anticoagulation goal of INR 2.5 to 3.5 Is this a current diagnosis for this admission?: Yes (5) Anxiety Is this a current diagnosis for this admission?: Yes (6) Hypothyroidism Qualifiers: Hypothyroidism type: unspecified Qualified Code(s): E03.9 - Hypothyroidism, unspecified Is this a current diagnosis for this admission?: Yes (7) Probable renal cell carcinoma Is this a current diagnosis for this admission?: Yes (8) H/O heart valve replacement with mechanical valve Is this a current diagnosis for this admission?: Yes - Plan Summary Summary: I plan on increasing patient's Lasix and obviously this will be IV. Resuming her home medications. I see no indication to start antibiotics at the present time. I will give her Solu-Medrol as I think the pulmonary fibrosis can be a contributing factor. Work closely with respiratory therapy concerning her BiPAP Repeat chest x-ray in the morning repeat labs in the morning Patient is a DNR I explained to the daughter that her mother appears to be very sick. She is aware of that, as well as the patient's sister. 10/27/2019 Patient's heart rate remains between 96 and 110. Patient does not appear to be symptomatic from that, although I expect it will come down once some of the fluid overload has been relieved Patient's blood pressure is stable at 116/55 Patient's oxygen saturation since admission has been between 96 and 100, mostly on BiPAP however since last night has been on nasal cannula Between 2 and 3-1/2 L surgeon On admission her white count was 18,800 today it is 9.6. INR on admission was 3.87 today it is pending, she was taking 9 mg of Coumadin on Sunday and Sunday and 8 mg on Sunday and and Sunday. Patient does have a mechanical heart valve History is pending and I will need to address her potassium. Was taking 20 mEq 3 times daily prior to admission, and yesterday her potassium was 3.2. BNP on admission was 3240 today it is 4860 Troponins are elevated but distant and are probably not due to myocardial ischemia as much as much as cardiac drive secondary to CHF. Patient is currently on Lasix 40 mg IV every 12 hours, solu Medrol 40 mg IV every 12 hours for her pulmonary fibrosis Zaroxolyn and Demadex are on hold currently Patient is moving much more air today however she still has rales in both bases, although clinically she says she is feeling much better and breathing much easier. I have explained all this to the patient and family and she seems satisfied. , - Time Time Spent with patient: 35 or more minutes
[2019-10-27] MEDS: TRAMADOL HCL 50 MG TABLET PO PRN (10:22)
[2019-10-27 10:49] LABS: BLOOD UREA NITROGEN 85 mg/dL (7-20); CALCIUM 8.4 mg/dL (8.4-10.2); CHLORIDE 77 mmol/L (98-107); GLUCOSE 133 mg/dL (75-110); POTASSIUM 3.8 mmol/L (3.6-5.0)
[2019-10-27 11:05] LABS: ANION GAP 1 (5-19); CARBON DIOXIDE 56 mmol/L (22-30)
[2019-10-27] MEDS: FUROSEMIDE INJ/PF 40 MG/4 ML SDV IV SCH ×2 (11:23→22:34)
[2019-10-27] MEDS ORDERED: ONDANSETRON 4 MG TAB.RAPDIS PO PRN (13:33)
[2019-10-27] MEDS ORDERED: ONDANSETRON HCL INJ/PF 4 MG/2 ML SDV IV PRN (13:33)
[2019-10-27 15:09] LABS: ARTERIAL BLOOD BASE EXCESS 20.6 mmol/L; ARTERIAL BLOOD H2CO3 2.66 mmol/L (1.05-1.35); ARTERIAL BLOOD HCO3 50.8 mmol/L (20-24); ARTERIAL BLOOD O2 SATURATION 98.4 % (94-98); ARTERIAL BLOOD PH 7.38 (7.35-7.45); ARTERIAL BLOOD PO2 132.3 mmHg (80-100); ARTERIAL BLOOD TOTAL CO2 53.5 mmol/L (21-25)
[2019-10-27 15:10] LABS: ARTERIAL BLOOD FIO2 ROOM AIR
[2019-10-27 15:11] LABS: ARTERIAL BLOOD PCO2 88.3 mmHg (35-45)
[2019-10-28] MEDS: LEVOTHYROXINE SODIUM 0.112 MG TABLET PO SCH (05:54)
[2019-10-28 06:19] LABS: HEMATOCRIT 34.2 % (36.0-47.0); HEMOGLOBIN 11.3 g/dL (12.0-15.5); MEAN CORPUSCULAR HEMOGLOBIN 30.1 pg (27.0-33.4); MEAN CORPUSCULAR HGB CONC 33.2 g/dL (32.0-36.0); MEAN CORPUSCULAR VOLUME 91 fl (80-97); PLATELET COUNT 341 10^3/uL (150-450); RED BLOOD COUNT 3.76 10^6/uL (3.72-5.28); RED CELL DISTRIBUTION WIDTH 22.3 % (11.5-14.0)
[2019-10-28 06:22] LABS: INTERNATIONAL RATION (INR) 3.92; PROTHROMBIN TIME 39.4 SEC (11.4-15.4); WHITE BLOOD COUNT 24.2 10^3/uL (4.0-10.5)
[2019-10-28 06:23] LABS: PARTIAL THROMBOPLASTIN TIME 38.3 SEC (23.5-35.8)
[2019-10-28 06:52] LABS: ABSOLUTE LYMPHOCYTES# (MANUAL) 0.2 10^3/uL (0.5-4.7); ABSOLUTE MONOCYTES # (MANUAL) 1.2 10^3/uL (0.1-1.4); BAND NEUTROPHILS % (MANUAL) 1 % (3-5); BASOPHILS % (MANUAL) 0 % (0-2); EOSINOPHILS % (MANUAL) 0 % (0-6); LYMPHOCYTES % (MANUAL) 1 % (13-45); MONOCYTES % (MANUAL) 5 % (3-13); SEGMENTED NEUTROPHILS % (MAN) 93 % (42-78); TOTAL CELLS COUNTED 100
[2019-10-28 06:53] LABS: ANISOCYTOSIS 3+; PLATELET COMMENT ADEQUATE; SCHISTOCYTES 1+
[2019-10-28] MEDS: METOLAZONE 2.5 MG TABLET PO SCH (07:58)
[2019-10-28] MEDS: TRAMADOL HCL 50 MG TABLET PO PRN (08:02)
[2019-10-28] MEDS ORDERED: ONDANSETRON HCL INJ/PF 4 MG/2 ML SDV IV PRN (08:58)
[2019-10-28] MEDS: FAMOTIDINE INJ/PF 20 MG/2 ML SDV IV SCH (09:36)
[2019-10-28] MEDS: FUROSEMIDE INJ/PF 40 MG/4 ML SDV IV SCH ×2 (09:36→13:52)
[2019-10-28] MEDS: FOLIC ACID 1 MG TABLET PO SCH (09:36)
[2019-10-28] MEDS: METHYLPREDNISOLONE INJ 40 MG/1 ML SDV IV SCH ×2 (09:36→13:52)
[2019-10-28] MEDS: DOCUSATE SODIUM 100 MG CAPSULE PO SCH (09:36)
[2019-10-28] MEDS: NEBIVOLOL HCL 5 MG TABLET PO SCH (09:36)
[2019-10-28] MEDS ORDERED: WARFARIN SODIUM 4 MG TABLET PO SCH (10:00)
[2019-10-28] MEDS ORDERED: (PENDING PHARMACY ID) (Warfarin Sodium 8 MG) PO SCH (10:00)
--- NOTE | 2019-10-28 12:23 | CDI QUERY ---
CDI Query CDI Review: Dear Provider: To better reflect your patients severity of illness, morbidity, and resource utilization Please specify and document in the Progress Notes and Discharge Summary if you are monitoring / treating / evaluating any of the following conditions: Query Clinical indicators Please specify the type of CHF: Systolic Diastolic Combined systolic and diastolic Other heart failure Unable CHF (congestive heart failure) Qualifiers: Heart failure type: unspecified Heart failure chronicity: acute on chronic Qualified Code(s): I50.9 - Heart failure, unspecified Is this a current diagnosis for this admission?: Yes The terms probable, suspected, likely, possible or still to be ruled out may be used if you are unable to determine the exact nature of a condition. Thank you, Clinical Documentation Physician Advisors ZOEY Alvarez RN, BSN RN Office [phone] Office [phone]
[2019-10-28] MEDS: ALBUMIN HUMAN 12.5 GM/50 ML RTUINJ IV SCH ×4 (13:53→16:43)
--- NOTE | 2019-10-28 17:37 | PDOC PROGRESS REPORT ---
Subjective Progress Note for:: 10/28/19 Subjective:: DURAN MI is a 59 year old female who has had increased shortness of breath the last 2 to 4 weeks. Her in the last several days it has become much more severe to the point where she is not eating now, she is not sleeping ,she is irritable. It sounds like she has a BiPAP machine at home but it may never have been set up properly and does not seem to be helping anymore. Patient evidently has had respiratory problems for some time because she tells me that may be as long as 15 years ago she was told to take Ativan for anxiety for her respiratory problems but she says she did not like the way she felt on it. Her daughter in the room as well as sister gave history that recently a lesion that they have been following on her kidney has grown to the point where now it is going to be biopsied at [facility] in a couple weeks. They say it is some form of cancer. Patient also had non-Hodgkin's lymphoma when she was a teenager, but dentally developed pulmonary fibrosis from the treatment. Patient states she does not have COPD that her problem is pulmonary fibrosis. Patient also had a mechanical heart valve placed many years ago and is currently on Coumadin Patient denies any fever or chills, about a week ago she did have some vomiting for 1 day like she may have had a stomach bug. Patient's daughter tells me that the patient is a DNR. Patient has what appears to be peripheral edema and I think that her primary problem today is 1 of congestive heart failure as opposed to a pulmonary exacerbation. Also her BNP is higher than it is ever been in her chest x-ray shows no evidence of pneumonia 10/28/2019. No acute events overnight. Patient still BiPAP dependent with bilateral lower extremity significant edema. Reason For Visit: CHF, END STAGE PULMONARY FIBROSIS, HODGKINS LYMPH- Physical Exam Vital Signs: Temp Pulse Resp BP Pulse Ox 98.1 F 110 H 20 132/49 H 100 10/28/19 12:00 10/28/19 14:00 10/28/19 12:00 10/28/19 12:00 10/28/19 12:00 Intake & Output 10/27/19 10/28/19 10/29/19 06:59 06:59 06:59 Intake Total 200 240 224 Output Total 650 Balance -450 240 224 Weight 52.1 kg 54.4 kg General appearance: PRESENT: no acute distress Head exam: PRESENT: atraumatic, normocephalic Respiratory exam: PRESENT: crackles. ABSENT: rales, rhonchi, wheezes Cardiovascular exam: PRESENT: RRR. ABSENT: diastolic murmur, rubs, systolic murmur GI/Abdominal exam: PRESENT: normal bowel sounds, soft. ABSENT: distended, guarding, mass, organolmegaly, rebound, tenderness Extremities exam: PRESENT: full ROM, +2 edema. ABSENT: calf tenderness, clubbing, pedal edema Neurological exam: PRESENT: alert, awake, oriented to person, oriented to place, oriented to time, oriented to situation, CN II-XII grossly intact. ABSENT: motor sensory deficit Results Laboratory Results: 10/28/19 05:08 10/27/19 08:09 10/28/19 05:08 WBC 24.2 H D RBC 3.76 Hgb 11.3 L Hct 34.2 L MCV 91 MCH 30.1 MCHC 33.2 RDW 22.3 H Plt Count 341 Seg Neutrophils % Not Reportable 10/26/19 10/26/19 10/26/19 10:10 13:11 18:38 CK-MB (CK-2) 0.96 0.73 Troponin I 0.051 0.046 0.046 NT-Pro-B Natriuret Pep 3240 H 10/27/19 10/27/19 10/28/19 00:47 08:09 05:08 CK-MB (CK-2) 0.66 Troponin I 0.048 NT-Pro-B Natriuret Pep 4860 H 3850 H Impressions: Chest X-Ray 10/26/19 09:55 IMPRESSION: Stable, chronic changes. Assessment and Plan - Diagnosis (1) Acute and chronic respiratory failure with hypercapnia Is this a current diagnosis for this admission?: Yes Plan: Multifactorial. History of severe pulmonary fibrosis complicated by underlying COPD, obstructive sleep apnea. Chronically BiPAP dependent. Continue BiPAP, empiric IV antibiotics, duo nebs, IV steroids, LABA, LABA, aggressive pulmonary toileting. (2) Anticoagulation goal of INR 2.5 to 3.5 Is this a current diagnosis for this admission?: Yes Plan: History of aortic valve replacement. Metallic. Continue Coumadin. INR goal 0.5-3.4. Monitor for bleeding. Daily INR. (3) Anxiety Is this a current diagnosis for this admission?: Yes Plan: Continue supportive measures at [facility]. (4) CHF (congestive heart failure) Qualifiers: Heart failure type: unspecified Heart failure chronicity: acute on chronic Qualified Code(s): I50.9 - Heart failure, unspecified Is this a current diagnosis for this admission?: Yes Plan: Continue cardiac diet, fluid restriction, IV Lasix, strict in and out. (5) Community acquired pneumonia Qualifiers: Laterality: right Lung location: lower lobe of lung Qualified Code(s): J18.9 - Pneumonia, unspecified organism Is this a current diagnosis for this admission?: Yes Plan: Likely due to gram-positive's including Streptococcus pneumonia. Continue empiric IV antibiotics. Follow-up cultures. (6) COPD exacerbation Is this a current diagnosis for this admission?: Yes Plan: As per #1. - Plan Summary Summary: I plan on increasing patient's Lasix and obviously this will be IV. Resuming her home medications. I see no indication to start antibiotics at the present time. I will give her Solu-Medrol as I think the pulmonary fibrosis can be a co ntributing factor. Work closely with respiratory therapy concerning her BiPAP Repeat chest x-ray in the morning repeat labs in the morning Patient is a DNR I explained to the daughter that her mother appears to be very sick. She is aware of that, as well as the patient's sister. 10/27/2019 Patient's heart rate remains between 96 and 110. Patient does not appear to be symptomatic from that, although I expect it will come down once some of the fluid overload has been relieved. Unfortunately I see no I & O's from yesterday. They so far she has had 200 in and 650 out. Patient's blood pressure is stable at 116/55 Patient's oxygen saturation since admission has been between 96 and 100, mostly on BiPAP however since last night has been on nasal cannula Between 2 and 3-1/2 L surgeon On admission her white count was 18,800 today it is 9.6. INR on admission was 3.87 today it is pending, she was taking 9 mg of Coumadin on Sunday and Sunday and 8 mg on Sunday and and Sunday. Patient does have a mechanical heart valve History is pending and I will need to address her potassium. Was taking 20 mEq 3 times daily prior to admission, and yesterday her potassium was 3.2. BNP on admission was 3240 today it is 4860 Troponins are elevated but distant and are probably not due to myocardial ischemia as much as much as cardiac drive secondary to CHF. Patient is cu rrently on Lasix 40 mg IV every 12 hours, solu Medrol 40 mg IV every 12 hours for her pulmonary fibrosis Zaroxolyn and Demadex are on hold currently Patient is moving much more air today however she still has rales in both bases, although clinically she says she is feeling much better and breathing much easier. I have explained all this to the patient and family and she seems satisfied. ,
[2019-10-28 21:03] LABS: ARTERIAL BLOOD BASE EXCESS 21.7 mmol/L; ARTERIAL BLOOD H2CO3 3.22 mmol/L (1.05-1.35); ARTERIAL BLOOD HCO3 53.5 mmol/L (20-24); ARTERIAL BLOOD O2 SATURATION 94.2 % (94-98); ARTERIAL BLOOD PH 7.32 (7.35-7.45); ARTERIAL BLOOD PO2 82.6 mmHg (80-100); ARTERIAL BLOOD TOTAL CO2 56.8 mmol/L (21-25)
[2019-10-28 21:04] LABS: ARTERIAL BLOOD FIO2 70%
[2019-10-28 21:23] LABS: PARTIAL THROMBOPLASTIN TIME 38.5 SEC (23.5-35.8)
[2019-10-28 21:30] LABS: HEMATOCRIT 32.7 % (36.0-47.0); HEMOGLOBIN 10.8 g/dL (12.0-15.5); MEAN CORPUSCULAR HEMOGLOBIN 30.3 pg (27.0-33.4); MEAN CORPUSCULAR HGB CONC 33.1 g/dL (32.0-36.0); MEAN CORPUSCULAR VOLUME 92 fl (80-97); PLATELET COUNT 240 10^3/uL (150-450); RED BLOOD COUNT 3.58 10^6/uL (3.72-5.28); RED CELL DISTRIBUTION WIDTH 21.5 % (11.5-14.0); WHITE BLOOD COUNT 16.6 10^3/uL (4.0-10.5)
--- NOTE | 2019-10-28 21:31 | RADIOLOGY REPORT (SQ) ---
EXAM DESCRIPTION: XR CHEST 1 VIEW COMPLETED DATE/TME: 10/28/2019 20:54 CLINICAL HISTORY: 59 years, Female, checking for PNA COMPARISON: 11/05/2019. Findings: The heart is moderately enlarged. Status post median sternotomy. Moderate pulmonary edema and lower lobe airspace disease. Mild bilateral pleural effusions. Left chest dual-lead pacemaker. IMPRESSION: Stable findings of bilateral lower lobe pneumonia/CHF.
[2019-10-28 21:39] LABS: BLOOD UREA NITROGEN 101 mg/dL (7-20); CALCIUM 8.5 mg/dL (8.4-10.2); CHLORIDE 79 mmol/L (98-107); GLUCOSE 101 mg/dL (75-110)
[2019-10-28 21:51] LABS: CREATINE KINASE MB 0.49 ng/mL (<4.55); TROPONIN I 0.03 ng/mL
[2019-10-28] MEDS ORDERED: ETOMIDATE INJ/PF 20 MG/10 ML SDV IV ONE (21:57)
[2019-10-28] MEDS ORDERED: PROPOFOL 1,000 MG/100 ML INFUS..BTL IV ONE (22:09)
[2019-10-28] MEDS: PROPOFOL 1,000 MG/100 ML INFUS..BTL IV PRN (22:10)
[2019-10-28] MEDS ORDERED: NOREPINEPHRINE BITARTRATE INJ/PF 4 MG/4 ML SDV IV ONE (22:13)
[2019-10-28] MEDS: DEXTROSE 5%-WATER 250 ML with NOREPINEPHRINE BITARTRATE 4 MG IV PRN ×2 (22:15)
--- NOTE | 2019-10-28 22:50 | RADIOLOGY REPORT (SQ) ---
EXAM DESCRIPTION: [facility]: XR CHEST 1 VIEW CLINICAL HISTORY: 59 years Female; INTUBATION; FINDINGS: AP chest at 2216. Since earlier today at 2110, endotracheal tube has been placed, tip 2 cm above yadira. Pulmonary infiltrates are unchanged. No pneumothorax. Sternal wires, prosthetic valve, and pacemaker are again noted. IMPRESSION: Intubated, otherwise unchanged
[2019-10-28 22:59] LABS: CREATINE KINASE < 20 U/L (30-135); INTERNATIONAL RATION (INR) 5.22; PROTHROMBIN TIME 49.5 SEC (11.4-15.4)
[2019-10-28 23:00] LABS: ANION GAP 4 (5-19); CARBON DIOXIDE 51 mmol/L (22-30)
--- NOTE | 2019-10-29 00:36 | RADIOLOGY REPORT (SQ) ---
EXAM DESCRIPTION: XR CHEST 1 VIEW COMPLETED DATE/TME: 10/29/2019 00:00 CLINICAL HISTORY: 59 years, Female, Central Line Placement COMPARISON: 10/28/2019 NUMBER OF VIEWS: One TECHNIQUE: AP view of the chest LIMITATIONS: None. FINDINGS: A right IJ line has been placed which terminates within the SVC. Nasogastric tube is in satisfactory position. The endotracheal tube remains in satisfactory position. The lungs are grossly stable in appearance with diffuse interstitial and airspace opacities with bilateral pleural effusions. The heart is enlarged with changes of valve replacement and a left chest wall pacemaker. There is no pneumothorax. IMPRESSION: Satisfactory position of the right IJ central line and nasogastric tube without complication. copyright 2010 [employer]- All Rights Reserved
[2019-10-29] MEDS: DEXTROSE 5%-WATER 250 ML with NOREPINEPHRINE BITARTRATE 4 MG IV PRN ×18 (01:02→22:05)
[2019-10-29] MEDS ORDERED: PROPOFOL INJ 200 MG/20 ML VIAL IV ONE ×2 (01:11→03:53)
[2019-10-29] MEDS: FAMOTIDINE INJ/PF 20 MG/2 ML SDV IV SCH ×3 (01:15→21:16)
[2019-10-29] MEDS: METHYLPREDNISOLONE INJ 40 MG/1 ML SDV IV SCH ×4 (01:15→21:16)
[2019-10-29] MEDS: FUROSEMIDE INJ/PF 40 MG/4 ML SDV IV SCH (01:15)
[2019-10-29] MEDS ORDERED: NOREPINEPHRINE BITARTRATE INJ/PF 4 MG/4 ML SDV IV ONE ×3 (01:30→06:57)
[2019-10-29] MEDS ORDERED: ALBUMIN HUMAN 12.5 GM/50 ML RTUINJ IV ONE ×2 (01:35→04:02)
--- NOTE | 2019-10-29 01:58 | CRITICAL CARE ADMISSION REPORT ---
HPI Date:: 10/28/19 Time:: 11:00 Reason for ICU Reason:: Respiratory Failure HPI: 59-year-old female with a remote history of non-Hodgkin's lymphoma in her teens. Status post radiation. Since that time, she has had evolving pulmonary fibrosis. She also has a significant history of valvular disease and is status post aortic and mitral mechanical valve replacement on chronic Coumadin. Line Erector Apprentice is Dr. Rock at [facility]. Patient is currently being followed at [facility] for a recently found kidney lesion which is scheduled to be biopsied. She presented to [facility] on 10/26/2019 with complaints of worsen ing shortness of breath over the past several weeks. In the past few days prior to admission, she has grown increasingly irritable, anorexic and has not slept. Patient has a BiPAP machine at home which she has not been using. Over the course of this hospitalization, patient has been treated for her hypoxemia. She has required BiPAP and has been diuresed with an elevated but improving proBNP. Yesterday evening, patient developed worsening respiratory distress despite the use of BiPAP and had grown increasingly lethargic. A rapid response was called and an ABG performed which showed a pH of 7.32 with a PaCO2 of 107. Despite her partially compensated pH, her clinical status and worsening hypercapnia with BiPAP was a significant indication for intubation. Patient was transferred to the intensive care unit where a rapid sequence intubation was performed. She was hypotensive following intubation and is now requiring vasoactive medications to maintain her blood pressure. CODE STATUS: Patient's daughter initially reported that patient was dnr and this was subsequently entered into her record. informs me this evening that patient's wishes are to remain FULL CODE. History obtained from:: HCPOA, and patients medical record. - Diagnosis/Plan (1) Respiratory failure Qualifiers: Chronicity: acute on chronic Respiratory failure complication: hypoxia and hypercapnia Qualified Code(s): J96.21 - Acute and chronic respiratory failure with hypoxia; J96.22 - Acute and chronic respiratory failure with hypercapnia Is this a current diagnosis for this admission?: Yes Plan: Patient intubated and placed on mechanical ventilation. -Maintain target SPO2 of 89 to 92%. -Continue tidal volume at 6 cc/kg of ideal body weight. -May require elevated mean airway pressure to maintain oxygenation given her history of pulmonary fibrosis. -Continue Solu-Medrol. (2) CHF (congestive heart failure) Qualifiers: Heart failure type: unspecified Heart failure chronicity: acute on chronic Qualified Code(s): I50.9 - Heart failure, unspecified Is this a current diagnosis for this admission?: Yes Plan: Patient has received multiple doses of Lasix over the course of this admission with an improved proBNP. Given her poor nutrition status and low albumin, she easily becomes intravascularly depleted. Continue concentrated albumin for volume resuscitation. Hold Lasix due to acute hypotension (3) Hypercarbia Is this a current diagnosis for this admission?: Yes Plan: Given the chronic nature of her hypercapnic respiratory failure, her target CO2 should be to maintain a normal pH. (4) Acute hypotension Is this a current diagnosis for this admission?: Yes Plan: Central line was placed due to need for volume resuscitation and vasoactive medications to maintain adequate blood pressure and perfusion. Wean Levophed as tolerated to maintain map of 70. Continue with albumin administration to help maintain intravascular volume Follow-up renal panel to monitor renal perfusion. Past Medical History Cardiac Medical History: Reports: Congestive Heart Failure, Hypertension, Pulmonary Embolism Denies: Myocardial Infarction Pulmonary Medical History: Reports: Asthma, Bronchitis, Pneumonia, Respiratory Failure, Other Pulmonary History Note: Pulmonary fibrosis Endocrine Medical History: Reports: Hypothyroidism Malignancy Medical History: Reports: Lymphoma - Hodgkin's at age 11 New kidney lesion suspicious for malignancy. Musculoskeltal Medical History: Reports: Arthritis Psychiatric Medical History: Reports: Depression Hematology: Reports: Anemia Past Surgical History Past Surgical History: Reports: Cholecystectomy, Hysterectomy, Valve Replacement - Mitral and aortic, Other - Chest tubes of the valve replacement and lung surgery due to bleeding Social/Family History - Social History Smoking Status: Never Smoker Frequency of Alcohol Use: None Hx Recreational Drug Use: No Drugs: None Hx Prescription Drug Abuse: No - Medication/Allergies Home Medications: Docusate Sodium [Colace 100 mg Capsule] 100 mg PO DAILY 10/26/19 Fluoxetine HCl [Sarafem] 10 mg PO DAILY 10/26/19 Folic Acid [Folvite 1 mg Tablet] 1 mg PO DAILY 10/26/19 Furosemide [Lasix 80 mg Tablet] 80 mg PO BID 10/26/19 Levothyroxine Sodium [Synthroid 0.112 mg Tablet] 0.112 mg PO Q6AM 10/26/19 Metolazone [Zaroxolyn 2.5 mg Tablet] 2.5 mg PO QAM 10/26/19 Nebivolol HCl [Bystolic 5 mg Tablet] 5 mg PO DAILY 10/26/19 Potassium Chloride [Klor-Con 10 Meq Tablet ER] 20 meq PO TID 10/26/19 Torsemide [Demadex 20 mg Tablet] 20 mg PO DAILY 10/26/19 Tramadol HCl [Ultram 50 mg Tablet] 50 mg PO BIDP PRN 10/26/19 Warfarin Sodium [Coumadin 3 mg Tablet] 9 mg PO MOWEFR@1000 10/26/19 Warfarin Sodium [Coumadin 4 mg Tablet] 8 mg PO SUTUTHSA@1000 10/26/19 Allergies/Adverse Reactions: ketorolac tromethamine [From Toradol] Allergy (Unknown, Verified 10/26/19 10:26) clarithromycin [From Biaxin] Allergy (Verified 10/26/19 10:26) morphine [Morphine] Adverse Reaction (Intermediate, Verified 10/26/19 10:26) oxycodone HCl [From Percocet] Adverse Reaction (Intermediate, Verified 10/26/19 10:26) Review of Systems ROS unobtainable: Due to endotracheal tube Physical Exam Vital Signs: Temp Pulse Resp BP Pulse Ox 97.5 F 98 24 H 80/50 L 100 10/28/19 20:16 10/28/19 20:16 10/28/19 20:16 10/28/19 20:38 10/29/19 00:11 Intake & Output 10/27/19 10/28/19 10/29/19 06:59 06:59 06:59 Intake Total 200 240 224 Output Total 650 Balance -450 240 224 Weight 52.1 kg 54.4 kg Weight/Height Weight 54.4 kg Height 4 ft General appearance: PRESENT: severe distress. ABSENT: well-nourished Head exam: PRESENT: atraumatic, normocephalic Mouth exam: PRESENT: dry mucosa, neck supple Throat exam: ABSENT: post pharyngeal erythema, tonsillar erythema, tonsillar exudate Neck exam: ABSENT: JVD, lymphadenopathy Respiratory exam: PRESENT: rhonchi Cardiovascular exam: PRESENT: RRR Pulses: PRESENT: normal carotid pulses, normal dorsalis pedis pul, +2 pedal pulses bilateral Vascular exam: PRESENT: normal capillary refill, pallor GI/Abdominal exam: PRESENT: soft. ABSENT: ascites, organolmegaly, tenderness Psychiatric exam: PRESENT: other - Sedated Tubes/Lines: PRESENT: Endotracheal Tube, Central Line Laboratory/Radiographs Laboratory Results: 10/28/19 20:52 10/28/19 20:52 10/28/19 10/28/19 10/28/19 05:08 20:44 20:52 WBC 24.2 H D RBC 3.76 Hgb 11.3 L Hct 34.2 L MCV 91 MCH 30.1 MCHC 33.2 RDW 22.3 H Plt Count 341 Seg Neutrophils % Not Reportable Carbonic Acid 3.22 H HCO3/H2CO3 Ratio 16:1 ABG pH 7.32 L ABG pCO2 107.0 H* ABG pO2 82.6 ABG HCO3 53.5 H ABG O2 Saturation 94.2 ABG Base Excess 21.7 FiO2 70% Sodium 134.2 L Potassium 4.0 Chloride 79 L Carbon Dioxide 51 H* Anion Gap 4 L BUN 101 H Creatinine 0.92 Est GFR ( Amer) > 60 Glucose 101 Lactic Acid Calcium 8.5 10/28/19 10/28/19 20:52 20:52 WBC 16.6 H RBC 3.58 L Hgb 10.8 L Hct 32.7 L MCV 92 MCH 30.3 MCHC 33.1 RDW 21.5 H Plt Count 240 Seg Neutrophils % Carbonic Acid HCO3/H2CO3 Ratio ABG pH ABG pCO2 ABG pO2 ABG HCO3 ABG O2 Saturation ABG Base Excess FiO2 Sodium Potassium Chloride Carbon Dioxide Anion Gap BUN Creatinine Est GFR ( Amer) Glucose Lactic Acid 2.3 H Calcium 10/26/19 10/26/19 10/26/19 10:10 13:11 18:38 Creatine Kinase CK-MB (CK-2) 0.96 0.73 Troponin I 0.051 0.046 0.046 NT-Pro-B Natriuret Pep 3240 H 10/27/19 10/27/19 10/28/19 00:47 08:09 05:08 Creatine Kinase CK-MB (CK-2) 0.66 Troponin I 0.048 NT-Pro-B Natriuret Pep 4860 H 3850 H 10/28/19 10/28/19 20:52 20:52 Creatine Kinase < 20 L CK-MB (CK-2) 0.49 Troponin I 0.030 NT-Pro-B Natriuret Pep 15521 H Impressions: Chest X-Ray 10/29/19 00:00 IMPRESSION: Satisfactory position of the right IJ central line and nasogastric tube without complication. copyright 2011 [employer]- All Rights Reserved All labs, radiographs, diagnostic studies and EKGs were personally reviewed: Yes In addition, reports of radiographic and diagnostic studies were read: Yes Critical Time Critical Time (minutes): 90 -: The care of a critically ill patient is dynamic. This note represents a static moment in the admission process. Orders and treatments may be given simultaneously and urgently, and time is not human resources hr representative of the treatment process. This patient requires Critical Care secondary to life threatening organ or limb dysfunction. Without Critical Care services, the patient is at risk for increased mortality and morbidity.
[2019-10-29] MEDS ORDERED: NORMAL SALINE INJ/PF 0.9% 10 ML SDV IV PRN (03:50)
[2019-10-29] MEDS ORDERED: ETOMIDATE INJ/PF 20 MG/10 ML SDV IV ONE (03:59)
[2019-10-29] MEDS ORDERED: PIPERACILLIN/TAZOBACTAM 3.375 GM VIAL IV ONE (04:00)
[2019-10-29] MEDS ORDERED: VANCOMYCIN HCL INJ 1000 MG VIAL IV ONE (04:00)
[2019-10-29] MEDS: PROPOFOL 1,000 MG/100 ML INFUS..BTL IV PRN ×2 (05:10→16:41)
[2019-10-29] MEDS ORDERED: LEVOTHYROXINE SODIUM 0.112 MG TABLET ONE (05:29)
[2019-10-29] MEDS: LEVOTHYROXINE SODIUM 0.112 MG TABLET PO SCH (05:47)
[2019-10-29] MEDS ORDERED: LORAZEPAM INJ 2 MG/1 ML VIAL ONE (06:21)
[2019-10-29 06:28] LABS: HEMATOCRIT 31.6 % (36.0-47.0); HEMOGLOBIN 10.6 g/dL (12.0-15.5); MEAN CORPUSCULAR HEMOGLOBIN 30.5 pg (27.0-33.4); MEAN CORPUSCULAR HGB CONC 33.7 g/dL (32.0-36.0); MEAN CORPUSCULAR VOLUME 91 fl (80-97); PLATELET COUNT 279 10^3/uL (150-450); RED BLOOD COUNT 3.49 10^6/uL (3.72-5.28); RED CELL DISTRIBUTION WIDTH 22.1 % (11.5-14.0)
[2019-10-29 06:30] LABS: PARTIAL THROMBOPLASTIN TIME 43.7 SEC (23.5-35.8)
[2019-10-29] MEDS ORDERED: LORAZEPAM INJ 2 MG/1 ML VIAL IV ONE (06:30)
[2019-10-29 06:45] LABS: INTERNATIONAL RATION (INR) 7.07; PROTHROMBIN TIME 63.1 SEC (11.4-15.4)
[2019-10-29 06:49] LABS: ARTERIAL BLOOD BASE EXCESS 23.4 mmol/L; ARTERIAL BLOOD H2CO3 1.85 mmol/L (1.05-1.35); ARTERIAL BLOOD HCO3 49.7 mmol/L (20-24); ARTERIAL BLOOD O2 SATURATION 80.8 % (94-98); ARTERIAL BLOOD PCO2 61.4 mmHg (35-45); ARTERIAL BLOOD PH 7.53 (7.35-7.45); ARTERIAL BLOOD PO2 41.8 mmHg (80-100); ARTERIAL BLOOD TOTAL CO2 51.6 mmol/L (21-25)
[2019-10-29 06:54] LABS: ARTERIAL BLOOD FIO2 70%
--- NOTE | 2019-10-29 07:00 | Operative Report ---
Bedside Procedure - History of Present Illness History of Present Illness: Procedure: Central line placement Indication: IV fluids, vasoactive medications. Procedure sanding machine operator: HUANG Myers Consent: Consent was obtained from HC POA, patient's prior to the procedure. Indications, risks, and benefits were explained and all questions were addressed. Procedure summary: The [facility] central line insertion practice form was completed by RN. A timeout was performed. My hands were washed immediately prior to the procedure. I wore surgical cap, mask with protective eyewear, full gown and sterile gloves throughout the procedure. The patient was placed in Trendelenburg position. RIGHT chest region was prepped using chlorhexidine scrub and draped in sterile fashion using a full drape. Sterile probe cover was placed on ultrasound probe. The medial and lateral heads of the sternocleidomastoid muscle were identified as was the carotid pulse. The internal jugular vein was identified using ultrasound. Anesthesia was achieved over the vein using 4 cc of 1% lidocaine. Using real-time out of plane guid ance, the introducer needle was inserted into the internal jugular vein under direct ultrasound visualization. Venous blood was withdrawn. The syringe was removed and a guidewire was advanced into the introducer needle. The guidewire was visualized in the internal jugular vein by ultrasound. A small incision was made at the skin surface with a scalpel and the introducer needle was exchanged for a dilator over the guidewire. After appropriate dilation was obtained, the dilator was exchanged over a wire for a 7 Armenian, 20 cm central venous catheter. The wire was removed and the catheter was sutured in place at 14 cm. A IO patch was placed and a sterile Sorbaview shield was placed over the catheter at the insertion site. The patient tolerated the procedure well without any hemodynamic compromise. At time of procedure completion, all ports aspirated and flushed properly. Postprocedure x-ray shows central line in proper place. Estimated blood loss is approximately 10 cc. Indication for Procedure: Acute hypotension Provider: MORRIS CHAVIS - Central Line Right Internal jugular Time completed: 11:30 Consent obtained: Yes Central line pre-insertion: Sterile PPE donned, Chloraprep applied, Sterile drapes applied Central line lumen type: Triple Anesthetic type: 1% Lidocaine mL's of anesthesia: 3 Ultrasound guided: Yes CM at insertion site: 14 Line secured with sutures: Yes Central line post-insertion: Blood return from lumens, Biopatch applied, Sutured, Sterile dressing applied, Position confirmed w/ CXR Number of attempts: 1 Complications: No
[2019-10-29] MEDS: ACETAMINOPHEN 325 MG TABLET NG PRN ×2 (07:06→14:19)
[2019-10-29 07:12] LABS: BASOPHILS % (MANUAL) 0 % (0-2); EOSINOPHILS % (MANUAL) 0 % (0-6); LYMPHOCYTES % (MANUAL) 0 % (13-45); MONOCYTES % (MANUAL) 0 % (3-13); SEGMENTED NEUTROPHILS % (MAN) 73 % (42-78); TOTAL CELLS COUNTED 100
[2019-10-29] MEDS ORDERED: PHENYLEPHRINE HCL INJ/PF 10 MG/1 ML SDV ONE (07:13)
[2019-10-29 07:14] LABS: ANISOCYTOSIS 3+; BAND NEUTROPHILS % (MANUAL) 27 % (3-5); OVALOCYTES SLIGHT; PLATELET COMMENT ADEQUATE; POIKILOCYTOSIS SLIGHT; SCHISTOCYTES SLIGHT; TEAR DROP CELLS SLIGHT; TOXIC VACUOLATION PRESENT
[2019-10-29] MEDS: DEXTROSE 5%-WATER 250 ML with PHENYLEPHRINE HCL 40 MG IV PRN ×6 (07:15→22:05)
[2019-10-29 07:20] LABS: ALBUMIN 2.1 g/dL (3.5-5.0); ALKALINE PHOSPHATASE 104 U/L (38-126); ASPARTATE AMINO TRANSFERASE 44 U/L (14-36); BILIRUBIN,DIRECT 0.9 mg/dL (0.0-0.4); BILIRUBIN,TOTAL 1.5 mg/dL (0.2-1.3); BLOOD UREA NITROGEN 96 mg/dL (7-20); CALCIUM 7.9 mg/dL (8.4-10.2); CHLORIDE 80 mmol/L (98-107); GLUCOSE 117 mg/dL (75-110); POTASSIUM 3.7 mmol/L (3.6-5.0)
[2019-10-29 07:31] LABS: ANION GAP 2 (5-19)
[2019-10-29 07:32] LABS: CARBON DIOXIDE 50 mmol/L (22-30)
[2019-10-29 07:55] LABS: VENOUS BLOOD BASE EXCESS 18.9 mmol/L; VENOUS BLOOD HCO3 46.1 mmol/L (20-32); VENOUS BLOOD PH 7.45 (7.30-7.42)
[2019-10-29 08:12] LABS: VENOUS BLOOD PCO2 67.4 mmHg (35-63)
[2019-10-29] MEDS: DOCUSATE SODIUM 100 MG/10 ML UDC NG SCH (10:18)
[2019-10-29] MEDS: FOLIC ACID 1 MG TABLET NG SCH (10:18)
[2019-10-29] MEDS: NEBIVOLOL HCL 5 MG TABLET NG SCH (10:30)
[2019-10-29 11:25] LABS: PATH REVIEW PATHOLOGIST REVIEWED
[2019-10-29] MEDS ORDERED: PHYTONADIONE 5 MG TABLET NG ONE (12:00)
[2019-10-29] MEDS: MORPHINE SULFATE 10 MG/ML INJ IV SCH ×6 (13:16→23:04)
[2019-10-30] MEDS: DEXTROSE 5%-WATER 250 ML with NOREPINEPHRINE BITARTRATE 4 MG IV PRN ×10 (01:58→20:25)
[2019-10-30] MEDS: MORPHINE SULFATE 10 MG/ML INJ IV SCH ×9 (01:58→23:50)
[2019-10-30] MEDS: LEVOTHYROXINE SODIUM 0.112 MG TABLET PO SCH (05:05)
[2019-10-30] MEDS: METHYLPREDNISOLONE INJ 40 MG/1 ML SDV IV SCH ×2 (05:06→17:36)
[2019-10-30] MEDS: DEXTROSE 5%-WATER 250 ML with PHENYLEPHRINE HCL 40 MG IV PRN ×6 (05:07→18:13)
[2019-10-30 07:42] LABS: INTERNATIONAL RATION (INR) 1.56
[2019-10-30 07:51] LABS: PROTHROMBIN TIME 18.9 SEC (11.4-15.4)
[2019-10-30] MEDS ORDERED: HEPARIN SOD (PORCINE) 1,000 UNIT/ML 10 ML VIAL IV ONE (08:15)
--- NOTE | 2019-10-30 08:53 | PDOC CRITICAL CARE PROG REPORT ---
General Date:: 10/30/19 ICU Day:: 2 Ventilator Day:: 2 Hospital Day:: 5 Resuscitation Status: Do Not Resuscitate Events in the past 12 to 24 Hours:: Patient was admitted on 10/26 with complaints of progressively worsening worsening weakness and dyspnea over the course of several weeks. She transferred to the ICU on 10/29 with acute hypoxemic respiratory failure requiring tracheal intubation and mechanical ventilatory support. Remains debated. She is sedated with propofol and morphine. She is on norepinephrine and phenylephrine for blood pressure support. She received 10 mg of vitamin K per NG tube yesterday for INR 7.07. Today, the INR is down to 1.56. Indication for anticoagulation: No fibrillation, mechanical valves. Review of systems relevant to events:: Cardiovascular, respiratory Reason for ICU Addmission:: Respiratory Failure - Medications: Medications reviewed and adjusted accordingly: Yes Vasopressors:: Norepinephrine, phenylephrine Sedation:: Propofol, morphine Physical Exam Vital Signs: Temp Pulse Resp BP Pulse Ox 98.6 F 89 14 115/57 L 99 10/30/19 08:00 10/30/19 08:00 10/30/19 08:00 10/30/19 08:00 10/30/19 08:00 Intake & Output 10/29/19 10/30/19 10/31/19 06:59 06:59 06:59 Intake Total 1131 3170 11 Output Total 80 1250 50 Balance 1051 1920 -39 Weight 48.6 kg 49.7 kg Weight/Height Weight 49.7 kg Height 1.63 m General appearance: PRESENT: no acute distress, thin, other - Intubated, sedated Head exam: PRESENT: atraumatic, normocephalic Eye exam: PRESENT: conjunctiva pink, EOMI, PERRLA. ABSENT: scleral icterus Mouth exam: PRESENT: dry mucosa, neck supple, tongue midline Neck exam: ABSENT: carotid bruit, JVD, lymphadenopathy, thyromegaly Respiratory exam: PRESENT: rales, symmetrical, other - Air entry, coarse breath sounds.. ABSENT: rhonchi, wheezes Cardiovascular exam: PRESENT: RRR, tachycardia. ABSENT: diastolic murmur, rubs, systolic murmur Pulses: PRESENT: normal dorsalis pedis pul GI/Abdominal exam: PRESENT: normal bowel sounds, soft. ABSENT: distended, guarding, mass, rebound, tenderness Extremities exam: PRESENT: full ROM, pedal edema, +2 edema. ABSENT: calf tenderness, clubbing Musculoskeletal exam: PRESENT: normal inspection Skin exam: PRESENT: dry, intact, warm. ABSENT: cyanosis, rash Tubes/Lines: PRESENT: Endotracheal Tube Laboratory/Radiographs Laboratory Results: 10/29/19 05:50 10/29/19 05:50 10/26/19 10/26/19 10/26/19 10:10 13:11 18:38 Creatine Kinase CK-MB (CK-2) 0.96 0.73 Troponin I 0.051 0.046 0.046 NT-Pro-B Natriuret Pep 3240 H 10/27/19 10/27/19 10/28/19 00:47 08:09 05:08 Creatine Kinase CK-MB (CK-2) 0.66 Troponin I 0.048 NT-Pro-B Natriuret Pep 4860 H 3850 H 10/28/19 10/28/19 10/29/19 20:52 20:52 05:50 Creatine Kinase < 20 L CK-MB (CK-2) 0.49 Troponin I 0.030 NT-Pro-B Natriuret Pep 93403 H 75400 H Impressions: Chest X-Ray 10/29/19 00:00 IMPRESSION: Satisfactory position of the right IJ central line and nasogastric tube without complication. copyright 2011 [employer]- All Rights Reserved All labs, radiographs, diagnostic studies and EKGs were personally reviewed: Yes In addition, reports of radiographic and diagnostic studies were read: Yes Assessment and Plan - Diagnosis (1) Acute on chronic respiratory failure with hypoxia and hypercapnia Is this a current diagnosis for this admission?: Yes Plan: Titrate ventilator settings based on ABG results. Titrate sedation for RASS -2. (2) Acute hypotension Is this a current diagnosis for this admission?: Yes Plan: 5% albumin 50 g IV. (3) CHF exacerbation Qualifiers: Heart failure type: systolic Qualified Code(s): I50.23 - Acute on chronic systolic (congestive) heart failure Is this a current diagnosis for this admission?: Yes (4) H/O heart valve replacement with mechanical valve Is this a current diagnosis for this admission?: Yes Plan: Restart warfarin. Daily INR. Start heparin infusion (high dose protocol). Continue until INR 2.5-3.5 x 2 consecutive days. (5) Anticoagulation goal of INR 2.5 to 3.5 Is this a current diagnosis for this admission?: Yes Plan: Restart warfarin. INR daily. Start heparin infusion (high dose protocol). Continue heparin until INR 2.5-3.5 x 2 consecutive days. (6) Hypoalbuminemia Is this a current diagnosis for this admission?: Yes Plan: Check prealbumin. 5% albumin 50 g IV. Critical Time Critical Time (minutes): 60 Level of Care: ICU -: 1. The care of a critical patient is a dynamic process. This note is a self pay representative synopsis but static in nature. The timeframe for treatments given in order is not necessarily the actual time these treatments may have been done. 2. This patient requires critical care secondary to ongoing requirements for therapy not offered or safe outside the critical care environment. Transfer to a lower level of care will result in altered life or limb morbidity and mortality. 3. Multidisciplinary rounds completed. 4. ABCDE bundle addressed.
[2019-10-30] MEDS: HEPARIN SODIUM,PORCINE/D5W 25,000 UNIT/250 ML RTUINJ IV PRN (09:05)
[2019-10-30 09:14] LABS: AMORPHOUS SEDIMENT,URINE 1+ /HPF; APPEARANCE,URINE CLOUDY; BILIRUBIN,URINE NEGATIVE (NEGATIVE); COLOR,URINE YELLOW; GLUCOSE, URINE NEGATIVE (NEGATIVE); KETONES,URINE NEGATIVE (NEGATIVE); LEUKOCYTE ESTERASE,URINE NEGATIVE (NEGATIVE); NITRITE,URINE NEGATIVE (NEGATIVE); PROTEIN,URINE 30 mg/dL (NEGATIVE); URINE SPECIFIC GRAVITY 1.011; UROBILINOGEN,URINE NEGATIVE mg/dL (<2.0)
[2019-10-30 09:15] LABS: HEMATOCRIT 31.7 % (36.0-47.0); MEAN CORPUSCULAR HEMOGLOBIN 30.8 pg (27.0-33.4); MEAN CORPUSCULAR HGB CONC 34.6 g/dL (32.0-36.0); MEAN CORPUSCULAR VOLUME 89 fl (80-97); PLATELET COUNT 268 10^3/uL (150-450); RED BLOOD COUNT 3.56 10^6/uL (3.72-5.28); RED CELL DISTRIBUTION WIDTH 21.8 % (11.5-14.0)
[2019-10-30 09:47] LABS: BAND NEUTROPHILS % (MANUAL) 6 % (3-5); BASOPHILS % (MANUAL) 0 % (0-2); EOSINOPHILS % (MANUAL) 0 % (0-6); LYMPHOCYTES % (MANUAL) 0 % (13-45); MONOCYTES % (MANUAL) 4 % (3-13); SEGMENTED NEUTROPHILS % (MAN) 90 % (42-78); TOTAL CELLS COUNTED 100
[2019-10-30 09:49] LABS: ANISOCYTOSIS 3+; HOWELL-JOLLY BODIES PRESENT; POIKILOCYTOSIS 1+; POLYCHROMASIA 1+; SCHISTOCYTES 1+; TEAR DROP CELLS SLIGHT; TOXIC GRANULATION SLIGHT; TOXIC VACUOLATION PRESENT
[2019-10-30 09:50] LABS: PLATELET LARGE PRESENT
[2019-10-30 09:51] LABS: PLATELET COMMENT ADEQUATE
[2019-10-30 09:52] LABS: WHITE BLOOD COUNT 48.9 10^3/uL (4.0-10.5)
[2019-10-30 10:33] LABS: BLOOD UREA NITROGEN 82 mg/dL (7-20); CALCIUM 7.8 mg/dL (8.4-10.2); CHLORIDE 73 mmol/L (98-107); GLUCOSE 197 mg/dL (75-110); PHOSPHORUS 3.6 mg/dL (2.5-4.5)
[2019-10-30] MEDS: DOCUSATE SODIUM 100 MG/10 ML UDC NG SCH (10:36)
[2019-10-30] MEDS: NEBIVOLOL HCL 5 MG TABLET NG SCH (10:36)
[2019-10-30 10:47] LABS: ANION GAP 11 (5-19)
[2019-10-30 10:49] LABS: CARBON DIOXIDE 42 mmol/L (22-30); POTASSIUM 2.9 mmol/L (3.6-5.0)
[2019-10-30] MEDS: FAMOTIDINE INJ/PF 20 MG/2 ML SDV IV SCH ×2 (11:17→22:09)
[2019-10-30] MEDS: FOLIC ACID 1 MG TABLET NG SCH (11:17)
[2019-10-30] MEDS: POTASSIUM CHLORIDE 20 MEQ/50 ML RTU IV SCH ×3 (14:46→17:52)
[2019-10-30] MEDS: PROPOFOL 1,000 MG/100 ML INFUS..BTL IV PRN (15:24)
[2019-10-30] MEDS: WARFARIN SODIUM 4 MG TABLET PO SCH (22:09)
[2019-10-31] MEDS: DEXTROSE 5%-WATER 250 ML with PHENYLEPHRINE HCL 40 MG IV PRN ×6 (02:50→15:58)
[2019-10-31 03:09] LABS: APPEARANCE,URINE CLOUDY; BILIRUBIN,URINE NEGATIVE (NEGATIVE); COLOR,URINE YELLOW; GLUCOSE, URINE NEGATIVE (NEGATIVE); KETONES,URINE NEGATIVE (NEGATIVE); LEUKOCYTE ESTERASE,URINE NEGATIVE (NEGATIVE); NITRITE,URINE NEGATIVE (NEGATIVE); PROTEIN,URINE 30 mg/dL (NEGATIVE); URINE SPECIFIC GRAVITY 1.012; UROBILINOGEN,URINE NEGATIVE mg/dL (<2.0)
[2019-10-31 04:46] LABS: INTERNATIONAL RATION (INR) 1.05; PROTHROMBIN TIME 13.8 SEC (11.4-15.4)
[2019-10-31 04:48] LABS: PARTIAL THROMBOPLASTIN TIME 61.9 SEC (23.5-35.8)
[2019-10-31 05:04] LABS: BLOOD UREA NITROGEN 70 mg/dL (7-20); CALCIUM 7.2 mg/dL (8.4-10.2); CHLORIDE 75 mmol/L (98-107); GLUCOSE 146 mg/dL (75-110); PHOSPHORUS 2.6 mg/dL (2.5-4.5)
[2019-10-31] MEDS: LEVOTHYROXINE SODIUM 0.112 MG TABLET PO SCH (05:11)
[2019-10-31] MEDS: METHYLPREDNISOLONE INJ 40 MG/1 ML SDV IV SCH ×3 (05:11→11:07)
[2019-10-31] MEDS: MORPHINE SULFATE 10 MG/ML INJ IV SCH ×2 (05:12→13:26)
[2019-10-31 06:05] LABS: ANION GAP 7 (5-19); CARBON DIOXIDE 42 mmol/L (22-30)
[2019-10-31] MEDS: NEBIVOLOL HCL 5 MG TABLET NG SCH (11:05)
[2019-10-31] MEDS: DOCUSATE SODIUM 100 MG/10 ML UDC NG SCH (11:06)
[2019-10-31] MEDS: FAMOTIDINE INJ/PF 20 MG/2 ML SDV IV SCH ×2 (11:10→22:47)
[2019-10-31] MEDS: FOLIC ACID 1 MG TABLET NG SCH (11:10)
[2019-10-31 12:00] LABS: HEMATOCRIT 28.1 % (36.0-47.0); HEMOGLOBIN 9.7 g/dL (12.0-15.5); MEAN CORPUSCULAR HEMOGLOBIN 30.4 pg (27.0-33.4); MEAN CORPUSCULAR HGB CONC 34.5 g/dL (32.0-36.0); MEAN CORPUSCULAR VOLUME 88 fl (80-97); PLATELET COUNT 219 10^3/uL (150-450); RED BLOOD COUNT 3.19 10^6/uL (3.72-5.28); RED CELL DISTRIBUTION WIDTH 21.8 % (11.5-14.0)
[2019-10-31 12:31] LABS: BAND NEUTROPHILS % (MANUAL) 1 % (3-5); BASOPHILS % (MANUAL) 0 % (0-2); EOSINOPHILS % (MANUAL) 0 % (0-6); LYMPHOCYTES % (MANUAL) 0 % (13-45); MONOCYTES % (MANUAL) 0 % (3-13); SEGMENTED NEUTROPHILS % (MAN) 99 % (42-78); TOTAL CELLS COUNTED 100
[2019-10-31 12:32] LABS: TOXIC GRANULATION 1+; TOXIC VACUOLATION PRESENT
[2019-10-31 12:33] LABS: ANISOCYTOSIS 3+; PLATELET COMMENT ADEQUATE; SCHISTOCYTES 1+; WHITE BLOOD COUNT 49.9 10^3/uL (4.0-10.5)
--- NOTE | 2019-10-31 12:55 | PDOC CRITICAL CARE PROG REPORT ---
General Date:: 10/31/19 ICU Day:: 3 Ventilator Day:: 3 Hospital Day:: 6 Resuscitation Status: Do Not Resuscitate Events in the past 12 to 24 Hours:: Currently, the patient is on morphine 1 mg every 4 hours for sedation. Propofol has been turned off. RASS -2. Levophed has been weaned off. She is still on 85 mcg/min of Mario-Synephrine. On tube feeds. On FiO2 40% with PEEP of 10. Patient was admitted on 10/26 with complaints of progressively worsening worsening weakness and dyspnea over the course of several weeks. She transferred to the ICU on 10/29 with acute hypoxemic respiratory failure requiring tracheal int ubation and mechanical ventilatory support. Remains debated. She is sedated with propofol and morphine. She is on norepinephrine and phenylephrine for blood pressure support. She received 10 mg of vitamin K per NG tube yesterday for INR 7.07. Today, the INR is down to 1.56. Indication for anticoagulation: No fibrillation, mechanical valves. Review of systems relevant to events:: Cardiovascular, respiratory Reason for ICU Addmission:: Respiratory Failure - Medications: Medications reviewed and adjusted accordingly: Yes Vasopressors:: phenylephrine Sedation:: Propofol on hold, morphine Physical Exam Vital Signs: Temp Pulse Resp BP Pulse Ox 99.0 F 102 H 21 H 106/79 95 10/31/19 10:00 10/31/19 10:00 10/31/19 10:00 10/31/19 10:00 10/31/19 12:04 Intake & Output 10/30/19 10/31/19 11/01/19 06:59 06:59 06:59 Intake Total 3170 1879 305 Output Total 1250 1455 480 Balance 1920 424 -175 Weight 49.7 kg 51 kg Weight/Height Weight 51 kg Height 1.63 m General appearance: PRESENT: no acute distress, thin, other - Chronically ill in appearance. Intubated, sedated Head exam: PRESENT: atraumatic, normocephalic Eye exam: PRESENT: conjunctiva pink, EOMI, PERRLA. ABSENT: scleral icterus Mouth exam: PRESENT: moist, tongue midline Neck exam: ABSENT: carotid bruit, JVD, lymphadenopathy, thyromegaly Respiratory exam: PRESENT: rales. ABSENT: rhonchi, wheezes Cardiovascular exam: PRESENT: RRR, other - Aortic and mitral mechanical valve clicks Pulses: PRESENT: normal dorsalis pedis pul GI/Abdominal exam: PRESENT: normal bowel sounds, soft. ABSENT: distended, guarding, mass, rebound, tenderness Extremities exam: PRESENT: pedal edema, +2 edema Musculoskeletal exam: PRESENT: normal inspection Neurological exam: PRESENT: CN II-XII grossly intact, other - Opens eyes to voice. Follows commands at all 4 extremities.. ABSENT: motor sensory deficit Skin exam: PRESENT: dry, intact, warm. ABSENT: cyanosis, rash Tubes/Lines: PRESENT: Endotracheal Tube, Nasogastic Tube Laboratory/Radiographs Laboratory Results: 10/31/19 11:00 10/31/19 04:10 10/31/19 10/31/19 10/31/19 03:00 04:10 11:00 WBC 49.9 H* RBC 3.19 L Hgb 9.7 L Hct 28.1 L MCV 88 MCH 30.4 MCHC 34.5 RDW 21.8 H Plt Count 219 Seg Neutrophils % Not Reportable Sodium 124.2 L Potassium 4.0 D Chloride 75 L Carbon Dioxide 42 H* Anion Gap 7 BUN 70 H Creatinine 0.61 Est GFR ( Amer) > 60 Glucose 146 H Calcium 7.2 L Phosphorus 2.6 Magnesium 2.3 Urine Color YELLOW Urine Appearance CLOUDY Urine pH 5.0 Ur Specific Reading 1.012 Urine Protein 30 H Urine Glucose (UA) NEGATIVE Urine Ketones NEGATIVE Urine Blood SMALL H Urine Nitrite NEGATIVE Ur Leukocyte Esterase NEGATIVE Urine WBC (Auto) 2 Urine RBC (Auto) 2 10/26/19 10/26/19 10/26/19 10:10 13:11 18:38 Creatine Kinase CK-MB (CK-2) 0.96 0.73 Troponin I 0.051 0.046 0.046 NT-Pro-B Natriuret Pep 3240 H 10/27/19 10/27/19 10/28/19 00:47 08:09 05:08 Creatine Kinase CK-MB (CK-2) 0.66 Troponin I 0.048 NT-Pro-B Natriuret Pep 4860 H 3850 H 10/28/19 10/28/19 10/29/19 20:52 20:52 05:50 Creatine Kinase < 20 L CK-MB (CK-2) 0.49 Troponin I 0.030 NT-Pro-B Natriuret Pep 71174 H 56287 H Impressions: Chest X-Ray 10/29/19 00:00 IMPRESSION: Satisfactory position of the right IJ central line and nasogastric tube without complication. copyright 2011 [employer]- All Rights Reserved All labs, radiographs, diagnostic studies and EKGs were personally reviewed: Yes In addition, reports of radiographic and diagnostic studies were read: Yes Assessment and Plan - Diagnosis (1) Acute on chronic respiratory failure with hypoxia and hypercapnia Is this a current diagnosis for this admission?: Yes Plan: Wean PEEP as tolerated. May switch to SIMV mode today. Titrate ventilator settings based on ABG results. Titrate sedation for RASS -2. (2) Acute hypotension Is this a current diagnosis for this admission?: Yes Plan: Wean phenylephrine as tolerated. 25% albumin 25 g IV low dose followed by furosemide 20 mg IV single dose. (3) CHF exacerbation Qualifiers: Heart failure type: systolic Qualified Code(s): I50.23 - Acute on chronic systolic (congestive) heart failure Is this a current diagnosis for this admission?: Yes (4) H/O heart valve replacement with mechanical valve Is this a current diagnosis for this admission?: Yes Plan: Restart warfarin. Daily INR. Continue heparin infusion (high dose protocol). Continue until INR 2.5-3.5 x 2 consecutive days. (5) Anticoagulation goal of INR 2.5 to 3.5 Is this a current diagnosis for this admission?: Yes (6) Hypoalbuminemia Is this a current diagnosis for this admission?: Yes Plan: Check prealbumin. 25% albumin 25 g IV followed by furosemide 20 mg IV single dose. (7) Hyponatremia Is this a current diagnosis for this admission?: Yes Plan: likely secondary to congestive heart failure and hypoalbuminemia Critical Time Critical Time (minutes): 60 Level of Care: ICU -: 1. The care of a critical patient is a dynamic process. This note is a sales representative education courses synopsis but static in nature. The timeframe for treatments given in order is not necessarily the actual time these treatments may have been done. 2. This patient requires critical care secondary to ongoing requirements for therapy not offered or safe outside the critical care environment. Transfer to a lower level of care will result in altered life or limb morbidity and mortality. 3. Multidisciplinary rounds completed. 4. ABCDE bundle addressed.
[2019-10-31 13:09] LABS: PATH REVIEW PATHOLOGIST REVIEWED
[2019-10-31] MEDS: ALBUMIN HUMAN 12.5 GM/50 ML RTUINJ IV SCH ×2 (14:11→15:58)
[2019-10-31] MEDS: HEPARIN SODIUM,PORCINE/D5W 25,000 UNIT/250 ML RTUINJ IV PRN (14:12)
[2019-10-31] MEDS: PROPOFOL 1,000 MG/100 ML INFUS..BTL IV PRN (14:13)
[2019-10-31] MEDS: FENTANYL CITRATE INJ/PF 100 MCG/2 ML AMPUL IV SCH ×2 (16:14→22:46)
[2019-10-31] MEDS ORDERED: FUROSEMIDE INJ/PF 20 MG/2 ML SDV IV ONE (16:45)
[2019-10-31] MEDS ORDERED: FENTANYL CITRATE INJ/PF 100 MCG/2 ML AMPUL IV SCH (18:00)
[2019-10-31] MEDS: WARFARIN SODIUM 4 MG TABLET PO SCH (22:47)
[2019-11-01] MEDS: DEXTROSE 5%-WATER 250 ML with PHENYLEPHRINE HCL 40 MG IV PRN ×4 (01:29→14:19)
[2019-11-01] MEDS: PROPOFOL 1,000 MG/100 ML INFUS..BTL IV PRN ×2 (03:09→14:20)
[2019-11-01] MEDS: FENTANYL CITRATE INJ/PF 100 MCG/2 ML AMPUL IV SCH ×4 (03:11→22:04)
[2019-11-01 05:39] LABS: HEMATOCRIT 26.7 % (36.0-47.0); HEMOGLOBIN 8.8 g/dL (12.0-15.5); MEAN CORPUSCULAR HEMOGLOBIN 29.9 pg (27.0-33.4); MEAN CORPUSCULAR HGB CONC 33.2 g/dL (32.0-36.0); MEAN CORPUSCULAR VOLUME 90 fl (80-97); PLATELET COUNT 174 10^3/uL (150-450); RED BLOOD COUNT 2.96 10^6/uL (3.72-5.28)
[2019-11-01 05:41] LABS: PROTHROMBIN TIME 13.1 SEC (11.4-15.4)
[2019-11-01 06:02] LABS: BLOOD UREA NITROGEN 60 mg/dL (7-20); CALCIUM 7.2 mg/dL (8.4-10.2); CHLORIDE 74 mmol/L (98-107); GLUCOSE 145 mg/dL (75-110); PHOSPHORUS 2.9 mg/dL (2.5-4.5); POTASSIUM 3.3 mmol/L (3.6-5.0)
[2019-11-01 06:05] LABS: WHITE BLOOD COUNT 37.6 10^3/uL (4.0-10.5)
[2019-11-01 06:10] LABS: ANION GAP 8 (5-19)
[2019-11-01 06:12] LABS: CARBON DIOXIDE 43 mmol/L (22-30)
[2019-11-01] MEDS: LEVOTHYROXINE SODIUM 0.112 MG TABLET PO SCH (06:42)
[2019-11-01] MEDS: HEPARIN SOD (PORCINE) 1,000 UNIT/ML 10 ML VIAL IV PRN (08:08)
[2019-11-01] MEDS: HEPARIN SODIUM,PORCINE/D5W 25,000 UNIT/250 ML RTUINJ IV PRN ×2 (08:10→18:14)
[2019-11-01] MEDS: ACETAMINOPHEN 325 MG TABLET NG PRN (08:14)
[2019-11-01] MEDS ORDERED: VANCOMYCIN HCL INJ 1000 MG VIAL IV ONE (08:21)
[2019-11-01] MEDS ORDERED: HEPARIN SODIUM,PORCINE/D5W 25,000 UNIT/250 ML RTUINJ IV PRN (08:30)
[2019-11-01] MEDS: FAMOTIDINE INJ/PF 20 MG/2 ML SDV IV SCH ×2 (09:12→22:05)
[2019-11-01] MEDS: NEBIVOLOL HCL 5 MG TABLET NG SCH (09:13)
[2019-11-01] MEDS: FOLIC ACID 1 MG TABLET NG SCH (09:13)
[2019-11-01] MEDS: DOCUSATE SODIUM 100 MG/10 ML UDC NG SCH (09:14)
[2019-11-01] MEDS: CEFEPIME HCL 2 GM in DEXTROSE 5%-WATER 50 ML IV SCH ×2 (09:21→22:05)
[2019-11-01] MEDS: METHYLPREDNISOLONE INJ 40 MG/1 ML SDV IV SCH (09:22)
[2019-11-01] MEDS ORDERED: CEFEPIME 2 GM/D5W RTU 2 GM/50 ML RTUPB IV SCH (10:00)
[2019-11-01] MEDS ORDERED: ACETAZOLAMIDE SODIUM INJ 500 MG VIAL IV SCH (10:00)
--- NOTE | 2019-11-01 10:13 | RADIOLOGY REPORT (SQ) ---
EXAM DESCRIPTION: CHEST SINGLE VIEW COMPLETED DATE/TIME: 11/01/2019 9:59 am REASON FOR STUDY: CHF COMPARISON: 10/29/2019 FINDINGS: One view chest AP portable upright. Lines and tubes appropriate including endotracheal, nasogastric tubes and right IJ line. Pacer in pl adela as before. Stable postoperative appearance of the mediastinum with intact sternal wires. Stable heart size. Improved overall basilar aeration. Persistent basilar volume loss and small effusions, which have im proved. TECHNICAL DOCUMENTATION: JOB ID: [id number] Reading location - IP/workstation name: [email or web address]
--- NOTE | 2019-11-01 10:50 | PDOC CRITICAL CARE PROG REPORT ---
General Date:: 11/01/19 ICU Day:: 3 Ventilator Day:: 3 Hospital Day:: 5 Resuscitation Status: Full Code Events in the past 12 to 24 Hours:: 59-year-old white female with a remote history of non-Hodgkin's lymphoma receive d radiation therapy at the time for treatment. Unfortunately she has developed progressive pulmonary fibrosis with increased oxygen requirements in the recent past. 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 He presented to this facility on Sunday with shortness of breath and weakness and progressed to respiratory failure. The last chest x-ray on the suggested h ydrostatic edema and she has been diuresed but now has a significant metabolic alkalosis. She was started on steroids and her white count jumped up but has remained up than would be expected. She is alert on the ventilator and oxygen requirements are slowly coming down. I spoke with her family and her at length today as she is lucid on the ventilator and her overall status and severity of her disease process. They seem to have a poor understanding of just how chronically ill she might be despite the fact that she is been made a DNR and has discussed transplantation with her physicians at [facility] in the past. Not felt to be a candidate due to her overall status. She is scheduled to be transferred to [facility] when a bed becomes available strongly support given the fact that she is a complicated patient and again they know her baseline status much better than we do. Reason for ICU Addmission:: Respiratory Failure - Medications: Vasopressors:: phenylephrine Physical Exam Vital Signs: Temp Pulse Resp BP Pulse Ox 99.0 F 94 26 H 116/95 H 96 11/01/19 08:00 11/01/19 08:00 11/01/19 08:00 11/01/19 08:00 11/01/19 08:54 Intake & Output 10/31/19 11/01/19 11/02/19 06:59 06:59 06:59 Intake Total 1879 1654 55 Output Total 1455 4358 85 Balance 424 -316 -30 Weight 51 kg 50.8 kg Weight/Height Weight 50.8 kg Height 5 ft 4 in General appearance: PRESENT: no acute distress Mouth exam: PRESENT: dry mucosa Neck exam: ABSENT: JVD, lymphadenopathy, tracheal deviation Respiratory exam: PRESENT: rales Cardiovascular exam: PRESENT: RRR Pulses: PRESENT: normal radial pulses, normal femoral pulses GI/Abdominal exam: PRESENT: normal bowel sounds, soft. ABSENT: distended Extremities exam: PRESENT: +1 edema Neurological exam: PRESENT: alert, oriented to situation Skin exam: ABSENT: cyanosis Tubes/Lines: PRESENT: Endotracheal Tube, Central Line, Nasogastic Tube Laboratory/Radiographs Laboratory Results: 11/01/19 05:00 11/01/19 05:00 10/31/19 11/01/19 11/01/19 11:00 05:00 05:00 WBC 49.9 H* 37.6 H* RBC 3.19 L 2.96 L Hgb 9.7 L 8.8 L Hct 28.1 L 26.7 L MCV 88 90 MCH 30.4 29.9 MCHC 34.5 33.2 RDW 21.8 H 22.0 H Plt Count 219 174 Seg Neutrophils % Not Reportable Sodium 125.1 L Potassium 3.3 L Chloride 74 L Carbon Dioxide 43 H* Anion Gap 8 BUN 60 H Creatinine 0.45 L Est GFR ( Amer) > 60 Glucose 145 H Calcium 7.2 L Phosphorus 2.9 Magnesium 2.2 10/26/19 10/26/19 10/26/19 10:10 13:11 18:38 Creatine Kinase CK-MB (CK-2) 0.96 0.73 Troponin I 0.051 0.046 0.046 NT-Pro-B Natriuret Pep 3240 H 10/27/19 10/27/19 10/28/19 00:47 08:09 05:08 Creatine Kinase CK-MB (CK-2) 0.66 Troponin I 0.048 NT-Pro-B Natriuret Pep 4860 H 3850 H 10/28/19 10/28/19 10/29/19 20:52 20:52 05:50 Creatine Kinase < 20 L CK-MB (CK-2) 0.49 Troponin I 0.030 NT-Pro-B Natriuret Pep 33185 H 83961 H Impressions: Chest X-Ray 10/29/19 00:00 IMPRESSION: Satisfactory position of the right IJ central line and nasogastric tube without complication. copyright 2010 [employer]- All Rights Reserved Assessment and Plan - Diagnosis (1) Acute and chronic respiratory failure with hypercapnia Is this a current diagnosis for this admission?: Yes Plan Summary: This is a very difficult case. She obviously has very chronic in severe lung di sease but the actual baseline lung function is unknown. She has been chronically weak and thin but now presents with increased weakness and peers to be poor nutritional status. She has valvular heart disease with mechanical valves and evidence of volume overload by chest x-ray and BNP on the 12th when she developed worsening respiratory failure and required intubation. White count is elevated but she was started on steroids. Plan: 1 dose of Diamox today and then continue as clinically indicated Follow-up BNP and chest x-ray in a.m. 2 sets of blood cultures and a sputum culture Cover with antibiotics for now Continue low-dose steroids Increase feeds to goal rate Clarify CODE STATUS family is very clear that she should be a full code Transfer to [facility] when a bed is available Long discussion with and daughter as noted Critical Time Critical Time (minutes): 50 Level of Care: ICU -: 1. The care of a critical patient is a dynamic process. This note is a risk control field representative synopsis but static in nature. The timeframe for treatments given in order is not necessarily the actual time these treatments may have been done. 2. This patient requires critical care secondary to ongoing requirements for therapy not offered or safe outside the critical care environment. Transfer to a lower level of care will result in altered life or limb morbidity and mortality.
[2019-11-01] MEDS ORDERED: LORAZEPAM INJ 2 MG/1 ML VIAL IV PRN (11:39)
[2019-11-01] MEDS: VANCOMYCIN HCL 1,000 MG in DEXTROSE 5%-WATER 250 ML IV SCH (14:18)
[2019-11-01] MEDS: WARFARIN SODIUM 4 MG TABLET PO SCH (22:05)
[2019-11-02] MEDS: FENTANYL CITRATE INJ/PF 100 MCG/2 ML AMPUL IV SCH ×4 (02:20→20:43)
[2019-11-02] MEDS: PROPOFOL 1,000 MG/100 ML INFUS..BTL IV PRN ×4 (04:41→20:45)
[2019-11-02] MEDS: LEVOTHYROXINE SODIUM 0.112 MG TABLET PO SCH (05:57)
[2019-11-02 06:09] LABS: INTERNATIONAL RATION (INR) 1.23; PROTHROMBIN TIME 15.6 SEC (11.4-15.4)
[2019-11-02 06:10] LABS: HEMATOCRIT 25.4 % (36.0-47.0); HEMOGLOBIN 8.7 g/dL (12.0-15.5); MEAN CORPUSCULAR HEMOGLOBIN 30.2 pg (27.0-33.4); MEAN CORPUSCULAR HGB CONC 34.2 g/dL (32.0-36.0); MEAN CORPUSCULAR VOLUME 88 fl (80-97); PARTIAL THROMBOPLASTIN TIME 54.6 SEC (23.5-35.8); PLATELET COUNT 186 10^3/uL (150-450); RED BLOOD COUNT 2.87 10^6/uL (3.72-5.28); RED CELL DISTRIBUTION WIDTH 20.5 % (11.5-14.0); WHITE BLOOD COUNT 25.4 10^3/uL (4.0-10.5)
[2019-11-02 06:34] LABS: ABSOLUTE LYMPHOCYTES# (MANUAL) 0.3 10^3/uL (0.5-4.7); ABSOLUTE MONOCYTES # (MANUAL) 0.5 10^3/uL (0.1-1.4); BAND NEUTROPHILS % (MANUAL) 3 % (3-5); BASOPHILS % (MANUAL) 0 % (0-2); EOSINOPHILS % (MANUAL) 0 % (0-6); LYMPHOCYTES % (MANUAL) 1 % (13-45); MONOCYTES % (MANUAL) 2 % (3-13); NUCLEATED RED BLOOD CELLS 1 /100 WBC (0); SEGMENTED NEUTROPHILS % (MAN) 94 % (42-78); TOTAL CELLS COUNTED 100
[2019-11-02 06:35] LABS: ANISOCYTOSIS 2+; BLOOD UREA NITROGEN 46 mg/dL (7-20); BURR CELLS 1+; CALCIUM 7.1 mg/dL (8.4-10.2); CHLORIDE 81 mmol/L (98-107); GLUCOSE 117 mg/dL (75-110); OVALOCYTES 1+; PHOSPHORUS 3.3 mg/dL (2.5-4.5); PLATELET COMMENT ADEQUATE; POIKILOCYTOSIS 1+; POLYCHROMASIA 1+
[2019-11-02] MEDS: HEPARIN SOD (PORCINE) 1,000 UNIT/ML 10 ML VIAL IV PRN (06:39)
[2019-11-02 07:10] LABS: ANION GAP 3 (5-19)
[2019-11-02 07:13] LABS: POTASSIUM 2.5 mmol/L (3.6-5.0)
[2019-11-02 07:14] LABS: CARBON DIOXIDE 42 mmol/L (22-30)
[2019-11-02] MEDS ORDERED: POTASSIUM CHLORIDE 20 MEQ PACKET PO ONE (09:00)
[2019-11-02] MEDS ORDERED: POTASSI CL 20 MEQ/50 ML RIDER 20 MEQ/50 ML RTUPB IV ONE (09:00)
[2019-11-02] MEDS: DOCUSATE SODIUM 100 MG/10 ML UDC NG SCH (09:35)
[2019-11-02] MEDS: METHYLPREDNISOLONE INJ 40 MG/1 ML SDV IV SCH (09:37)
[2019-11-02] MEDS: FOLIC ACID 1 MG TABLET NG SCH (09:38)
[2019-11-02] MEDS: FAMOTIDINE INJ/PF 20 MG/2 ML SDV IV SCH ×2 (09:38→21:04)
[2019-11-02] MEDS: CEFEPIME HCL 2 GM in DEXTROSE 5%-WATER 50 ML IV SCH ×2 (09:39→21:00)
[2019-11-02] MEDS: NEBIVOLOL HCL 5 MG TABLET NG SCH (09:39)
[2019-11-02] MEDS: POTASSIUM CHLORIDE 20 MEQ PACKET PO SCH ×2 (09:42→21:05)
[2019-11-02] MEDS ORDERED: (PENDING PHARMACY ID) (Fluoxetine Hcl [Fluoxetine Hcl] 10 MG) PO SCH (10:00)
[2019-11-02 11:02] LABS: ARTERIAL BLOOD BASE EXCESS 15.6 mmol/L; ARTERIAL BLOOD FIO2 40%; ARTERIAL BLOOD H2CO3 1.91 mmol/L (1.05-1.35); ARTERIAL BLOOD HCO3 42.1 mmol/L (20-24); ARTERIAL BLOOD O2 SATURATION 94.4 % (94-98); ARTERIAL BLOOD PCO2 63.5 mmHg (35-45); ARTERIAL BLOOD PH 7.44 (7.35-7.45); ARTERIAL BLOOD PO2 71.5 mmHg (80-100)
[2019-11-02] MEDS ORDERED: ACETAZOLAMIDE SODIUM INJ 500 MG VIAL IV ONE (13:00)
[2019-11-02] MEDS: DEXTROSE 5%-WATER 250 ML with PHENYLEPHRINE HCL 40 MG IV PRN ×2 (13:17)
[2019-11-02] MEDS: VANCOMYCIN HCL 1,000 MG in DEXTROSE 5%-WATER 250 ML IV SCH ×3 (13:19)
[2019-11-02] MEDS: FLUOXETINE HCL 20 MG/5 ML UDCUP PO SCH (13:19)
[2019-11-02] MEDS: HEPARIN SODIUM,PORCINE/D5W 25,000 UNIT/250 ML RTUINJ IV PRN (13:27)
--- NOTE | 2019-11-02 13:34 | RADIOLOGY REPORT (SQ) ---
EXAM DESCRIPTION: CHEST SINGLE VIEW COMPLETED DATE/TIME: 11/02/2019 1:21 pm REASON FOR STUDY: POSSIBLE PLUG/ACUTE RESP CHANGE COMPARISON: 11/01/2019 FINDINGS: One view chest AP portable semi-upright. Appropriate support lines and tubes including endotracheal, nasogastric tubes, right IJ and left hamilton svenous pacer. Similar lung appearance. Persistent small effusions with mixed interstitial and alveolar basilar opa cities. Upper lung zapata remain clear. No pneumothorax. TECHNICAL DOCUMENTATION: JOB ID: [id number] Reading location - IP/workstation name: [email or web address]
--- NOTE | 2019-11-02 13:57 | PDOC CRITICAL CARE PROG REPORT ---
General Resuscitation Status: Full Code Events in the past 12 to 24 Hours:: 59-year-old white female with pulmonary fibrosis related to remote therapy for lymphoma. She required intubation after becoming fluid overloaded when she presented with generalized weakness and worsening shortness of breath. Her respiratory status is improved somewhat with diuresis but she is developed a significant metabolic alkalosis with hypokalemia. She received 1 dose of max yesterday and will be given another today. This x-ray still appears to be somewhat wet. She tolerated a spontaneous breathing trial on pressure support 10 PEEP of 5 poorly x 2 today. Blood gas was drawn at the end of the second spontaneous breathing trial. All of this is has been carefully discussed with her . She clearly is going to be difficult to wean from the ventilator. She is still on the transfer list at [facility] where she has received her previous care. Reason for ICU Addmission:: Respiratory Failure Physical Exam Vital Signs: Temp Pulse Resp BP Pulse Ox 98.8 F 83 23 H 113/56 L 92 11/02/19 12:00 11/02/19 12:00 11/02/19 12:00 11/02/19 12:00 11/02/19 12:00 Intake & Output 11/01/19 11/02/19 11/03/19 06:59 06:59 06:59 Intake Total 1654 2183 262 Output Total 1970 9642 956 Balance -316 -1225 -223 Weight 50.8 kg 50.7 kg Weight/Height Weight 50.7 kg Height 5 ft 4 in General appearance: PRESENT: severe distress - at the end of the spontaneous breathing trials, thin Eye exam: PRESENT: PERRLA Mouth exam: PRESENT: moist Neck exam: ABSENT: JVD, lymphadenopathy, thyromegaly Respiratory exam: PRESENT: rales Cardiovascular exam: PRESENT: RRR Pulses: PRESENT: normal radial pulses GI/Abdominal exam: PRESENT: soft. ABSENT: tenderness Extremities exam: ABSENT: pedal edema Skin exam: ABSENT: rash Laboratory/Radiographs Laboratory Results: 11/02/19 05:50 11/02/19 05:50 11/02/19 11/02/19 11/02/19 05:50 05:50 10:58 WBC 25.4 H RBC 2.87 L Hgb 8.7 L Hct 25.4 L MCV 88 MCH 30.2 MCHC 34.2 RDW 20.5 H Plt Count 186 Seg Neutrophils % Not Reportable Carbonic Acid 1.91 H HCO3/H2CO3 Ratio 22:1 ABG pH 7.44 ABG pCO2 63.5 H ABG pO2 71.5 L ABG HCO3 42.1 H ABG O2 Saturation 94.4 ABG Base Excess 15.6 FiO2 40% Sodium 126.2 L Potassium 2.5 L* Chloride 81 L Carbon Dioxide 42 H* Anion Gap 3 L BUN 46 H Creatinine 0.47 L Est GFR ( Amer) > 60 Glucose 117 H Calcium 7.1 L Phosphorus 3.3 Magnesium 2.2 11/01/19 09:55 Sputum Gram Stain - Final 10/26/19 10/26/19 10/26/19 10:10 13:11 18:38 Creatine Kinase CK-MB (CK-2) 0.96 0.73 Troponin I 0.051 0.046 0.046 NT-Pro-B Natriuret Pep 3240 H 10/27/19 10/27/19 10/28/19 00:47 08:09 05:08 Creatine Kinase CK-MB (CK-2) 0.66 Troponin I 0.048 NT-Pro-B Natriuret Pep 4860 H 3850 H 10/28/19 10/28/19 10/29/19 20:52 20:52 05:50 Creatine Kinase < 20 L CK-MB (CK-2) 0.49 Troponin I 0.030 NT-Pro-B Natriuret Pep 27302 H 49244 H Assessment and Plan - Diagnosis (1) Acute and chronic respiratory failure with hypercapnia Is this a current diagnosis for this admission?: Yes (2) Acute on chronic respiratory failure with hypoxia and hypercapnia Is this a current diagnosis for this admission?: Yes Plan Summary: This continues to be a very difficult case. She has near end-stage lung disease from the pulmonary fibrosis. She has 2 mechanical valves which may be contributing to pulmonary edema. She is very thin and has limited muscle reserve. Acid-base status is complicated by a severe metabolic alkalosis. Continue aggressive potassium replacement. Diamox again today as discussed. Continue continuous breathing trials as tolerated. Transfer to [facility] when a bed is available as per family request. Continue aggressive nutritional support enterally. D/C vancomycin but continue cefepime as cultures are negative thus far. Critical Time Critical Time (minutes): 55 Level of Care: ICU -: 1. The care of a critical patient is a dynamic process. This note is a media sales representative synopsis but static in nature. The timeframe for treatments given in order is not necessarily the actual time these treatments may have been done. 2. This patient requires critical care secondary to ongoing requirements for therapy not offered or safe outside the critical care environment. Transfer to a lower level of care will result in altered life or limb morbidity and mortality. 3. Multidisciplinary rounds completed. 4. ABCDE bundle addressed.
[2019-11-02] MEDS: WARFARIN SODIUM 4 MG TABLET PO SCH (21:05)
[2019-11-03] MEDS: PROPOFOL 1,000 MG/100 ML INFUS..BTL IV PRN ×3 (03:05→23:37)
[2019-11-03] MEDS: FENTANYL CITRATE INJ/PF 100 MCG/2 ML AMPUL IV SCH ×4 (03:06→20:42)
[2019-11-03] MEDS ORDERED: PHENYLEPHRINE HCL INJ/PF 10 MG/1 ML SDV ONE (05:03)
[2019-11-03] MEDS: DEXTROSE 5%-WATER 250 ML with PHENYLEPHRINE HCL 40 MG IV PRN ×2 (05:20)
[2019-11-03] MEDS: LEVOTHYROXINE SODIUM 0.112 MG TABLET PO SCH (05:24)
[2019-11-03 06:04] LABS: INTERNATIONAL RATION (INR) 1.57; PROTHROMBIN TIME 18.9 SEC (11.4-15.4)
[2019-11-03 06:14] LABS: HEMATOCRIT 28.2 % (36.0-47.0); HEMOGLOBIN 9.3 g/dL (12.0-15.5); MEAN CORPUSCULAR HEMOGLOBIN 29.9 pg (27.0-33.4); MEAN CORPUSCULAR VOLUME 90 fl (80-97); PLATELET COUNT 212 10^3/uL (150-450); RED BLOOD COUNT 3.12 10^6/uL (3.72-5.28); RED CELL DISTRIBUTION WIDTH 21.2 % (11.5-14.0); WHITE BLOOD COUNT 18.3 10^3/uL (4.0-10.5)
[2019-11-03 06:23] LABS: BLOOD UREA NITROGEN 39 mg/dL (7-20); GLUCOSE 112 mg/dL (75-110); PHOSPHORUS 2.8 mg/dL (2.5-4.5)
[2019-11-03 06:28] LABS: CHLORIDE 86 mmol/L (98-107)
[2019-11-03 06:33] LABS: ANION GAP 2 (5-19); CARBON DIOXIDE 39 mmol/L (22-30)
[2019-11-03 06:42] LABS: POTASSIUM 2.8 mmol/L (3.6-5.0)
[2019-11-03 07:00] LABS: ABSOLUTE LYMPHOCYTES# (MANUAL) 0.7 10^3/uL (0.5-4.7); ABSOLUTE MONOCYTES # (MANUAL) 0.5 10^3/uL (0.1-1.4); ANISOCYTOSIS 3+; BAND NEUTROPHILS % (MANUAL) 2 % (3-5); BASOPHILS % (MANUAL) 0 % (0-2); EOSINOPHILS % (MANUAL) 0 % (0-6); HYPOCHROMASIA 1+; LYMPHOCYTES % (MANUAL) 4 % (13-45); METAMYELOCYTES % (MANUAL) 1 % (0-1); MONOCYTES % (MANUAL) 3 % (3-13); NUCLEATED RED BLOOD CELLS 1 /100 WBC (0); PLATELET COMMENT ADEQUATE; SCHISTOCYTES SLIGHT; SEGMENTED NEUTROPHILS % (MAN) 90 % (42-78); TOTAL CELLS COUNTED 100
[2019-11-03] MEDS: POTASSI CL 20 MEQ/50 ML RIDER 20 MEQ/50 ML RTUPB IV SCH ×4 (09:44→23:06)
[2019-11-03] MEDS: FAMOTIDINE INJ/PF 20 MG/2 ML SDV IV SCH ×2 (09:51→21:21)
[2019-11-03] MEDS: CEFEPIME HCL 2 GM in DEXTROSE 5%-WATER 50 ML IV SCH ×2 (10:37→21:20)
[2019-11-03] MEDS: FOLIC ACID 1 MG TABLET NG SCH (10:39)
[2019-11-03] MEDS: METHYLPREDNISOLONE INJ 40 MG/1 ML SDV IV SCH (10:39)
[2019-11-03] MEDS: POTASSIUM CHLORIDE 20 MEQ PACKET PO SCH ×2 (10:39→21:21)
[2019-11-03] MEDS: DOCUSATE SODIUM 100 MG/10 ML UDC NG SCH (10:40)
[2019-11-03] MEDS: FLUOXETINE HCL 20 MG/5 ML UDCUP PO SCH (10:55)
[2019-11-03] MEDS: NEBIVOLOL HCL 5 MG TABLET NG SCH (10:56)
[2019-11-03] MEDS: HEPARIN SODIUM,PORCINE/D5W 25,000 UNIT/250 ML RTUINJ IV PRN (11:03)
--- NOTE | 2019-11-03 11:10 | PDOC CRITICAL CARE PROG REPORT ---
General Date:: 11/03/19 Resuscitation Status: Full Code Events in the past 12 to 24 Hours:: 59-year-old with pulmonary fibrosis related to prior radiation therapy for lymphoma continues to be ventilator dependent. She was switched from Lasix to Diamox as she had developed a marked alkalosis with prerenal physiology. She now is retaining fluid again which is contributing to her inability to wean from the ventilator. She is still awaiting transfer to [facility] when a bed becomes available. Reason for ICU Addmission:: Respiratory Failure Physical Exam Vital Signs: Temp Pulse Resp BP Pulse Ox 99.9 F 90 16 99/52 L 96 11/03/19 08:00 11/03/19 10:00 11/03/19 10:00 11/03/19 10:00 11/03/19 10:00 Intake & Output 11/02/19 11/03/19 11/04/19 06:59 06:59 06:59 Intake Total 19946 112 Output Total 322 1650 250 Balance -1225 26 -138 Weight 50.7 kg 50.9 kg Weight/Height Weight 50.9 kg Height 5 ft 4 in General appearance: PRESENT: mild distress - on spontaneous breathing trial Eye exam: PRESENT: PERRLA. ABSENT: scleral icterus Mouth exam: PRESENT: neck supple Neck exam: ABSENT: JVD, lymphadenopathy, tracheal deviation Respiratory exam: PRESENT: rales Cardiovascular exam: PRESENT: RRR Pulses: PRESENT: normal radial pulses GI/Abdominal exam: PRESENT: soft. ABSENT: tenderness Extremities exam: PRESENT: +1 edema Tubes/Lines: PRESENT: Endotracheal Tube, Central Line, Nasogastic Tube Laboratory/Radiographs Laboratory Results: 11/03/19 05:31 11/03/19 05:31 11/03/19 11/03/19 11/03/19 05:31 05:31 05:31 WBC 18.3 H RBC 3.12 L Hgb 9.3 L Hct 28.2 L MCV 90 MCH 29.9 MCHC 33.0 RDW 21.2 H Plt Count 212 Seg Neutrophils % Not Reportable Sodium 127.0 L Potassium 2.8 L* Chloride 86 L Carbon Dioxide 39 H Anion Gap 2 L BUN 39 H Creatinine 0.44 L Est GFR ( Amer) > 60 Glucose 112 H Calcium 7.0 L* Phosphorus 2.8 Magnesium 2.1 TSH 5.57 H 11/01/19 09:55 Sputum Gram Stain - Final 11/01/19 09:55 Sputum Sputum Culture - Final C.albicans/C.dubliniensis Normal Juanis Absent 10/26/19 10/26/19 10/26/19 10:10 13:11 18:38 Creatine Kinase CK-MB (CK-2) 0.96 0.73 Troponin I 0.051 0.046 0.046 NT-Pro-B Natriuret Pep 3240 H 10/27/19 10/27/19 10/28/19 00:47 08:09 05:08 Creatine Kinase CK-MB (CK-2) 0.66 Troponin I 0.048 NT-Pro-B Natriuret Pep 4860 H 3850 H 10/28/19 10/28/19 10/29/19 20:52 20:52 05:50 Creatine Kinase < 20 L CK-MB (CK-2) 0.49 Troponin I 0.030 NT-Pro-B Natriuret Pep 18111 H 12139 H Assessment and Plan - Diagnosis (1) Acute and chronic respiratory failure with hypercapnia Is this a current diagnosis for this admission?: Yes (2) Acute on chronic respiratory failure with hypoxia and hypercapnia Is this a current diagnosis for this admission?: Yes Plan Summary: Respiratory failure secondary to pulmonary fibrosis and a component of congestive heart failure She has 2 mechanical valves She is on Coumadin at 4 mg daily with a INR of just below 2 She is also on the heparin drip until her INR is between 2 and 3 Increase Diamox to 500 mg twice daily Limit additional fluids as possible Increase Coumadin to 5 mg every afternoon Continue enteral nutrition Continue to replace potassium Continue empiric cefepime Critical Time Critical Time (minutes): 45 Level of Care: ICU -: 1. The care of a critical patient is a dynamic process. This note is a eligibility services representative synopsis but static in nature. The timeframe for treatments given in order is not necessarily the actual time these treatments may have been done. 2. This patient requires critical care secondary to ongoing requirements for therapy not offered or safe outside the critical care environment. Transfer to a lower level of care will result in altered life or limb morbidity and mortality. 3. Multidisciplinary rounds completed. 4. ABCDE bundle addressed.
[2019-11-03] MEDS: ACETAZOLAMIDE SODIUM INJ 500 MG VIAL IV SCH ×2 (12:29→20:42)
[2019-11-03 13:05] LABS: HEMATOCRIT 28.7 % (36.0-47.0); HEMOGLOBIN 9.4 g/dL (12.0-15.5); MEAN CORPUSCULAR HEMOGLOBIN 29.7 pg (27.0-33.4); MEAN CORPUSCULAR HGB CONC 32.9 g/dL (32.0-36.0); MEAN CORPUSCULAR VOLUME 90 fl (80-97); RED BLOOD COUNT 3.17 10^6/uL (3.72-5.28); RED CELL DISTRIBUTION WIDTH 21.3 % (11.5-14.0); WHITE BLOOD COUNT 21.4 10^3/uL (4.0-10.5)
[2019-11-03 13:56] LABS: PLATELET COUNT 222 10^3/uL (150-450)
[2019-11-03] MEDS: LEVOTHYROXINE SODIUM 0.15 MG TABLET PO SCH (17:48)
[2019-11-03] MEDS ORDERED: WARFARIN SODIUM 5 MG TABLET PO SCH (22:00)
[2019-11-04 03:22] LABS: ARTERIAL BLOOD BASE EXCESS 9.8 mmol/L; ARTERIAL BLOOD FIO2 40%; ARTERIAL BLOOD H2CO3 1.49 mmol/L (1.05-1.35); ARTERIAL BLOOD HCO3 34.9 mmol/L (20-24); ARTERIAL BLOOD O2 SATURATION 96.6 % (94-98); ARTERIAL BLOOD PCO2 49.6 mmHg (35-45); ARTERIAL BLOOD PH 7.47 (7.35-7.45); ARTERIAL BLOOD PO2 83.5 mmHg (80-100); ARTERIAL BLOOD TOTAL CO2 36.4 mmol/L (21-25)
[2019-11-04 03:37] LABS: HEMATOCRIT 26.8 % (36.0-47.0); HEMOGLOBIN 8.6 g/dL (12.0-15.5); MEAN CORPUSCULAR HEMOGLOBIN 29.4 pg (27.0-33.4); MEAN CORPUSCULAR HGB CONC 32.3 g/dL (32.0-36.0); MEAN CORPUSCULAR VOLUME 91 fl (80-97); PLATELET COUNT 275 10^3/uL (150-450); RED BLOOD COUNT 2.94 10^6/uL (3.72-5.28); RED CELL DISTRIBUTION WIDTH 21.5 % (11.5-14.0); WHITE BLOOD COUNT 21.8 10^3/uL (4.0-10.5)
[2019-11-04] MEDS: FENTANYL CITRATE INJ/PF 100 MCG/2 ML AMPUL IV SCH ×2 (03:39→08:24)
[2019-11-04 03:41] LABS: INTERNATIONAL RATION (INR) 1.63; PROTHROMBIN TIME 19.5 SEC (11.4-15.4)
[2019-11-04 03:43] LABS: PARTIAL THROMBOPLASTIN TIME 118.9 SEC (23.5-35.8)
[2019-11-04 04:08] LABS: ABSOLUTE LYMPHOCYTES# (MANUAL) 0.9 10^3/uL (0.5-4.7); ABSOLUTE MONOCYTES # (MANUAL) 0.9 10^3/uL (0.1-1.4); BASOPHILS % (MANUAL) 0 % (0-2); EOSINOPHILS % (MANUAL) 0 % (0-6); LYMPHOCYTES % (MANUAL) 4 % (13-45); MONOCYTES % (MANUAL) 4 % (3-13); NUCLEATED RED BLOOD CELLS 1 /100 WBC (0); SEGMENTED NEUTROPHILS % (MAN) 92 % (42-78); TOTAL CELLS COUNTED 100
[2019-11-04 04:10] LABS: ANISOCYTOSIS 3+; OVALOCYTES SLIGHT; POIKILOCYTOSIS SLIGHT; POLYCHROMASIA SLIGHT; TEAR DROP CELLS SLIGHT; TOXIC GRANULATION 1+
[2019-11-04 04:11] LABS: PLATELET COMMENT ADEQUATE; PLATELET LARGE PRESENT; SCHISTOCYTES SLIGHT
[2019-11-04 04:51] LABS: BLOOD UREA NITROGEN 38 mg/dL (7-20); CALCIUM 7.1 mg/dL (8.4-10.2); CHLORIDE 89 mmol/L (98-107); GLUCOSE 124 mg/dL (75-110); PHOSPHORUS 3.3 mg/dL (2.5-4.5); POTASSIUM 3.7 mmol/L (3.6-5.0)
[2019-11-04] MEDS: LEVOTHYROXINE SODIUM 0.15 MG TABLET PO SCH (05:06)
[2019-11-04 05:16] LABS: ANION GAP 6 (5-19); CARBON DIOXIDE 35 mmol/L (22-30)
[2019-11-04] MEDS: CALCIUM GLUCONATE 1 GM/NS 50 ML RTU IV SCH ×2 (07:01→08:19)
--- NOTE | 2019-11-04 08:20 | RADIOLOGY REPORT (SQ) ---
EXAM DESCRIPTION: CHEST SINGLE VIEW COMPLETED DATE/TIME: 11/04/2019 5:57 am REASON FOR STUDY: chf COMPARISON: AP chest 11/02/2019, 11/01/2019, 10/29/2019, 10/28/2019, 10/26/2019 EXAM PARAMETERS: NUMBER OF VIEWS: One view. TECHNIQUE: Single frontal radiographic view of the chest acquired. RADIATION DOSE: NA LIMITATIONS: None. FINDINGS: LUNGS AND PLEURA: Trace bilateral pleural effusions with bibasilar airspace disease persis ts, unchanged. No pneumothorax. MEDIASTINUM AND HILAR STRUCTURES: No masses. Contour normal. HEART AND VASCULAR STRUCTURES: No cardiomegaly. Old sternotomy with mitral and aortic valve replacem ents. Left-sided dual lead pacemaker. BONES: No acute findings. HARDWARE: Endotracheal tube tip 6 cm above the yadira. Right jugular central line tip superior vena cava. Nasogastric tube tip and side port in the stomach. Surgical clips left upper quadrant. OTHER: No other significant finding. IMPRESSION: No change in bibasilar airspace disease trace bilateral pleural effusions. Tubes and lines as above. TECHNICAL DOCUMENTATION: JOB ID: [id number] 2010 [employer] All Rights Reserved Reading location - IP/workstation name: [email or web address]
[2019-11-04] MEDS ORDERED: DEXMEDETOMIDINE IN 0.9 % NACL 400 MCG/100 ML RTUPB IV PRN (09:35)
[2019-11-04] MEDS: HEPARIN SODIUM,PORCINE/D5W 25,000 UNIT/250 ML RTUINJ IV PRN (10:43)
[2019-11-04] MEDS: FLUOXETINE HCL 20 MG/5 ML UDCUP PO SCH (10:43)
[2019-11-04] MEDS: POTASSIUM CHLORIDE 20 MEQ PACKET PO SCH (10:44)
[2019-11-04] MEDS: FOLIC ACID 1 MG TABLET NG SCH (10:44)
[2019-11-04] MEDS: NEBIVOLOL HCL 5 MG TABLET NG SCH (10:44)
[2019-11-04] MEDS: FAMOTIDINE INJ/PF 20 MG/2 ML SDV IV SCH (10:45)
[2019-11-04] MEDS: DOCUSATE SODIUM 100 MG/10 ML UDC NG SCH (10:45)
[2019-11-04] MEDS: METHYLPREDNISOLONE INJ 40 MG/1 ML SDV IV SCH (10:45)
[2019-11-04] MEDS: CEFEPIME HCL 2 GM in DEXTROSE 5%-WATER 50 ML IV SCH (10:47)
[2019-11-04 10:55] LABS: PROTHROMBIN TIME 19.2 SEC (11.4-15.4)
--- NOTE | 2019-11-04 12:07 | RADIOLOGY REPORT (SQ) ---
EXAM DESCRIPTION: CTA CHEST COMPLETED DATE/TIME: 11/04/2019 11:35 am REASON FOR STUDY: Hypoxia COMPARISON: CT chest 10/22/2016, 05/26/2016, 04/23/2019 Chest films 11/04/2019 TECHNIQUE: CT scan of the chest performed using helical scanning technique with dynamic intravenous contrast injection. Images reviewed with lung, soft tissue and bone windows. Reconstructed coronal and sagittal MPR images reviewed. Additional 3 dimensional post-processing performed to develop Maximal Intensity Projection images (NC P). All images stored on PACS. All CT scanners at this facility use dose modulation, iterative reconstruction, and/or weight based d osing when appropriate to reduce radiation dose to as low as reasonably achievable (ALARA). [facility]: Dose Right [facility]: CareDose [facility]: Dose Right [facility]: Teradose 4D [facility]: [employer]master CONTRAST TYPE AND DOSE: contrast/concentration: Isovue 350.00 mg/ml; Total Contrast Delivered: 45.0 ml; Total Saline Delivered: 75.0 ml Contrast bolus adequate for pulmonary arteries and aorta. RENAL FUNCTION: Creatinine 0.5 RADIATION DOSE: CT Rad equipment meets quality standard of care and radiation dose reduction techniq ues were employed. CTDIvol: 3.8 - 4.7 mGy. DLP: 183 mGy-cm. . LIMITATIONS: None. FINDINGS: LUNGS AND PLEURA: There is dense consolidation at both lung bases worrisome for pneumonia. This causes the hazy opacity over both lung bases on chest film. No pleural effusion. No pneumoth orax. AORTA AND GREAT VESSELS: No thoracic aortic aneurysm or dissection. HEART: Post aortic and mitral valve replacement. Small pericardial effusion best shown on axial image 54 and coronal image 29/73. No significant coronary artery calcifications. PULMONARY ARTERIES: No emboli visualized in the main pulmonary arteries or the segmental branches. HILAR AND MEDIASTINAL STRUCTURES: No identified masses or abnormal nodes. HARDWARE: Aortic and mitral valve replacement. Left-sided dual lead pacemaker. Nasogastric tube tip and side port in the stomach. UPPER ABDOMEN: Trace ascites between the right hemidiaphragm and liver. 3 cm cyst right lobe liver. Nasogastric tube tip and side port in the stomach THYROID AND OTHER SOFT TISSUES: No masses. No adenopathy. BONES: No acute or significant finding. 3D MIPS: Confirm above findings. OTHER: No other significant finding. IMPRESSION: Bibasilar consolidation worrisome for pneumonia. Small pericardial effusion. No CT angio evidence of acute pulmonary emboli or thoracic aortic dissection. COMMENT: Quality ID # [id number]: Final reports with documentation of one or more dose reduction techniques (e.g., Automated exposure control, adjustment of the mA and/or kV according to patient size, use of iterative reconstruction technique) TECHNICAL DOCUMENTATION: JOB ID: [id number] 2010 [employer]- All Rights Reserved Reading location - IP/workstation name: [email or web address]
[2019-11-04] MEDS ORDERED: VANCOMYCIN HCL 0 MG in DEXTROSE 5%-WATER 250 ML IV NR (12:45)
--- NOTE | 2019-11-04 14:53 | PDOC CRITICAL CARE PROG REPORT ---
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 No acute hemodynamic changes. Ventilator pressures 25- 27. No bleeding on heparin. Erythema of abdomen region reportably improved. 11.03.2019:59-year-old with pulmonary fibrosis related to prior radiation therapy for lymphoma continues to be ventilator dependent. She was switched from Lasix to Diamox as she had developed a marked alkalosis with prerenal physiology. She now is retaining fluid again which is contributing to her inability to wean from the ventilator. She is still awaiting transfer to [facility] when a bed becomes available. Review of systems relevant to events:: Note above 11.04.2019: Discussed with . Seen at both [facility], [facility] and [facility] in the past. No formal lung biopsy. Unsure of bronchoscopy. endorses renal tumor Reason for ICU Addmission:: Respiratory Failure - Medications: Medications reviewed and adjusted accordingly: Yes Vasopressors:: phenylephrine now off. No vasopressor requirements Sedation:: Propofol and Fentanyl IV q8. Ativan d/c'd Physical Exam Vital Signs: Temp Pulse Resp BP Pulse Ox 98.4 F 101 H 23 H 113/70 100 11/04/19 05:03 11/03/19 22:00 11/03/19 18:00 11/03/19 18:00 11/04/19 04:58 Intake & Output 11/03/19 11/04/19 11/05/19 06:59 06:59 06:59 Intake Total 1676 902 Output Total 1650 1365 Balance 26 -463 Weight 50.9 kg 51.1 kg Weight/Height Weight 51.1 kg Height 5 ft 4 in General appearance: PRESENT: no acute distress, thin, other - Bitemporal muscle wasting. Cachectic Exam: Intubated, chronically ill appearing, NAD. Responsive to voice Head exam: PRESENT: atraumatic, normocephalic, other - Bitemporal muscle wasting Eye exam: PRESENT: conjunctiva pink, PERRLA. ABSENT: conjunctival injection, nystagmus, scleral icterus Ear exam: PRESENT: normal external ear exam Mouth exam: PRESENT: dry mucosa, neck supple Neck exam: PRESENT: other - RIJ CVC site clean without erythema. ABSENT: carotid bruit, JVD, thyromegaly Respiratory exam: PRESENT: decreased breath sounds, unlabored, other - Critical care US shows mixed consolidation pattern, No significant effusions.. ABSENT: accessory muscle use, crackles, rales, retraction, rhonchi, tachypnea Cardiovascular exam: PRESENT: clicks, RRR, +S1, +S2. ABSENT: rubs Pulses: PRESENT: +2 pedal pulses bilateral Vascular exam: PRESENT: normal capillary refill. ABSENT: pallor GI/Abdominal exam: PRESENT: normal bowel sounds, soft, other - Mild erythema of waistline. Family endorses adult diaper present two days ago.. ABSENT: ascites, distended, guarding, mass, organolmegaly, rebound, tenderness Rectal exam: PRESENT: deferred Gentrourinary exam: PRESENT: indwelling catheter, other - Mild labial swelling Extremities exam: PRESENT: pedal edema - left more than right Musculoskeletal exam: PRESENT: full ROM, normal inspection. ABSENT: ambulatory, deformity, dislocation, tenderness, other Neurological exam: PRESENT: altered - Sedated. ABSENT: motor sensory deficit Psychiatric exam: ABSENT: agitated, anxious Focused psych exam: ABSENT: restlessness Skin exam: PRESENT: dry, erythema - lower abdomen. Reportably improved, other - brown discoid lesions of lower extremity , proximal without erythema. ABSENT: abrasion, cyanosis, intact, jaundice, mottled, pallor, petechiae, rash, skin tea rs, urticaria, vesicles, warm Tubes/Lines: PRESENT: Endotracheal Tube, Central Line, Other - OG tube and [place] Laboratory/Radiographs Laboratory Results: 11/04/19 03:15 11/04/19 03:15 11/03/19 11/04/19 11/04/19 12:30 02:54 03:15 WBC 21.4 H RBC 3.17 L Hgb 9.4 L Hct 28.7 L MCV 90 MCH 29.7 MCHC 32.9 RDW 21.3 H Plt Count 222 Seg Neutrophils % Carbonic Acid 1.49 H HCO3/H2CO3 Ratio 23:1 ABG pH 7.47 H ABG pCO2 49.6 H ABG pO2 83.5 ABG HCO3 34.9 H ABG O2 Saturation 96.6 ABG Base Excess 9.8 FiO2 40% Sodium 130.0 L Potassium 3.7 Chloride 89 L Carbon Dioxide 35 H Anion Gap 6 BUN 38 H Creatinine 0.47 L Est GFR ( Amer) > 60 Glucose 124 H Calcium 7.1 L Ionized Calcium Sherman Phosphorus 3.3 Magnesium 2.2 11/04/19 11/04/19 03:15 03:15 WBC 21.8 H RBC 2.94 L Hgb 8.6 L Hct 26.8 L MCV 91 MCH 29.4 MCHC 32.3 RDW 21.5 H Plt Count 275 Seg Neutrophils % Not Reportable Carbonic Acid HCO3/H2CO3 Ratio ABG pH ABG pCO2 ABG pO2 ABG HCO3 ABG O2 Saturation ABG Base Excess FiO2 Sodium Potassium Chloride Carbon Dioxide Anion Gap BUN Creatinine Est GFR ( Amer) Glucose Calcium Ionized Calcium Sherman 1.02 L Phosphorus Magnesium 10/26/19 10/26/19 10/26/19 10:10 13:11 18:38 Creatine Kinase CK-MB (CK-2) 0.96 0.73 Troponin I 0.051 0.046 0.046 NT-Pro-B Natriuret Pep 3240 H 10/27/19 10/27/19 10/28/19 00:47 08:09 05:08 Creatine Kinase CK-MB (CK-2) 0.66 Troponin I 0.048 NT-Pro-B Natriuret Pep 4860 H 3850 H 10/28/19 10/28/19 10/29/19 20:52 20:52 05:50 Creatine Kinase < 20 L CK-MB (CK-2) 0.49 Troponin I 0.030 NT-Pro-B Natriuret Pep 49641 H 67362 H Impressions: Chest X-Ray 11/04/19 05:00 IMPRESSION: No change in bibasilar airspace disease trace bilateral pleural effusions. Tubes and lines as above. 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 Is this a current diagnosis for this admission?: Yes (3) Post-splenectomy Is this a current diagnosis for this admission?: Yes (4) Protein-calorie malnutrition, moderate Is this a current diagnosis for this admission?: Yes (5) Sepsis with acute respiratory failure and septic shock Qualifiers: Sepsis type: sepsis due to unspecified organism Acute respiratory failure type: with hypoxia Qualified Code(s): A41.9 - Sepsis, unspecified organism; R65.21 - Severe sepsis with septic shock; J96.01 - Acute respiratory failure with hypoxia Is this a current diagnosis for this admission?: Yes (6) Pneumonia Qualifiers: Pneumonia type: due to unspecified organism Laterality: bilateral Lung location: lower lobe of lung Qualified Code(s): J18.9 - Pneumonia, unspecified organism Is this a current diagnosis for this admission?: Yes (7) Chronic restrictive lung disease Is this a current diagnosis for this admission?: Yes (8) Failure to thrive syndrome, adult Is this a current diagnosis for this admission?: Yes (9) Pulmonary hypertension Is this a current diagnosis for this admission?: Yes Plan Summary: 11.04.2019: Patient's vasopressor requirements have improved and we will continue to follow hemodynamics. And concerned about the degree of lung disease and have ordered a CT scan to evaluate lung parenchyma and overall mediastinal appearance. Family has requested that the patient be transferred to a higher level of care given our limited resources and subspecialty support. I spent significant amount of time in discussion with the family including the and son. The patient normally is seen at [facility]'s pulmonary service however they are unable to accept her for transfer. This is also the case at [facility]. I did reach out to [facility] and they do have a bed available and [facility] and for further care. Follow-up items from our standpoint: 1. Bronchoscopy 2. Possible need for tracheostomy and PEG tube 3. Echocardiogram to evaluate pulmonary pressures and evaluate valvular mechanical system 4. We will need nutritional support 5. Heparin for mechanical valves. Hold warfarin 6. ANCA? 7. Add Vanco. Would prefer linezolid but contraindicated 11.03.2019: Respiratory failure secondary to pulmonary fibrosis and a component of congestive heart failure She has 2 mechanical valves She is on Coumadin at 4 mg daily with a INR of just below 2 She is also on the heparin drip until her INR is between 2 and 3 Increase Diamox to 500 mg twice daily Limit additional fluids as possible Increase Coumadin to 5 mg every afternoon Continue enteral nutrition Continue to replace potassium Continue empiric cefepime Critical Time Critical Time (minutes): 70 Level of Care: ICU Anticipated discharge: [facility] Within: within 24 hours -: 1. The care of a critical patient is a dynamic process. This note is a retention representative synopsis but static in nature. The timeframe for treatments given in order is not necessarily the actual time these treatments may have been done. 2. This patient requires critical care secondary to ongoing requirements for therapy not offered or safe outside the critical care environment. Transfer to a lower level of care will result in altered life or limb morbidity and mortality. 3. Multidisciplinary rounds completed. 4. ABCDE bundle addressed.
--- NOTE | 2019-11-04 15:02 | PDOC TRANSFER SUMMARY ---
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 Is this a current diagnosis for this admission?: Yes (4) Post-splenectomy Is this a current diagnosis for this admission?: Yes (5) Protein-calorie malnutrition, moderate Is this a current diagnosis for this admission?: Yes (6) Sepsis with acute respiratory failure and septic shock Is this a current diagnosis for this admission?: Yes (7) Pneumonia Is this a current diagnosis for this admission?: Yes (8) Chronic restrictive lung disease Is this a current diagnosis for this admission?: Yes (9) Failure to thrive syndrome, adult Is this a current diagnosis for this admission?: Yes (10) Renal mass Is this a current diagnosis for this admission?: Yes - Transfer Medications Home Medications: Docusate Sodium [Colace 100 mg Capsule] 100 mg PO DAILY 10/26/19 Folic Acid [Folvite 1 mg Tablet] 1 mg PO DAILY 10/26/19 Furosemide [Lasix 80 mg Tablet] 80 mg PO BID 10/26/19 Levothyroxine Sodium [Synthroid 0.112 mg Tablet] 0.112 mg PO Q6AM 10/26/19 Metolazone [Zaroxolyn 2.5 mg Tablet] 2.5 mg PO QAM 10/26/19 Nebivolol HCl [Bystolic 5 mg Tablet] 5 mg PO DAILY 10/26/19 Potassium Chloride [Klor-Con 10 Meq Tablet ER] 20 meq PO TID 10/26/19 Torsemide [Demadex 20 mg Tablet] 20 mg PO DAILY 10/26/19 Tramadol HCl [Ultram 50 mg Tablet] 50 mg PO BIDP PRN 10/26/19 Warfarin Sodium [Coumadin 3 mg Tablet] 9 mg PO MOWEFR@1000 10/26/19 Warfarin Sodium [Coumadin 4 mg Tablet] 8 mg PO SUTUTHSA@1000 10/26/19 Fluoxetine HCl 10 mg PO DAILY 11/01/19 Transfer Medications: Current Medications Acetaminophen (Tylenol 325 Mg Tablet) 650 mg NG Q4HP PRN PRN Reason: FEVER Stop: 11/25/19 12:38 Last Admin: 11/01/19 08:14 Dose: 650 mg Documented by: Docusate Sodium (Colace Udc 100 Mg/10 Ml Oral Soln) 100 mg NG DAILY [facility] Stop: 11/28/19 05:29 Last Admin: 11/04/19 10:45 Dose: Not Given Documented by: Famotidine (Pepcid Inj/Pf 20 Mg/2 Ml Sdv) 20 mg IV Q12 [facility] Stop: 11/25/19 21:59 Last Admin: 11/04/19 10:45 Dose: 20 mg Documented by: Fentanyl Citrate (Sublimaze Inj/Pf 100 Mcg/2 Ml Ampule) 12.5 mcg IV Q6A [facility] Stop: 11/07/19 15:59 Last Admin: 11/04/19 08:24 Dose: 12.5 mcg Documented by: Fluoxetine HCl (Prozac Soln 20 Mg/5 Ml Udcup) 10 mg PO DAILY [facility] Stop: 12/02/19 09:59 Last Admin: 11/04/19 10:43 Dose: 10 mg Documented by: Folic Acid (Folvite 1 Mg Tablet) 1 mg NG DAILY [facility] Stop: 11/26/19 09:59 Last Admin: 11/04/19 10:44 Dose: 1 mg Documented by: Heparin Sodium (Porcine) (Heparin Inj 1,000 Unit/Ml 10 Ml Vial) 0 - 15,000 unit IV .BOLUS PER PROTOCOL PRN; Protocol PRN Reason: RESPOND TO aPTT VALUE Stop: 11/29/19 11:15 Last Admin: 11/02/19 06:39 Dose: 2,000 units Documented by: Propofol (Diprivan Rtu 1000 Mg/100 Ml Inf.Bottle) 1,000 mg in 100 mls @ 1.632 mls/hr IV CONTINUOUS PRN; Protocol PRN Reason: THIS MED IS NOT "PRN" Stop: 11/28/19 03:56 Last Admin: 11/03/19 23:37 Dose: 20 mcg/kg/min, 6.53 mls/hr Documented by: Heparin Sodium/Dextrose (Heparin Rtu 25,000 Unit/250 Ml D5w Premix) 25,000 unit in 250 mls @ 0 mls/hr IV .CONTINUOUS PRN; Protocol PRN Reason: THIS MED IS NOT "PRN" Stop: 12/01/19 08:29 Last Admin: 11/04/19 10:43 Dose: 22 unit/kg/hr, 11.18 mls/hr Documented by: Cefepime HCl 2 gm/ Dextrose 50 mls @ 100 mls/hr IV Q12 [facility] Stop: 11/08/19 09:59 Last Admin: 11/04/19 10:47 Dose: 4 gm/hr, 100 mls/hr Documented by: Dexmedetomidine/Sodium Chloride (Precedex 400 Mcg/Ns 100 Ml Iv Premix) 400 mcg in 100 mls @ 0 mls/hr IV CONTINUOUS PRN; Protocol PRN Reason: THIS MED IS NOT "PRN" Stop: 12/04/19 09:34 Vancomycin HCl 1,000 mg/ (Dextrose) 250 mls @ 166.667 mls/hr IV Q12A [facility] Stop: 11/11/19 17:59 Levothyroxine Sodium (Synthroid 0.15 Mg Tablet) 0.15 mg PO Q6AM [facility] Stop: 12/03/19 15:59 Last Admin: 11/04/19 05:06 Dose: 0.15 mg Documented by: Methylprednisolone Sodium Succinate (Solu-Medrol Inj/Pf 40 Mg/1 Ml Sdv) 20 mg IV DAILY [facility] Stop: 12/01/19 09:59 Last Admin: 11/04/19 10:45 Dose: 20 mg Documented by: Nebivolol (Bystolic 5 Mg Tablet) 5 mg NG DAILY [facility] Stop: 11/26/19 09:59 Last Admin: 11/04/19 10:44 Dose: 5 mg Documented by: Ondansetron HCl (Zofran Inj/Pf 4 Mg/2 Ml Sdv) 4 mg IV Q8HP PRN PRN Reason: FOR NAUSEA/VOMITING Stop: 11/27/19 08:57 Potassium Chloride (Potassium Chloride 20 Meq Packet) 20 meq PO Q12 [facility] Stop: 12/02/19 09:59 Last Admin: 11/04/19 10:44 Dose: 20 meq Documented by: Sodium Chloride (Nacl 0.9% Inj/Pf 10 Ml Sdv) 10 ml IV .AFTER EACH USE PRN PRN Reason: AFTER EACH INTERMITTENT USE Stop: 11/28/19 03:49 Sodium Chloride (Saline Flush 2.5 Ml Monoject Prefil Syrin) 2.5 ml IV Q8 [facility] Stop: 12/04/19 13:59 - Allergies Allergies/Adverse Reactions: ketorolac tromethamine [From Toradol] Allergy (Unknown, Verified 10/31/19 14:07) clarithromycin [From Biaxin] Allergy (Verified 10/31/19 14:07) morphine [Morphine] Adverse Reaction (Intermediate, Verified 10/31/19 14:07) oxycodone HCl [From Percocet] Adverse Reaction (Intermediate, Verified 10/31/19 14:07) Hospital Course Hospital Course: The patient was originally admitted October 26, 2019 for worsening respiratory failure. attests that she was requiring higher oxygen. She was admitted to the medical floor but continued to worsen and was admitted to the ICU after a rapid response was called culminating in the need for mechanical ventilation. She was also hypotensive and the vasopressor requirements resolved. Supportive care the day prior to transfer. She remained in the ICU with difficulty weaning from mechanical ventilation. CT scan was done to evaluate pulmonary disease and this did show significant cons olidation which was also confirmed on bedside critical care ultrasound. No significant effusion existed for drainage. She was maintained on heparin and started on warfarin as a bridge however the warfarin was discontinued in concern for the need for procedures. Patient is known to the [facility] because of her significant pulmonary disease and also sees Dr. Skinner in a nearby town. I had a lengthy discussion with Dr. Skinner who states that the patient has had significant restrictive lung disease with worsening lung compliance. She required escalation to BiPAP recently. He had a CT scan of the chest which showed significant consolidation in the lower lobes with some early bronchiectasis. There is emphysema. She has a history of a renal tumor which was to be biopsied. Family is quite concerned that the hospital has limited resources to care for her complex illnesses. They have requested transfer to either [facility], [facility] or [facility]. Both [facility] and [facility] did not have available beds although they did accept her. [facility] has been able to secure a bed for the patient and she is to be transferred. Physical Exam Vital Signs: Temp Pulse Resp BP Pulse Ox 98.4 F 86 17 98/45 L 96 11/04/19 12:00 11/04/19 14:00 11/04/19 14:00 11/04/19 14:00 11/04/19 14:43 Intake & Output 11/03/19 11/04/19 11/05/19 06:59 06:59 06:59 Intake Total 3350 902 43 Output Total 4211 4890 541 Balance 17 -035 -064 Weight 50.9 kg 51.1 kg 51.1 kg Exam: See today's progress note Head exam: PRESENT: atraumatic Results Laboratory Results: 11/04/19 03:15 11/04/19 03:15 11/01/19 11/04/19 11/04/19 05:00 02:54 03:15 WBC 37.6 H* RBC 2.96 L Hgb 8.8 L Hct 26.7 L MCV 90 MCH 29.9 MCHC 33.2 RDW 22.0 H Plt Count 174 Seg Neutrophils % Carbonic Acid 1.49 H HCO3/H2CO3 Ratio 23:1 ABG pH 7.47 H ABG pCO2 49.6 H ABG pO2 83.5 ABG HCO3 34.9 H ABG O2 Saturation 96.6 ABG Base Excess 9.8 FiO2 40% Sodium 130.0 L Potassium 3.7 Chloride 89 L Carbon Dioxide 35 H Anion Gap 6 BUN 38 H Creatinine 0.47 L Est GFR ( Amer) > 60 Glucose 124 H Calcium 7.1 L Ionized Calcium Sherman Phosphorus 3.3 Magnesium 2.2 11/04/19 11/04/19 03:15 03:15 WBC 21.8 H RBC 2.94 L Hgb 8.6 L Hct 26.8 L MCV 91 MCH 29.4 MCHC 32.3 RDW 21.5 H Plt Count 275 Seg Neutrophils % Not Reportable Carbonic Acid HCO3/H2CO3 Ratio ABG pH ABG pCO2 ABG pO2 ABG HCO3 ABG O2 Saturation ABG Base Excess FiO2 Sodium Potassium Chloride Carbon Dioxide Anion Gap BUN Creatinine Est GFR ( Amer) Glucose Calcium Ionized Calcium Sherman 1.02 L Phosphorus Magnesium 10/26/19 10/26/19 10/26/19 10:10 13:11 18:38 Creatine Kinase CK-MB (CK-2) 0.96 0.73 Troponin I 0.051 0.046 0.046 NT-Pro-B Natriuret Pep 3240 H 10/27/19 10/27/19 10/28/19 00:47 08:09 05:08 Creatine Kinase CK-MB (CK-2) 0.66 Troponin I 0.048 NT-Pro-B Natriuret Pep 4860 H 3850 H 10/28/19 10/28/19 10/29/19 20:52 20:52 05:50 Creatine Kinase < 20 L CK-MB (CK-2) 0.49 Troponin I 0.030 NT-Pro-B Natriuret Pep 26835 H 50995 H Impressions: Chest/Abdomen CTA 11/04/19 00:00 IMPRESSION: Bibasilar consolidation worrisome for pneumonia. Small pericardial effusion. No CT angio evidence of acute pulmonary emboli or thoracic aortic dissection. Chest X-Ray 11/04/19 05:00 IMPRESSION: No change in bibasilar airspace disease trace bilateral pleural effusions. Tubes and lines as above. Plan Discharge Plan: Transfer to [facility] To new mechanical ventilation Had vancomycin Consider bronchoscopy, ANCA Consideration for the need for tracheostomy and PEG tube Additional support secondary to protein calorie malnutrition Time Spent: Greater than 30 Minutes
[2019-11-04 16:48] VITALS: BP 94/44
[2019-11-04] MEDS ORDERED: VANCOMYCIN HCL 1,000 MG in DEXTROSE 5%-WATER 250 ML IV SCH (18:00)
== END 2019-11-04 17:20 | disposition short-term general hospital (02) | DRG 4 ==
LOC: ER 09:37 → EH 11:49 → 3S 14:20 → ICU 10-28 21:40
PROVIDERS: ADMIT Family Medicine; ATTEND Internal Medicine Critical Care Medicine
PROC: 5A09457 Assistance with Respiratory Ventilation, 24-96 Consecutive Hours, Continuous Positive Airway Pressure (ICD-10-PCS; 2019-10-26)
PROC: 0B110F4 Bypass Trachea to Cutaneous with Tracheostomy Device, Open Approach (ICD-10-PCS; principal; 2019-10-29)
PROC: 5A1955Z Respiratory Ventilation, Greater than 96 Consecutive Hours (ICD-10-PCS; 2019-10-29)
PROC: 02HV33Z Insertion of Infusion Device into Superior Vena Cava, Percutaneous Approach (ICD-10-PCS; 2019-10-29)
DX: J96.21 Acute and chronic respiratory failure with hypoxia (principal); N18.6 End stage renal disease; J13 Pneumonia due to Streptococcus pneumoniae; I50.23 Acute on chronic systolic (congestive) heart failure; I13.0 Hypertensive heart and chronic kidney disease with heart failure and stage 1 through stage 4 chronic kidney disease, or unspecified chronic kidney disease; D78.89 Other postprocedural complications of the spleen; E44.0 Moderate protein-calorie malnutrition; E87.1 Hypo-osmolality and hyponatremia; E87.3 Alkalosis; J96.22 Acute and chronic respiratory failure with hypercapnia; I71.2 Thoracic aortic aneurysm, without rupture; E03.9 Hypothyroidism, unspecified; Z78.1 Physical restraint status; I27.20 Pulmonary hypertension, unspecified; R62.7 Adult failure to thrive; J43.9 Emphysema, unspecified; F41.9 Anxiety disorder, unspecified; F32.9 Major depressive disorder, single episode, unspecified; Z66 Do not resuscitate; E87.70 Fluid overload, unspecified; E88.09 Other disorders of plasma-protein metabolism, not elsewhere classified; Z79.899 Other long term (current) drug therapy; Z79.01 Long term (current) use of anticoagulants; Z88.6 Allergy status to analgesic agent; Z88.8 Allergy status to other drugs, medicaments and biological substances; Z92.3 Personal history of irradiation; Z95.2 Presence of prosthetic heart valve; Z86.711 Personal history of pulmonary embolism; Z88.3 Allergy status to other anti-infective agents; Z79.890 Hormone replacement therapy; Z99.81 Dependence on supplemental oxygen; Z85.72 Personal history of non-Hodgkin lymphomas
CPT/HCPCS: 36415; 36556; 71045; 71275; 80048; 80053; 81001; 82330; 82550; 82553; 82803; 83605; 83735; 83880; 84100; 84443; 84484; 85025; 85027; 85610; 85730; 87040; 87070; 87077; 87205; 93005; 93010; 94002; 94003; 94640; 94660; 96374; 99239; 99291; J0610; J0692; J1120; J1644; J1940; J2060; J2270; J2370; J2543; J2704; J2920; J2930; J3010; J3370; J3480; J3490; J7060; J7620; P9047; S0028